=== PATIENT | male | born 1955 | race Caucasian/White ===

== ENCOUNTER 2016-07-22 05:38 | Day surgery (SDC) | payer OTHER ==
[2016-07-21 10:21] VITALS: BMI 41.3
[~2016-07-22] VITALS: Ht 190.5 cm; Wt 170.6 kg
[2016-07-22] VITALS (9 sets, daily range): BP systolic 100–147; BP diastolic 42–83; PULSE 92–107; RESP 16–38; Ht 190.5 cm; Wt 170.6 kg
[~2016-07-22 05:38] MED LIST: ADV25050 INH; ALBU18HF IH; ASPI-664 PO; ATOR20TA38 PO; BACTDS PO; BENA10TA48 PO; BUPIVACAINE 0.5% (MPF) 30 ML INJ EPI ONE; BUPIVACAINE 0.5% 30 ML VIAL INJ ONE; FLUT12HF IH; FURO40TA4 PO; GABA-526 PO; LACT1CAP57 PO; LANT3I SC; LISI-523 PO; METF500T PO; NOVO3I SC; RIVA10TA PO; TAMS-14 PO; THIA100T56 PO; TRAZ50TA18 PO; [UNRECOGNIZED DRUG - CODE] TOP; [UNRECOGNIZED DRUG - CODE] TOP
[2016-07-22] MEDS ORDERED: CEFAZOLIN 1 GM INJ ONE (07:00)
[2016-07-22] MEDS ORDERED: PROPOFOL 200 MG INJ ONE (07:00)
[2016-07-22] MEDS ORDERED: CEFAZOLIN 2 GM/50 ML (PMX) 50 ML IVPB SCH (07:00)
[2016-07-22] MEDS ORDERED: LIDOCAINE 1% (STERILE-PAK) 30 ML INJ ONE (07:12)
--- NOTE | 2016-07-22 07:17 | HPN ---
Date/Time of Note Date/Time of Note DATE: 07/22/16 TIME: 07:16 Interval H&P Admission Note Pt. seen H&P reviewed: No system changes LUZ KRISHNAN MD Jul 22, 2016 07:17
[2016-07-22] MEDS ORDERED: FENTAnyl 50 MCG/ML VIAL ONE ×3 (07:29→09:44)
--- NOTE | 2016-07-22 07:55 | PDOCDIS ---
Discharge Instructions DIAGNOSIS Discharge Diagnosis: RLE VENOUS INSUFFICIENCY CONDITION Patient Condition: Good HOME CARE INSTRUCTIONS: Diet Instructions: Reduced Calorie ACTIVITY: Activity Restrictions: Slowly Increase Activity Avoid heavy lifting Do not Drive Do not operate Machinery Do not operate Power Tool Avoid Heavy Housework Keep Limb Elevated Activity Restrictions Comment: MAY SHOWER IN 72 HOURS FOLLOW UP/APPOINTMENTS Appointments FOLLOWUP IN TWO WEEKS AT [facility] WITH EULOGIO MAY REMOVE THE ACEWRAP DRESSING IN 48HRS MAY SHOWER IN 48HOURS, DO NOT REMOVE STERISTRIPS AND ALLOW THEM TO COME OFF ON THEIR OWN THERE WILL BE A GLUE IN THE RIGHT GROIN, NO NEED TO SCRUB IT OFF IT WILL PEEL AWAY ON ITS OWN OVER 2-3 WEEKS COURSE LUZ KRISHNAN MD Jul 22, 2016 07:55
[2016-07-22] MEDS ORDERED: THROMBIN 5000 UNIT VIAL TOP ONE (08:17)
[2016-07-22] MEDS ORDERED: BUPIVACAINE 0.5% 30 ML VIAL INJ ONE (08:17)
[2016-07-22] MEDS ORDERED: LIDOCAINE 1% (MPF) 30 ML INJ INJ ONE (08:17)
[2016-07-22] MEDS ORDERED: GELATIN SIZE 100 SPONGE ONE (08:30)
[2016-07-22] MEDS ORDERED: METOCLOPRAMIDE 10 MG INJ IV PRN (08:30)
[2016-07-22] MEDS ORDERED: ONDANSETRON 4 MG INJ IV PRN (08:30)
[2016-07-22] MEDS ORDERED: FENTAnyl 50 MCG/ML VIAL IV PRN ×2 (08:30)
[2016-07-22] MEDS ORDERED: HYDROmorphONE (0.2 MG/ML) 10ML SYG IV PRN ×3 (08:30)
[2016-07-22] MEDS ORDERED: BUPIVACAINE 0.5% (SDV) 30 ML INJ ONE ×2 (08:30→09:50)
[2016-07-22] MEDS ORDERED: THROMBIN 5000 UNIT VIAL ONE (08:31)
--- NOTE | 2016-07-23 23:04 | OPR ---
Date/Time of Note Date/Time of Note DATE: 07/23/16 TIME: 23:01 Operative Report Free Text/Dictation DATE OF OPERATION: 07/22/2016 SURGEON: Franck Krishnan MD PREOPERATIVE DIAGNOSIS: Right lower extremity venous insufficiency with right leg large varicose veins POSTOPERATIVE DIAGNOSIS: same PROCEDURE: 1. Left greater saphenous vein ligation and stripping 2. Stab phlebectomies x10 ANESTHESIA: MAC & local COMPLICATIONS: None. ESTIMATED BLOOD LOSS: Minimal. TRANSFUSIONS: None SPECIMEN: None. INDICATIONS: This is a 60-year-old morbidly obese and noncompliant male with a history of chronic venous insufficiency with left leg varicose veins associated with pruritus, discomfort and pain The risks and benefits of the procedure were discussed with the patient and not limited to , [place], pneumonia, stroke, infection, thrombosis of vein and she elected to undergo surgical intervention. DESCRIPTION: The patient was placed in supine position on the operating room table. The arms were placed at 80 degrees. The normal bony prominences were padded. The anesthesia team had placed the appropriate lines and anesthesia was induced. Time-out performed and the appropriate site was marked and confirmed. The patient's left lower extremity was already marked in the holding area with the areas of varicosities. The extremity was prepped and draped in the usual standard sterile fashion. Preoperative antibiotics were administered prior to the skin incision. All varicosities were pre-marked in the surgery holding area. Primary incision was then made in the right inguinal crease overlying the saphenofemoral junction. This was identified as being 1 cm medial and 1 cm inferior to the femoral artery pulse. The subcutaneous tissue was divided with electrocautery. The greater saphenous vein was identified and traced proximally towards the saphenofemoral junction. Multiple venous tributaries were divided with a 3-0 silk ligatures. The greater saphenous vein was doubly ligated at its origin with a 2-0 silk ligature. The distal ligature was not tied however it was left in. A second incision was made a few centimeters below the knee. The subcutaneous tissue was divided and the saphenous vein was identified, then encircled proximally and distally with 3-0 silk ties. This time the distal ligature was secured and the proximal LigaSure left in position. Care was taken to avoid injury to the saphenous nerve. A small transverse venotomy was created with a # 11 blade. The stripping wire was inserted and passed proximally towards the groin without difficulty. The greater saphenous vein was then divided completely at the groin, allowing the vein stripping wire to exit. Prior to removal of the stripping wire was secured at both ends with a 2-0 silk ties that has been left in position. The greater saphenous vein was then stripped from distal to proximal with pressure being exerted as the vein was stripped. At this point hemostasis was controlled by elevation and pressure. Small incisions approximately 2-4 mm, were created over the preoperative marked areas using a #11 blade. A small jesus hook and mosquito hemostat was used to avulse these veins. Veins were then pulled both proximally and distally. After hemostasis was obtained the wounds are irrigated copiously. The wound and the groin was closed in multiple layers with a 3-0 Vicryl Sutures Followed by Running 4-0 Subcuticular Stitch. Wounds Were the Stab Avulsions Occurred Were Closed with Steri-Strips. The Wound at the Below-Knee Incision Was Closed with a 4-0 Vicryl Suture. Steri-Strips Were Applied. All Wounds Were Sterilely Dressed with Gauze. Multiple 1cm stab incisions were made using #15 blade after injecting 1% lidocaine for local anesthesia. Short Reny clamp was used to dissect out the varicosities and stripping was performed in more than ten different areas that were marked preoperatively. Incisions were closed using 3-0 Vicryl sutures. Mastisol and steri strips were applied.Then Doubly Applied 6 Inch Stephan Bandage Was Placed on the Lower Leg Beginning at the Toes All the Way up to the Upper Thigh. The Patient Tolerated the Procedure Well and Was taken to the Postanesthesia Care Unit in Stable Condition. All instruments, catheters, sponges, and needles were corrected x2. FRANCK KRISHNAN MD Jul 23, 2016 23:04
== END 2016-07-22 11:39 | disposition home or self-care (01) ==
LOC: SDS 05:38
PROVIDERS: ATTEND Student in an Organized Health Care Education/Training Program
DX: I83.891 Varicose veins of right lower extremity with other complications (principal); I10 Essential (primary) hypertension; E11.9 Type 2 diabetes mellitus without complications; E78.5 Hyperlipidemia, unspecified; J44.9 Chronic obstructive pulmonary disease, unspecified
CPT/HCPCS: 37765; 82962; 88304; J0690; J3010; Z7512; Z7610

== ENCOUNTER 2016-07-26 02:44 | Inpatient (IN) | payer OTHER ==
[~2016-07-26] VITALS: Ht 190.5 cm; Wt 171.0 kg
[~2016-07-26 02:44] MED LIST changes: -BUPIVACAINE 0.5% (MPF) 30 ML INJ EPI ONE; -BUPIVACAINE 0.5% 30 ML VIAL INJ ONE
[2016-07-26 02:50] VITALS: Ht 190.5 cm; Wt 171.0 kg
--- NOTE | 2016-07-26 03:32 | ERA ---
ER Documentation Chief Complaint Date/Time DATE: 07/26/16 TIME: 03:31 Chief Complaint sob x 3 days. difficulty swallowing. s/p vein "stripping" 4 days ago HPI The patient is a 60-year-old male, presenting to the ER because of acute dyspnea for the last 4 days, sore throat for 2 days, chronic cough. He complains of right lower extremity swollen and redness for the last 3 days after he had varicosis vein surgery 4 days ago. He denies fever, chills, neck pain, chest pain, abdominal pain, vomiting, dysuria, diarrhea. He used to smoke until about a year ago, denies drinking Past medical history: Dyslipidemia, asthma, hypertension, BPH, history of CHF, atrial fibrillation, COPD, diabetes mellitus, depression, varicosis vein Past surgical history: None ROS All systems reviewed and are negative except as per history of present illness. Medications Home Meds Active Scripts Sulfamethoxazole-Trimethoprim* (Bactrim* DS) 800-160 Mg Tab, 1 TAB PO BID for 5 Days, #10 TAB Prov:ASHANTI WHITLEY MD 05/28/16 Tolnaftate* (Tolnaftate*) 1% Cr, 1 APPLIC TOP DAILY for 10 Days, #10 2 Refills Prov:ASHANTI WHITLEY MD 05/28/16 Thiamine* (Vitamin B-1*) 100 Mg Tablet, 100 MG PO DAILY for 30 Days, #30 TAB 2 Refills Prov:ASHANTI WHITLEY MD 05/28/16 Neomycin/Polymyxin/Bacitr/Hc* (Cortisporin* Topical) 15 Gm Oint, 1 APPLIC TOP BID for 20 Days, #20 2 Refills Prov:ASHANTI WHITLEY MD 05/28/16 Metformin Hcl (Glucophage) 500 Mg Tablet, 1000 MG PO BID WITH MEALS for 30 Days , #30 TAB 3 Refills Prov:ASHANTI WHITLEY MD 05/28/16 Lactobacillus Rhamnosus* (Culturelle*) 1 Each Cap.sprink, 1 CAP PO BID for 14 Days, #30 CAP Prov:ASHANTI WHITLEY MD 05/28/16 Insulin Glargine* (Lantus*) 100 Unit/Ml Soln, 40 UNIT SC QPM for 10 Days, #10 2 Refills Prov:ASHANTI WHITLEY MD 05/28/16 Insulin Aspart* (Novolog Insulin Pen*) 100 Unit/Ml Soln, 15 UNIT SC WITH MEALS for 10 Days, #14 1 Refill Prov:ASHANTI WHITLEY MD 05/28/16 Furosemide* (Furosemide*) 40 Mg Tablet, 40 MG PO BID DIURETICS for 7 Days, #15 TAB Prov:ASHANTI WHITLEY MD 05/28/16 Lisinopril* (Zestril*) 5 Mg Tab, 5 MG PO DAILY for 30 Days, TAB Prov:BELGICA RODRIGUEZ NP 08/31/15 Reported Medications Salmeterol Xinaf-Fluticasone* (Advair HFA*) 45/212 Aerosol Inhaler, 2 INH IH BID , #1 INHALER 07/21/16 Trazodone Hcl* (Trazodone Hcl*) 50 Mg Tablet, 50 MG PO QHS Y for SLEEP, #30 TAB 07/21/16 Gabapentin* (Gabapentin*) 600 Mg Tablet, 600 MG PO TID Y for PAIN, #90 TAB 07/21/16 Atorvastatin Calcium* (Atorvastatin Calcium*) 20 Mg Tablet, 20 MG PO QHS, #30 TAB 07/21/16 Benazepril Hcl* (Benazepril Hcl*) 10 Mg Tablet, 10 MG PO DAILY, #30 TAB 07/21/16 Rivaroxaban* (Xarelto*) 10 Mg Tablet, 10 MG PO QHS, TAB 05/22/16 Albuterol Sulfate* (Ventolin HFA*) 18 Gm Hfa.aer.ad, 2 PUFF IH Q4H Y for WHEEZING AND RESP DISTRESS, EA 07/21/14 Aspirin* (Aspirin* (EC)) 81 Mg Tablet.dr, 81 MG PO DAILY, TAB 07/21/14 Salmeterol Xinaf/Fluticasone* (Advair*) 250-50 Diskus Inhaler, 1 INH INH BID, INH 07/21/14 Tamsulosin Hcl* (Flomax*) 0.4 Mg Cap.er.24h, 0.4 MG PO DAILY, CAP 07/21/14 Discontinued Reported Medications Escitalopram Oxalate* (Lexapro*) 10 Mg Tablet, 10 MG PO DAILY, #30 TAB 05/22/16 Atorvastatin Calcium (Atorvastatin Calcium) 10 Mg Tablet, 10 MG PO QHS, #30 TAB 05/22/16 Buspirone Hcl* (Buspirone Hcl*) 10 Mg Tab, 10 MG PO BID, TAB 07/21/14 Allergies Allergies: Coded Allergies: Soap (Verified Allergy, Mild, 06/19/16) RASH povidone-iodine (Verified Allergy, Mild, 06/19/16) RASH iodine (Verified Allergy, Unknown, 07/21/16) PMhx/Soc History of Surgery: Yes (spleen, lung surg, right shoulder, righ hip, multiple hernia, left foot) Anesthesia Reaction: No Hx Neurological Disorder: No Hx Respiratory Disorders: Yes (stated he was at a hospital and they said he has COPD doesnt treat at home) Hx Cardiac Disorders: Yes (HTN, high cholest) Hx Psychiatric Problems: No Hx Miscellaneous Medical Probl: No Hx Alcohol Use: Yes (social) Hx Substance Use: No Hx Tobacco Use: No Smoking Status: Former smoker Physical Exam Vitals Vital Signs Date Time Temp Pulse Resp B/P Pulse Ox O2 Delivery O2 Flow Rate FiO2 07/26/16 03:57 Nasal Cannula 2 07/26/16 03:50 106 22 91 21 07/26/16 02:50 99.1 117 20 158/69 92 Physical Exam Const: No acute distress. Head: Atraumatic. Eyes: Normal Conjunctiva. ENT: Normal External Ears, Nose and Mouth. Neck: Full range of motion. No meningismus. Resp: Bilateral expiratory wheezes, tachypneic Cardio: Irregularly irregular tachycardic. Abd: Soft, non distended, normal bowel sounds, non tender. Skin: No petechiae or rashes. Back: No midline or flank tenderness. Ext: No cyanosis, or edema. Neur: Awake and alert. No focal deficit Psych: Normal Mood and Affect. Result Diagram: 07/26/16 0354 07/26/16 0354 Results 24 hrs Laboratory Tests Test 07/26/16 03:54 07/26/16 05:47 Activated Partial Thromboplast Time 29.7Sec Alanine Aminotransferase (ALT/SGPT) 30IU/L Albumin 3.7g/dl Albumin/Globulin Ratio 1.42 Alkaline Phosphatase 220IU/L Anion Gap 18 Aspartate Amino Transf (AST/SGOT) 27IU/L B-Type Natriuretic Peptide 83PG/ML Basophils # 0.110^3/ul Basophils % 0.5% Blood Urea Nitrogen 33mg/dl Calcium Level 9.7mg/dl Carbon Dioxide Level 28mmol/L Chloride Level 99mmol/L Creatinine 0.89mg/dl Direct Bilirubin 0.00mg/dl Eosinophils # 0.310^3/ul Eosinophils % 1.7% Globulin 2.60g/dl Glucose Level 498mg/dl Hematocrit 44.7% Hemoglobin 14.1g/dl INR International Normalized Ratio 0.89 Indirect Bilirubin 0.0mg/dl Lymphocytes # 3.110^3/ul Lymphocytes % 20.9% Mean Corpuscular Hemoglobin 29.0pg Mean Corpuscular Hemoglobin Concent 31.5g/dl Mean Corpuscular Volume 92.0fl Mean Platelet Volume 11.2fl Monocytes # 1.510^3/ul Monocytes % 10.1% Neutrophils # 9.910^3/ul Neutrophils % 66.1% Nucleated Red Blood Cells # 0.010^3/ul Nucleated Red Blood Cells % 0.0/100WBC Platelet Count 64285^3/UL Potassium Level 5.1mmol/L Prothrombin Time 12.0Sec Prothrombin Time Ratio 0.9 Red Blood Count 4.8610^6/ul Red Cell Distribution Width 13.3% Sodium Level 140mmol/L Total Bilirubin 0.0mg/dl Total Protein 6.3g/dl Troponin I 0.018ng/ml White Blood Count 15.010^3/ul Bedside Glucose 392mg/dL Current Medications Medications (Trade) Dose Ordered Sig/Wilder Route PRN Reason Start Time Stop Time Status Last Admin Dose Admin Promethazine HCl/ Codeine (Phenergan/ Codeine) 10 ml ONCE ONCE PO 07/26/16 04:00 07/26/16 04:01 DC 07/26/16 04:10 Levalbuterol (Xopenex Neb) 1.25 mg ONCE ONCE HHN 07/26/16 04:00 07/26/16 04:01 DC 07/26/16 03:49 Ipratropium [place] 0.5 mg 0.5 mg ONCE ONCE HHN 07/26/16 04:00 07/26/16 04:01 DC 07/26/16 03:49 Levofloxacin/ Dextrose 150 ml @ 100 mls/hr ONCE ONCE IVPB 07/26/16 04:30 07/26/16 05:59 07/26/16 04:41 Vancomycin HCl (Vancocin) 250 ml @ 125 mls/hr ONCE IVPB 07/26/16 04:30 07/26/16 06:29 Methylprednisolone Sodium Succinate (Solu-Medrol) 125 mg ONCE ONCE IV 07/26/16 04:30 07/26/16 04:31 DC 07/26/16 04:41 Insulin Human Lispro (Humalog) 14 unit ONCE ONCE SC 07/26/16 05:14 07/26/16 05:15 DC 07/26/16 05:50 IV Flush (NS 3 ml) 3 ml PER PROTOCOL IV 07/26/16 06:00 Lorazepam (Ativan) 0.5 mg Q6H PRN IV ANXIETY 07/26/16 06:00 Ondansetron HCl (Zofran Inj) 4 mg Q6H PRN IV NAUSEA AND/OR VOMITING 07/26/16 06:00 Nitroglycerin (Nitroglycerin (Sl Tab) 0.4 Mg) 1 tab Q5M PRN SL CHEST PAIN 07/26/16 06:00 Acetaminophen (Tylenol Tab) 650 mg Q6H PRN PO PAIN LEVEL 1-3 OR FEVER 07/26/16 06:00 Acetaminophen/ Hydrocodone Bitart ([place] (5/325)) 1 tab Q6H PRN PO PAIN LEVEL 4-6 07/26/16 06:00 Morphine Sulfate (morphine) 2 mg Q4H PRN IV PAIN LEVEL 7-10 07/26/16 06:00 Docusate Sodium (Colace) 100 mg Q12H PRN PO CONSTIPATION 07/26/16 06:00 Famotidine (Pepcid) 20 mg Q12 PO 07/26/16 09:00 Albuterol/ Ipratropium (Duoneb) 3 ml Q2H RESP THERAPY PRN HHN SHORTNESS OF BREATH 07/26/16 06:00 Insulin Aspart (Novolog Insulin Pen) NOVOLOG *MILD* ALGORITHM WITH MEALS BEDTIME SC 07/26/16 08:00 Miscellaneous Information (* Miscellaneous Pharmacy Order) HYPOGLYCEMIA PROTOCOL w... ONCE ONCE XX 07/26/16 06:00 07/26/16 06:01 UNV Miscellaneous Information (* Miscellaneous Pharmacy Order) Discontinue Glyburide, Glipizide,... ONCE ONCE XX 07/26/16 06:00 07/26/16 06:01 UNV Miscellaneous Information (* Miscellaneous Pharmacy Order) Discontinue all previ... ONCE ONCE XX 07/26/16 06:00 07/26/16 06:01 UNV Aspirin (Halfprin) 81 mg DAILY PO 07/26/16 09:00 Atorvastatin Calcium (Lipitor) 20 mg QHS PO 07/26/16 21:00 Benazepril HCl (Lotensin) 10 mg DAILY PO 07/26/16 09:00 Furosemide (Lasix) 40 mg BID DIURETICS PO 07/26/16 06:00 Gabapentin (Neurontin) 600 mg TID PRN PO PAIN 07/26/16 06:00 Insulin Aspart (Novolog Insulin Pen) 15 unit WITH MEALS SC 07/26/16 08:00 UNV Insulin Glargine (Lantus) 40 unit QPM SC 07/26/16 21:00 UNV Lactobacillus Acidophilus/ Rhamnosus (Culturelle) 1 cap BID PO 07/26/16 09:00 UNV Lisinopril (Zestril) 5 mg DAILY PO 07/26/16 09:00 UNV Neomycin/ Polymyxin/Bacitr/ Hydrocort (Cortisporin Topical Oint) 1 applic BID TOP 07/26/16 09:00 UNV Rivaroxaban (Xarelto) 10 mg QHS PO 07/26/16 21:00 UNV Salmeterol Xinafoate/ Fluticasone (Advair 250/50 Diskus) 1 inh BID INH 07/26/16 09:00 UNV Tamsulosin HCl (Flomax) 0.4 mg DAILY PO 07/26/16 09:00 UNV Thiamine HCl (Vitamin B1) 100 mg DAILY PO 07/26/16 09:00 UNV Tolnaftate (Tolnaftate 1% Cr) 1 applic DAILY TOP 07/26/16 09:00 UNV Trazodone HCl (Desyrel) 50 mg QHS PRN PO SLEEP 07/26/16 06:00 UNV Miscellaneous Information 2 inh BID IH 07/26/16 09:00 UNV Prednisone 60 mg 60 mg DAILY PO 07/26/16 09:00 UNV Levofloxacin/ Dextrose (Levaquin 500mg/ D5W 100 ml (Pmx)) 100 ml @ 100 mls/hr Q24H IVPB 07/27/16 06:00 Vancomycin HCl (Vanco Iv Per Pharmacy) VANCOMYCIN PER PHARMACY PER PROTOCOL XX 07/26/16 06:00 UNV Procedures/MDM EKG: Read by emergency physician Rate/Rhythm: Sinus tachycardia 110 beats/min QRS, ST, T-waves: No ST elevation, no T inversion, right bundle branch block Impression: Abnormal EKG [place] [id number] Radiology Main Line: [phone] DIAGNOSTIC IMAGING REPORT Patient: AIMEE RODRIGUEZ : 1955 Age: 60 Sex: M MR #: [id number] DOS: 07/26/16 0339 Ordering MD: LEXY QUINTANA MD Location: E/R Room/Bed: PROCEDURE: CHEST - 1 VIEW CLINICAL INDICATION: 60-year-old male with shortness of breath. TECHNIQUE: A single frontal AP a view of the chest was performed portably. The images were reviewed on a PACS workstation. COMPARISON: Chest x-ray May 22, 2016. FINDINGS: The cardiomediastinal silhouette is enlarged but without significant interval change. There is mild pulmonary vascular congestion. There is a shallow inspiration. There is bilateral lower lung zone subsegmental atelectasis. There is no evidence for focal consolidation. There is no evidence for pneumothorax. There are multiple old left rib fracture deformities present. IMPRESSION: 1. Cardiomegaly. 2. Mild pulmonary vascular congestion. 3. Shallow inspiration. 4. Bilateral lower lung zone subsegmental atelectasis. 5. Multiple old left rib fracture deformities. .Joe Vazquez MD, MD Date Time Electronically viewed and signed by .Joe Vazquez MD, on 07/26/2016 04:20 .M/ CC: LEXY QUINTANA MD MEDICAL MAKING DECISION: The patient is a 70-year-old male, presenting with acute COPD exacerbation, acute right lower extremity cellulitis, acute diabetic hyperglycemia. The differential diagnoses considered include but are not limited to asthma, COPD, pneumonia, pulmonary embolus, pleural effusion, congestive heart failure, DKA, HHS. He was treated with 10 mL Phenergan with codeine for sore throat, Xopenex 1.25 mg and Atrovent 0.5 mg nebulizer for wheezing, Levaquin IV and vancomycin IV and Solu-Medrol 125 mg IV for acute COPD exacerbation and acute right leg cellulitis, Humalog 14 units subcutaneously for acute diabetic hyperglycemia Critical Care: Time: 35 minutes excluding all billable procedures. Treatments/Evaluations: Close monitoring and treatment of unstable vital signs, cardiorespiratory, and neurologic status, while maintaining tight balance of fluid, respiratory, and cardiac interventions. Departure Diagnosis: Primary Impression: COPD exacerbation Additional Impressions: Cellulitis of right leg Diabetes mellitus with hyperglycemia Condition: Stable Comments I discussed the findings with the patient. I discussed the patient with the on- call hospitalist Dr Tellez. who was made aware of the lab, the treatment, the patient condition. The patient is admitted to telemetry at 4:45 AM LEXY QUINTANA MD Jul 26, 2016 03:32
[2016-07-26] MEDS ORDERED: PROMETHAZINE/CODEINE 5ML CUP PO ONE (04:00)
[2016-07-26] MEDS ORDERED: LEVALBUTEROL (NEB) 1.25 MG/0.5 ML AMP HHN ONE (04:00)
[2016-07-26] MEDS ORDERED: IPRATROPIUM (NEB) 0.5 MG/2.5 ML AMP HHN ONE (04:00)
[2016-07-26 04:10] LABS: ADD SCAN DIFF NO
[2016-07-26 04:13] LABS: ABNORMAL IP MESSAGE 1; BASOPHIL # 0.1 10^3/ul (0.0-0.1); BASOPHILS % 0.5 % (0.0-2.0); EOSINOPHILS # 0.3 10^3/ul (0.0-0.5); EOSINOPHILS % 1.7 % (0.0-7.0); HEMATOCRIT 44.7 % (42.0-52.0); HEMOGLOBIN 14.1 g/dl (14.0-18.0); LYMPHOCYTES # 3.1 10^3/ul (0.8-2.9); LYMPHOCYTES % 20.9 % (15.0-51.0); MEAN CORPUSCULAR HGB CONC 31.5 g/dl (32.0-37.0); MEAN PLATELET VOLUME 11.2 fl (7.4-10.4); MONOCYTE # 1.5 10^3/ul (0.3-0.9); MONOCYTES % 10.1 % (0.0-11.0); NEUTROPHIL # 9.9 10^3/ul (1.6-7.5); NEUTROPHILS % 66.1 % (39.0-77.0); PLATELET COUNT 292 10^3/UL (140-415); RED BLOOD COUNT 4.86 10^6/ul (4.70-6.10); RED CELL DISTRIBUTION WIDTH 13.3 % (11.5-14.5)
--- NOTE | 2016-07-26 04:20 | RADRPT ---
PROCEDURE: CHEST - 1 VIEW CLINICAL INDICATION: 60-year-old male with shortness of breath. TECHNIQUE: A single frontal AP a view of the chest was performed portably. The images were review ed on a PACS workstation. COMPARISON: Chest x-ray May 22, 2016. FINDINGS: The cardiomediastinal silhouette is enlarged but without significant interval change. There is mild pulmonary vascular congestion. There is a shallow inspiration. There is bilateral lower lung zone subsegmental atelectasis. There is no evidence for focal consolidation. There is no evidence for pneumothorax. There are multiple old left rib fracture deformities present. IMPRESSION: 1. Cardiomegaly. 2. Mild pulmonary vascular congestion. 3. Shallow inspiration. 4. Bilateral lower lung zone subsegmental atelectasis. 5. Multiple old left rib fracture deformities. .Joe Vazquez MD, Date Time Electronically viewed and signed by .Joe Vazquez MD, on 07/26/2016 04:20 .M/
[2016-07-26 04:25] LABS: INR 0.89; PT RATIO 0.9
[2016-07-26 04:26] LABS: PARTIAL THROMBOPLASTIN TIME 29.7 Sec (25.0-35.0)
[2016-07-26] MEDS ORDERED: LEVOFLOXACIN 750MG/D5W (PMX) 150 ML IVPB ONE (04:30)
[2016-07-26] MEDS ORDERED: METHYLPREDNISOLONE 125 MG INJ IV ONE (04:30)
[2016-07-26] MEDS ORDERED: VANCOMYCIN 1 GM (PMX) 250 ML IVPB SCH (04:30)
[2016-07-26 04:46] LABS: ALBUMIN 3.7 g/dl (3.3-4.9)
[2016-07-26 04:47] LABS: POTASSIUM 5.1 mmol/L (3.5-5.1)
[2016-07-26 04:49] LABS: ALBUMIN/GLOBULIN RATIO 1.42; CREATININE 0.89 mg/dl (0.61-1.24); TOTAL PROTEIN 6.3 g/dl (6.1-8.1)
[2016-07-26 04:50] LABS: CALCIUM 9.7 mg/dl (8.4-10.2)
[2016-07-26 05:02] LABS: TROPONIN-I 0.018 ng/ml (0.00-0.12)
[2016-07-26] MEDS ORDERED: INSULIN LISPRO 100 UNIT/ML VIAL SC ONE (05:14)
[2016-07-26] MEDS ORDERED: GLUCOSE GEL 15 GRAM TUBE BUCCAL PRN (06:00)
[2016-07-26] MEDS ORDERED: GLUCOSE GEL 15 GRAM TUBE PO PRN ×2 (06:00)
[2016-07-26] MEDS ORDERED: VANCOMYCIN IV PER PHARMACY XX SCH (06:00)
[2016-07-26] MEDS ORDERED: GLUCAGON 1 MG INJ IM PRN (06:00)
[2016-07-26] MEDS ORDERED: GABAPENTIN 300 MG CAP PO PRN (06:00)
[2016-07-26] MEDS ORDERED: NACL 0.9% 3 ML SYG IV SCH (06:00)
[2016-07-26] MEDS ORDERED: HYDROCODONE/APAP (5/325) TAB PO PRN (06:00)
[2016-07-26] MEDS ORDERED: DEXTROSE 50% 50 ML SYRINGE IV PRN ×2 (06:00)
[2016-07-26] MEDS ORDERED: DOCUSATE SODIUM 100 MG CAP PO PRN (06:00)
[2016-07-26] MEDS ORDERED: ONDANSETRON 4 MG INJ IV PRN (06:00)
[2016-07-26] MEDS ORDERED: ALBUTEROL/IPRATROPIUM (NEB) 3 ML AMP HHN PRN (06:00)
[2016-07-26] MEDS ORDERED: LORAZEPAM 2 MG INJ IV PRN (06:00)
[2016-07-26] MEDS ORDERED: ACETAMINOPHEN 325 MG TAB PO PRN (06:00)
[2016-07-26] MEDS ORDERED: NITROGLYCERIN (SL) 0.4 MG TAB SL PRN (06:00)
[2016-07-26] MEDS ORDERED: traZODone 50 MG TAB PO PRN (06:00)
--- NOTE | 2016-07-26 06:04 | HP ---
Date/Time of Note Date/Time of Note DATE: 07/26/16 TIME: 05:52 Assessment/Plan VTE Prophylaxis VTE Prophylaxis Intervention: other (xarelto) Assessment/Plan Assessment/Plan 60 yo male with a past medical history of CHF diastolic dysfunction, Afib on xarelto, type II DM with neuropathy, essential hypertension, PVD with recent right lower vein stripping 07/22/16, depression, obesity, who came in for shortness of breath. 1. Acute on chronic hypoxemix respiratory failure 2/2 COPD exac - will admit the patient to telemetry, consult pulmonology, duonebs, po steroids, levaquin, supplemental O2, wean as tolerated 2. Right lower extremity cellulitis - IV antibiotics, consult vasc surgery, monitor acute changes 3. Leukocytosis 2/2 to #1/2 - monitor trend 4. Acute renal failure - 2/2 dehydration, renally adjust medications, avoid nephrotoxins 5. Type II DM - uncontrolled - hgba1c, ISS, lantus/novolog, CCD diet 6. Atrial fibrillation - rate controlled - c/w xarelto 7. CHF diastolic dysfunction - chronic - lasix scheduled 8. Diabetic neuropathy - c/w neurontin 9. Essential Hypertension - c/w lisinopril, hydralazine prn for SBP >160 10. Depression - SSRI 11. PVD - see #2 12. morbid Obesity - nutrition c/s 13. GI ppx - pepcid po 14. DVT ppx - xarelto answered all of his questions, as per clinical course. this history and physical took greater then 45 minutes to complete HPI/ROS Admit Date/Time Admit Date/Time 07/26/2016, 5:52 am Hx of Present Illness 60 yo male with a past medical history of CHF diastolic dysfunction, Afib on xarelto, type II DM with neuropathy, essential hypertension, PVD with recent right lower vein stripping 07/22/16, depression, obesity, who came in for shortness of breath. He states that over the last 3 days he has had worsening shortness of breath since his procedure, with PND. They had given him local anesthesia for right peripheral vein stripping. Since that time, he has sore throat with dyspnea. He also complains of right lower extremity pain and erythema that has progressively gotten worse, especially around his inner thigh. Denies any chest pain, loss of consciousness, fevers/chills, nausea/ vomiting/diarrhea/constipation, headaches, recent travel, or other constitutional symptoms. Does not use supplemental oxygen at home. ED course: duonebs, vanc, solu-medrol, insulin ROS 14 point review of systems completed, please refer to HPI for any positive findings PMH/Family/Social Past Medical History atrial fibrillation, obesity, depression Medical History: congestive heart failure, diabetes, hypertension Past Surgical History right leg vein stripping, splenectomy, ablation, left hip surgery Family History Significant Family History: diabetes, hypertension Social History Alcohol Use: none Smoking Status: Former smoker Drug Use: none Exam/Review of Systems Vital Signs Vitals Vital Signs Date Time Temp Pulse Resp B/P Pulse Ox O2 Delivery O2 Flow Rate FiO2 07/26/16 03:57 Nasal Cannula 2 07/26/16 03:50 106 22 91 21 07/26/16 02:50 99.1 158/69 Exam Exam Gen Ubaldo: mild to moderate respiratory distress, AAOx4, morbidly obese male HEENT: NC/AT, PERRLA, EOMI, no pharyngeal erythema, no tonsillar exudates, no lymphadenopathy, no JVD, no carotid bruits NECK: supple, no thyromegaly THORAX: symmetrical, no obvious deformities CV: S1S2, RRR, no M/G/R Lungs: CTAB no W/C/R/R Abd: soft, NT/ND, +BS, no rebound, no guarding, neg HSM EXT: no edema, no ecchymosis, no clubbing, FROM Neuro: CN II-XII grossly intact, no focal deficits Psych: good mentation, alert and oriented, good mood and affect Skin: C/D/I Labs Result Diagram: 07/26/16 0354 07/26/16 0354 Medications Medications Current Medications Levofloxacin/ Dextrose 150 ml @ 100 mls/hr ONCE ONCE IVPB Last administered on 07/26/16t 04:41; Admin Dose 100 MLS/HR; Start 07/26/16 at 04:30; Stop at 05:59 Vancomycin HCl (Vancocin) 250 ml @ 125 mls/hr ONCE IVPB ; Start 07/26/16 at 04: 30; Stop 07/26/16 at 06:29 Procedures Procedures CXR IMPRESSION: 1. Cardiomegaly. 2. Mild pulmonary vascular congestion. 3. Shallow inspiration. 4. Bilateral lower lung zone subsegmental atelectasis. 5. Multiple old left rib fracture deformities. CHARITY SPENCE MD Jul 26, 2016 06:03
[2016-07-26] MEDS ORDERED: VANCOMYCIN 2 GM in SOD CHLORIDE 0.9% 500 ML IVPB SCH (07:00)
[2016-07-26 07:04] LABS: CHOL/HDL RATIO 4.2 RATIO; MAGNESIUM 1.7 mg/dl (1.7-2.5)
[2016-07-26] MEDS: INSULIN ASPART [NOVOLOG] 3 ML PEN SC SCH ×7 (08:00→21:17)
[2016-07-26] MEDS: FUROSEMIDE 40 MG TAB PO SCH ×2 (08:22→18:09)
[2016-07-26] MEDS: morphine 2 MG INJ IV PRN ×4 (08:34→23:07)
[2016-07-26 08:56] LABS: TROPONIN-I 0.023 ng/ml (0.00-0.12)
[2016-07-26] MEDS ORDERED: BENAZEPRIL 10 MG TAB PO SCH (09:00)
[2016-07-26] MEDS: TOLNAFTATE TOP SCH (09:00)
[2016-07-26] MEDS ORDERED: NON-FORMULARY/PATIENT OWN MED (Salmeterol Xinaf-Fluticasone* (Advair HFA*) 2 INH) IH SCH (09:00)
[2016-07-26] MEDS ORDERED: LISINOPRIL 5 MG TAB PO SCH (09:00)
[2016-07-26] MEDS ORDERED: predniSONE 20 MG TAB PO SCH (09:00)
[2016-07-26 09:13] LABS: CK-MB 2.23 ng/ml (0.0-2.4)
[2016-07-26] MEDS: LACTOBACILLUS RHAMNOSUS CAP PO SCH ×2 (09:13→13:19)
[2016-07-26] MEDS: TAMSULOSIN (SR) 0.4 MG CAP PO SCH ×2 (09:13→21:07)
[2016-07-26] MEDS: ASPIRIN (EC) 81 MG TAB PO SCH (09:14)
[2016-07-26] MEDS: THIAMINE 100 MG TAB PO SCH (09:14)
[2016-07-26] MEDS: FAMOTIDINE 20 MG TAB PO SCH ×2 (09:20→21:07)
[2016-07-26 09:22] LABS: THYROID STIMULATING HORMONE 1.09 MIU/L (0.465-4.680)
[2016-07-26 14:26] LABS: CREATINE KINASE 152 IU/L (23-200)
[2016-07-26] MEDS: SALMETEROL/FLUTICASONE 250/50 INHA INH SCH ×2 (15:00→21:07)
[2016-07-26 16:18] LABS: CK-MB 2.62 ng/ml (0.0-2.4); TROPONIN-I < 0.012 ng/ml (0.00-0.12)
[2016-07-26 16:57] VITALS: PULSE 108
[2016-07-26] MEDS ORDERED: INSULIN ASPART [NOVOLOG] 3 ML PEN SC SCH (17:00)
[2016-07-26] MEDS ORDERED: hydrALAzine 20 MG INJ IV PRN (18:30)
[2016-07-26] MEDS: HYDROCHLOROTHIAZIDE 25 MG TAB PO SCH (18:32)
[2016-07-26] MEDS: SOD CHLORIDE 0.9% 1,000 ML IV SCH (18:33)
[2016-07-26 20:00] VITALS: BP 132/58; PULSE 106; RESP 18
[2016-07-26 20:25] VITALS: PULSE 106
[2016-07-26] MEDS: RIVAROXABAN 10 MG TABLET PO SCH (21:00)
[2016-07-26] MEDS: ATORVASTATIN 20 MG TAB PO SCH (21:07)
[2016-07-26] MEDS: NEOMYC/POLYMYX/BACIT/HC 15 GM OINT TOP SCH (21:08)
[2016-07-26] MEDS: VANCOMYCIN 1.5 GM in SOD CHLORIDE 0.9% 250 ML IVPB SCH (22:27)
[2016-07-26] MEDS: INSULIN GLARGINE [LANtus] 3 ML PEN SC SCH (22:34)
[2016-07-27] VITALS (12 sets, daily range): BP systolic 116–149; BP diastolic 58–72; PULSE 76–105; RESP 18–21
[2016-07-27] MEDS: ACCUCHECK XX SCH (00:59)
[2016-07-27] MEDS ORDERED: INSULIN ASPART [NOVOLOG] 3 ML PEN SC ONE (04:30)
[2016-07-27] MEDS: LEVOFLOXACIN 500MG/D5W (PMX) 100 ML IVPB SCH (05:07)
[2016-07-27] MEDS: FUROSEMIDE 40 MG TAB PO SCH ×2 (05:08→18:10)
[2016-07-27] MEDS: SOD CHLORIDE 0.9% 1,000 ML IV SCH (06:02)
[2016-07-27] MEDS: morphine 2 MG INJ IV PRN ×4 (06:02→20:39)
[2016-07-27 06:06] LABS: ADD SCAN DIFF NO
[2016-07-27 06:09] LABS: ABNORMAL IP MESSAGE 1; BASOPHIL # 0.1 10^3/ul (0.0-0.1); BASOPHILS % 0.3 % (0.0-2.0); EOSINOPHILS % 0.1 % (0.0-7.0); HEMATOCRIT 43.2 % (42.0-52.0); HEMOGLOBIN 13.7 g/dl (14.0-18.0); LYMPHOCYTES % 20.1 % (15.0-51.0); MEAN CORPUSCULAR HEMOGLOBIN 29.4 pg (29.0-33.0); MEAN CORPUSCULAR HGB CONC 31.7 g/dl (32.0-37.0); MEAN CORPUSCULAR VOLUME 92.7 fl (82.0-101.0); MONOCYTE # 1.8 10^3/ul (0.3-0.9); MONOCYTES % 9.2 % (0.0-11.0); NEUTROPHIL # 13.8 10^3/ul (1.6-7.5); NEUTROPHILS % 69.5 % (39.0-77.0); PLATELET COUNT 276 10^3/UL (140-415); RED BLOOD COUNT 4.66 10^6/ul (4.70-6.10); RED CELL DISTRIBUTION WIDTH 13.8 % (11.5-14.5); WHITE BLOOD COUNT 19.9 10^3/ul (4.8-10.8)
[2016-07-27 06:19] LABS: POTASSIUM 4.8 mmol/L (3.5-5.1)
[2016-07-27 06:22] LABS: CREATININE 0.81 mg/dl (0.61-1.24)
[2016-07-27 06:23] LABS: CALCIUM 8.7 mg/dl (8.4-10.2)
[2016-07-27] MEDS: INSULIN ASPART [NOVOLOG] 3 ML PEN SC SCH ×7 (08:24→20:41)
[2016-07-27] MEDS: TOLNAFTATE TOP SCH (09:00)
[2016-07-27] MEDS: THIAMINE 100 MG TAB PO SCH (09:38)
[2016-07-27] MEDS: HYDROCHLOROTHIAZIDE 25 MG TAB PO SCH (09:39)
[2016-07-27] MEDS: LACTOBACILLUS RHAMNOSUS CAP PO SCH ×2 (09:39→20:30)
[2016-07-27] MEDS: ASPIRIN (EC) 81 MG TAB PO SCH (09:40)
[2016-07-27] MEDS: LISINOPRIL 20 MG TAB PO SCH (09:40)
[2016-07-27] MEDS: FAMOTIDINE 20 MG TAB PO SCH ×2 (09:41→20:30)
[2016-07-27] MEDS: NEOMYC/POLYMYX/BACIT/HC 15 GM OINT TOP SCH ×2 (09:41→20:30)
[2016-07-27] MEDS: SALMETEROL/FLUTICASONE 250/50 INHA INH SCH ×2 (09:41→20:30)
--- NOTE | 2016-07-27 10:47 | PN ---
Date/Time of Note Date/Time of Note DATE: 07/27/16 TIME: 10:44 Assessment/Plan VTE Prophylaxis VTE Prophylaxis Intervention: other (xarelto ) Lines/Catheters IV Catheter Type (from Nrs): Peripheral IV Urinary Cath still in place: No Assessment/Plan Assessment/Plan 1. Acute on chronic hypoxemix respiratory failure 2/2 COPD exac on IV abx levaquin, prenisone, Duoneb 2. Right lower extremity cellulitis - IV antibiotics 3. Leukocytosis 2/2 to #1/2 - monitor trend 4. Acute renal failure - 2/2 dehydration, renally adjust medications, avoid nephrotoxins 5. Type II DM - uncontrolled - hgba1c, ISS, lantus/novolog, CCD diet 6. Atrial fibrillation - rate controlled - c/w xarelto 7. CHF diastolic dysfunction - chronic - lasix scheduled 8. Diabetic neuropathy - c/w neurontin 9. Essential Hypertension - c/w lisinopril, hydralazine prn for SBP >160 10. Depression - SSRI 11. PVD - see #2 12. morbid Obesity - nutrition c/s 13. GI ppx - pepcid po 14. DVT ppx - xarelto Subjective 24 Hr Interval Summary Free Text/Dictation Blood sugar has been in 400-500s, BP stable,cr normal, pt is on Room air Exam/Review of Systems Vital Signs Vitals Vital Signs Date Time Temp Pulse Resp B/P Pulse Ox O2 Delivery O2 Flow Rate FiO2 07/27/16 08:12 77 07/27/16 07:41 97.4 21 134/65 94 07/27/16 04:16 Nasal Cannula 3.0 07/26/16 03:50 21 Intake and Output 07/26/16 07/26/16 07/27/16 15:00 23:00 07:00 Intake Total 650 ml 600 ml Output Total 700 ml Balance 650 ml -100 ml Exam HEENT: [place] NECK: supple, no thyromegaly THORAX: symmetrical, no obvious deformities CV: S1S2, RRR, no M/G/R Lungs: bilateral basilar wheezing+ Abd: soft, NT/ND, +BS, no rebound, no guarding, neg HSM EXT: no edema, no ecchymosis, no clubbing, FROM Neuro: CN II-XII grossly intact, no focal deficits Results Result Diagram: 07/27/16 0552 07/27/16 0552 Results 24 hrs Laboratory Tests Test 07/26/16 12:49 07/26/16 15:30 07/26/16 15:40 07/26/16 17:45 Bedside Glucose 340 H 468 *H 406 *H Creatine Kinase 152 Creatine Kinase Index 1.7 Creatinine Kinase MB (Mass) 2.62 H Troponin I < 0.012 Test 07/26/16 19:37 07/27/16 04:11 07/27/16 05:52 07/27/16 08:04 Bedside Glucose 349 H 427 *H 322 H Anion Gap 18 H Basophils # 0.1 Basophils % 0.3 Blood Urea Nitrogen 31 H Calcium Level 8.7 Carbon Dioxide Level 28 Chloride Level 97 Creatinine 0.81 Eosinophils # 0.0 Eosinophils % 0.1 Glucose Level 353 H Hematocrit 43.2 Hemoglobin 13.7 L Lymphocytes # 4.0 H Lymphocytes % 20.1 Mean Corpuscular Hemoglobin 29.4 Mean Corpuscular Hemoglobin Concent 31.7 L Mean Corpuscular Volume 92.7 Mean Platelet Volume 11.0 H Monocytes # 1.8 H Monocytes % 9.2 Neutrophils # 13.8 H Neutrophils % 69.5 Nucleated Red Blood Cells # 0.0 Nucleated Red Blood Cells % 0.0 Platelet Count 276 Potassium Level 4.8 Red Blood Count 4.66 L Red Cell Distribution Width 13.8 Sodium Level 138 White Blood Count 19.9 #H Medications Medications Current Medications Lorazepam (Ativan) 0.5 mg Q6H PRN IV ANXIETY; Start 07/26/16 at 06:00 Ondansetron HCl (Zofran Inj) 4 mg Q6H PRN IV NAUSEA AND/OR VOMITING; Start at 06:00 Nitroglycerin (Nitroglycerin (Sl Tab) 0.4 Mg) 1 tab Q5M PRN SL CHEST PAIN; Start 07/26/16 at 06:00 Acetaminophen (Tylenol Tab) 650 mg Q6H PRN PO PAIN LEVEL 1-3 OR FEVER; Start at 06:00 Acetaminophen/ Hydrocodone Bitart ([place] (5/325)) 1 tab Q6H PRN PO PAIN LEVEL 4 -6; Start 07/26/16 at 06:00 Morphine Sulfate (morphine) 2 mg Q4H PRN IV PAIN LEVEL 7-10 Last administered on 07/27/16 06:02; Admin Dose 2 MG; Start 07/26/16 at 06:00 Docusate Sodium (Colace) 100 mg Q12H PRN PO CONSTIPATION; Start 07/26/16 at 06: 00 Famotidine (Pepcid) 20 mg Q12 PO Last administered on 07/27/16 09:41; Admin Dose 20 MG; Start 07/26/16 at 09:00 Aspirin (Halfprin) 81 mg DAILY PO Last administered on 07/27/16 09:40; Admin Dose 81 MG; Start 07/26/16 at 09:00 Atorvastatin Calcium (Lipitor) 20 mg QHS PO Last administered on 07/26/16 21: 07; Admin Dose 20 MG; Start 07/26/16 at 21:00 Gabapentin (Neurontin) 600 mg TID PRN PO PAIN Last administered on 07/26/16 13 :18; Admin Dose 600 MG; Start 07/26/16 at 06:00 Insulin Glargine (Lantus) 40 unit QPM SC Last administered on 07/26/16 22:34; Admin Dose 40 UNIT; Start 07/26/16 at 21:00 Lactobacillus Acidophilus/ Rhamnosus (Culturelle) 1 cap BID PO Last administered on 07/27/16 09:39; Admin Dose 1 CAP; Start 07/26/16 at 09:00 Neomycin/ Polymyxin/Bacitr/ Hydrocort (Cortisporin Topical Oint) 1 applic BID TOP Last administered on 07/27/16 09:41; Admin Dose 1 APPLIC; Start 07/26/16 at 09:00 Rivaroxaban (Xarelto) 10 mg QHS PO ; Start 07/26/16 at 21:00 Salmeterol Xinafoate/ Fluticasone (Advair 250/50 Diskus) 1 inh BID INH Last administered on 07/27/16 09:41; Admin Dose 1 INH; Start 07/26/16 at 09:00 Tamsulosin HCl (Flomax) 0.4 mg DAILY@21 PO Last administered on 07/26/16 21:07 ; Admin Dose 0.4 MG; Start 07/26/16 at 09:00 Thiamine HCl (Vitamin B1) 100 mg DAILY PO Last administered on 07/27/16 09:38 ; Admin Dose 100 MG; Start 07/26/16 at 09:00 Tolnaftate (Tolnaftate 1% Cr) 1 applic DAILY TOP ; Start 07/26/16 at 09:00 Trazodone HCl (Desyrel) 50 mg QHS PRN PO SLEEP; Start 07/26/16 at 06:00 Miscellaneous Information 2 inh 2 inh BID IH ; Start 07/26/16 at 09:00; Status UNV Levofloxacin/ Dextrose (Levaquin 500mg/ D5W 100 ml (Pmx)) 100 ml @ 100 mls/hr Q24H IVPB Last administered on 07/27/16 05:07; Admin Dose 100 MLS/HR; Start at 06:00 Miscellaneous Information 1 ea NOTE XX ; Start 07/26/16 at 06:00 Glucose (Glutose) 15 gm Q15M PRN PO DECREASED GLUCOSE; Start 07/26/16 at 06:00 Glucose (Glutose) 22.5 gm Q15M PRN PO DECREASED GLUCOSE; Start 07/26/16 at 06: 00 Dextrose (D50w Syringe) 25 ml Q15M PRN IV DECREASED GLUCOSE; Start 07/26/16 at 06:00 Dextrose (D50w Syringe) 50 ml Q15M PRN IV DECREASED GLUCOSE; Start 07/26/16 at 06:00 Glucagon (Glucagen) 1 mg Q15M PRN IM DECREASED GLUCOSE; Start 07/26/16 at 06:00 Glucose 15 gm 15 gm Q15M PRN BUCCAL DECREASED GLUCOSE; Start 07/26/16 at 06:00 Vancomycin HCl/ Sodium Chloride (Vancocin/NS) 250 ml @ 83.333 mls/ hr Q12H IVPB Last administered on 07/26/16 22:27; Admin Dose 83.333 MLS/HR; Start at 20:00 Lisinopril (Zestril) 40 mg DAILY PO Last administered on 07/27/16 09:40; Admin Dose 40 MG; Start 07/27/16 at 09:00 Hydralazine HCl (Apresoline) 10 mg Q6H PRN IV sbp>160mmhg; Start 07/26/16 at 18 :30 Hydrochlorothiazide (Hydrochlorothiazide) 25 mg DAILY PO Last administered on 09:39; Admin Dose 25 MG; Start 07/26/16 at 18:30 Diagnostic Test (Pha) (Accucheck) 1 ea 02 XX Last administered on 07/27/16t 00: 59; Admin Dose 1 EA; Start 07/27/16 at 02:00 LUCIA WICK MD Jul 27, 2016 10:47
[2016-07-27] MEDS ORDERED: INSULIN GLARGINE [LANtus] 3 ML PEN SC ONE (11:00)
[2016-07-27] MEDS: VANCOMYCIN 1.5 GM in SOD CHLORIDE 0.9% 250 ML IVPB SCH ×2 (11:38→22:43)
[2016-07-27] MEDS: ATORVASTATIN 20 MG TAB PO SCH (20:30)
[2016-07-27] MEDS: TAMSULOSIN (SR) 0.4 MG CAP PO SCH (20:31)
[2016-07-27] MEDS: INSULIN GLARGINE [LANtus] 3 ML PEN SC SCH (20:42)
[2016-07-27] MEDS: RIVAROXABAN 10 MG TABLET PO SCH (20:56)
[2016-07-28] MEDS: morphine 2 MG INJ IV PRN ×6 (00:57→22:04)
[2016-07-28] MEDS: ACCUCHECK XX SCH (01:39)
[2016-07-28] MEDS: LEVOFLOXACIN 500MG/D5W (PMX) 100 ML IVPB SCH (05:04)
[2016-07-28] MEDS: FUROSEMIDE 40 MG TAB PO SCH ×2 (05:11→17:20)
[2016-07-28 05:15] VITALS: BP 119/68; PULSE 79
[2016-07-28 06:05] LABS: ADD SCAN DIFF NO
[2016-07-28 06:16] LABS: ABNORMAL IP MESSAGE 1; BASOPHIL # 0.1 10^3/ul (0.0-0.1); BASOPHILS % 0.5 % (0.0-2.0); EOSINOPHILS # 0.2 10^3/ul (0.0-0.5); EOSINOPHILS % 1.4 % (0.0-7.0); HEMATOCRIT 46.8 % (42.0-52.0); HEMOGLOBIN 14.6 g/dl (14.0-18.0); LYMPHOCYTES # 6.9 10^3/ul (0.8-2.9); MEAN CORPUSCULAR HEMOGLOBIN 28.7 pg (29.0-33.0); MEAN CORPUSCULAR HGB CONC 31.2 g/dl (32.0-37.0); MEAN CORPUSCULAR VOLUME 91.9 fl (82.0-101.0); MEAN PLATELET VOLUME 10.9 fl (7.4-10.4); MONOCYTE # 1.4 10^3/ul (0.3-0.9); MONOCYTES % 8.6 % (0.0-11.0); NEUTROPHILS % 47.6 % (39.0-77.0); PLATELET COUNT 313 10^3/UL (140-415); RED BLOOD COUNT 5.09 10^6/ul (4.70-6.10); RED CELL DISTRIBUTION WIDTH 13.8 % (11.5-14.5); WHITE BLOOD COUNT 16.7 10^3/ul (4.8-10.8)
[2016-07-28 06:56] LABS: POTASSIUM 4.4 mmol/L (3.5-5.1)
[2016-07-28 06:58] LABS: CREATININE 0.98 mg/dl (0.61-1.24)
[2016-07-28 06:59] LABS: CALCIUM 9.5 mg/dl (8.4-10.2)
[2016-07-28] MEDS: INSULIN ASPART [NOVOLOG] 3 ML PEN SC SCH ×7 (08:45→19:50)
[2016-07-28] MEDS: THIAMINE 100 MG TAB PO SCH (08:57)
[2016-07-28] MEDS: ASPIRIN (EC) 81 MG TAB PO SCH (08:57)
[2016-07-28] MEDS: LACTOBACILLUS RHAMNOSUS CAP PO SCH ×2 (08:58→19:49)
[2016-07-28] MEDS: FAMOTIDINE 20 MG TAB PO SCH ×2 (08:58→19:49)
[2016-07-28] MEDS: NEOMYC/POLYMYX/BACIT/HC 15 GM OINT TOP SCH ×2 (08:58→19:48)
[2016-07-28] MEDS: SALMETEROL/FLUTICASONE 250/50 INHA INH SCH ×2 (08:58→19:47)
[2016-07-28] MEDS: TOLNAFTATE TOP SCH (09:00)
[2016-07-28] MEDS: HYDROCHLOROTHIAZIDE 25 MG TAB PO SCH (09:03)
[2016-07-28] MEDS: LISINOPRIL 20 MG TAB PO SCH (09:04)
[2016-07-28 10:43] LABS: INR 1.07; PROTIME 13.9 Sec (12.2-14.2); PT RATIO 1.1
[2016-07-28] MEDS: VANCOMYCIN 1.5 GM in SOD CHLORIDE 0.9% 250 ML IVPB SCH ×2 (12:10→22:59)
--- NOTE | 2016-07-28 16:46 | PN ---
Date/Time of Note Date/Time of Note DATE: 07/28/16 TIME: 16:45 Assessment/Plan Lines/Catheters IV Catheter Type (from Nrsg): Saline Lock Cuellar in Place (from Nrsg): No Assessment/Plan Chief Complaint/Hosp Course SP Phlebectomy RLE minimal swelling would elevate the leg ambulate FU as out pt Problems: Subjective 24 Hr Interval Summary Constitutional: improved Pain Control: mild Exam/Review of Systems Vital Signs Vitals Vital Signs Date Time Temp Pulse Resp B/P Pulse Ox O2 Delivery O2 Flow Rate FiO2 07/28/16 05:15 79 119/68 07/27/16 20:00 97.3 19 90 07/27/16 18:17 Nasal Cannula 07/27/16 04:16 3.0 07/26/16 03:50 21 Intake and Output 07/27/16 07/27/16 07/28/16 15:00 23:00 07:00 Intake Total 700 ml 1070 ml Balance 700 ml 1070 ml Exam Neck: non-tender, supple Respiratory: clear to auscultation, normal air movement Cardiovascular: nl pulses, regular rate and rhythm Gastrointestinal: nl liver, spleen, non-tender, soft Results Result Diagram: 07/28/16 0515 07/28/16 0515 TG COVARRUBIAS MD Jul 28, 2016 16:46
--- NOTE | 2016-07-28 17:19 | PN ---
Date/Time of Note Date/Time of Note DATE: 07/28/16 TIME: 17:17 Assessment/Plan VTE Prophylaxis VTE Prophylaxis Intervention: other Lines/Catheters IV [facility] Type ([facility] Saline Lock Urinary Cath still in place: No Assessment/Plan Chief Complaint/Hosp Course 1. Acute on chronic hypoxemix respiratory failure 2/2 COPD exac on IV abx levaquin, prenisone, Duoneb-Improved 2. Right lower extremity swelling 2/2 recent vein stripping -Dr Deutsch consult appreciated, elevate leg 3. Leukocytosis 2/2 to #1/2 - monitor trend 4. Acute renal failure - 2/2 dehydration, renally adjust medications, avoid nephrotoxins 5. Type II DM - uncontrolled - hgba1c at 11.2 -ISS, lantus/novolog, CCD diet 6. Atrial fibrillation - rate controlled - c/w xarelto 7. CHF diastolic dysfunction - chronic - lasix scheduled 8. Diabetic neuropathy - c/w neurontin 9. Essential Hypertension - c/w lisinopril, hydralazine prn for SBP >160 10. Depression - SSRI 11. PVD - see #2 12. morbid Obesity - nutrition c/s 13. GI ppx - pepcid po 14. DVT ppx - xarelto Dispo-Likely DC in AM Problems: Subjective 24 Hr Interval Summary Musculoskeletal: swelling (in the leg) Exam/Review of Systems Vital Signs Vitals Vital Signs Date Time Temp Pulse Resp B/P Pulse Ox O2 Delivery O2 Flow Rate FiO2 07/28/16 05:15 79 119/68 07/27/16 20:00 97.3 19 90 07/27/16 18:17 Nasal Cannula 07/27/16 04:16 3.0 07/26/16 03:50 21 Intake and Output 07/27/16 07/27/16 07/28/16 15:00 23:00 07:00 Intake Total 700 ml 1070 ml Balance 700 ml 1070 ml Exam Constitutional: alert Respiratory: clear to auscultation Cardiovascular: regular rate and rhythm Gastrointestinal: soft, No distended Musculoskeletal: No nl extremities to inspection Results Result Diagram: 07/28/16 0515 07/28/16 0515 Results 24 hrs Laboratory Tests Test 07/27/16 18:00 07/27/16 20:38 07/28/16 01:36 07/28/16 05:15 Bedside Glucose 132 197 230 H Anion Gap 13 Basophils # 0.1 Basophils % 0.5 Blood Urea Nitrogen 36 H Calcium Level 9.5 Carbon Dioxide Level 35 H Chloride Level 96 L Creatinine 0.98 Eosinophils # 0.2 Eosinophils % 1.4 Glucose Level 229 #H Hematocrit 46.8 Hemoglobin 14.6 Lymphocytes # 6.9 H Lymphocytes % 41.0 Mean Corpuscular Hemoglobin 28.7 L Mean Corpuscular Hemoglobin Concent 31.2 L Mean Corpuscular Volume 91.9 Mean Platelet Volume 10.9 H Monocytes # 1.4 H Monocytes % 8.6 Neutrophils # 8.0 H Neutrophils % 47.6 Nucleated Red Blood Cells # 0.0 Nucleated Red Blood Cells % 0.0 Platelet Count 313 Potassium Level 4.4 Red Blood Count 5.09 Red Cell Distribution Width 13.8 Sodium Level 140 White Blood Count 16.7 H Test 07/28/16 07:32 07/28/16 10:00 07/28/16 11:28 07/28/16 16:30 Bedside Glucose 236 H 257 H 282 H Activated Partial Thromboplast Time 32.0 INR International Normalized Ratio 1.07 Prothrombin Time 13.9 Prothrombin Time Ratio 1.1 Vancomycin Level Trough 12.6 Medications Medications Current Medications Lorazepam (Ativan) 0.5 mg Q6H PRN IV ANXIETY; Start 07/26/16 at 06:00 Ondansetron HCl (Zofran Inj) 4 mg Q6H PRN IV NAUSEA AND/OR VOMITING; Start at 06:00 Nitroglycerin (Nitroglycerin (Sl Tab) 0.4 Mg) 1 tab Q5M PRN SL CHEST PAIN; Start 07/26/16 at 06:00 Acetaminophen (Tylenol Tab) 650 mg Q6H PRN PO PAIN LEVEL 1-3 OR FEVER; Start at 06:00 Acetaminophen/ Hydrocodone Bitart ([place] (5/325)) 1 tab Q6H PRN PO PAIN LEVEL 4 -6; Start 07/26/16 at 06:00 Morphine Sulfate (morphine) 2 mg Q4H PRN IV PAIN LEVEL 7-10 Last administered on 07/28/16t 13:45; Admin Dose 2 MG; Start 07/26/16 at 06:00 Docusate Sodium (Colace) 100 mg Q12H PRN PO CONSTIPATION; Start 07/26/16 at 06: 00 Famotidine (Pepcid) 20 mg Q12 PO Last administered on 07/28/16 08:58; Admin Dose 20 MG; Start 07/26/16 at 09:00 Aspirin (Halfprin) 81 mg DAILY PO Last administered on 07/28/16 08:57; Admin Dose 81 MG; Start 07/26/16 at 09:00 Atorvastatin Calcium (Lipitor) 20 mg QHS PO Last administered on 07/27/16 20: 30; Admin Dose 20 MG; Start 07/26/16 at 21:00 Gabapentin (Neurontin) 600 mg TID PRN PO PAIN Last administered on 07/26/16 13 :18; Admin Dose 600 MG; Start 07/26/16 at 06:00 Insulin Glargine (Lantus) 40 unit QPM SC Last administered on 07/27/16 20:42; Admin Dose 40 UNIT; Start 07/26/16 at 21:00 Lactobacillus Acidophilus/ Rhamnosus (Culturelle) 1 cap BID PO Last administered on 07/28/16 08:58; Admin Dose 1 CAP; Start 07/26/16 at 09:00 Neomycin/ Polymyxin/Bacitr/ Hydrocort (Cortisporin Topical Oint) 1 applic BID TOP Last administered on 07/28/16 08:58; Admin Dose 1 APPLIC; Start 07/26/16 at 09:00 Rivaroxaban (Xarelto) 10 mg QHS PO Last administered on 07/27/16 20:56; Admin Dose 10 MG; Start 07/26/16 at 21:00 Salmeterol Xinafoate/ Fluticasone (Advair 250/50 Diskus) 1 inh BID INH Last administered on 07/28/16 08:58; Admin Dose 1 INH; Start 07/26/16 at 09:00 Tamsulosin HCl (Flomax) 0.4 mg DAILY@21 PO Last administered on 07/27/16 20:31 ; Admin Dose 0.4 MG; Start 07/26/16 at 09:00 Thiamine HCl (Vitamin B1) 100 mg DAILY PO Last administered on 07/28/16 08:57 ; Admin Dose 100 MG; Start 07/26/16 at 09:00 Tolnaftate (Tolnaftate 1% Cr) 1 applic DAILY TOP Last administered on 09:00; Admin Dose 1 APPLIC; Start 07/26/16 at 09:00 Trazodone HCl 50 mg 50 mg QHS PRN PO SLEEP; Start 07/26/16 at 06:00 Levofloxacin/ Dextrose (Levaquin 500mg/ D5W 100 ml (Pmx)) 100 ml @ 100 mls/hr Q24H IVPB Last administered on 07/28/16 05:04; Admin Dose 100 MLS/HR; Start at 06:00 Miscellaneous Information 1 ea NOTE XX ; Start 07/26/16 at 06:00 Glucose (Glutose) 15 gm Q15M PRN PO DECREASED GLUCOSE; Start 07/26/16 at 06:00 Glucose (Glutose) 22.5 gm Q15M PRN PO DECREASED GLUCOSE; Start 07/26/16 at 06: 00 Dextrose (D50w Syringe) 25 ml Q15M PRN IV DECREASED GLUCOSE; Start 07/26/16 at 06:00 Dextrose (D50w Syringe) 50 ml Q15M PRN IV DECREASED GLUCOSE; Start 07/26/16 at 06:00 Glucagon (Glucagen) 1 mg Q15M PRN IM DECREASED GLUCOSE; Start 07/26/16 at 06:00 Glucose (Glutose) 15 gm Q15M PRN BUCCAL DECREASED GLUCOSE; Start 07/26/16 at 06 :00 Lisinopril (Zestril) 40 mg DAILY PO Last administered on 07/28/16 09:04; Admin Dose 40 MG; Start 07/27/16 at 09:00 Hydralazine HCl (Apresoline) 10 mg Q6H PRN IV sbp>160mmhg; Start 07/26/16 at 18 :30 Hydrochlorothiazide (Hydrochlorothiazide) 25 mg DAILY PO Last administered on 09:03; Admin Dose 25 MG; Start 07/26/16 at 18:30 Diagnostic Test (Pha) 1 ea 1 ea 02 XX Last administered on 07/28/16 01:39; Admin Dose 1 EA; Start 07/27/16 at 02:00 Vancomycin HCl/ Sodium Chloride (Vancocin/NS) 250 ml @ 83.333 mls/ hr Q12H IVPB Last administered on 07/28/16 12:10; Admin Dose 83.333 MLS/HR; Start at 23:00 MALIHA MCKEON Jul 28, 2016 17:19
[2016-07-28 17:21] VITALS: BP 137/64; PULSE 95
[2016-07-28] MEDS: RIVAROXABAN 10 MG TABLET PO SCH (19:49)
[2016-07-28] MEDS: INSULIN GLARGINE [LANtus] 3 ML PEN SC SCH (19:49)
[2016-07-28] MEDS: TAMSULOSIN (SR) 0.4 MG CAP PO SCH (19:49)
[2016-07-28] MEDS: ATORVASTATIN 20 MG TAB PO SCH (19:49)
[2016-07-28 21:17] VITALS: BP 117/68; RESP 20
[2016-07-29] MEDS: morphine 2 MG INJ IV PRN ×4 (02:12→14:54)
[2016-07-29] MEDS: ACCUCHECK XX SCH (02:15)
[2016-07-29] MEDS: LEVOFLOXACIN 500MG/D5W (PMX) 100 ML IVPB SCH (05:41)
[2016-07-29] MEDS: FUROSEMIDE 40 MG TAB PO SCH ×2 (05:45→17:36)
[2016-07-29 05:47] LABS: ADD SCAN DIFF NO
[2016-07-29 05:48] VITALS: BP 115/58; PULSE 87
[2016-07-29 05:51] LABS: ABNORMAL IP MESSAGE 1; BASOPHIL # 0.1 10^3/ul (0.0-0.1); BASOPHILS % 0.7 % (0.0-2.0); EOSINOPHILS # 0.2 10^3/ul (0.0-0.5); EOSINOPHILS % 1.4 % (0.0-7.0); HEMATOCRIT 48.5 % (42.0-52.0); HEMOGLOBIN 15.4 g/dl (14.0-18.0); LYMPHOCYTES # 6.1 10^3/ul (0.8-2.9); LYMPHOCYTES % 35.5 % (15.0-51.0); MEAN CORPUSCULAR HEMOGLOBIN 28.9 pg (29.0-33.0); MEAN CORPUSCULAR HGB CONC 31.8 g/dl (32.0-37.0); MEAN CORPUSCULAR VOLUME 91.2 fl (82.0-101.0); MONOCYTE # 1.6 10^3/ul (0.3-0.9); MONOCYTES % 9.6 % (0.0-11.0); NEUTROPHIL # 8.7 10^3/ul (1.6-7.5); NEUTROPHILS % 51.3 % (39.0-77.0); PLATELET COUNT 339 10^3/UL (140-415); RED BLOOD COUNT 5.32 10^6/ul (4.70-6.10); RED CELL DISTRIBUTION WIDTH 13.5 % (11.5-14.5)
[2016-07-29 06:18] LABS: POTASSIUM 4.6 mmol/L (3.5-5.1)
[2016-07-29 06:20] LABS: CREATININE 0.95 mg/dl (0.61-1.24)
[2016-07-29 06:21] LABS: CALCIUM 9.6 mg/dl (8.4-10.2); MAGNESIUM 1.7 mg/dl (1.7-2.5); PHOSPHORUS 3.9 mg/dl (2.5-4.9)
[2016-07-29 08:00] VITALS: BP 131/60; PULSE 85; RESP 19
[2016-07-29] MEDS: INSULIN ASPART [NOVOLOG] 3 ML PEN SC SCH ×6 (08:36→17:36)
[2016-07-29] MEDS: LACTOBACILLUS RHAMNOSUS CAP PO SCH (08:37)
[2016-07-29] MEDS: ASPIRIN (EC) 81 MG TAB PO SCH (08:37)
[2016-07-29] MEDS: LISINOPRIL 20 MG TAB PO SCH (08:37)
[2016-07-29] MEDS: SALMETEROL/FLUTICASONE 250/50 INHA INH SCH (08:37)
[2016-07-29] MEDS: HYDROCHLOROTHIAZIDE 25 MG TAB PO SCH (08:37)
[2016-07-29] MEDS: FAMOTIDINE 20 MG TAB PO SCH (08:37)
[2016-07-29] MEDS: NEOMYC/POLYMYX/BACIT/HC 15 GM OINT TOP SCH (08:38)
[2016-07-29] MEDS: THIAMINE 100 MG TAB PO SCH (08:38)
[2016-07-29] MEDS ORDERED: TOLNAFTATE TOP SCH (08:49)
[2016-07-29] MEDS: VANCOMYCIN 1.5 GM in SOD CHLORIDE 0.9% 250 ML IVPB SCH (11:23)
--- NOTE | 2016-07-29 14:36 | PDOCDIS ---
Discharge Instructions CONDITION Patient Condition: Good HOME CARE INSTRUCTIONS: Special Diet: 1800 steven ADA ACTIVITY: Activity Restrictions: No Restrictions FOLLOW UP/APPOINTMENTS Appointments F/U WITH YOUR PCP IN 1-2 WEEKS MALIHA MCKEON Jul 29, 2016 14:35
--- NOTE | 2016-07-29 16:26 | DS ---
DATE OF ADMISSION: 07/26/2016 DATE OF DISCHARGE: 07/29/2016 DISCHARGE DIAGNOSES: 1. Chronic obstructive pulmonary disease exacerbation, now resolved. 2. Right lower extremity swelling secondary to edema status post recent vein stripping, now improve d with leg elevation. 3. Type 2 diabetes, poorly controlled. Patient met with tobacco educator to improve his complianc e and demonstration of insulin. 4. Leukocytosis, possibly secondary to chronic lower extremity infection versus stress reaction, st able. Continue Bactrim upon discharge. 5. Morbid obesity. Patient advised on lifestyle changes. 6. Peripheral vascular disease. 7. Hypertension. Continue home medications. HOSPITAL COURSE: The patient is a 60-year-old male with a history of morbid obesity, hypertension a nd diabetes, requiring insulin. The patient has a history of noncompliance. The patient has a hist ory of lymphedema from his underlying obesity, he had a recent vein stripping by Dr. Cuevas. The patient did have redness in his lower extremity. He has been on Bactrim. He did receive vancomyci n during his hospitalization. The patient came in with COPD exacerbation. He did receive antibioti cs and also breathing treatments as needed. The patient's COPD did stabilize. He was seen by a hadley cam educator who advised patient on proper use of his insulin, which appears that he was not using appropriately. The patient was seen by Dr. Deutsch for followup after the vein stripping, as th e patient did have some lower extremity swelling. He did elevate his leg, then the swelling did imp rove. The patient was felt to be stable for discharge. On day of discharge, the patient's vitals, labs, physical exam were stable, no acute complaints, and questions were answered. CONDITION ON DISCHARGE: Stable. DISPOSITION: To home. MEDICATIONS: The patient is to continue his usual home medications. No new medications were prescr ibed. FOLLOWUP: The patient is to follow up with his PCP in 1 to 2 weeks. I spent 30 minutes coordinating discharge of this patient. Dictated By: MALIHA MCKEON MD BS/NTS Conf#: [id number] DID#: [id number]
== END 2016-07-29 18:17 | disposition home or self-care (01) | DRG 190 ==
LOC: E/R 02:44 → TEL 04:52 → PP2 07-27 17:41
PROVIDERS: ADMIT Student in an Organized Health Care Education/Training Program; ATTEND Student in an Organized Health Care Education/Training Program
DX: J44.1 Chronic obstructive pulmonary disease with (acute) exacerbation (principal); J96.21 Acute and chronic respiratory failure with hypoxia; N17.9 Acute kidney failure, unspecified; L03.115 Cellulitis of right lower limb; I11.0 Hypertensive heart disease with heart failure; I50.32 Chronic diastolic (congestive) heart failure; Z68.42 Body mass index [BMI] 45.0-49.9, adult; E11.40 Type 2 diabetes mellitus with diabetic neuropathy, unspecified; I10 Essential (primary) hypertension; F32.9 Major depressive disorder, single episode, unspecified; I48.91 Unspecified atrial fibrillation; E66.01 Morbid (severe) obesity due to excess calories; I73.9 Peripheral vascular disease, unspecified; E78.5 Hyperlipidemia, unspecified; E11.65 Type 2 diabetes mellitus with hyperglycemia; Z79.4 Long term (current) use of insulin
CPT/HCPCS: 36415; 71010; 80048; 80053; 80061; 80202; 82550; 82553; 82962; 83036; 83735; 83880; 84100; 84443; 84484; 85025; 85610; 85730; 93005; 94664; 96365; 96366; 96368; 96372; 96375; 96376; J1815; J1956; J2270; J2930; J3370; J7030; J7040; J7050; J7512

== ENCOUNTER 2016-10-03 20:00 | Inpatient (IN) | payer OTHER ==
[~2016-10-03] VITALS: Ht 188 cm; Wt 170.0 kg
[2016-10-03 20:33] VITALS: Ht 188 cm; Wt 170.0 kg
[2016-10-03] MEDS ORDERED: LANT3I SC (21:00)
[2016-10-03] MEDS ORDERED: INSU100I12 SQ (21:01)
[2016-10-03] MEDS ORDERED: THIA100T56 PO (21:02)
[2016-10-03] MEDS ORDERED: FURO40TA4 PO (21:03)
[2016-10-03] MEDS ORDERED: ALBUTEROL 0.083% (NEB) 2.5 MG/3 ML AMP INH STA (21:04)
[2016-10-03] MEDS ORDERED: IPRATROPIUM (NEB) 0.5 MG/2.5 ML AMP INH STA (21:04)
[2016-10-03 21:34] LABS: Allen Test ACCEPTAB; MODE NASAL CANNULA; MetHgb Venous 0.4 %; Sample Type Blood venous; Venous COHb 0.6 %; Venous Fraction OxyHgb 88.6 %; Venous Total Hemglobin 15.1 g/dl
[2016-10-03 21:37] LABS: ADD SCAN DIFF NO
[2016-10-03 21:40] LABS: ABNORMAL IP MESSAGE 1; BASOPHIL # 0.1 10^3/ul (0.0-0.1); BASOPHILS % 0.4 % (0.0-2.0); EOSINOPHILS # 0.2 10^3/ul (0.0-0.5); EOSINOPHILS % 1.3 % (0.0-7.0); HEMATOCRIT 45.8 % (42.0-52.0); HEMOGLOBIN 14.1 g/dl (14.0-18.0); LYMPHOCYTES # 3.7 10^3/ul (0.8-2.9); LYMPHOCYTES % 22.2 % (15.0-51.0); MEAN CORPUSCULAR HEMOGLOBIN 28.8 pg (29.0-33.0); MEAN CORPUSCULAR HGB CONC 30.8 g/dl (32.0-37.0); MEAN CORPUSCULAR VOLUME 93.7 fl (82.0-101.0); MEAN PLATELET VOLUME 11.1 fl (7.4-10.4); MONOCYTE # 1.6 10^3/ul (0.3-0.9); NEUTROPHIL # 11.1 10^3/ul (1.6-7.5); NEUTROPHILS % 65.9 % (39.0-77.0); PLATELET COUNT 280 10^3/UL (140-415); RED BLOOD COUNT 4.89 10^6/ul (4.70-6.10); RED CELL DISTRIBUTION WIDTH 14.2 % (11.5-14.5); WHITE BLOOD COUNT 16.8 10^3/ul (4.8-10.8)
--- NOTE | 2016-10-03 21:44 | RADRPT ---
PROCEDURE: XR Chest. CLINICAL INDICATION: Shortness of breath TECHNIQUE: Single frontal view of the chest was obtained. COMPARISON: 07/26/2016 FINDINGS: The cardiomediastinal silhouette is moderately enlarged. Pulmonary vasculature is prominent and ind istinct. There is bilateral small pleural effusions. There is elevation of the right hemidiaphragm, or a subpulmonic right pleural effusion. There is no pneumothorax. There is chronic deformity of the left clavicle. There are posterior left rib deformities, likely c hronic. IMPRESSION: 1. Moderate cardiomegaly. Moderate pulmonary edema. 2. Small bilateral pleural effusions. Elevation of the right hemidiaphragm, versus subpulmonic flu id. RPTAT: HBST .Stoney Knight MD, Date Time Electronically viewed and signed by .Stoney Knight MD, on 10/03/2016 21:43 .T/
[2016-10-03 21:57] LABS: MONOCYTES % 9.6 % (0.0-11.0)
[2016-10-03 22:00] LABS: Allen Test ACCEPTAB; Arterial Base Excess 1.8 mmol/L (-3.0-3); Arterial COHb 0.5 % (0.0-3.0); Arterial Fraction of Oxyhgb 90.5 % (93.0-99.0); Arterial HCO3 28.3 mmol/L (22.0-26.0); Arterial MetHb 0.3 % (0.0-1.5); Arterial Total Hemglobin 14.9 g/dl (12.0-18.0); MODE ROOM AIR
[2016-10-03] MEDS ORDERED: OXYCODONE/ACETAMINOPHEN (5/325) TAB PO ONE (22:00)
[2016-10-03 22:09] LABS: INR 0.87; PROTIME 11.8 Sec (12.2-14.2); PT RATIO 0.9
[2016-10-03] MEDS ORDERED: VANCOMYCIN 1 GM (PMX) 250 ML IVPB STA (22:14)
[2016-10-03] MEDS ORDERED: CEFEPIME 1GM/50 ML (PMX) 50 ML IVPB STA (22:14)
[2016-10-03 22:17] LABS: ALANINE AMINOTRANSFERASE 51 IU/L (13-69); ALBUMIN 3.6 g/dl (3.3-4.9); ALBUMIN/GLOBULIN RATIO 1.09; ALKALINE PHOSPHATASE 118 IU/L (42-121); ANION GAP 10 (8-16); ASPARTATE AMINO TRANSFERASE 36 IU/L (15-46); BILIRUBIN,INDIRECT 0.2 mg/dl (0-1.1); BILIRUBIN,TOTAL 0.2 mg/dl (0.2-1.3); BLOOD UREA NITROGEN 25 mg/dl (7-20); CARBON DIOXIDE 31 mmol/L (21-31); CHLORIDE 101 mmol/L (97-110); CREATININE 1.27 mg/dl (0.61-1.24); GLUCOSE 173 mg/dl (70-220); POTASSIUM 4.5 mmol/L (3.5-5.1); SODIUM 137 mmol/L (135-144); TOTAL PROTEIN 6.9 g/dl (6.1-8.1)
[2016-10-03 22:20] VITALS: TEMP 98.7
[2016-10-03 22:25] LABS: B-TYPE NATRIURETIC PEPTIDE 73 PG/ML (0-125)
[2016-10-03 22:38] LABS: TROPONIN-I < 0.012 ng/ml (0.00-0.12)
[2016-10-03] MEDS ORDERED: SOD CHLORIDE 0.9% 1,000 ML IV ONE (22:58)
--- NOTE | 2016-10-03 22:58 | ERA ---
ER Documentation Chief Complaint Date/Time DATE: 10/03/16 TIME: 22:51 Chief Complaint leg wound recheck w/ wound vac s/t varicose stripping HPI 60-year-old male with a history of COPD, diabetes, hypertension presenting to the ER complaining of shortness of breath is progressively been worsening. He also wants his wound VAC on the right lower extremity changed. He recently had vein stripping in his right leg and has been coming to the hospital twice week for wound VAC change, however he was unable to get his wound VAC changed yesterday due to insurance reasons. He is very concerned about this. He states he has COPD but does not use home oxygen. He does not have a history of heart failure. He denies chest pain currently but has shortness of breath with minimal exertion. 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 ROS All systems reviewed and are negative except as per history of present illness. Medications Home Meds Active Scripts Metformin Hcl (Glucophage) 500 Mg Tablet, 1000 MG PO BID WITH MEALS for 30 Days , #30 TAB 3 Refills Prov:ASHANTI WHITLEY MD 05/28/16 Reported Medications Furosemide* (Furosemide*) 40 Mg Tablet, 40 MG PO DAILY, TAB 10/03/16 Thiamine* (Vitamin B-1*) 100 Mg Tablet, 100 MG PO BID, TAB 10/03/16 Insulin Lispro (Humalog Kwikpen U-100) 100 Unit/1 Ml Insuln.pen, 25 UNIT SQ BEFORE MEALS 10/03/16 Insulin Glargine* (Lantus*) 100 Unit/Ml Soln, 50 UNIT SC QHS, #1 VIAL 10/03/16 Trazodone Hcl* (Trazodone Hcl*) 50 Mg Tablet, 50 MG PO QHS Y for SLEEP, #30 TAB 07/21/16 Gabapentin* (Gabapentin*) 600 Mg Tablet, 600 MG PO TID Y for PAIN, #90 TAB 07/21/16 Atorvastatin Calcium* (Atorvastatin Calcium*) 20 Mg Tablet, 20 MG PO QHS, #30 TAB 07/21/16 Benazepril Hcl* (Benazepril Hcl*) 10 Mg Tablet, 10 MG PO DAILY, #30 TAB 07/21/16 Tamsulosin Hcl* (Flomax*) 0.4 Mg Cap.er.24h, 0.4 MG PO BID, CAP 07/21/14 Discontinued Reported Medications Salmeterol Xinaf-Fluticasone* (Advair HFA*) 45/212 Aerosol Inhaler, 2 INH IH BID , #1 INHALER 07/21/16 Rivaroxaban* (Xarelto*) 10 Mg Tablet, 10 MG PO QHS, TAB 05/22/16 Albuterol Sulfate* (Ventolin HFA*) 18 Gm Hfa.aer.ad, 2 PUFF IH Q4H Y for WHEEZING AND RESP DISTRESS, EA 07/21/14 Aspirin* (Aspirin* (EC)) 81 Mg Tablet.dr, 81 MG PO DAILY, TAB 07/21/14 Salmeterol Xinaf/Fluticasone* (Advair*) 250-50 Diskus Inhaler, 1 INH INH BID, INH 07/21/14 Discontinued Scripts Sulfamethoxazole-Trimethoprim* (Bactrim* DS) 800-160 Mg Tab, 1 TAB PO BID for 5 Days, #10 TAB Prov:ASHANTI WHITLEY MD 05/28/16 Tolnaftate* (Tolnaftate*) 1% Cr, 1 APPLIC TOP DAILY for 10 Days, #10 2 Refills Prov:ASHANTI WHITLEY MD 05/28/16 Thiamine* (Vitamin B-1*) 100 Mg Tablet, 100 MG PO DAILY for 30 Days, #30 TAB 2 Refills Prov:ASHANTI WHITLEY MD 05/28/16 Neomycin/Polymyxin/Bacitr/Hc* (Cortisporin* Topical) 15 Gm Oint, 1 APPLIC TOP BID for 20 Days, #20 2 Refills Prov:ASHANTI WHITLEY MD 05/28/16 Lactobacillus Rhamnosus* (Culturelle*) 1 Each Cap.sprink, 1 CAP PO BID for 14 Days, #30 CAP Prov:ASHANTI WHITLEY MD 05/28/16 Insulin Glargine* (Lantus*) 100 Unit/Ml Soln, 40 UNIT SC QPM for 10 Days, #10 2 Refills Prov:ASHANTI WHITLEY MD 05/28/16 Insulin Aspart* (Novolog Insulin Pen*) 100 Unit/Ml Soln, 15 UNIT SC WITH MEALS for 10 Days, #14 1 Refill Prov:ASHANTI WHITLEY MD 05/28/16 Furosemide* (Furosemide*) 40 Mg Tablet, 40 MG PO BID DIURETICS for 7 Days, #15 TAB Prov:ASHANTI WHITLEY MD 05/28/16 Lisinopril* (Zestril*) 5 Mg Tab, 5 MG PO DAILY for 30 Days, TAB Prov:BELGICA RODRIGUEZ NP 08/31/15 Allergies Allergies: Coded Allergies: Soap (Verified Allergy, Mild, 10/03/16) RASH povidone-iodine (Verified Allergy, Mild, 10/03/16) RASH iodine (Verified Allergy, Unknown, 10/03/16) PMhx/Soc History of Surgery: Yes (07/26/16 Right leg SV stripping & ligation Stab phlebectomy) Anesthesia Reaction: No Hx Neurological Disorder: No Hx Respiratory Disorders: Yes (COPD) Hx Cardiac Disorders: Yes (CHF) Hx Psychiatric Problems: No Hx Miscellaneous Medical Probl: No Hx Alcohol Use: No Hx Substance Use: No Hx Tobacco Use: No Smoking Status: Former smoker FmHx Family History: No diabetes Physical Exam Vitals Vital Signs Date Time Temp Pulse Resp B/P Pulse Ox O2 Delivery O2 Flow Rate FiO2 10/03/16 21:24 98 22 97 Nasal Cannula 3.0 10/03/16 20:33 99.3 105 18 110/54 88 Physical Exam Const: Appears dyspneic, somewhat diaphoretic, sitting up in bed, uncomfortable , speaking in full sentences Head: Atraumatic Eyes: Normal Conjunctiva ENT: Normal External Ears, Nose and Mouth. Neck: Full range of motion. No JVD, but exam limited due to body habitus. No meningismus. Resp: Diminished breath sounds bilaterally, no rales or rhonchi, no wheezing Cardio: Regular rate and rhythm, no murmurs Abd: Large, protuberant abdomen. Soft, non tender, non distended. Normal bowel sounds Skin: Wound on right lower extremity with wound VAC in place. Minimal surrounding erythema. Mild tenderness to palpation. Back: No midline or flank tenderness Ext: No cyanosis. Left lower extremity with hose on. No calf tenderness Neur: Awake and alert and oriented 3, moving all extremities Psych: Normal Mood and Affect Result Diagram: 10/03/16212910/03/162129 Results 24 hrs Laboratory Tests Test 10/03/16 21:04 10/03/16 21:30 10/03/16 21:50 10/03/16 22:18 Blood Gas Specimen Source Blood venous Blood arterial Arterial Blood Date Drawn 10/03/2016 9:30:27 PM 10/03/2016 9:56:48 PM Arterial Blood Gas Puncture Site VENOUS LINE Right Radial Rafael Test ACCEPTAB ACCEPTAB Venous Blood pH 7.333 Venous Blood pCO2 (Temp Corrected) 63.7mmHG Venous Blood pO2 (Temp Corrected) 59.0mmHG Venous Blood HCO3 33.1mmol/L Venous Blood Oxygen Saturation 89.5mmHG Venous Blood Base Excess 5.0mmol/L Venous Blood Total Hemoglobin 15.1g/dl Venous Blood Oxyhemoglobin 88.6% Venous Blood Methemoglobin 0.4% Carboxyhemoglobin 0.6% Blood Gas Temperature 37.0C 37.0C Blood Gas Modality NASAL CANNULA ROOM AIR FiO2 30.0% 21.0% Blood Gas Notified Whom MG MG Blood Gas Notified Time 10/03/2016 9:34:13 PM 10/03/2016 10:00:11 PM White Blood Count 16.810^3/ul Red Blood Count 4.8910^6/ul Hemoglobin 14.1g/dl Hematocrit 45.8% Mean Corpuscular Volume 93.7fl Mean Corpuscular Hemoglobin 28.8pg Mean Corpuscular Hemoglobin Concent 30.8g/dl Red Cell Distribution Width 14.2% Platelet Count 09510^3/UL Mean Platelet Volume 11.1fl Neutrophils % 65.9% Lymphocytes % 22.2% Monocytes % 9.6% Eosinophils % 1.3% Basophils % 0.4% Nucleated Red Blood Cells % 0.0/100WBC Neutrophils # 11.110^3/ul Lymphocytes # 3.710^3/ul Monocytes # 1.610^3/ul Eosinophils # 0.210^3/ul Basophils # 0.110^3/ul Nucleated Red Blood Cells # 0.010^3/ul Prothrombin Time 11.8Sec Prothrombin Time Ratio 0.9 INR International Normalized Ratio 0.87 Activated Partial Thromboplast Time 27.0Sec Sodium Level 137mmol/L Potassium Level 4.5mmol/L Chloride Level 101mmol/L Carbon Dioxide Level 31mmol/L Anion Gap 10 Blood Urea Nitrogen 25mg/dl Creatinine 1.27mg/dl Glucose Level 173mg/dl Calcium Level 9.0mg/dl Total Bilirubin 0.2mg/dl Direct Bilirubin 0.00mg/dl Indirect Bilirubin 0.2mg/dl Aspartate Amino Transf (AST/SGOT) 36IU/L Alanine Aminotransferase (ALT/SGPT) 51IU/L Alkaline Phosphatase 118IU/L Troponin I < 0.012ng/ml B-Type Natriuretic Peptide 73PG/ML Total Protein 6.9g/dl Albumin 3.6g/dl Globulin 3.30g/dl Albumin/Globulin Ratio 1.09 Arterial Blood pH (Temp corrected) 7.359 Arterial Blood pCO2 (Temp correct) 51.4mmhg Arterial Blood pO2 (Temp corrected) 61.2mmHG Arterial Blood HCO3 28.3mmol/L Arterial Blood Base Excess 1.8mmol/L Arterial Blood Oxygen Saturation 91.2mmHG Arterial Blood Carboxyhemoglobin 0.5% Arterial Blood Methemoglobin 0.3% Blood Gas A-a O2 Differential 27.0mmHg Oxyhemoglobin Percent 90.5% Total Hemoglobin 14.9g/dl Lactic Acid Level 1.1mmol/L Current Medications Medications (Trade) Dose Ordered Sig/Wilder Route PRN Reason Start Time Stop Time Status Last Admin Dose Admin Albuterol (Proventil 0.083% (Neb)) 5 mg ONCE STAT INH 10/03/16 21:04 10/03/16 21:06 DC 10/03/16 21:23 Ipratropium Norman (Atrovent 0.02% (Neb)) 0.5 mg ONCE STAT INH 10/03/16 21:04 10/03/16 21:06 DC 10/03/16 21:23 Oxycodone/ Acetaminophen 1 tab 1 tab ONCE ONCE PO 10/03/16 22:00 10/03/16 22:01 DC 10/03/16 22:03 Cefepime HCl 50 ml @ 100 mls/hr ONCE STAT IVPB 10/03/16 22:14 10/03/16 22:43 DC 10/03/16 22:56 Vancomycin HCl (Vancocin) 250 ml @ 125 mls/hr ONCE STAT IVPB 10/03/16 22:14 10/04/16 00:13 10/03/16 23:15 Ondansetron HCl (Zofran Inj) 4 mg BRIDGE ORDER PRN IV NAUSEA AND/OR VOMITING 10/03/16 23:00 10/04/16 22:59 Acetaminophen 650 mg 650 mg ER BRIDGE PRN PO MILD PAIN/FEVER 10/03/16 23:00 10/04/16 22:59 Sodium Chloride (NS) 1,000 ml @ 1,000 mls/hr Q1H ONCE IV 10/03/16 22:58 10/03/16 23:57 10/03/16 23:11 Procedures/MDM EKG: Rate/Rhythm: Sinus tachycardia at 108 bpm QRS, ST, T-waves: Right bundle branch block, no changes consistent w/ acute ischemia Impression: No evidence of ischemia or arrhythmia Chest x-ray: PROCEDURE: XR Chest. CLINICAL INDICATION: Shortness of breath TECHNIQUE: Single frontal view of the chest was obtained. COMPARISON: 07/26/2016 FINDINGS: The cardiomediastinal silhouette is moderately enlarged. Pulmonary vasculature is prominent and indistinct. There is bilateral small pleural effusions. There is elevation of the right hemidiaphragm, or a subpulmonic right pleural effusion. There is no pneumothorax. There is chronic deformity of the left clavicle. There are posterior left rib deformities, likely chronic. IMPRESSION: 1. Moderate cardiomegaly. Moderate pulmonary edema. 2. Small bilateral pleural effusions. Elevation of the right hemidiaphragm, versus subpulmonic fluid. .Stoney Knight MD, MD Date Time Electronically viewed and signed by .Stoney Knight MD, on 10/03/2016 21:43 Labs: CBC shows leukocytosis BMP shows evidence of acute renal failure with elevated BUN and creatinine Troponin within normal limits BNP within normal limits Coags normal MDM: Patient is presenting for wound check and shortness of breath. Differential includes but is not limited to acute coronary syndrome, CHF, COPD exacerbation, pneumonia. His labs are more consistent with pneumonia rather than acute CHF. I have a lower suspicion for pulmonary embolism, however the patient is high risk as he had recent surgery. Given his tachycardia and hypoxia, a CT angiogram of the chest was ordered to evaluate for pulmonary embolism. I asked the patient what his allergy to iodine was, and he stated that he once broke out with a rash after his skin was cleaned with Betadine solution. He has never had a reaction to IV contrast. Broad-spectrum antibiotics were started. Sepsis workup was started. Only 1 L of IV fluids was started in the ER as opposed to 30 cc/kg given the evidence of possible pulmonary edema on the chest x-ray. Patient's symptoms have not stabilized and the patient is at risk of rapid decompensation. The patient will be admitted for careful hydration, antibiotic therapy, and infectious source control. Severe Sepsis Assessment: Infectious Source: Pneumonia End organ damage indicated by: Acute Resp Failure (sat < 92% w/o oxygen) Severe Sepsis Managment: Blood Cultures X 2 before broad spectrum antibiotics initiated within 3 hours of recognition. 30 ml/kg NS bolus Completed Initial Lactate: 1.1 Repeat Lactate not indicated as initial < 2.0 Critical Care: Time: 40 minutes Treatments/Evaluations: Emergent fluid management, while maintaining close respiratory support. Immediate broad spectrum antibiotic therapy. Simultaneous assessment for possible sources in order to direct therapy. Consideration for invasive and chemical support to prevent respiratory or cardiac collapse. Accepting Care Team: Current data and ongoing care discussed. Time: Time of admission Primary Provider: Joseph Consulting: none Outstanding Data: cultures, CTPA Departure Diagnosis: Primary Impression: Acute hypoxemic respiratory failure Additional Impressions: Visit for wound check Acute renal failure Qualified Code: N17.9 - Acute renal failure, unspecified acute renal failure type Healthcare-associated pneumonia Condition: Serious JASON MCCORD MD October 03, 2016 22:58
[2016-10-03] MEDS ORDERED: ACETAMINOPHEN 325 MG TAB PO PRN (23:00)
[2016-10-03] MEDS ORDERED: ONDANSETRON 4 MG INJ IV PRN (23:00)
[2016-10-03] MEDS ORDERED: IODIXANOL LOCM 100 ML BTL ONE (23:25)
[2016-10-03] MEDS ORDERED: SOD CHLORIDE 0.9% 100 ML ONE (23:25)
[2016-10-03] MEDS ORDERED: IODIXANOL LOCM 50 ML BTL ONE (23:30)
[2016-10-03] MEDS ORDERED: EPINEPHrine 0.1 MG/ML SYG ONE (23:31)
--- NOTE | 2016-10-04 00:11 | RADRPT ---
PROCEDURE: CT angiogram of the chest with contrast. CLINICAL INDICATION: Chest pain. TECHNIQUE: CT angiogram of the chest was obtained using a multi-detector high-resolution CT. Con tiguous axial images were obtained during the dynamic injection of 125 cc of Visipaque 320 intraveno us contrast. Coronal and sagittal reformatted images were obtained. 3-D reformatted images were al so obtained. Images were reviewed on a PACS workstation. One or more of the following dose reduction techniques were used: - Automated exposure control. - Adjustment of the mA and/or kV according to patient size. - Use of iterative reconstruction technique. Exam CTD/vol = 24.29 mGy. Total exam DLP = 914.00 mGy-cm. COMPARISON: 06/13/2013.. FINDINGS: The main pulmonary artery followed to the segmental divisions are well opacified. There is no filli ng defect or evidence of pulmonary embolism. The heart is mildly enlarged. There is no pericardial thickening or effusion. The aorta is of normal course and caliber with minimal scattered atheroscl erotic calcifications. There is no evidence of aortic aneurysm or dissection. There is no evidence of chest wall mass. The visualized thyroid is unremarkable. There are small a xillary lymph nodes bilaterally. There are small paratracheal and prevascular lymph nodes with the l argest measuring 1.6 x 1.0 cm. There are no enlarged hilar lymph nodes by CT criteria. There is mil d paraseptal emphysema. There is mild right basilar atelectasis. There is no parenchymal nodule or consolidation. There is no pleural effusion. The central tracheobronchial tree is within normal l imits. There are multiple old left-sided rib fractures. There are flowing calcifications along the anterio r thoracic spine consistent with diffuse idiopathic skeletal hyperostosis. There is mild elevation of the right hemidiaphragm. Limited evaluation of the upper abdomen is unremarkable. IMPRESSION: No evidence of pulmonary embolism or aortic dissection. Mild paraseptal emphysema. Mild elevation of the right hemidiaphragm and right basilar atelectasis. Shotty mediastinal and bilateral axillary lymph nodes. Mild cardiomegaly. Minimal vascular calcifications reflective of atherosclerosis. Multiple old left-sided rib fractures. .Fitz Grider MD, MD Date Time Electronically viewed and signed by .Fitz Grider MD, MD on 10/04/2016 00:11 .T/
[2016-10-04 01:30] VITALS: BP 126/63; RESP 19
--- NOTE | 2016-10-04 02:18 | HP ---
Date/Time of Note Date/Time of Note DATE: 10/04/16 TIME: 02:17 Assessment/Plan VTE Prophylaxis VTE Prophylaxis Intervention: heparin Lines/Catheters IV [facility] Peripheral IV Central line still needed: No Urinary Cath still in place: No Assessment/Plan Chief Complaint/Hosp Course 1. Severe Sepsis: HR 105/WBC 16,So2 less than 90. There appears to be suspected consolidation on the x-ray however the official read did not mention that. At this time based on the patient's symptoms and hemodynamics I will continue treatment with Vanco and cefepime at this time for suspected pneumonia. The infection also could be secondary to the wound VAC site. Will order CRP level. As well as repeat the CBC in the a.m. to monitor white blood cell count. 2. Right lower extremity wound: Patient missed his wound VAC change as his insurance was not covering it. Will consult vascular surgery for further treatment. 3. Leukocytosis: Possibly to to #1 or #2. We will continue to monitor this. Patient is on IV antibiotics. 4. Acute renal failure - 2/2 dehydration, renally adjust medications, avoid nephrotoxins, encourage PO hydration, hold Lasix and benazepril 5. Type II DM - uncontrolled - hgba1c, ISS, lantus/novolog, CCD diet 6. Atrial fibrillation - rate controlled, currently not on xarelto will consult cardio for further recs. 7. CHF diastolic dysfunction - chronic - continue home meds 8. Diabetic neuropathy - continue neurontin 9. Essential Hypertension -we will hold WILLIE and Lasix at this time. As needed hydralazine 10. Depression - SSRI 11. PVD - see #2 12. morbid Obesity - nutrition consult #13 GI and DVT prophylaxis: Heparin, H2 sartah Problems: HPI/ROS Admit Date/Time Admit Date/Time October 03, 2016 at 22:50 Hx of Present Illness 60-year-old male with a history of COPD, diabetes, hypertension presenting to the ER complaining of shortness of breath is progressively been worsening. He also wants his wound VAC on the right lower extremity changed. He recently had vein stripping in his right leg and has been coming to the hospital twice week for wound VAC change, however he was unable to get his wound VAC changed yesterday due to insurance reasons. He is very concerned about this. He states he has COPD but does not use home oxygen. He does not have a history of heart failure. He denies chest pain currently but has shortness of breath with minimal exertion. 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 Allergies: Sulfa, iodine, povidone iodine Medications: See CORBIN CARRASCO General: Obese gentleman The patient is alert oriented -3 lying comfortably in bed. HEENT: Atraumatic, normocephalic. The pupils are equal, round and reactive. Extraocular motor are intact Neck: Supple with full range of motion. No rigidity or meningismus Chest: Nontender Lungs: Occasional cough Heart: Normal S1-S2, Regular rhythm and rate. Abdomen: Soft , nontender, nondistended , bowel sounds are present. No guarding no rebound tenderness , No masses or organomegaly. No costovertebral temporal angle mass Extremities: Right lower extremity wound VAC Neurologic: Normal mental status, speech normal, cranial nerves II through XII are intact, motor and sensory are intact, no focal weakness PMH/Family/Social Past Medical History atrial fibrillation, obesity, depression congestive heart failure, diabetes, hypertension Past Surgical History right leg vein stripping, splenectomy, ablation, left hip surgery Family History Significant Family History: diabetes, hypertension Social History Smoking Status: Former smoker (2ppd x 40 years) Exam/Review of Systems Vital Signs Vitals Vital Signs Date Time Temp Pulse Resp B/P Pulse Ox O2 Delivery O2 Flow Rate FiO2 10/03/16 22:20 98.7 80 20 130/73 96 Nasal Cannula 3.0 Exam Exam General: Patient is an obese male, in a pleasant mood and joking around with the doctors. Initially diaphoretic in the ER The patient is alert oriented -3. HEENT: Atraumatic, normocephalic. The pupils are equal, round and reactive. Extraocular motor are intact Neck: Supple with full range of motion. No rigidity or meningismus Chest: Nontender Lungs: Right-sided coarse breath sounds appreciated, decreased air movement bilaterally Heart: Normal S1-S2, Regular rhythm and rate. Abdomen: Soft , nontender, nondistended , bowel sounds are present. No guarding no rebound tenderness , No masses or organomegaly. No costovertebral temporal angle mass Extremities: Wound VAC connected to the right lower extremity. Neurologic: Normal mental status, speech normal, cranial nerves II through XII are intact, motor and sensory are intact, no focal weakness Additional Comments CT chest IMPRESSION: No evidence of pulmonary embolism or aortic dissection. Mild paraseptal emphysema. Mild elevation of the right hemidiaphragm and right basilar atelectasis. Shotty mediastinal and bilateral axillary lymph nodes. Mild cardiomegaly. Minimal vascular calcifications reflective of atherosclerosis. Multiple old left-sided rib fractures. chest xray 1. Moderate cardiomegaly. Moderate pulmonary edema. 2. Small bilateral pleural effusions. Elevation of the right hemidiaphragm, versus subpulmonic fluid. Labs Result Diagram: 10/03/16212910/03/162129 KAMAR WHITLEY October 04, 2016 02:18
[2016-10-04] MEDS ORDERED: OXYCODONE/ACETAMINOPHEN (10/325) TAB PO PRN (02:30)
[2016-10-04] MEDS ORDERED: NACL 0.9% 3 ML SYG IV SCH (02:30)
[2016-10-04] MEDS ORDERED: DOCUSATE SODIUM 100 MG CAP PO PRN (02:30)
[2016-10-04] MEDS ORDERED: BISACODYL (EC) 5 MG TAB PO PRN (02:30)
[2016-10-04] MEDS ORDERED: ONDANSETRON 4 MG INJ IV PRN (02:30)
[2016-10-04] MEDS ORDERED: ACETAMINOPHEN 325 MG TAB PO PRN (02:30)
[2016-10-04] MEDS ORDERED: GLUCOSE GEL 15 GRAM TUBE BUCCAL PRN (02:45)
[2016-10-04] MEDS ORDERED: DEXTROSE 50% 50 ML SYRINGE IV PRN ×2 (02:45)
[2016-10-04] MEDS ORDERED: GLUCOSE GEL 15 GRAM TUBE PO PRN ×2 (02:45)
[2016-10-04] MEDS ORDERED: GLUCAGON 1 MG INJ IM PRN (02:45)
[2016-10-04] MEDS: FAMOTIDINE 20 MG TAB PO SCH ×3 (02:49→21:02)
[2016-10-04] MEDS ORDERED: traZODone 50 MG TAB PO PRN (03:00)
[2016-10-04] MEDS ORDERED: GABAPENTIN 300 MG CAP PO PRN (03:00)
[2016-10-04 05:22] LABS: ADD SCAN DIFF NO
[2016-10-04 05:23] LABS: BASOPHIL # 0.1 10^3/ul (0.0-0.1); BASOPHILS % 0.4 % (0.0-2.0); EOSINOPHILS # 0.2 10^3/ul (0.0-0.5); EOSINOPHILS % 1.5 % (0.0-7.0); HEMATOCRIT 42.8 % (42.0-52.0); HEMOGLOBIN 13.7 g/dl (14.0-18.0); LYMPHOCYTES % 33.3 % (15.0-51.0); MEAN CORPUSCULAR HEMOGLOBIN 30.2 pg (29.0-33.0); MEAN CORPUSCULAR VOLUME 94.3 fl (82.0-101.0); MEAN PLATELET VOLUME 11.1 fl (7.4-10.4); MONOCYTE # 1.4 10^3/ul (0.3-0.9); MONOCYTES % 9.1 % (0.0-11.0); NEUTROPHIL # 8.2 10^3/ul (1.6-7.5); PLATELET COUNT 238 10^3/UL (140-415); RED BLOOD COUNT 4.54 10^6/ul (4.70-6.10); RED CELL DISTRIBUTION WIDTH 14.4 % (11.5-14.5); WHITE BLOOD COUNT 14.9 10^3/ul (4.8-10.8)
[2016-10-04] MEDS: HEPARIN 5,000 UNIT/0.5 ML VIAL SC SCH ×3 (06:00→21:01)
[2016-10-04 06:05] LABS: ALBUMIN 3.2 g/dl (3.3-4.9); ALBUMIN/GLOBULIN RATIO 1.03; BILIRUBIN,INDIRECT 0.4 mg/dl (0-1.1); BILIRUBIN,TOTAL 0.4 mg/dl (0.2-1.3); CALCIUM 8.6 mg/dl (8.4-10.2); CHOL/HDL RATIO 4.5 RATIO; CREATININE 0.92 mg/dl (0.61-1.24); MAGNESIUM 1.7 mg/dl (1.7-2.5); POTASSIUM 4.6 mmol/L (3.5-5.1); TOTAL PROTEIN 6.3 g/dl (6.1-8.1)
[2016-10-04] MEDS ORDERED: VANCOMYCIN IV PER PHARMACY XX SCH (06:30)
[2016-10-04 06:33] LABS: C-REACTIVE PROTEIN 2.4 mg/dl (0.0-0.9)
[2016-10-04] MEDS ORDERED: hydrALAzine 20 MG INJ IV PRN (07:00)
[2016-10-04 07:15] VITALS: BP 139/65; RESP 18
[2016-10-04] MEDS: THIAMINE 100 MG TAB PO SCH ×2 (08:28→20:57)
[2016-10-04] MEDS: CEFEPIME 1GM/50 ML (PMX) 50 ML IVPB SCH ×2 (08:31→20:56)
[2016-10-04] MEDS: TAMSULOSIN (SR) 0.4 MG CAP PO SCH ×2 (08:31→20:57)
[2016-10-04] MEDS: INSULIN ASPART [NOVOLOG] 3 ML PEN SC SCH ×7 (08:33→21:00)
[2016-10-04] MEDS ORDERED: VANCOMYCIN 2 GM in SOD CHLORIDE 0.9% 500 ML IVPB SCH (10:00)
--- NOTE | 2016-10-04 10:19 | CONS ---
Date/Time of Note Date/Time of Note DATE: 10/04/16 TIME: 10:14 Assessment/Plan Assessment/Plan Chief Complaint/Hosp Course 1. Sepsis 2. Right lower extremity wound 3. Acute renal failure 4. Type II DM 5. Atrial fibrillation 6. CHF diastolic dysfunction 7. Essential Hypertension -we will hold WILLIE and Lasix at this time. As needed hydralazine 8. PVD 9. morbid Obesity Problems: Additional Assessment/Plan 1) one dose of lasix 2) echo 3) BNP 4) EKG 5) EKG in chart reveals sr Consultation Date/Type/Reason Admit Date/Time October 03, 2016 at 22:50 Date of Consultation: October 04, 2016 Reason for Consultation sob, afib Hx of Present Illness resting, able to lie supine without issues, reports sob, not exertional, no chest pain Constitutional: no complaints Respiratory: shortness of breath Cardiovascular: no complaints Musculoskeletal: no complaints Skin: skin lesions Neurologic: no complaints Endocrine: no complaints Past Medical History Medical History: congestive heart failure, high cholesterol, hypertension, renal disease, other (afib) Past Surgical History Past Surgical Hx: other Family History Significant Family History: hypertension Social History Alcohol Use: occasionally Smoking Status: Former smoker Drug Use: none Exam/Review of Systems Vital Signs Vitals Vital Signs Date Time Temp Pulse Resp B/P Pulse Ox O2 Delivery O2 Flow Rate FiO2 10/04/16 07:15 97.5 87 18 139/65 88 10/03/16 22:20 Nasal Cannula 3.0 Intake and Output 10/03/16 10/03/16 10/04/16 15:00 23:00 07:00 Intake Total 850 ml Balance 850 ml Exam Constitutional: alert, oriented Head: atraumatic, normocephalic Neck: jvd Respiratory: clear to auscultation Cardiovascular: regular rate and rhythm Gastrointestinal: soft Results Result Diagram: 10/04/16 0451 10/04/16 0451 Results 24 hrs Laboratory Tests Test 10/03/16 21:04 10/03/16 21:30 10/03/16 21:50 10/03/16 22:18 Blood Gas Specimen Source Blood venous Blood arterial Arterial Blood Date Drawn 10/03/2016 9:30:27 PM 10/03/2016 9:56:48 PM Arterial Blood Gas Puncture Site VENOUS LINE Right Radial Rafael Test ACCEPTAB ACCEPTAB Venous Blood pH 7.333 Venous Blood pCO2 (Temp Corrected) 63.7 H Venous Blood pO2 (Temp Corrected) 59.0 H Venous Blood HCO3 33.1 H Venous Blood Oxygen Saturation 89.5 H Venous Blood Base Excess 5.0 Venous Blood Total Hemoglobin 15.1 Venous Blood Oxyhemoglobin 88.6 Venous Blood Methemoglobin 0.4 Carboxyhemoglobin 0.6 Blood Gas Temperature 37.0 37.0 Blood Gas Modality NASAL CANNULA ROOM AIR FiO2 30.0 21.0 Blood Gas Notified Whom MG MG Blood Gas Notified Time 10/03/2016 9:34:13 PM 10/03/2016 10:00:11 PM White Blood Count 16.8 H Red Blood Count 4.89 Hemoglobin 14.1 Hematocrit 45.8 Mean Corpuscular Volume 93.7 Mean Corpuscular Hemoglobin 28.8 L Mean Corpuscular Hemoglobin Concent 30.8 L Red Cell Distribution Width 14.2 Platelet Count 280 Mean Platelet Volume 11.1 H Neutrophils % 65.9 Lymphocytes % 22.2 Monocytes % 9.6 Eosinophils % 1.3 Basophils % 0.4 Nucleated Red Blood Cells % 0.0 Neutrophils # 11.1 H Lymphocytes # 3.7 H Monocytes # 1.6 H Eosinophils # 0.2 Basophils # 0.1 Nucleated Red Blood Cells # 0.0 Prothrombin Time 11.8 L Prothrombin Time Ratio 0.9 INR International Normalized Ratio 0.87 Activated Partial Thromboplast Time 27.0 Sodium Level 137 Potassium Level 4.5 Chloride Level 101 Carbon Dioxide Level 31 Anion Gap 10 Blood Urea Nitrogen 25 H Creatinine 1.27 H Glucose Level 173 Calcium Level 9.0 Total Bilirubin 0.2 Direct Bilirubin 0.00 Indirect Bilirubin 0.2 Aspartate Amino Transf (AST/SGOT) 36 Alanine Aminotransferase (ALT/SGPT) 51 Alkaline Phosphatase 118 Troponin I < 0.012 B-Type Natriuretic Peptide 73 Total Protein 6.9 Albumin 3.6 Globulin 3.30 H Albumin/Globulin Ratio 1.09 Arterial Blood pH (Temp corrected) 7.359 Arterial Blood pCO2 (Temp correct) 51.4 H Arterial Blood pO2 (Temp corrected) 61.2 L Arterial Blood HCO3 28.3 H Arterial Blood Base Excess 1.8 Arterial Blood Oxygen Saturation 91.2 L Arterial Blood Carboxyhemoglobin 0.5 Arterial Blood Methemoglobin 0.3 Blood Gas A-a O2 Differential 27.0 H Oxyhemoglobin Percent 90.5 L Total Hemoglobin 14.9 Lactic Acid Level 1.1 Test 10/04/16 00:30 10/04/16 04:40 10/04/16 04:51 10/04/16 04:57 Lactic Acid Level 0.9 1.2 Hemoglobin A1c 10.9 H White Blood Count 14.9 H Red Blood Count 4.54 L Hemoglobin 13.7 L Hematocrit 42.8 Mean Corpuscular Volume 94.3 Mean Corpuscular Hemoglobin 30.2 Mean Corpuscular Hemoglobin Concent 32.0 Red Cell Distribution Width 14.4 Platelet Count 238 Mean Platelet Volume 11.1 H Neutrophils % 55.0 Lymphocytes % 33.3 Monocytes % 9.1 Eosinophils % 1.5 Basophils % 0.4 Nucleated Red Blood Cells % 0.0 Neutrophils # 8.2 H Lymphocytes # 5.0 H Monocytes # 1.4 H Eosinophils # 0.2 Basophils # 0.1 Nucleated Red Blood Cells # 0.0 Sodium Level 135 Potassium Level 4.6 Chloride Level 104 Carbon Dioxide Level 29 Anion Gap 7 L Blood Urea Nitrogen 25 H Creatinine 0.92 Glucose Level 265 H Calcium Level 8.6 Phosphorus Level 4.0 Magnesium Level 1.7 Total Bilirubin 0.4 Direct Bilirubin 0.00 Indirect Bilirubin 0.4 Aspartate Amino Transf (AST/SGOT) 43 Alanine Aminotransferase (ALT/SGPT) 57 Alkaline Phosphatase 101 C-Reactive Protein 2.4 H Total Protein 6.3 Albumin 3.2 L Globulin 3.10 Albumin/Globulin Ratio 1.03 Triglycerides Level 133 Cholesterol Level 173 LDL Cholesterol, Calculated 108 HDL Cholesterol 38 Cholesterol/HDL Ratio 4.5 Test 10/04/16 07:48 Bedside Glucose 232 H Medications Medications Current Medications Oxycodone/ Acetaminophen (Endocet ()) 1 tab Q4H PRN PO PAIN Last administered on 10/04/16t 02:49; Admin Dose 1 TAB; Start 10/04/16 at 02:30 Ondansetron HCl (Zofran Inj) 4 mg Q6H PRN IV NAUSEA AND/OR VOMITING; Start 10/04 at 02:30 Acetaminophen (Tylenol Tab) 650 mg Q6H PRN PO PAIN LEVEL 1-3 OR FEVER; Start at 02:30 Docusate Sodium (Colace) 100 mg Q12H PRN PO CONSTIPATION; Start 10/04/16 at 02: 30 Bisacodyl (Dulcolax) 5 mg DAILY PRN PO CONSTIPATION; Start 10/04/16 at 02:30 Famotidine (Pepcid) 20 mg Q12 PO Last administered on 10/04/16 08:28; Admin Dose 20 MG; Start 10/04/16 at 02:30 Heparin Sodium (Porcine) (Heparin (5000 Units/0.5 ml)) 5,000 unit Q8 SC ; Start 10/04/16 at 06:00 Atorvastatin Calcium (Lipitor) 20 mg QHS PO ; Start 10/04/16 at 21:00 Gabapentin (Neurontin) 600 mg TID PRN PO PAIN; Start 10/04/16 at 03:00 Insulin Glargine (Lantus) 50 unit QHS SC ; Start 10/04/16 at 21:00 Tamsulosin HCl (Flomax) 0.4 mg BID PO Last administered on 10/04/16 08:31; Admin Dose 0.4 MG; Start 10/04/16 at 09:00 Thiamine HCl (Vitamin B1) 100 mg BID PO Last administered on 10/04/16 08:28; Admin Dose 100 MG; Start 10/04/16 at 09:00 Trazodone HCl (Desyrel) 50 mg QHS PRN PO SLEEP; Start 10/04/16 at 03:00 Diagnostic Test (Pha) (Accu-Chek) 1 ea 02 XX ; Start 10/05/16 at 02:00 Miscellaneous Information 1 ea NOTE XX ; Start 10/04/16 at 02:45 Glucose (Glutose) 15 gm Q15M PRN PO DECREASED GLUCOSE; Start 10/04/16 at 02:45 Glucose (Glutose) 22.5 gm Q15M PRN PO DECREASED GLUCOSE; Start 10/04/16 at 02:45 Dextrose (D50w Syringe) 25 ml Q15M PRN IV DECREASED GLUCOSE; Start 10/04/16 at 02:45 Dextrose (D50w Syringe) 50 ml Q15M PRN IV DECREASED GLUCOSE; Start 10/04/16 at 02:45 Glucagon (Glucagen) 1 mg Q15M PRN IM DECREASED GLUCOSE; Start 10/04/16 at 02:45 Glucose 15 gm 15 gm Q15M PRN BUCCAL DECREASED GLUCOSE; Start 10/04/16 at 02:45 Cefepime HCl (Maxipime 1gm/50 ml (Pmx)) 50 ml @ 100 mls/hr Q12 IVPB Last administered on 10/04/16t 08:31; Admin Dose 100 MLS/HR; Start 10/04/16 at 09:00 Hydralazine HCl 10 mg 10 mg Q6H PRN IV ELEVATED BLOOD PRESSURE; Start 10/04/16 at 07:00 Vancomycin HCl 2 gm/Sodium Chloride 500 ml @ 125 mls/hr 10 IVPB ; Start at 10:00; Stop 10/04/16 at 18:00 Vancomycin HCl/ Sodium Chloride (Vancocin/NS) 250 ml @ 83.333 mls/ hr Q12H IVPB ; Start 10/04/16 at 22:00 RANDAL GRIFFIN MD October 04, 2016 10:19
[2016-10-04] MEDS ORDERED: FUROSEMIDE 40 MG INJ IV ONE (10:30)
[2016-10-04] MEDS: morphine 2 MG INJ IV PRN ×2 (15:22→20:47)
[2016-10-04] MEDS: ALBUTEROL/IPRATROPIUM (NEB) 3 ML AMP HHN SCH (19:32)
[2016-10-04] MEDS: ATORVASTATIN 20 MG TAB PO SCH (20:57)
[2016-10-04] MEDS: SALMETEROL/FLUTICASONE 250/50 INHA INH SCH ×2 (20:57→21:00)
[2016-10-04] MEDS: INSULIN GLARGINE [LANtus] 3 ML PEN SC SCH (21:00)
[2016-10-04 21:55] VITALS: BP 152/75; RESP 20
[2016-10-05] MEDS: morphine 2 MG INJ IV PRN ×5 (00:52→23:54)
[2016-10-05] MEDS: VANCOMYCIN 1.5 GM in SOD CHLORIDE 0.9% 250 ML IVPB SCH ×3 (00:55→22:44)
[2016-10-05] MEDS: ACCU-CHEK XX SCH (02:00)
[2016-10-05 04:57] LABS: ADD SCAN DIFF NO
[2016-10-05 05:06] LABS: BASOPHIL # 0.1 10^3/ul (0.0-0.1); BASOPHILS % 0.4 % (0.0-2.0); EOSINOPHILS # 0.3 10^3/ul (0.0-0.5); EOSINOPHILS % 1.8 % (0.0-7.0); HEMATOCRIT 45.6 % (42.0-52.0); LYMPHOCYTES # 4.2 10^3/ul (0.8-2.9); LYMPHOCYTES % 26.2 % (15.0-51.0); MEAN CORPUSCULAR HEMOGLOBIN 28.3 pg (29.0-33.0); MEAN CORPUSCULAR HGB CONC 30.7 g/dl (32.0-37.0); MEAN CORPUSCULAR VOLUME 92.1 fl (82.0-101.0); MEAN PLATELET VOLUME 11.3 fl (7.4-10.4); MONOCYTE # 1.4 10^3/ul (0.3-0.9); MONOCYTES % 8.9 % (0.0-11.0); NEUTROPHILS % 62.3 % (39.0-77.0); PLATELET COUNT 261 10^3/UL (140-415); RED BLOOD COUNT 4.95 10^6/ul (4.70-6.10); RED CELL DISTRIBUTION WIDTH 14.4 % (11.5-14.5)
[2016-10-05] MEDS: HEPARIN 5,000 UNIT/0.5 ML VIAL SC SCH ×3 (05:09→21:08)
[2016-10-05 05:24] LABS: CALCIUM 9.4 mg/dl (8.4-10.2); CREATININE 0.87 mg/dl (0.61-1.24); POTASSIUM 4.3 mmol/L (3.5-5.1)
[2016-10-05 07:01] LABS: MAGNESIUM 1.7 mg/dl (1.7-2.5)
[2016-10-05] MEDS: ALBUTEROL/IPRATROPIUM (NEB) 3 ML AMP HHN SCH ×3 (08:11→21:38)
[2016-10-05 08:31] VITALS: BP 121/70; RESP 17
[2016-10-05] MEDS: TAMSULOSIN (SR) 0.4 MG CAP PO SCH ×2 (08:39→21:04)
[2016-10-05] MEDS: THIAMINE 100 MG TAB PO SCH ×2 (08:39→21:05)
[2016-10-05] MEDS: FAMOTIDINE 20 MG TAB PO SCH ×2 (08:39→21:05)
[2016-10-05] MEDS: SALMETEROL/FLUTICASONE 250/50 INHA INH SCH ×2 (08:40→21:00)
[2016-10-05] MEDS: INSULIN ASPART [NOVOLOG] 3 ML PEN SC SCH ×7 (08:43→21:00)
[2016-10-05] MEDS: CEFEPIME 1GM/50 ML (PMX) 50 ML IVPB SCH ×2 (11:10→21:04)
--- NOTE | 2016-10-05 14:53 | CONS ---
DATE OF ADMISSION: 10/03/2016 DATE OF CONSULTATION: 10/05/2016 TYPE OF CONSULTATION: Infectious disease. REASON FOR CONSULTATION: Antibiotic management. HISTORY OF PRESENT ILLNESS: Mike Duke is a 60-year-old male with a number of problems who comes in with shortness of breath and is being seen for antibiotic management. His problems include: 1. COPD. 2. Diabetes. 3. Hypertension. 4. Status post vein stripping of the right leg which required wound VAC to be placed. He was suppo sed to have it changed yet on the , but did not have it changed because of insurance purposes. Jeni quevedo has COPD, but does not use oxygen at home. He has a history of congestive heart failure and is cu rrently short of breath with minimal exertion. On admission, his white count was 16.8, H and H of 1 4.1 and 45.8, platelet count 280,000. BUN and creatinine is 25/1.27. His glucose is 173. Chest x- ray shows moderate cardiomegaly, moderate pulmonary edema, small bilateral pleural effusions, elevat ion of the right hemidiaphragm. PAST MEDICAL HISTORY: Operations as outlined. He had right leg status post right leg stripping. 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 PAST MEDICAL HISTORY: Includes atrial fibrillation, obesity, depression as well as the aforemention ed problems. SOCIAL HISTORY: He is a former smoker, 2 packs per day for 40 years. He does not drink or abuse dr ugs. ALLERGIES: NONE TO PENICILLIN, BUT HE IS ALLERGIC TO SULFA, IODINE and POVIDONE IODINE. MEDICATIONS: Per chart. REVIEW OF SYSTEMS: As per HPI. PHYSICAL EXAMINATION: GENERAL: The patient is a well-developed, obese male who is alert, responsive, in no acute distress . VITAL SIGNS: Stable. He is afebrile. SKIN: Without generalized rash. HEENT: Within normal limits. NECK: Supple. LYMPH NODES: None palpable. CHEST: Decreased breath sounds at the bases. HEART: Without murmur or gallop. ABDOMEN: Soft, nontender, without organosplenomegaly or masses. EXTREMITIES: He has a wound VAC connected to the lower extremity. RECTAL AND GENITAL: Deferred. NEUROLOGIC: No focal neurological abnormalities. IMPRESSION: Blood cultures x2 were negative. His white count today is 16,000. His BUN and creatin ine are 20/0.87. Patient was begun on vancomycin and cefepime. His problems include severe sepsis with a white count of 16,000 and possible consolidation of lungs on x-ray. We are suspecting pneumo peter at this point. It could also be secondary to his wound. He has a wound VAC and vascular surger y will be consulted for further treatment. He has some degree of acute renal failure, though at thi s point, is not very significant. We will continue him on vancomycin and cefepime. I want to thank the hospitalist for this consultation. Dictated By: DESTINEY ALLRED MD, JD/REY Conf#: [id number] DID#: [id number]
--- NOTE | 2016-10-05 15:43 | RADRPT ---
Echocardiogram Report Patient Name: AIMEE RODRIGUEZ Gender: Male Date: 1955 Study Date: 04-Oct-2016 Community Sports Coordinator: [facility] Location: 2240 Ref. Physician: RANDAL GRIFFIN Quality: Technically Difficult Study Procedures: Transthoracic echocardiogram with complete 2D, M-Mode, and doppler examination. Indications: Shortness of breath. 2D/M Mode Doppler Measurement Value Normal Ranges Measurement Value Normal Ranges LVIDd MM 5.0 cm LVIDs MM 3.6 cm LVPWd MM 1.5 cm IVSd MM 1.5 cm AoR Diam MM 2.9 cm EF MM 54.0 % LVIDd 2D 5.0 3.5 - 5.6 cm LVIDs 2D 3.6 2.1 - 4.1 cm LVPWd 2D 1.5 0.6 - 1.1 cm IVSd 2D 1.4 0.6 - 1.1 cm AoR Diam 2D 2.9 2.0 - 3.7 cm EF 2D 54.0 50.0 - 65.0 % LA Dimen 2D 4.9 2.3 - 4.0 cm Findings Left Ventricle: Normal left ventricular systolic function. Normal left ventricular cavity size. Moderate concentric left ventricular hypertrophy. Ejection fraction is visually estimated at 55 %. Abnormal Diastolic Function. Right Ventricle: Normal right ventricular systolic function. Mild enlargement of right ventricle. Left Atrium: There is mild enlargement of left atrium. LA Dimension4.20 cm. Right Atrium: There is mild enlargement of right atrium. Mitral Valve: Mitral valve leaflets appear mildly thickened. Mild mitral annular calcification. Trace mitral regurgitation. Aortic Valve: No hemodynamically significant aortic stenosis by doppler. Aortic cusps appear mildly calcified. Trace aortic valve regurgitation. Tricuspid Valve: Tricuspid valve not well visualized. There is trace tricuspid regurgitation. Pulmonic Valve: There is trace pulmonic regurgitation. Pericardium: Normal pericardium with no significant pericardial effusion. Aorta: Normal aortic root. IVC: The IVC is not well visualized. Conclusions 1.Normal left ventricular systolic function. Normal left ventricular cavity size. Moderate concentric left ventricular hypertrophy. Ejection fraction is visually estimated at 55 %. Abnormal Diastolic Function. 2.Normal right ventricular systolic function. Mild enlargement of right ventricle. 3.There is mild enlargement of left atrium. LA Dimension4.20 cm. 4.There is mild enlargement of right atrium. 5.No significant valvular stenosis or regurgitation seen. 6.Normal pericardium with no significant pericardial effusion. Electronically Signed By: Yaron Mayer 05-Oct-2016 15:42:58 -0700 Patient Name: AIMEE RODRIGUEZ Study Date: 04-Oct-2016 [id number]
[2016-10-05] MEDS ORDERED: MAGNESIUM SULFATE 2 GM/50 ML 50 ML IVPB ONE (16:00)
--- NOTE | 2016-10-05 16:11 | CONS ---
Date/Time of Note Date/Time of Note DATE: 10/05/16 TIME: 16:07 Assessment/Plan Assessment/Plan Additional Assessment/Plan Shortness of breath History parox atrial fibrillation, currently sinus rhythm Obesity Edema Preserved ejection fraction -pt remains in sinus rhythm. CT chest no PE and no pleural effusions or significant pulmonary vascular congestion. BNP negative. Consider primary pulmonary etiology for SOB. Consultation Date/Type/Reason Admit Date/Time October 03, 2016 at 22:50 Initial Consult Date 10/04/16 Type of Consultation: cv 24 HR Interval Summary Free Text/Dictation c/o sob with lying down, no cp, +edema Exam/Review of Systems Vital Signs Vitals Vital Signs Date Time Temp Pulse Resp B/P Pulse Ox O2 Delivery O2 Flow Rate FiO2 10/05/16 14:18 84 18 93 21 10/05/16 08:31 98.0 121/70 10/05/16 08:14 Nasal Cannula 2.0 Intake and Output 10/04/16 10/04/16 10/05/16 14:59 22:59 06:59 Intake Total 550 ml 990 ml 1650 ml Balance 550 ml 990 ml 1650 ml Exam obese, sitting in chair, nad Constitutional: alert, oriented Head: normocephalic Respiratory: other (course bs, no wheeze) Cardiovascular: other (s1s2), regular rate and rhythm Gastrointestinal: bowel sounds, non-tender, soft Extremities: edema Results Result Diagram: 10/05/16 0430 10/05/16 0430 Results 24 hrs Laboratory Tests Test 10/04/16 17:05 10/04/16 20:52 10/05/16 04:30 10/05/16 07:59 Bedside Glucose 126 94 148 White Blood Count 16.0 H Red Blood Count 4.95 Hemoglobin 14.0 Hematocrit 45.6 Mean Corpuscular Volume 92.1 Mean Corpuscular Hemoglobin 28.3 L Mean Corpuscular Hemoglobin Concent 30.7 L Red Cell Distribution Width 14.4 Platelet Count 261 Mean Platelet Volume 11.3 H Neutrophils % 62.3 Lymphocytes % 26.2 Monocytes % 8.9 Eosinophils % 1.8 Basophils % 0.4 Nucleated Red Blood Cells % 0.0 Neutrophils # 10.0 H Lymphocytes # 4.2 H Monocytes # 1.4 H Eosinophils # 0.3 Basophils # 0.1 Nucleated Red Blood Cells # 0.0 Sodium Level 137 Potassium Level 4.3 Chloride Level 100 Carbon Dioxide Level 32 H Anion Gap 9 Blood Urea Nitrogen 20 Creatinine 0.87 Glucose Level 151 # Calcium Level 9.4 Phosphorus Level 4.0 Magnesium Level 1.7 Vitamin D 1,25-Dihydroxy 22.9 L Test 10/05/16 12:08 Bedside Glucose 103 Medications Medications Current Medications Oxycodone/ Acetaminophen (Endocet (10/ 325)) 1 tab Q4H PRN PO PAIN Last administered on 10/04/16 02:49; Admin Dose 1 TAB; Start 10/04/16 at 02:30 Ondansetron HCl (Zofran Inj) 4 mg Q6H PRN IV NAUSEA AND/OR VOMITING; Start 10/04 at 02:30 Acetaminophen (Tylenol Tab) 650 mg Q6H PRN PO PAIN LEVEL 1-3 OR FEVER; Start at 02:30 Docusate Sodium (Colace) 100 mg Q12H PRN PO CONSTIPATION; Start 10/04/16 at 02: 30 Bisacodyl (Dulcolax) 5 mg DAILY PRN PO CONSTIPATION; Start 10/04/16 at 02:30 Famotidine (Pepcid) 20 mg Q12 PO Last administered on 10/05/16 08:39; Admin Dose 20 MG; Start 10/04/16 at 02:30 Heparin Sodium (Porcine) (Heparin (5000 Units/0.5 ml)) 5,000 unit Q8 SC Last administered on 10/05/16 12:48; Admin Dose 5,000 UNIT; Start 10/04/16 at 06:00 Atorvastatin Calcium (Lipitor) 20 mg QHS PO Last administered on 10/04/16 20:57 ; Admin Dose 20 MG; Start 10/04/16 at 21:00 Gabapentin (Neurontin) 600 mg TID PRN PO PAIN; Start 10/04/16 at 03:00 Insulin Glargine (Lantus) 50 unit QHS SC Last administered on 10/04/16 21:00; Admin Dose 50 UNIT; Start 10/04/16 at 21:00 Tamsulosin HCl (Flomax) 0.4 mg BID PO Last administered on 10/05/16 08:39; Admin Dose 0.4 MG; Start 10/04/16 at 09:00 Thiamine HCl (Vitamin B1) 100 mg BID PO Last administered on 10/05/16 08:39; Admin Dose 100 MG; Start 10/04/16 at 09:00 Trazodone HCl (Desyrel) 50 mg QHS PRN PO SLEEP; Start 10/04/16 at 03:00 Diagnostic Test (Pha) (Accu-Chek) 1 ea 02 XX ; Start 10/05/16 at 02:00 Miscellaneous Information 1 ea NOTE XX ; Start 10/04/16 at 02:45 Glucose (Glutose) 15 gm Q15M PRN PO DECREASED GLUCOSE; Start 10/04/16 at 02:45 Glucose (Glutose) 22.5 gm Q15M PRN PO DECREASED GLUCOSE; Start 10/04/16 at 02:45 Dextrose (D50w Syringe) 25 ml Q15M PRN IV DECREASED GLUCOSE; Start 10/04/16 at 02:45 Dextrose (D50w Syringe) 50 ml Q15M PRN IV DECREASED GLUCOSE; Start 10/04/16 at 02:45 Glucagon (Glucagen) 1 mg Q15M PRN IM DECREASED GLUCOSE; Start 10/04/16 at 02:45 Glucose 15 gm 15 gm Q15M PRN BUCCAL DECREASED GLUCOSE; Start 10/04/16 at 02:45 Cefepime HCl (Maxipime 1gm/50 ml (Pmx)) 50 ml @ 100 mls/hr Q12 IVPB Last administered on 10/05/16 11:10; Admin Dose 100 MLS/HR; Start 10/04/16 at 09:00 Hydralazine HCl 10 mg 10 mg Q6H PRN IV ELEVATED BLOOD PRESSURE; Start 10/04/16 at 07:00 Vancomycin HCl/ Sodium Chloride (Vancocin/NS) 250 ml @ 83.333 mls/ hr Q12H IVPB Last administered on 10/05/16 11:31; Admin Dose 83.333 MLS/HR; Start at 22:00 Morphine Sulfate (morphine) 2 mg Q4H PRN IV pain 8-10 Last administered on 12:47; Admin Dose 2 MG; Start 10/04/16 at 14:30 Salmeterol Xinafoate/ Fluticasone (Advair 250/50 Diskus) 1 inh BID INH Last administered on 10/05/16 08:40; Admin Dose 1 INH; Start 10/04/16 at 21:00 Miscellaneous Information (*Rx Drug Level Order Reminder*) VANCOMYCIN TROUGH 10/05 AT 2100 ONCE ONCE XX ; Start 10/05/16 at 21:00; Stop 10/05/16 at 21:01 Cholecalciferol 1000 unit 1,000 unit DAILY PO ; Start 10/06/16 at 09:00 Magnesium Sulfate (Magnesium Sulfate 2 Gm/50 ml) 50 ml @ 25 mls/hr ONCE ONCE IVPB ; Start 10/05/16 at 16:00; Stop 10/05/16 at 17:59 Yaron Mayer DO October 05, 2016 16:11
--- NOTE | 2016-10-05 16:18 | PN ---
DATE: 10/05/2016 TIME OF EVALUATION: 1400. SUBJECTIVE DATA: Denies any lower extremity pain. Denies any dyspnea. OBJECTIVE DATA: VITAL SIGNS: Temperature 98.0, pulse rate 84, respiratory rate 18, blood pressure 121/70, oxygen saturation 93% on room air. GENERAL: This is a morbidly obese male patient sitting in a chair in no apparent distress. HEENT: Head normocephalic and atraumatic. Eyes: Anicteric sclerae. Conjunctivae clear. ENT: Nasal septum is midline. Oral mucosa is moist. Increased neck circumference. RESPIRATORY: Bilaterally diminished breath sounds. No adventitious breath sounds heard. No use of accessory muscles for respiration. CARDIAC: Regular rate and rhythm. S1, S2. ABDOMEN: Obese, soft and nondistended. Bowel sounds positive in all 4 quadrants. GENITOURINARY: Deferred. EXTREMITIES: Bilateral lower extremity edema with bilateral lower extremity cellulitis. Pedal pulses nonpalpable. Right leg wound with a wound VAC in place. NEUROLOGIC: The patient is awake, alert and oriented. Cranial nerves are grossly intact. LABORATORY AND DIAGNOSTIC DATA: WBC 16.0, hemoglobin 14.0, hematocrit 45.6, platelet count 261. Sodium 137, potassium 4.3, chloride 100, carbon dioxide, anion gap 9, BUN 20, creatinine 0.87, glucose 151, calcium 9.4, phosphorus 4.0, magnesium 1.7. ASSESSMENT AND PLAN: 1. Severe sepsis with underlying leukocytosis and tachycardia. Etiology could be most probably from infected bilateral lower extremity wound. The patient's chest CT scan was negative for any underlying consolidation suggestive of any pneumonia. 2. Acute on chronic heart failure. Diastolic dysfunction. Continue on diuretics. Continue supplemental oxygen. 3. Acute respiratory failure. Hypoxic and hypercapnic, most probably secondary to combination of diastolic heart failure and COPD, improved. Continue inhaled bronchodilators. 4. Chronic obstructive pulmonary disease. Continue on maintenance inhalers and short-acting inhibitors. No evidence of any active bronchospasm that require steroids. 5. Dyslipidemia. Continue statins. 6. Peripheral vascular disease. Continue aspirin. 7. Type 2 diabetes mellitus. Hemoglobin A1c 10.9. Continue sliding scale insulin along with Lantus insulin. 8. Atrial fibrillation, rate controlled. On Xarelto for stroke prophylaxis. 9. Depression. Continue antidepressants. 10. Diabetic neuropathy. Continue gabapentin. 11. Plan. Continue antibiotics. We will involve Infectious Disease on the case. Await vascular surgery input. The case was discussed with Dr. Bonner. REHAN BONNER MD, AM/REY Conf#: [id number] DID#: [id number]
[2016-10-05 20:09] VITALS: BP 157/82; RESP 20
[2016-10-05] MEDS: ATORVASTATIN 20 MG TAB PO SCH (21:05)
[2016-10-05] MEDS: INSULIN GLARGINE [LANtus] 3 ML PEN SC SCH (21:06)
[2016-10-06] MEDS: ACCU-CHEK XX SCH (02:00)
[2016-10-06 03:54] LABS: ADD UMIC NO; URINE BILIRUBIN (Dip) NEGATIVE (NEGATIVE); URINE BLOOD (Dip) NEGATIVE (NEGATIVE); URINE COLOR LT. YELLOW (YELLOW); URINE GLUCOSE (Dip) NEGATIVE (NEGATIVE); URINE KETONES (Dip) NEGATIVE (NEGATIVE); URINE LEUKOCYTE ESTERASE (Dip) NEGATIVE (NEGATIVE); URINE NITRITE (Dip) NEGATIVE (NEGATIVE); URINE TOTAL PROTEIN (Dip) NEGATIVE (NEGATIVE); URINE UROBILINOGEN (Dip) 0.2 E.U./dL (0.1-1.0)
[2016-10-06] MEDS: morphine 2 MG INJ IV PRN ×4 (04:12→23:41)
--- NOTE | 2016-10-06 04:35 | CONS ---
DATE OF ADMISSION: 10/03/2016 DATE OF CONSULTATION: 10/05/2016 TYPE OF CONSULTATION: Vascular surgery consultation. HISTORY OF PRESENT ILLNESS: Dear Doctors: Mr. Duke is a 60-year-old gentleman known to our vascular surgery service group with a history of bilateral lower extremity venous insufficiency and noncompliance. The patient underwent a left low er extremity greater saphenous vein stripping and ligation a few months ago. The patient had then d eveloped wound dehiscence of his right groin and had later developed an abscess of his right calf ar ea for which he underwent debridement and wound VAC placement. The patient had been on wound VAC th erapy and local wound care for the past few weeks and has been coming to our wound care center for t hat management. It seems that the patient was admitted to [facility] secondary to shortness of breath that had been worsening and elevated white blood cell count, suggesting of pneu monia upon his chest x-ray evaluation. At the moment, the patient still has some difficulty breathi ng. He otherwise denies nausea, vomiting, fever, or chills. The patient denies lower extremity cla udication or rest pain-like symptoms. The patient did have a CT angiography of the chest which iden tified the patient having small peritracheal and prevascular lymph nodes with the largest measuring 1.6 x 1 cm. This could be suggesting the patient with his right basilar atelectasis may have onset of pneumonia. REVIEW OF SYSTEMS: A 12-point review performed and negative except what is mentioned in the HPI. PAST MEDICAL HISTORY: Entails COPD, diabetes, noncompliance, hypertension, bilateral lower extremit y venous insufficiency, morbidly obese, depression, diabetes, atrial fibrillation, congestive heart failure, diastolic dysfunction. PAST SURGICAL HISTORY: Right lower extremity greater saphenous vein stripping and ligation, right c marbella debridement and wound VAC placement, left hip surgery, splenectomy. FAMILY HISTORY: Positive for diabetes and hypertension. PHYSICAL EXAMINATION: GENERAL: Alert and oriented x3, no apparent distress. HEENT: Normocephalic, atraumatic. PERRLA, EOMI. Mucosa moist. NECK: Supple. No carotid bruit. PULMONARY: Clear to auscultation bilaterally. No crackles. CARDIOVASCULAR: S1, S2 present. No murmurs. ABDOMEN: Soft, nontender, nondistended. Bowel sounds positive. Large truncal obesity and large pa nnus. EXTREMITIES: Lower extremities, unable to palpate the femoral pulse, palpable pedal pulse. Motor, sensory intact. Cap refill 2 to 3 seconds. There is edema bilaterally. It is about 2+. On the [facility] lower extremity, the right upper calf area has a wound VAC that is intact and functional. No er ythema surrounding it. The patient has spider veins, telangiectasias, and varicose veins. ASSESSMENT AND PLAN: 1. Bilateral lower extremity venous insufficiency and varicose veins: The patient's wound has been coming along fine, and for some reason his insurance had not approved for him to continue with his wound VAC therapy. From our standpoint, currently, as the patient is admitted to the hospital, cont inue with our wound VAC therapy every other day, Thursday, Thursday, Thursday as scheduled and continue with that. The patient does have history of venous insufficiency for which we encouraged for him t o either continue with the 2-layer compression or continue with his compression stockings for which he has tried to be compliant. 2. Continue with medical management for his leukocytosis and possible pneumonia and his respiratory toiletry. 3. Optimize vascular status (BP meds, diet, nutrition, exercise, sugar control, antiplatelet, weigh t loss). Discussed with the patient the importance of compliance with his respiratory medications as he refus es to take his medications tonight. Discussed findings, plan, and management with the patient, and he understands. Thank you for allowing us to partake in the care of your patient. Please call with any questions. Please consult our wound care management team to assist with his wound VAC changes. Dictated By: LUZ DOBBS/REY Conf#: [id number] DID#: [id number]
[2016-10-06] MEDS: HEPARIN 5,000 UNIT/0.5 ML VIAL SC SCH (05:25)
[2016-10-06 06:20] LABS: ADD SCAN DIFF NO
[2016-10-06 06:26] LABS: ABNORMAL IP MESSAGE 1; BASOPHIL # 0.1 10^3/ul (0.0-0.1); BASOPHILS % 0.4 % (0.0-2.0); EOSINOPHILS # 0.3 10^3/ul (0.0-0.5); EOSINOPHILS % 1.9 % (0.0-7.0); HEMOGLOBIN 14.1 g/dl (14.0-18.0); LYMPHOCYTES % 26.8 % (15.0-51.0); MEAN CORPUSCULAR HEMOGLOBIN 29.5 pg (29.0-33.0); MEAN CORPUSCULAR HGB CONC 31.3 g/dl (32.0-37.0); MEAN CORPUSCULAR VOLUME 94.1 fl (82.0-101.0); MEAN PLATELET VOLUME 11.4 fl (7.4-10.4); MONOCYTE # 1.6 10^3/ul (0.3-0.9); MONOCYTES % 10.5 % (0.0-11.0); NEUTROPHILS % 59.7 % (39.0-77.0); PLATELET COUNT 253 10^3/UL (140-415); RED BLOOD COUNT 4.78 10^6/ul (4.70-6.10); RED CELL DISTRIBUTION WIDTH 14.3 % (11.5-14.5)
[2016-10-06 07:00] LABS: CALCIUM 9.4 mg/dl (8.4-10.2); CREATININE 0.8 mg/dl (0.61-1.24); POTASSIUM 4.1 mmol/L (3.5-5.1)
[2016-10-06 07:15] VITALS: BP 135/74; RESP 16
[2016-10-06] MEDS: VANCOMYCIN 1.75 GM in NS 500 ML IVPB SCH ×2 (07:22→17:25)
[2016-10-06] MEDS: ALBUTEROL/IPRATROPIUM (NEB) 3 ML AMP HHN SCH (07:36)
[2016-10-06] MEDS: INSULIN ASPART [NOVOLOG] 3 ML PEN SC SCH ×7 (08:05→20:56)
[2016-10-06 08:08] LABS: PHOSPHORUS 4.2 mg/dl (2.5-4.9)
[2016-10-06] MEDS: SALMETEROL/FLUTICASONE 250/50 INHA INH SCH ×2 (09:00→20:56)
[2016-10-06] MEDS: TAMSULOSIN (SR) 0.4 MG CAP PO SCH ×2 (09:17→20:51)
[2016-10-06] MEDS: CEFEPIME 1GM/50 ML (PMX) 50 ML IVPB SCH (09:17)
[2016-10-06] MEDS: THIAMINE 100 MG TAB PO SCH ×2 (09:17→20:51)
[2016-10-06] MEDS: CHOLECALCIFEROL 1,000 UNIT TAB PO SCH (09:17)
[2016-10-06] MEDS: FAMOTIDINE 20 MG TAB PO SCH (09:17)
--- NOTE | 2016-10-06 10:19 | PN ---
Date/Time of Note Date/Time of Note DATE: 10/06/16 TIME: 09:58 Assessment/Plan VTE Prophylaxis VTE Prophylaxis Intervention: LMWH Lines/Catheters IV [facility] ([facility] Saline Lock Urinary Cath still in place: No Assessment/Plan Chief Complaint/Hosp Course 60-yr-M w dyspnea, worse lying down. Exacerbated by heat. No active or productive cough, or cp. Possible edema. No ill contacts or fever. Potentially adding salt to his foods Objective vital signs stable Physical exam No pallor adenopathy JVD Regular, no murmur rub gallop CTAB Bs +, nontender, nondistended, no RR G. Overweight Ext w potentially cellulitis. Wound VAC in place Assessment and plan 1. Systemic inflammatory response syndrome; Possible sepsis due to cellulitis. Stable cont wound care. 2. Dyspnea potentially secondary to diastolic dysfunction. Consider cor pulmonale/ ama. No added salt diet. No evidence of pneumonia or respiratory distress. 3. Medication nonadherence 4. Diabetes A1c 10.9/metabolic syndrome. Continue insulin/ risk factor modification 5. Varicose veins. Possible local cellulitis. Ho right calf abscess and wound dehiscence. -Discharge home tomorrow or Thursday after wound VAC has been arranged, and if okay with vascular.. 6. Probable chronic COPD; possible cor pulmonale. Outpatient PFTs 7. Past tobacco 8. Chronic A. fib started Eliquis 9. Splenectomy status 10. Chronic depression Problems: Exam/Review of Systems Vital Signs Vitals Vital Signs Date Time Temp Pulse Resp B/P Pulse Ox O2 Delivery O2 Flow Rate FiO2 10/06/16 07:36 87 20 93 21 10/06/16 07:15 97.5 135/74 10/06/16 01:19 3.0 10/05/16 21:42 Nasal Cannula Intake and Output 10/05/16 10/05/16 10/06/16 15:00 23:00 07:00 Intake Total 300 ml 1300 ml 1450 ml Balance 300 ml 1300 ml 1450 ml Results Result Diagram: 10/06/16 0518 10/06/16 0518 Results 24 hrs Laboratory Tests Test 10/05/16 12:08 10/05/16 17:15 10/05/16 20:56 10/05/16 21:01 Bedside Glucose 103 231 H 144 Vancomycin Level Trough 10.7 Test 10/06/16 03:00 10/06/16 05:18 10/06/16 08:03 Urine Color LT. YELLOW Urine Clarity CLEAR Urine pH 5.5 Urine Specific [place] 1.010 Urine Ketones NEGATIVE Urine Nitrite NEGATIVE Urine Bilirubin NEGATIVE Urine Urobilinogen 0.2 E.U./dL Urine Leukocyte Esterase NEGATIVE Urine Hemoglobin NEGATIVE Urine Glucose NEGATIVE Urine Total Protein NEGATIVE White Blood Count 15.0 H Red Blood Count 4.78 Hemoglobin 14.1 Hematocrit 45.0 Mean Corpuscular Volume 94.1 Mean Corpuscular Hemoglobin 29.5 Mean Corpuscular Hemoglobin Concent 31.3 L Red Cell Distribution Width 14.3 Platelet Count 253 Mean Platelet Volume 11.4 H Neutrophils % 59.7 Lymphocytes % 26.8 Monocytes % 10.5 Eosinophils % 1.9 Basophils % 0.4 Nucleated Red Blood Cells % 0.0 Neutrophils # 9.0 H Lymphocytes # 4.0 H Monocytes # 1.6 H Eosinophils # 0.3 Basophils # 0.1 Nucleated Red Blood Cells # 0.0 Sodium Level 138 Potassium Level 4.1 Chloride Level 101 Carbon Dioxide Level 29 Anion Gap 12 Blood Urea Nitrogen 19 Creatinine 0.80 Glucose Level 140 Calcium Level 9.4 Phosphorus Level 4.2 Magnesium Level 2.0 Bedside Glucose 143 Medications Medications Current Medications Oxycodone/ Acetaminophen (Endocet ()) 1 tab Q4H PRN PO PAIN Last administered on 10/04/16 02:49; Admin Dose 1 TAB; Start 10/04/16 at 02:30 Ondansetron HCl (Zofran Inj) 4 mg Q6H PRN IV NAUSEA AND/OR VOMITING; Start 10/04 at 02:30 Acetaminophen (Tylenol Tab) 650 mg Q6H PRN PO PAIN LEVEL 1-3 OR FEVER; Start at 02:30 Docusate Sodium (Colace) 100 mg Q12H PRN PO CONSTIPATION; Start 10/04/16 at 02: 30 Bisacodyl (Dulcolax) 5 mg DAILY PRN PO CONSTIPATION; Start 10/04/16 at 02:30 Famotidine (Pepcid) 20 mg Q12 PO Last administered on 10/06/16 09:17; Admin Dose 20 MG; Start 10/04/16 at 02:30 Heparin Sodium (Porcine) (Heparin (5000 Units/0.5 ml)) 5,000 unit Q8 SC Last administered on 10/06/16 05:25; Admin Dose 5,000 UNIT; Start 10/04/16 at 06:00 Atorvastatin Calcium (Lipitor) 20 mg QHS PO Last administered on 10/05/16 21:05 ; Admin Dose 20 MG; Start 10/04/16 at 21:00 Gabapentin (Neurontin) 600 mg TID PRN PO PAIN; Start 10/04/16 at 03:00 Insulin Glargine (Lantus) 50 unit QHS SC Last administered on 10/05/16 21:06; Admin Dose 50 UNIT; Start 10/04/16 at 21:00 Tamsulosin HCl (Flomax) 0.4 mg BID PO Last administered on 10/06/16 09:17; Admin Dose 0.4 MG; Start 10/04/16 at 09:00 Thiamine HCl (Vitamin B1) 100 mg BID PO Last administered on 10/06/16 09:17; Admin Dose 100 MG; Start 10/04/16 at 09:00 Trazodone HCl (Desyrel) 50 mg QHS PRN PO SLEEP; Start 10/04/16 at 03:00 Diagnostic Test (Pha) (Accu-Chek) 1 ea 02 XX ; Start 10/05/16 at 02:00 Miscellaneous Information 1 ea NOTE XX ; Start 10/04/16 at 02:45 Glucose (Glutose) 15 gm Q15M PRN PO DECREASED GLUCOSE; Start 10/04/16 at 02:45 Glucose (Glutose) 22.5 gm Q15M PRN PO DECREASED GLUCOSE; Start 10/04/16 at 02:45 Dextrose (D50w Syringe) 25 ml Q15M PRN IV DECREASED GLUCOSE; Start 10/04/16 at 02:45 Dextrose (D50w Syringe) 50 ml Q15M PRN IV DECREASED GLUCOSE; Start 10/04/16 at 02:45 Glucagon (Glucagen) 1 mg Q15M PRN IM DECREASED GLUCOSE; Start 10/04/16 at 02:45 Glucose 15 gm 15 gm Q15M PRN BUCCAL DECREASED GLUCOSE; Start 10/04/16 at 02:45 Cefepime HCl (Maxipime 1gm/50 ml (Pmx)) 50 ml @ 100 mls/hr Q12 IVPB Last administered on 10/06/16 09:17; Admin Dose 100 MLS/HR; Start 10/04/16 at 09:00 Hydralazine HCl (Apresoline) 10 mg Q6H PRN IV ELEVATED BLOOD PRESSURE; Start at 07:00 Morphine Sulfate (morphine) 2 mg Q4H PRN IV pain 8-10 Last administered on 09:17; Admin Dose 2 MG; Start 10/04/16 at 14:30 Salmeterol Xinafoate/ Fluticasone (Advair 250/50 Diskus) 1 inh BID INH Last administered on 10/05/16 08:40; Admin Dose 1 INH; Start 10/04/16 at 21:00 Cholecalciferol 1000 unit 1,000 unit DAILY PO Last administered on 10/06/16 09: 17; Admin Dose 1,000 UNIT; Start 10/06/16 at 09:00 Vancomycin HCl/ Sodium Chloride (Vancocin/NS) 500 ml @ 125 mls/hr Q12H IVPB Last administered on 10/06/16 07:22; Admin Dose 125 MLS/HR; Start 10/06/16 at 07: 00 ASHANTI WHITLEY MD October 06, 2016 10:19
[2016-10-06] MEDS ORDERED: ALBUTEROL/IPRATROPIUM (NEB) 3 ML AMP HHN PRN (11:00)
--- NOTE | 2016-10-06 11:45 | CONS ---
Date/Time of Note Date/Time of Note DATE: 10/06/16 TIME: 11:38 Assessment/Plan Assessment/Plan Additional Assessment/Plan ABG was reviewed which is showing mild hypercapnia which is partially compensated. Chest x-ray was reviewed from fifth of this month which is showin interstitial prominence. No acute infiltrates identified. CT of the chest also was reviewed which is negative for PE. Emphysematous changes are noted bilaterally. Assessment recommendations; next 1. Patient admitted for lower extremity cellulitis currently on appropriate antibiotic regimen. 2. Chronic type II respiratory failure, which is combination of underlying COPD sleep apnea and morbid obesity. Central hypoventilation. 3. Diabetes. 4. Underlying sleep apnea. Continue current treatment. Patient needs to lose weight. He also is a candidate for bariatric surgery. Consultation Date/Type/Reason Admit Date/Time October 03, 2016 at 22:50 Date of Consultation: October 06, 2016 Type of Consultation: Pulmonary Reason for Consultation Pulmonary consultations requested for evaluation of respiratory failure. Next History presenting any; patient is a 60-year-old white male who was admitted on the fifth of this month with complaints of lower extremity swelling and fluid discharge. Upon evaluation patient was diagnosed with bilateral lower extremity cellulitis. A chest x-ray is a CTA of the chest also were done. CTA is negative for any PE or any other acute infiltrates. However CT of the chest is showing changes consistent with emphysema. The patient does complain of shortness of breath upon moderate exertion. Which according to him has been a complaint for the last several months. He denies any chest pain, wheezing, sputum production or hemoptysis. According to him he has gained about 100 pounds over the last several months after he quit smoking. Past medical history; next 1. Patient with a history of diabetes, 2. Chronic lower extremity cellulitis. 3. Diagnosis of sleep apnea, however patient could not use any kind of mask on face. 4. Morbid obesity. 5. COPD. #6. No known history of any coronary artery disease. Medications; were reviewed. Allergies; are to iodine. Social history; patient recently quit smoking. Has 100 pack year smoking history. Family history; patient is single. Occupational history; patient has a miscellaneous occupations. Currently on disability. Review of systems; denies any headache, visual changes. Any sinus symptoms. Any seizures. Denies any dysphagia, odynophagia. Any chest pain, angina. Does complain of shortness of breath on exertion. Does complain of snoring, daytime sleepiness. Has gained 100 pounds. Complains of lower extremity edema. Complains of frequency of urination. Denies any fever chills. General exam; middle-aged male, morbidly obese, awake alert currently in no distress. Constitutional: no complaints Respiratory: shortness of breath Cardiovascular: no complaints Musculoskeletal: no complaints Skin: skin lesions Neurologic: no complaints Endocrine: no complaints Past Medical History Medical History: congestive heart failure, high cholesterol, hypertension, renal disease, other (afib) Past Surgical History Past Surgical Hx: other Social History Alcohol Use: occasionally Smoking Status: Former smoker Drug Use: none Exam/Review of Systems Vital Signs Vitals Vital Signs Date Time Temp Pulse Resp B/P Pulse Ox O2 Delivery O2 Flow Rate FiO2 10/06/16 07:36 87 20 93 21 10/06/16 07:15 97.5 135/74 10/06/16 01:19 3.0 10/05/16 21:42 Nasal Cannula Intake and Output 10/05/16 10/05/16 10/06/16 15:00 23:00 07:00 Intake Total 300 ml 1300 ml 1450 ml Balance 300 ml 1300 ml 1450 ml Exam HEENT exam is; supple neck, no lymphadenopathy. No thyromegaly. JVD difficult to see because of short neck. Pharynx is clear. Dentition is fair. Patient has a multiple missing teeth though. Chest exam; diminished but clear vessel. No additional. S1-S2 audible, no murmurs. Regular rhythm. Abdomen examination; soft, protuberant. Nontender. Bowel sounds audible. Extremity exam; there is 3+ pitting edema involving both lower extremity's. Dressing applied over both lower extremities. No clubbing. Next [employer] examination; cranial nerves are intact, no focal deficit. Results Result Diagram: 10/06/1651710/06/1618 Results 24 hrs Laboratory Tests Test 10/05/16 12:08 10/05/16 17:15 10/05/16 20:56 10/05/16 21:01 Bedside Glucose 103 231 H 144 Vancomycin Level Trough 10.7 Test 10/06/16 03:00 10/06/16 05:18 10/06/16 08:03 Urine Color LT. YELLOW Urine Clarity CLEAR Urine pH 5.5 Urine Specific [place] 1.010 Urine Ketones NEGATIVE Urine Nitrite NEGATIVE Urine Bilirubin NEGATIVE Urine Urobilinogen 0.2 E.U./dL Urine Leukocyte Esterase NEGATIVE Urine Hemoglobin NEGATIVE Urine Glucose NEGATIVE Urine Total Protein NEGATIVE White Blood Count 15.0 H Red Blood Count 4.78 Hemoglobin 14.1 Hematocrit 45.0 Mean Corpuscular Volume 94.1 Mean Corpuscular Hemoglobin 29.5 Mean Corpuscular Hemoglobin Concent 31.3 L Red Cell Distribution Width 14.3 Platelet Count 253 Mean Platelet Volume 11.4 H Neutrophils % 59.7 Lymphocytes % 26.8 Monocytes % 10.5 Eosinophils % 1.9 Basophils % 0.4 Nucleated Red Blood Cells % 0.0 Neutrophils # 9.0 H Lymphocytes # 4.0 H Monocytes # 1.6 H Eosinophils # 0.3 Basophils # 0.1 Nucleated Red Blood Cells # 0.0 Sodium Level 138 Potassium Level 4.1 Chloride Level 101 Carbon Dioxide Level 29 Anion Gap 12 Blood Urea Nitrogen 19 Creatinine 0.80 Glucose Level 140 Calcium Level 9.4 Phosphorus Level 4.2 Magnesium Level 2.0 Bedside Glucose 143 Medications Medications Current Medications Oxycodone/ Acetaminophen (Endocet (10/ 325)) 1 tab Q4H PRN PO PAIN Last administered on 10/04/16 02:49; Admin Dose 1 TAB; Start 10/04/16 at 02:30 Ondansetron HCl (Zofran Inj) 4 mg Q6H PRN IV NAUSEA AND/OR VOMITING; Start 10/04 at 02:30 Acetaminophen (Tylenol Tab) 650 mg Q6H PRN PO PAIN LEVEL 1-3 OR FEVER; Start at 02:30 Docusate Sodium (Colace) 100 mg Q12H PRN PO CONSTIPATION; Start 10/04/16 at 02: 30 Bisacodyl (Dulcolax) 5 mg DAILY PRN PO CONSTIPATION; Start 10/04/16 at 02:30 Atorvastatin Calcium (Lipitor) 20 mg QHS PO Last administered on 10/05/16 21:05 ; Admin Dose 20 MG; Start 10/04/16 at 21:00 Gabapentin (Neurontin) 600 mg TID PRN PO PAIN; Start 10/04/16 at 03:00 Insulin Glargine (Lantus) 50 unit QHS SC Last administered on 10/05/16 21:06; Admin Dose 50 UNIT; Start 10/04/16 at 21:00 Tamsulosin HCl (Flomax) 0.4 mg BID PO Last administered on 10/06/16 09:17; Admin Dose 0.4 MG; Start 10/04/16 at 09:00 Thiamine HCl (Vitamin B1) 100 mg BID PO Last administered on 10/06/16 09:17; Admin Dose 100 MG; Start 10/04/16 at 09:00 Trazodone HCl (Desyrel) 50 mg QHS PRN PO SLEEP; Start 10/04/16 at 03:00 Diagnostic Test (Pha) (Accu-Chek) 1 ea 02 XX ; Start 10/05/16 at 02:00 Miscellaneous Information 1 ea NOTE XX ; Start 10/04/16 at 02:45 Glucose (Glutose) 15 gm Q15M PRN PO DECREASED GLUCOSE; Start 10/04/16 at 02:45 Glucose (Glutose) 22.5 gm Q15M PRN PO DECREASED GLUCOSE; Start 10/04/16 at 02:45 Dextrose (D50w Syringe) 25 ml Q15M PRN IV DECREASED GLUCOSE; Start 10/04/16 at 02:45 Dextrose (D50w Syringe) 50 ml Q15M PRN IV DECREASED GLUCOSE; Start 10/04/16 at 02:45 Glucagon (Glucagen) 1 mg Q15M PRN IM DECREASED GLUCOSE; Start 10/04/16 at 02:45 Glucose 15 gm 15 gm Q15M PRN BUCCAL DECREASED GLUCOSE; Start 10/04/16 at 02:45 Cefepime HCl (Maxipime 1gm/50 ml (Pmx)) 50 ml @ 100 mls/hr Q12 IVPB Last administered on 10/06/16 09:17; Admin Dose 100 MLS/HR; Start 10/04/16 at 09:00 Hydralazine HCl (Apresoline) 10 mg Q6H PRN IV ELEVATED BLOOD PRESSURE; Start at 07:00 Morphine Sulfate (morphine) 2 mg Q4H PRN IV pain 8-10 Last administered on 09:17; Admin Dose 2 MG; Start 10/04/16 at 14:30 Salmeterol Xinafoate/ Fluticasone (Advair 250/50 Diskus) 1 inh BID INH Last administered on 10/05/16 08:40; Admin Dose 1 INH; Start 10/04/16 at 21:00 Cholecalciferol 1000 unit 1,000 unit DAILY PO Last administered on 10/06/16 09: 17; Admin Dose 1,000 UNIT; Start 10/06/16 at 09:00 Vancomycin HCl/ Sodium Chloride (Vancocin/NS) 500 ml @ 125 mls/hr Q12H IVPB Last administered on 10/06/16 07:22; Admin Dose 125 MLS/HR; Start 10/06/16 at 07: 00 Apixaban (Eliquis) 5 mg BID PO ; Start 10/06/16 at 10:30 Lisinopril (Zestril) 2.5 mg DAILY PO ; Start 10/06/16 at 10:30 MURPHY CARL October 06, 2016 11:45
--- NOTE | 2016-10-06 11:58 | CONS ---
Date/Time of Note Date/Time of Note DATE: 10/06/16 TIME: 11:56 Assessment/Plan Assessment/Plan Additional Assessment/Plan Shortness of breath likely secondary to obesity hypoventilation syndrome History paroxysmal atrial fibrillation, currently sinus rhythm Obesity Edema Preserved ejection fraction -As mentioned in previous note, no evidence of decompensated congestive heart failure at the current time. Discussed with pulmonary and being evaluated for likely obesity hypoventilation syndrome. Remains in sinus rhythm Consultation Date/Type/Reason Admit Date/Time October 03, 2016 at 22:50 Initial Consult Date 10/04/16 Type of Consultation: cv 24 HR Interval Summary Free Text/Dictation Shortness of breath is the same, denies palpitations or chest pain Exam/Review of Systems Vital Signs Vitals Vital Signs Date Time Temp Pulse Resp B/P Pulse Ox O2 Delivery O2 Flow Rate FiO2 10/06/16 07:36 87 20 93 21 10/06/16 07:15 97.5 135/74 10/06/16 01:19 3.0 10/05/16 21:42 Nasal Cannula Intake and Output 10/05/16 10/05/16 10/06/16 15:00 23:00 07:00 Intake Total 300 ml 1300 ml 1450 ml Balance 300 ml 1300 ml 1450 ml Exam No apparent distress Constitutional: alert, obese, oriented Head: normocephalic Neck: supple Respiratory: other (Coarse breath sounds bilaterally, no wheezing) Cardiovascular: other (S1-S2 heard), regular rate and rhythm Gastrointestinal: bowel sounds, non-tender, soft Extremities: edema Results Result Diagram: 10/06/1618 10/06/16 0518 Results 24 hrs Laboratory Tests Test 10/05/16 12:08 10/05/16 17:15 10/05/16 20:56 10/05/16 21:01 Bedside Glucose 103 231 H 144 Vancomycin Level Trough 10.7 Test 10/06/16 03:00 10/06/16 05:18 10/06/16 08:03 10/06/16 11:48 Urine Color LT. YELLOW Urine Clarity CLEAR Urine pH 5.5 Urine Specific [place] 1.010 Urine Ketones NEGATIVE Urine Nitrite NEGATIVE Urine Bilirubin NEGATIVE Urine Urobilinogen 0.2 E.U./dL Urine Leukocyte Esterase NEGATIVE Urine Hemoglobin NEGATIVE Urine Glucose NEGATIVE Urine Total Protein NEGATIVE White Blood Count 15.0 H Red Blood Count 4.78 Hemoglobin 14.1 Hematocrit 45.0 Mean Corpuscular Volume 94.1 Mean Corpuscular Hemoglobin 29.5 Mean Corpuscular Hemoglobin Concent 31.3 L Red Cell Distribution Width 14.3 Platelet Count 253 Mean Platelet Volume 11.4 H Neutrophils % 59.7 Lymphocytes % 26.8 Monocytes % 10.5 Eosinophils % 1.9 Basophils % 0.4 Nucleated Red Blood Cells % 0.0 Neutrophils # 9.0 H Lymphocytes # 4.0 H Monocytes # 1.6 H Eosinophils # 0.3 Basophils # 0.1 Nucleated Red Blood Cells # 0.0 Sodium Level 138 Potassium Level 4.1 Chloride Level 101 Carbon Dioxide Level 29 Anion Gap 12 Blood Urea Nitrogen 19 Creatinine 0.80 Glucose Level 140 Calcium Level 9.4 Phosphorus Level 4.2 Magnesium Level 2.0 Bedside Glucose 143 88 Medications Medications Current Medications Oxycodone/ Acetaminophen (Endocet (10/ 325)) 1 tab Q4H PRN PO PAIN Last administered on 10/04/16 02:49; Admin Dose 1 TAB; Start 10/04/16 at 02:30 Ondansetron HCl (Zofran Inj) 4 mg Q6H PRN IV NAUSEA AND/OR VOMITING; Start 10/04 at 02:30 Acetaminophen (Tylenol Tab) 650 mg Q6H PRN PO PAIN LEVEL 1-3 OR FEVER; Start at 02:30 Docusate Sodium (Colace) 100 mg Q12H PRN PO CONSTIPATION; Start 10/04/16 at 02: 30 Bisacodyl (Dulcolax) 5 mg DAILY PRN PO CONSTIPATION; Start 10/04/16 at 02:30 Atorvastatin Calcium (Lipitor) 20 mg QHS PO Last administered on 10/05/16 21:05 ; Admin Dose 20 MG; Start 10/04/16 at 21:00 Gabapentin (Neurontin) 600 mg TID PRN PO PAIN; Start 10/04/16 at 03:00 Insulin Glargine (Lantus) 50 unit QHS SC Last administered on 10/05/16 21:06; Admin Dose 50 UNIT; Start 10/04/16 at 21:00 Tamsulosin HCl (Flomax) 0.4 mg BID PO Last administered on 10/06/16 09:17; Admin Dose 0.4 MG; Start 10/04/16 at 09:00 Thiamine HCl (Vitamin B1) 100 mg BID PO Last administered on 10/06/16 09:17; Admin Dose 100 MG; Start 10/04/16 at 09:00 Trazodone HCl (Desyrel) 50 mg QHS PRN PO SLEEP; Start 10/04/16 at 03:00 Diagnostic Test (Pha) (Accu-Chek) 1 ea 02 XX ; Start 10/05/16 at 02:00 Miscellaneous Information 1 ea NOTE XX ; Start 10/04/16 at 02:45 Glucose (Glutose) 15 gm Q15M PRN PO DECREASED GLUCOSE; Start 10/04/16 at 02:45 Glucose (Glutose) 22.5 gm Q15M PRN PO DECREASED GLUCOSE; Start 10/04/16 at 02:45 Dextrose (D50w Syringe) 25 ml Q15M PRN IV DECREASED GLUCOSE; Start 10/04/16 at 02:45 Dextrose (D50w Syringe) 50 ml Q15M PRN IV DECREASED GLUCOSE; Start 10/04/16 at 02:45 Glucagon (Glucagen) 1 mg Q15M PRN IM DECREASED GLUCOSE; Start 10/04/16 at 02:45 Glucose 15 gm 15 gm Q15M PRN BUCCAL DECREASED GLUCOSE; Start 10/04/16 at 02:45 Cefepime HCl (Maxipime 1gm/50 ml (Pmx)) 50 ml @ 100 mls/hr Q12 IVPB Last administered on 10/06/16 09:17; Admin Dose 100 MLS/HR; Start 10/04/16 at 09:00 Hydralazine HCl (Apresoline) 10 mg Q6H PRN IV ELEVATED BLOOD PRESSURE; Start at 07:00 Morphine Sulfate (morphine) 2 mg Q4H PRN IV pain 8-10 Last administered on 09:17; Admin Dose 2 MG; Start 10/04/16 at 14:30 Salmeterol Xinafoate/ Fluticasone (Advair 250/50 Diskus) 1 inh BID INH Last administered on 10/05/16 08:40; Admin Dose 1 INH; Start 10/04/16 at 21:00 Cholecalciferol 1000 unit 1,000 unit DAILY PO Last administered on 10/06/16 09: 17; Admin Dose 1,000 UNIT; Start 10/06/16 at 09:00 Vancomycin HCl/ Sodium Chloride (Vancocin/NS) 500 ml @ 125 mls/hr Q12H IVPB Last administered on 10/06/16t 07:22; Admin Dose 125 MLS/HR; Start 10/06/16 at 07: 00 Apixaban (Eliquis) 5 mg BID PO ; Start 10/06/16 at 10:30 Lisinopril (Zestril) 2.5 mg DAILY PO ; Start 10/06/16 at 10:30 Yaron Mayer DO October 06, 2016 11:58
[2016-10-06] MEDS: APIXABAN 5 MG TABLET PO SCH ×2 (12:20→20:51)
[2016-10-06] MEDS: LISINOPRIL 5 MG TAB PO SCH (12:21)
--- NOTE | 2016-10-06 14:52 | PN ---
DATE: 10/06/2016 INFECTIOUS DISEASE PROGRESS NOTE SUBJECTIVE: No acute changes. The patient is alert, looks comfortable. Denies pain, discomfort. No fevers. LABORATORY DATA: WBC today 15, platelets 253, no shift, no bands. BUN 19, creatinine 0.80. MICROBIOLOGY: Blood cultures remain negative. DIAGNOSTICS: CT of the chest revealed no evidence of pulmonary embolism. Chest x-ray also revealed moderate cardiomegaly and moderate pulmonary edema. ANTIMICROBIALS: The patient is on: 1. IV vancomycin. 2. Cefepime. PHYSICAL EXAMINATION: GENERAL: This is a morbidly obese, elderly man who is awake, in no distress. HEENT: Head atraumatic, normocephalic. Sclerae anicteric. Buccal mucosa dry. NECK: Supple, trachea midline. CHEST: Rise symmetrical. Breath sounds diminished to bases. HEART: S1, S2. ABDOMEN: Soft, bowel sounds present. EXTREMITIES: Bilateral lower extremity edema, erythema. Right lower extremity with wound VAC to wo und below knee. ASSESSMENT: 1. Acute on chronic bilateral lower extremity cellulitis with right knee wound culture on 7 grew Corynebacterium, methicillin-resistant Staphylococcus aureus, and alpha hemolytic strep speci es. 2. Morbid obesity. 3. Bilateral lower extremity chronic venous insufficiency. 4. History of paroxysmal atrial fibrillation. 5. Chronic obstructive pulmonary disease. 6. Obstructive sleep apnea. 7. Diabetes. PLAN: The patient remains stable, on appropriate antimicrobials. Will change cefepime to oral Leva brice. Will try to obtain cultures if possible. Dictated By: HORTENCIA CHACON [employer] for DESTINEY CANO/REY Conf#: [id number] DID#: [id number]
[2016-10-06 20:20] VITALS: BP 141/79; RESP 18
[2016-10-06] MEDS: ATORVASTATIN 20 MG TAB PO SCH (20:51)
[2016-10-06] MEDS: INSULIN GLARGINE [LANtus] 3 ML PEN SC SCH (20:59)
[2016-10-07] MEDS: ACCU-CHEK XX SCH (02:00)
[2016-10-07] MEDS: morphine 2 MG INJ IV PRN ×5 (03:57→21:33)
[2016-10-07] MEDS: LEVOFLOXACIN 500 MG TAB NGT SCH (05:26)
[2016-10-07 06:20] LABS: ADD SCAN DIFF NO
[2016-10-07] MEDS: VANCOMYCIN 1.75 GM in NS 500 ML IVPB SCH ×2 (06:34→19:38)
[2016-10-07 06:37] LABS: BASOPHIL # 0.1 10^3/ul (0.0-0.1); BASOPHILS % 0.4 % (0.0-2.0); EOSINOPHILS # 0.2 10^3/ul (0.0-0.5); EOSINOPHILS % 1.7 % (0.0-7.0); HEMATOCRIT 46.9 % (42.0-52.0); HEMOGLOBIN 14.6 g/dl (14.0-18.0); LYMPHOCYTES # 3.2 10^3/ul (0.8-2.9); LYMPHOCYTES % 22.9 % (15.0-51.0); MEAN CORPUSCULAR HEMOGLOBIN 29.1 pg (29.0-33.0); MEAN CORPUSCULAR HGB CONC 31.1 g/dl (32.0-37.0); MEAN CORPUSCULAR VOLUME 93.4 fl (82.0-101.0); MEAN PLATELET VOLUME 11.6 fl (7.4-10.4); MONOCYTE # 1.4 10^3/ul (0.3-0.9); MONOCYTES % 9.8 % (0.0-11.0); NEUTROPHIL # 9.1 10^3/ul (1.6-7.5); NEUTROPHILS % 64.3 % (39.0-77.0); PLATELET COUNT 235 10^3/UL (140-415); RED BLOOD COUNT 5.02 10^6/ul (4.70-6.10); RED CELL DISTRIBUTION WIDTH 14.2 % (11.5-14.5); WHITE BLOOD COUNT 14.1 10^3/ul (4.8-10.8)
[2016-10-07 07:45] LABS: ALANINE AMINOTRANSFERASE 45 IU/L (13-69); ALBUMIN 3.7 g/dl (3.3-4.9); ALBUMIN/GLOBULIN RATIO 1.05; ALKALINE PHOSPHATASE 107 IU/L (42-121); ANION GAP 9 (8-16); ASPARTATE AMINO TRANSFERASE 34 IU/L (15-46); BILIRUBIN,INDIRECT 0.4 mg/dl (0-1.1); BILIRUBIN,TOTAL 0.4 mg/dl (0.2-1.3); BLOOD UREA NITROGEN 19 mg/dl (7-20); CALCIUM 9.8 mg/dl (8.4-10.2); CARBON DIOXIDE 28 mmol/L (21-31); CHLORIDE 103 mmol/L (97-110); CREATININE 0.81 mg/dl (0.61-1.24); GLUCOSE 190 mg/dl (70-220); MAGNESIUM 1.7 mg/dl (1.7-2.5); PHOSPHORUS 3.9 mg/dl (2.5-4.9); POTASSIUM 4.8 mmol/L (3.5-5.1); SODIUM 135 mmol/L (135-144); TOTAL PROTEIN 7.2 g/dl (6.1-8.1)
[2016-10-07 08:00] LABS: TROPONIN-I < 0.012 ng/ml (0.00-0.12)
[2016-10-07 08:16] VITALS: BP 125/59; RESP 20
[2016-10-07] MEDS: INSULIN ASPART [NOVOLOG] 3 ML PEN SC SCH ×7 (08:24→21:41)
[2016-10-07] MEDS: CHOLECALCIFEROL 1,000 UNIT TAB PO SCH (08:25)
[2016-10-07] MEDS: APIXABAN 5 MG TABLET PO SCH ×2 (08:25→21:31)
[2016-10-07] MEDS: TAMSULOSIN (SR) 0.4 MG CAP PO SCH ×2 (08:25→21:31)
[2016-10-07] MEDS: THIAMINE 100 MG TAB PO SCH ×2 (08:25→21:31)
[2016-10-07] MEDS: LISINOPRIL 5 MG TAB PO SCH (08:26)
[2016-10-07] MEDS: SALMETEROL/FLUTICASONE 250/50 INHA INH SCH ×3 (08:26→21:00)
--- NOTE | 2016-10-07 09:17 | PN ---
Date/Time of Note Date/Time of Note DATE: 10/07/16 TIME: 09:14 Assessment/Plan Lines/Catheters IV Catheter Type (from [facility]): Saline Lock Cuellar in Place (from [facility]): No Assessment/Plan Chief Complaint/Hosp Course -Bilateral lower extremity venous insufficiency and varicose veins: The patient 's wound has been coming along fine, and for some reason his insurance had not approved for him to continue with his wound VAC therapy. From our standpoint continue with our wound VAC therapy every other day, Thursday, Thursday, Thursday as scheduled -With history of venous insufficiency we encouraged him to either continue with the 2-layer compression or continue with his compression stockings for which he has tried to be compliant. -Continue with medical management for his leukocytosis and possible pneumonia and his respiratory toiletry. -Optimize vascular status (BP meds, diet, nutrition, exercise, sugar control, antiplatelet, weight loss). -Discussed with the patient the importance of compliance with his respiratory medications as he refuses to take his medications tonight. -Discussed findings, plan, and management with the patient, and he understands. -Thank you for allowing us to partake in the care of your patient. Please call with any questions. Problems: Subjective 24 Hr Interval Summary Constitutional: improved, no complaints Exam/Review of Systems Vital Signs Vitals Vital Signs Date Time Temp Pulse Resp B/P Pulse Ox O2 Delivery O2 Flow Rate FiO2 10/07/16 08:16 98.0 87 20 125/59 93 10/06/16 07:36 21 10/06/16 01:19 3.0 10/05/16 21:42 Nasal Cannula Intake and Output 10/06/16 10/06/16 10/07/16 15:00 23:00 07:00 Intake Total 500 ml 1600 ml 2200 ml Balance 500 ml 1600 ml 2200 ml Exam Free Text/Dictation GENERAL: Alert and oriented x3, PULMONARY: Clear to auscultation bilaterally. . CARDIOVASCULAR: S1, S2 present. ABDOMEN: Soft, nontender, nondistended. Bowel sounds positive. Large truncal obesity and large pannus. EXTREMITIES: Lower extremities, unable to palpate the femoral pulse secondary to body habitus , palpable pedal pulse. Motor, sensory intact. Cap refill 2 to 3 seconds. edema bilaterally 2+. Right lower extremity: right upper calf with wound VAC that is intact and functional. No erythema, spider veins, telangiectasias, and varicose veins. Results Result Diagram: 10/07/16 0440 10/07/16 0540 LUZ KRISHNAN MD October 07, 2016 09:17
--- NOTE | 2016-10-07 13:53 | CONS ---
Date/Time of Note Date/Time of Note DATE: 10/07/16 TIME: 13:52 Assessment/Plan Assessment/Plan Chief Complaint/Hosp Course SUBJECTIVE: No acute changes. The patient is alert, looks comfortable. Denies pain, discomfort. No fevers. MICROBIOLOGY: Blood cultures remain negative. DIAGNOSTICS: CT of the chest revealed no evidence of pulmonary embolism. Chest x-ray also revealed moderate cardiomegaly and moderate pulmonary edema. ANTIMICROBIALS: The patient is on: 1. IV vancomycin. 2. Levaquin. PHYSICAL EXAMINATION: GENERAL: This is a morbidly obese, elderly man who is awake, in no distress. HEENT: Head atraumatic, normocephalic. Sclerae anicteric. Buccal mucosa dry. NECK: Supple, trachea midline. CHEST: Rise symmetrical. Breath sounds diminished to bases. HEART: S1, S2. ABDOMEN: Soft, bowel sounds present. EXTREMITIES: Bilateral lower extremity edema, erythema. Right lower extremity with wound VAC to wound below knee. ASSESSMENT: 1. Acute on chronic bilateral lower extremity cellulitis with right knee wound culture on 09/04/2016 grew Corynebacterium, methicillin-resistant Staphylococcus aureus, and alpha hemolytic strep species. 2. Morbid obesity. 3. Bilateral lower extremity chronic venous insufficiency. 4. History of paroxysmal atrial fibrillation. 5. Chronic obstructive pulmonary disease. 6. Obstructive sleep apnea. 7. Diabetes. PLAN: The patient remains stable, on appropriate antimicrobials. Continue local wound care, keep BLE elevated DW pt Problems: Consultation Date/Type/Reason Admit Date/Time October 03, 2016 at 22:50 Initial Consult Date 10/06/16 Type of Consultation: ID Exam/Review of Systems Vital Signs Vitals Vital Signs Date Time Temp Pulse Resp B/P Pulse Ox O2 Delivery O2 Flow Rate FiO2 10/07/16 08:16 98.0 87 20 125/59 93 10/06/16 07:36 21 10/06/16 01:19 3.0 10/05/16 21:42 Nasal Cannula Intake and Output 10/06/16 10/06/16 10/07/16 15:00 23:00 07:00 Intake Total 500 ml 1600 ml 2200 ml Balance 500 ml 1600 ml 2200 ml Results Result Diagram: 10/07/16 0440 10/07/16 0540 Results 24 hrs Laboratory Tests Test 10/06/16 17:03 10/06/16 17:17 10/06/16 20:54 10/07/16 04:40 Bedside Glucose 68 L 100 161 White Blood Count 14.1 H Red Blood Count 5.02 Hemoglobin 14.6 Hematocrit 46.9 Mean Corpuscular Volume 93.4 Mean Corpuscular Hemoglobin 29.1 Mean Corpuscular Hemoglobin Concent 31.1 L Red Cell Distribution Width 14.2 Platelet Count 235 Mean Platelet Volume 11.6 H Neutrophils % 64.3 Lymphocytes % 22.9 Monocytes % 9.8 Eosinophils % 1.7 Basophils % 0.4 Nucleated Red Blood Cells % 0.0 Neutrophils # 9.1 H Lymphocytes # 3.2 H Monocytes # 1.4 H Eosinophils # 0.2 Basophils # 0.1 Nucleated Red Blood Cells # 0.0 Test 10/07/16 05:40 10/07/16 08:06 10/07/16 11:37 Sodium Level 135 Potassium Level 4.8 Chloride Level 103 Carbon Dioxide Level 28 Anion Gap 9 Blood Urea Nitrogen 19 Creatinine 0.81 Glucose Level 190 Calcium Level 9.8 Phosphorus Level 3.9 Magnesium Level 1.7 Total Bilirubin 0.4 Direct Bilirubin 0.00 Indirect Bilirubin 0.4 Aspartate Amino Transf (AST/SGOT) 34 Alanine Aminotransferase (ALT/SGPT) 45 Alkaline Phosphatase 107 Troponin I < 0.012 Total Protein 7.2 Albumin 3.7 Globulin 3.50 H Albumin/Globulin Ratio 1.05 Bedside Glucose 174 122 Medications Medications Current Medications Oxycodone/ Acetaminophen (Endocet (10/ 325)) 1 tab Q4H PRN PO PAIN Last administered on 10/04/16 02:49; Admin Dose 1 TAB; Start 10/04/16 at 02:30 Ondansetron HCl (Zofran Inj) 4 mg Q6H PRN IV NAUSEA AND/OR VOMITING; Start 10/04 at 02:30 Acetaminophen (Tylenol Tab) 650 mg Q6H PRN PO PAIN LEVEL 1-3 OR FEVER; Start at 02:30 Docusate Sodium (Colace) 100 mg Q12H PRN PO CONSTIPATION; Start 10/04/16 at 02: 30 Bisacodyl (Dulcolax) 5 mg DAILY PRN PO CONSTIPATION; Start 10/04/16 at 02:30 Atorvastatin Calcium (Lipitor) 20 mg QHS PO Last administered on 10/06/16 20:51 ; Admin Dose 20 MG; Start 10/04/16 at 21:00 Gabapentin (Neurontin) 600 mg TID PRN PO PAIN; Start 10/04/16 at 03:00 Insulin Glargine (Lantus) 50 unit QHS SC Last administered on 10/06/16 20:59; Admin Dose 50 UNIT; Start 10/04/16 at 21:00 Tamsulosin HCl (Flomax) 0.4 mg BID PO Last administered on 10/07/16 08:25; Admin Dose 0.4 MG; Start 10/04/16 at 09:00 Thiamine HCl (Vitamin B1) 100 mg BID PO Last administered on 10/07/16 08:25; Admin Dose 100 MG; Start 10/04/16 at 09:00 Trazodone HCl (Desyrel) 50 mg QHS PRN PO SLEEP; Start 10/04/16 at 03:00 Diagnostic Test (Pha) (Accu-Chek) 1 ea 02 XX ; Start 10/05/16 at 02:00 Miscellaneous Information 1 ea NOTE XX ; Start 10/04/16 at 02:45 Glucose (Glutose) 15 gm Q15M PRN PO DECREASED GLUCOSE; Start 10/04/16 at 02:45 Glucose (Glutose) 22.5 gm Q15M PRN PO DECREASED GLUCOSE; Start 10/04/16 at 02:45 Dextrose (D50w Syringe) 25 ml Q15M PRN IV DECREASED GLUCOSE; Start 10/04/16 at 02:45 Dextrose (D50w Syringe) 50 ml Q15M PRN IV DECREASED GLUCOSE; Start 10/04/16 at 02:45 Glucagon (Glucagen) 1 mg Q15M PRN IM DECREASED GLUCOSE; Start 10/04/16 at 02:45 Glucose (Glutose) 15 gm Q15M PRN BUCCAL DECREASED GLUCOSE; Start 10/04/16 at 02: 45 Hydralazine HCl (Apresoline) 10 mg Q6H PRN IV ELEVATED BLOOD PRESSURE; Start at 07:00 Morphine Sulfate (morphine) 2 mg Q4H PRN IV pain 8-10 Last administered on 13:15; Admin Dose 2 MG; Start 10/04/16 at 14:30 Salmeterol Xinafoate/ Fluticasone (Advair 250/50 Diskus) 1 inh BID INH Last administered on 10/05/16 08:40; Admin Dose 1 INH; Start 10/04/16 at 21:00 Cholecalciferol 1000 unit 1,000 unit DAILY PO Last administered on 10/07/16 08: 25; Admin Dose 1,000 UNIT; Start 10/06/16 at 09:00 Vancomycin HCl/ Sodium Chloride (Vancocin/NS) 500 ml @ 125 mls/hr Q12H IVPB Last administered on 10/07/16 06:34; Admin Dose 125 MLS/HR; Start 10/06/16 at 07: 00 Apixaban (Eliquis) 5 mg BID PO Last administered on 10/07/16 08:25; Admin Dose 5 MG; Start 10/06/16 at 10:30 Lisinopril (Zestril) 2.5 mg DAILY PO Last administered on 10/07/16 08:26; Admin Dose 2.5 MG; Start 10/06/16 at 10:30 Levofloxacin (Levaquin) 500 mg DAILY@06 NGT Last administered on 10/07/16 05:26 ; Admin Dose 500 MG; Start 10/07/16 at 06:00 Miscellaneous Information (*Rx Drug Level Order Reminder*) VANCO TROUGH @ 1, 800 ON... ONCE ONCE XX ; Start 10/07/16 at 18:00; Stop 10/07/16 at 18:01 HORTENCIA CHACON NP October 07, 2016 13:53
--- NOTE | 2016-10-07 15:56 | PN ---
Date/Time of Note Date/Time of Note DATE: 10/07/16 TIME: 15:52 Assessment/Plan VTE Prophylaxis VTE Prophylaxis Intervention: LMWH Lines/Catheters [facility] Saline Lock Urinary Cath still in place: No Assessment/Plan Chief Complaint/Hosp Course S: 60yrM w dyspnea, worse lying down. Exacerbated by heat. No active or productive cough, or cp. Possible edema. No ill contacts or fever. Potentially adding salt to his foods. 10/07: No distress. Drinking 4 pictures of fluid per day. O: vss PE No pallor/JVD Regr, no m/r/g CTAB Bs +, nt nd, no R/R/G. Overweight Ext w potentially cellulitis. Wound VAC in place A/P 1. SIRS. Possible sepsis due to cellulitis. Stable cont wound care. Refuses home health/wound VAC care at home. We will set up an appointment referral at [facility] 3 days a week for wound VAC change. Authorization requested. -Discharge home on PO vs IV antibiotics, if/when ok w ID. 2. Dyspnea potentially secondary to DD. Consider cor pulmonale/ ama. No added salt diet. No evidence of pneumonia or respiratory distress. 3. Medication nonadherence 4. Diabetes A1c 10.9/metabolic syndrome. Cont insulin/ risk factor modification 5. Varicose veins. Possible local cellulitis. Ho right calf abscess and wound dehiscence. -Discharge home Thursday after wound VAC has been arranged. 6. Probable chronic COPD; possible cor pulmonale. Outpatient PFTs 7. Past tobacco 8. Chr A. fib started Eliquis 9. Splenectomy status 10. Chr depression Problems: Exam/Review of Systems Vital Signs Vitals Vital Signs Date Time Temp Pulse Resp B/P Pulse Ox O2 Delivery O2 Flow Rate FiO2 10/07/16 08:16 98.0 87 20 125/59 93 10/06/16 07:36 21 10/06/16 01:19 3.0 10/05/16 21:42 Nasal Cannula Intake and Output 10/06/16 10/06/16 10/07/16 15:00 23:00 07:00 Intake Total 500 ml 1600 ml 2200 ml Balance 500 ml 1600 ml 2200 ml Results Result Diagram: 10/07/16 0440 10/07/16 0540 Results 24 hrs Laboratory Tests Test 10/06/16 17:03 10/06/16 17:17 10/06/16 20:54 10/07/16 04:40 Bedside Glucose 68 L 100 161 White Blood Count 14.1 H Red Blood Count 5.02 Hemoglobin 14.6 Hematocrit 46.9 Mean Corpuscular Volume 93.4 Mean Corpuscular Hemoglobin 29.1 Mean Corpuscular Hemoglobin Concent 31.1 L Red Cell Distribution Width 14.2 Platelet Count 235 Mean Platelet Volume 11.6 H Neutrophils % 64.3 Lymphocytes % 22.9 Monocytes % 9.8 Eosinophils % 1.7 Basophils % 0.4 Nucleated Red Blood Cells % 0.0 Neutrophils # 9.1 H Lymphocytes # 3.2 H Monocytes # 1.4 H Eosinophils # 0.2 Basophils # 0.1 Nucleated Red Blood Cells # 0.0 Test 10/07/16 05:40 10/07/16 08:06 10/07/16 11:37 Sodium Level 135 Potassium Level 4.8 Chloride Level 103 Carbon Dioxide Level 28 Anion Gap 9 Blood Urea Nitrogen 19 Creatinine 0.81 Glucose Level 190 Calcium Level 9.8 Phosphorus Level 3.9 Magnesium Level 1.7 Total Bilirubin 0.4 Direct Bilirubin 0.00 Indirect Bilirubin 0.4 Aspartate Amino Transf (AST/SGOT) 34 Alanine Aminotransferase (ALT/SGPT) 45 Alkaline Phosphatase 107 Troponin I < 0.012 Total Protein 7.2 Albumin 3.7 Globulin 3.50 H Albumin/Globulin Ratio 1.05 Bedside Glucose 174 122 Medications Medications Current Medications Oxycodone/ Acetaminophen (Endocet (10/ 325)) 1 tab Q4H PRN PO PAIN Last administered on 10/04/16 02:49; Admin Dose 1 TAB; Start 10/04/16 at 02:30 Ondansetron HCl (Zofran Inj) 4 mg Q6H PRN IV NAUSEA AND/OR VOMITING; Start 10/04 at 02:30 Acetaminophen (Tylenol Tab) 650 mg Q6H PRN PO PAIN LEVEL 1-3 OR FEVER; Start at 02:30 Docusate Sodium (Colace) 100 mg Q12H PRN PO CONSTIPATION; Start 10/04/16 at 02: 30 Bisacodyl (Dulcolax) 5 mg DAILY PRN PO CONSTIPATION; Start 10/04/16 at 02:30 Atorvastatin Calcium (Lipitor) 20 mg QHS PO Last administered on 10/06/16 20:51 ; Admin Dose 20 MG; Start 10/04/16 at 21:00 Gabapentin (Neurontin) 600 mg TID PRN PO PAIN; Start 10/04/16 at 03:00 Insulin Glargine (Lantus) 50 unit QHS SC Last administered on 10/06/16 20:59; Admin Dose 50 UNIT; Start 10/04/16 at 21:00 Tamsulosin HCl (Flomax) 0.4 mg BID PO Last administered on 10/07/16 08:25; Admin Dose 0.4 MG; Start 10/04/16 at 09:00 Thiamine HCl (Vitamin B1) 100 mg BID PO Last administered on 10/07/16 08:25; Admin Dose 100 MG; Start 10/04/16 at 09:00 Trazodone HCl (Desyrel) 50 mg QHS PRN PO SLEEP; Start 10/04/16 at 03:00 Diagnostic Test (Pha) (Accu-Chek) 1 ea 02 XX ; Start 10/05/16 at 02:00 Miscellaneous Information 1 ea NOTE XX ; Start 10/04/16 at 02:45 Glucose (Glutose) 15 gm Q15M PRN PO DECREASED GLUCOSE; Start 10/04/16 at 02:45 Glucose (Glutose) 22.5 gm Q15M PRN PO DECREASED GLUCOSE; Start 10/04/16 at 02:45 Dextrose (D50w Syringe) 25 ml Q15M PRN IV DECREASED GLUCOSE; Start 10/04/16 at 02:45 Dextrose (D50w Syringe) 50 ml Q15M PRN IV DECREASED GLUCOSE; Start 10/04/16 at 02:45 Glucagon (Glucagen) 1 mg Q15M PRN IM DECREASED GLUCOSE; Start 10/04/16 at 02:45 Glucose (Glutose) 15 gm Q15M PRN BUCCAL DECREASED GLUCOSE; Start 10/04/16 at 02: 45 Hydralazine HCl (Apresoline) 10 mg Q6H PRN IV ELEVATED BLOOD PRESSURE; Start at 07:00 Morphine Sulfate (morphine) 2 mg Q4H PRN IV pain 8-10 Last administered on 13:15; Admin Dose 2 MG; Start 10/04/16 at 14:30 Salmeterol Xinafoate/ Fluticasone (Advair 250/50 Diskus) 1 inh BID INH Last administered on 10/05/16 08:40; Admin Dose 1 INH; Start 10/04/16 at 21:00 Cholecalciferol 1000 unit 1,000 unit DAILY PO Last administered on 10/07/16 08: 25; Admin Dose 1,000 UNIT; Start 10/06/16 at 09:00 Vancomycin HCl/ Sodium Chloride (Vancocin/NS) 500 ml @ 125 mls/hr Q12H IVPB Last administered on 10/07/16 06:34; Admin Dose 125 MLS/HR; Start 10/06/16 at 07: 00 Apixaban (Eliquis) 5 mg BID PO Last administered on 10/07/16 08:25; Admin Dose 5 MG; Start 10/06/16 at 10:30 Lisinopril (Zestril) 2.5 mg DAILY PO Last administered on 10/07/16 08:26; Admin Dose 2.5 MG; Start 10/06/16 at 10:30 Levofloxacin (Levaquin) 500 mg DAILY@06 NGT Last administered on 10/07/16 05:26 ; Admin Dose 500 MG; Start 10/07/16 at 06:00 Miscellaneous Information (*Rx Drug Level Order Reminder*) VANCO TROUGH @ 1, 800 ON... ONCE ONCE XX ; Start 10/07/16 at 18:00; Stop 10/07/16 at 18:01 ASHANTI WHITLEY MD October 07, 2016 15:56
--- NOTE | 2016-10-07 16:59 | CONS ---
Date/Time of Note Date/Time of Note DATE: 10/07/16 TIME: 16:57 Assessment/Plan Assessment/Plan Additional Assessment/Plan Shortness of breath likely secondary to obesity hypoventilation syndrome History paroxysmal atrial fibrillation, currently sinus rhythm Obesity Edema Preserved ejection fraction -Patient with no change in symptoms with slightly less shortness of breath with activity. No new cardiac orders at the current time Consultation Date/Type/Reason Admit Date/Time October 03, 2016 at 22:50 Initial Consult Date 10/04/16 Type of Consultation: cv 24 HR Interval Summary Free Text/Dictation Denies chest pain, shortness of breath is slightly better Exam/Review of Systems Vital Signs Vitals Vital Signs Date Time Temp Pulse Resp B/P Pulse Ox O2 Delivery O2 Flow Rate FiO2 10/07/16 08:16 98.0 87 20 125/59 93 10/06/16 07:36 21 10/06/16 01:19 3.0 10/05/16 21:42 Nasal Cannula Intake and Output 10/06/16 10/06/16 10/07/16 15:00 23:00 07:00 Intake Total 500 ml 1600 ml 2200 ml Balance 500 ml 1600 ml 2200 ml Exam No apparent distress Constitutional: alert, obese, oriented Head: normocephalic Respiratory: other (Coarse breath sounds bilaterally, no wheezing) Cardiovascular: other (S1-S2 heard), regular rate and rhythm Gastrointestinal: bowel sounds, non-tender, soft Extremities: edema Results Result Diagram: 10/07/16 0440 10/07/16 0540 Results 24 hrs Laboratory Tests Test 10/06/16 17:03 10/06/16 17:17 10/06/16 20:54 10/07/16 04:40 Bedside Glucose 68 L 100 161 White Blood Count 14.1 H Red Blood Count 5.02 Hemoglobin 14.6 Hematocrit 46.9 Mean Corpuscular Volume 93.4 Mean Corpuscular Hemoglobin 29.1 Mean Corpuscular Hemoglobin Concent 31.1 L Red Cell Distribution Width 14.2 Platelet Count 235 Mean Platelet Volume 11.6 H Neutrophils % 64.3 Lymphocytes % 22.9 Monocytes % 9.8 Eosinophils % 1.7 Basophils % 0.4 Nucleated Red Blood Cells % 0.0 Neutrophils # 9.1 H Lymphocytes # 3.2 H Monocytes # 1.4 H Eosinophils # 0.2 Basophils # 0.1 Nucleated Red Blood Cells # 0.0 Test 10/07/16 05:40 10/07/16 08:06 10/07/16 11:37 Sodium Level 135 Potassium Level 4.8 Chloride Level 103 Carbon Dioxide Level 28 Anion Gap 9 Blood Urea Nitrogen 19 Creatinine 0.81 Glucose Level 190 Calcium Level 9.8 Phosphorus Level 3.9 Magnesium Level 1.7 Total Bilirubin 0.4 Direct Bilirubin 0.00 Indirect Bilirubin 0.4 Aspartate Amino Transf (AST/SGOT) 34 Alanine Aminotransferase (ALT/SGPT) 45 Alkaline Phosphatase 107 Troponin I < 0.012 Total Protein 7.2 Albumin 3.7 Globulin 3.50 H Albumin/Globulin Ratio 1.05 Bedside Glucose 174 122 Medications Medications Current Medications Oxycodone/ Acetaminophen (Endocet (10/ 325)) 1 tab Q4H PRN PO PAIN Last administered on 10/04/16 02:49; Admin Dose 1 TAB; Start 10/04/16 at 02:30 Ondansetron HCl (Zofran Inj) 4 mg Q6H PRN IV NAUSEA AND/OR VOMITING; Start 10/04 at 02:30 Acetaminophen (Tylenol Tab) 650 mg Q6H PRN PO PAIN LEVEL 1-3 OR FEVER; Start at 02:30 Docusate Sodium (Colace) 100 mg Q12H PRN PO CONSTIPATION; Start 10/04/16 at 02: 30 Bisacodyl (Dulcolax) 5 mg DAILY PRN PO CONSTIPATION; Start 10/04/16 at 02:30 Atorvastatin Calcium (Lipitor) 20 mg QHS PO Last administered on 10/06/16 20:51 ; Admin Dose 20 MG; Start 10/04/16 at 21:00 Gabapentin (Neurontin) 600 mg TID PRN PO PAIN; Start 10/04/16 at 03:00 Tamsulosin HCl (Flomax) 0.4 mg BID PO Last administered on 10/07/16 08:25; Admin Dose 0.4 MG; Start 10/04/16 at 09:00 Thiamine HCl (Vitamin B1) 100 mg BID PO Last administered on 10/07/16 08:25; Admin Dose 100 MG; Start 10/04/16 at 09:00 Trazodone HCl (Desyrel) 50 mg QHS PRN PO SLEEP; Start 10/04/16 at 03:00 Diagnostic Test (Pha) (Accu-Chek) 1 ea 02 XX ; Start 10/05/16 at 02:00 Miscellaneous Information 1 ea NOTE XX ; Start 10/04/16 at 02:45 Glucose (Glutose) 15 gm Q15M PRN PO DECREASED GLUCOSE; Start 10/04/16 at 02:45 Glucose (Glutose) 22.5 gm Q15M PRN PO DECREASED GLUCOSE; Start 10/04/16 at 02:45 Dextrose (D50w Syringe) 25 ml Q15M PRN IV DECREASED GLUCOSE; Start 10/04/16 at 02:45 Dextrose (D50w Syringe) 50 ml Q15M PRN IV DECREASED GLUCOSE; Start 10/04/16 at 02:45 Glucagon (Glucagen) 1 mg Q15M PRN IM DECREASED GLUCOSE; Start 10/04/16 at 02:45 Glucose (Glutose) 15 gm Q15M PRN BUCCAL DECREASED GLUCOSE; Start 10/04/16 at 02: 45 Hydralazine HCl (Apresoline) 10 mg Q6H PRN IV ELEVATED BLOOD PRESSURE; Start at 07:00 Morphine Sulfate (morphine) 2 mg Q4H PRN IV pain 8-10 Last administered on 13:15; Admin Dose 2 MG; Start 10/04/16 at 14:30 Salmeterol Xinafoate/ Fluticasone (Advair 250/50 Diskus) 1 inh BID INH Last administered on 10/05/16 08:40; Admin Dose 1 INH; Start 10/04/16 at 21:00 Cholecalciferol 1000 unit 1,000 unit DAILY PO Last administered on 10/07/16 08: 25; Admin Dose 1,000 UNIT; Start 10/06/16 at 09:00 Vancomycin HCl/ Sodium Chloride (Vancocin/NS) 500 ml @ 125 mls/hr Q12H IVPB Last administered on 10/07/16 06:34; Admin Dose 125 MLS/HR; Start 10/06/16 at 07: 00 Apixaban (Eliquis) 5 mg BID PO Last administered on 10/07/16 08:25; Admin Dose 5 MG; Start 10/06/16 at 10:30 Lisinopril (Zestril) 2.5 mg DAILY PO Last administered on 5/9/17at 08:26; Admin Dose 2.5 MG; Start 10/06/16 at 10:30 Levofloxacin (Levaquin) 500 mg DAILY@06 NGT Last administered on 10/07/16t 05:26 ; Admin Dose 500 MG; Start 10/07/16 at 06:00 Miscellaneous Information (*Rx Drug Level Order Reminder*) VANCO TROUGH @ 1, 800 ON... ONCE ONCE XX ; Start 10/07/16 at 18:00; Stop 10/07/16 at 18:01 Insulin Glargine (Lantus) 45 unit QHS SC ; Start 10/07/16 at 21:00 Lactobacillus Acidophilus/ Rhamnosus (Culturelle) 1 cap BID PO ; Start 10/07/16 at 21:00 Yaron Mayer DO October 07, 2016 16:59
[2016-10-07 20:42] VITALS: BP 133/73; RESP 16
[2016-10-07] MEDS ORDERED: INSULIN GLARGINE [LANtus] 3 ML PEN SC SCH (21:00)
[2016-10-07] MEDS: ATORVASTATIN 20 MG TAB PO SCH (21:31)
[2016-10-07] MEDS: LACTOBACILLUS RHAMNOSUS CAP PO SCH (21:31)
[2016-10-08] MEDS: ACCU-CHEK XX SCH (02:36)
[2016-10-08] MEDS: morphine 2 MG INJ IV PRN ×4 (02:37→17:34)
[2016-10-08] MEDS: VANCOMYCIN 1.75 GM in NS 500 ML IVPB SCH ×2 (06:20→18:59)
[2016-10-08] MEDS: LEVOFLOXACIN 500 MG TAB NGT SCH (06:20)
[2016-10-08 07:40] VITALS: BP 146/63; RESP 20
[2016-10-08] MEDS: CHOLECALCIFEROL 1,000 UNIT TAB PO SCH (08:16)
[2016-10-08] MEDS: LACTOBACILLUS RHAMNOSUS CAP PO SCH ×2 (08:17→20:54)
[2016-10-08] MEDS: APIXABAN 5 MG TABLET PO SCH ×2 (08:17→20:54)
[2016-10-08] MEDS: THIAMINE 100 MG TAB PO SCH ×2 (08:17→20:54)
[2016-10-08] MEDS: LISINOPRIL 5 MG TAB PO SCH (08:17)
[2016-10-08] MEDS: TAMSULOSIN (SR) 0.4 MG CAP PO SCH ×2 (08:17→20:54)
[2016-10-08] MEDS: INSULIN ASPART [NOVOLOG] 3 ML PEN SC SCH ×7 (08:19→21:00)
[2016-10-08] MEDS: SALMETEROL/FLUTICASONE 250/50 INHA INH SCH ×2 (08:20→20:55)
--- NOTE | 2016-10-08 13:30 | CONS ---
Date/Time of Note Date/Time of Note DATE: 10/08/16 TIME: 13:29 Assessment/Plan Assessment/Plan Chief Complaint/Hosp Course SUBJECTIVE: No acute changes. The patient is alert, looks comfortable. Denies pain, discomfort. No fevers. MICROBIOLOGY: Blood cultures remain negative. DIAGNOSTICS: CT of the chest revealed no evidence of pulmonary embolism. Chest x-ray also revealed moderate cardiomegaly and moderate pulmonary edema. ANTIMICROBIALS: The patient is on: 1. IV vancomycin. 2. Levaquin. PHYSICAL EXAMINATION: GENERAL: This is a morbidly obese, elderly man who is awake, in no distress. HEENT: Head atraumatic, normocephalic. Sclerae anicteric. Buccal mucosa dry. NECK: Supple, trachea midline. CHEST: Rise symmetrical. Breath sounds diminished to bases. HEART: S1, S2. ABDOMEN: Soft, bowel sounds present. EXTREMITIES: Bilateral lower extremity edema, erythema. Right lower extremity with wound VAC to wound below knee. ASSESSMENT: 1. Acute on chronic bilateral lower extremity cellulitis with right knee wound culture on 09/04/2016 grew Corynebacterium, methicillin-resistant Staphylococcus aureus, and alpha hemolytic strep species. 2. Morbid obesity. 3. Bilateral lower extremity chronic venous insufficiency. 4. History of paroxysmal atrial fibrillation. 5. Chronic obstructive pulmonary disease. 6. Obstructive sleep apnea. 7. Diabetes. PLAN: The patient remains stable, continue abx. Continue local wound care, keep BLE elevated DW pt Problems: Consultation Date/Type/Reason Admit Date/Time October 03, 2016 at 22:50 Initial Consult Date 10/06/16 Type of Consultation: ID Exam/Review of Systems Vital Signs Vitals Vital Signs Date Time Temp Pulse Resp B/P Pulse Ox O2 Delivery O2 Flow Rate FiO2 10/08/16 07:40 98.6 80 20 146/63 96 10/06/16 07:36 21 10/06/16 01:19 3.0 10/05/16 21:42 Nasal Cannula Intake and Output 10/07/16 10/07/16 10/08/16 15:00 23:00 07:00 Intake Total 500 ml 1120 ml 1650 ml Balance 500 ml 1120 ml 1650 ml Results Result Diagram: 10/07/16 0440 10/07/16 0540 Results 24 hrs Laboratory Tests Test 10/07/16 17:30 10/07/16 18:00 10/07/16 21:38 10/08/16 02:35 Bedside Glucose 90 188 238 H Vancomycin Level Trough 12.7 Test 10/08/16 08:14 10/08/16 11:53 Bedside Glucose 222 H 265 H Medications Medications Current Medications Oxycodone/ Acetaminophen (Endocet ()) 1 tab Q4H PRN PO PAIN Last administered on 10/04/16 02:49; Admin Dose 1 TAB; Start 10/04/16 at 02:30 Ondansetron HCl (Zofran Inj) 4 mg Q6H PRN IV NAUSEA AND/OR VOMITING; Start 10/04 at 02:30 Acetaminophen (Tylenol Tab) 650 mg Q6H PRN PO PAIN LEVEL 1-3 OR FEVER; Start at 02:30 Docusate Sodium (Colace) 100 mg Q12H PRN PO CONSTIPATION; Start 10/04/16 at 02: 30 Bisacodyl (Dulcolax) 5 mg DAILY PRN PO CONSTIPATION; Start 10/04/16 at 02:30 Atorvastatin Calcium (Lipitor) 20 mg QHS PO Last administered on 10/07/16 21:31 ; Admin Dose 20 MG; Start 10/04/16 at 21:00 Gabapentin (Neurontin) 600 mg TID PRN PO PAIN; Start 10/04/16 at 03:00 Tamsulosin HCl (Flomax) 0.4 mg BID PO Last administered on 10/08/16 08:17; Admin Dose 0.4 MG; Start 10/04/16 at 09:00 Thiamine HCl (Vitamin B1) 100 mg BID PO Last administered on 10/08/16 08:17; Admin Dose 100 MG; Start 10/04/16 at 09:00 Trazodone HCl (Desyrel) 50 mg QHS PRN PO SLEEP; Start 10/04/16 at 03:00 Diagnostic Test (Pha) (Accu-Chek) 1 ea 02 XX Last administered on 10/08/16 02: 36; Admin Dose 1 EA; Start 10/05/16 at 02:00 Miscellaneous Information 1 ea NOTE XX ; Start 10/04/16 at 02:45 Glucose (Glutose) 15 gm Q15M PRN PO DECREASED GLUCOSE; Start 10/04/16 at 02:45 Glucose (Glutose) 22.5 gm Q15M PRN PO DECREASED GLUCOSE; Start 10/04/16 at 02:45 Dextrose (D50w Syringe) 25 ml Q15M PRN IV DECREASED GLUCOSE; Start 10/04/16 at 02:45 Dextrose (D50w Syringe) 50 ml Q15M PRN IV DECREASED GLUCOSE; Start 10/04/16 at 02:45 Glucagon (Glucagen) 1 mg Q15M PRN IM DECREASED GLUCOSE; Start 10/04/16 at 02:45 Glucose (Glutose) 15 gm Q15M PRN BUCCAL DECREASED GLUCOSE; Start 10/04/16 at 02: 45 Hydralazine HCl (Apresoline) 10 mg Q6H PRN IV ELEVATED BLOOD PRESSURE; Start at 07:00 Morphine Sulfate (morphine) 2 mg Q4H PRN IV pain 8-10 Last administered on 10/08 13:17; Admin Dose 2 MG; Start 10/04/16 at 14:30 Salmeterol Xinafoate/ Fluticasone (Advair 250/50 Diskus) 1 inh BID INH Last administered on 10/05/16 08:40; Admin Dose 1 INH; Start 10/04/16 at 21:00 Cholecalciferol 1000 unit 1,000 unit DAILY PO Last administered on 10/08/16 08 :16; Admin Dose 1,000 UNIT; Start 10/06/16 at 09:00 Vancomycin HCl/ Sodium Chloride (Vancocin/NS) 500 ml @ 125 mls/hr Q12H IVPB Last administered on 10/08/16 06:20; Admin Dose 125 MLS/HR; Start 10/06/16 at 07 :00 Apixaban (Eliquis) 5 mg BID PO Last administered on 10/08/16 08:17; Admin Dose 5 MG; Start 10/06/16 at 10:30 Lisinopril (Zestril) 2.5 mg DAILY PO Last administered on 10/08/16 08:17; Admin Dose 2.5 MG; Start 10/06/16 at 10:30 Levofloxacin (Levaquin) 500 mg DAILY@06 NGT Last administered on 10/08/16 06: 20; Admin Dose 500 MG; Start 10/07/16 at 06:00 Insulin Glargine (Lantus) 45 unit QHS SC Last administered on 10/07/16 21:40; Admin Dose 45 UNIT; Start 10/07/16 at 21:00 Lactobacillus Acidophilus/ Rhamnosus (Culturelle) 1 cap BID PO Last administered on 10/08/16 08:17; Admin Dose 1 CAP; Start 10/07/16 at 21:00 HORTENCIA CHACON NP October 08, 2016 13:30
--- NOTE | 2016-10-08 14:28 | PN ---
Date/Time of Note Date/Time of Note DATE: 10/08/16 TIME: 14:26 Assessment/Plan VTE Prophylaxis VTE Prophylaxis Intervention: other (Eliquis) Lines/Catheters [facility] Saline Lock Urinary Cath still in place: No Assessment/Plan Chief Complaint/Hosp Course S: 60yrM w dyspnea, worse lying down. Exacerbated by heat. No active or productive cough, or cp. Possible edema. No ill contacts or fever. Potentially adding salt to his foods. 10/07: No distress. Drinking 4 pictures of fluid per day. 10/08: No events. Dietary indiscretion noted. O: vss PE No pallor/JVD Regr, no m/r/g CTAB Bs +, nt nd, no R/R/G. Overweight Ext w cellulitis/edema/stasis. Wound VAC in place A/P 1. SIRS. Possible sepsis due to cellulitis. Stable cont wound care. Refuses home health/wound VAC care at home. We will set up an appointment referral at [facility] 3 days/ week for wound VAC change. Authorization requested. -Discharge home on PO vs IV antibiotics, if/when ok w ID. 2. Dyspnea potentially secondary to DD. Consider cor pulmonale/ ama. No added salt diet. No evidence of pneumonia or respiratory distress. 3. Medication & dietary nonadherence 4. Diabetes A1c 10.9/metabolic syndrome. Cont insulin/ risk factor modification 5. Varicose veins. Possible local cellulitis. Ho right calf abscess and wound dehiscence. -Discharge home w wound VAC. 6. Probable chr COPD; possible cor pulmonale. Outpatient PFTs 7. Past tobacco 8. Chr A. fib started Eliquis 9. Splenectomy status 10. Chr depression Problems: Exam/Review of Systems Vital Signs Vitals Vital Signs Date Time Temp Pulse Resp B/P Pulse Ox O2 Delivery O2 Flow Rate FiO2 10/08/16 07:40 98.6 80 20 146/63 96 10/06/16 07:36 21 10/06/16 01:19 3.0 10/05/16 21:42 Nasal Cannula Intake and Output 10/07/16 10/07/16 10/08/16 15:00 23:00 07:00 Intake Total 500 ml 1120 ml 1650 ml Balance 500 ml 1120 ml 1650 ml Results Result Diagram: 10/07/16 0440 10/07/16 0540 Results 24 hrs Laboratory Tests Test 10/07/16 17:30 10/07/16 18:00 10/07/16 21:38 10/08/16 02:35 Bedside Glucose 90 188 238 H Vancomycin Level Trough 12.7 Test 10/08/16 08:14 10/08/16 11:53 Bedside Glucose 222 H 265 H Medications Medications Current Medications Oxycodone/ Acetaminophen (Endocet (10 325)) 1 tab Q4H PRN PO PAIN Last administered on 10/04/16 02:49; Admin Dose 1 TAB; Start 10/04/16 at 02:30 Ondansetron HCl (Zofran Inj) 4 mg Q6H PRN IV NAUSEA AND/OR VOMITING; Start 10/04 at 02:30 Acetaminophen (Tylenol Tab) 650 mg Q6H PRN PO PAIN LEVEL 1-3 OR FEVER; Start at 02:30 Docusate Sodium (Colace) 100 mg Q12H PRN PO CONSTIPATION; Start 10/04/16 at 02: 30 Bisacodyl (Dulcolax) 5 mg DAILY PRN PO CONSTIPATION; Start 10/04/16 at 02:30 Atorvastatin Calcium (Lipitor) 20 mg QHS PO Last administered on 10/07/16 21:31 ; Admin Dose 20 MG; Start 10/04/16 at 21:00 Gabapentin (Neurontin) 600 mg TID PRN PO PAIN; Start 10/04/16 at 03:00 Tamsulosin HCl (Flomax) 0.4 mg BID PO Last administered on 10/08/16 08:17; Admin Dose 0.4 MG; Start 10/04/16 at 09:00 Thiamine HCl (Vitamin B1) 100 mg BID PO Last administered on 10/08/16 08:17; Admin Dose 100 MG; Start 10/04/16 at 09:00 Trazodone HCl (Desyrel) 50 mg QHS PRN PO SLEEP; Start 10/04/16 at 03:00 Diagnostic Test (Pha) (Accu-Chek) 1 ea 02 XX Last administered on 10/08/16 02: 36; Admin Dose 1 EA; Start 10/05/16 at 02:00 Miscellaneous Information 1 ea NOTE XX ; Start 10/04/16 at 02:45 Glucose (Glutose) 15 gm Q15M PRN PO DECREASED GLUCOSE; Start 10/04/16 at 02:45 Glucose (Glutose) 22.5 gm Q15M PRN PO DECREASED GLUCOSE; Start 10/04/16 at 02:45 Dextrose (D50w Syringe) 25 ml Q15M PRN IV DECREASED GLUCOSE; Start 10/04/16 at 02:45 Dextrose (D50w Syringe) 50 ml Q15M PRN IV DECREASED GLUCOSE; Start 10/04/16 at 02:45 Glucagon (Glucagen) 1 mg Q15M PRN IM DECREASED GLUCOSE; Start 10/04/16 at 02:45 Glucose (Glutose) 15 gm Q15M PRN BUCCAL DECREASED GLUCOSE; Start 10/04/16 at 02: 45 Hydralazine HCl (Apresoline) 10 mg Q6H PRN IV ELEVATED BLOOD PRESSURE; Start at 07:00 Morphine Sulfate (morphine) 2 mg Q4H PRN IV pain 8-10 Last administered on 10/08 13:17; Admin Dose 2 MG; Start 10/04/16 at 14:30 Salmeterol Xinafoate/ Fluticasone (Advair 250/50 Diskus) 1 inh BID INH Last administered on 10/05/16 08:40; Admin Dose 1 INH; Start 10/04/16 at 21:00 Cholecalciferol 1000 unit 1,000 unit DAILY PO Last administered on 10/08/16 08 :16; Admin Dose 1,000 UNIT; Start 10/06/16 at 09:00 Vancomycin HCl/ Sodium Chloride (Vancocin/NS) 500 ml @ 125 mls/hr Q12H IVPB Last administered on 10/08/16 06:20; Admin Dose 125 MLS/HR; Start 10/06/16 at 07 :00 Apixaban (Eliquis) 5 mg BID PO Last administered on 10/08/16 08:17; Admin Dose 5 MG; Start 10/06/16 at 10:30 Lisinopril (Zestril) 2.5 mg DAILY PO Last administered on 10/08/16 08:17; Admin Dose 2.5 MG; Start 10/06/16 at 10:30 Levofloxacin (Levaquin) 500 mg DAILY@06 NGT Last administered on 10/08/16 06: 20; Admin Dose 500 MG; Start 10/07/16 at 06:00 Insulin Glargine (Lantus) 45 unit QHS SC Last administered on 10/07/16 21:40; Admin Dose 45 UNIT; Start 10/07/16 at 21:00 Lactobacillus Acidophilus/ Rhamnosus (Culturelle) 1 cap BID PO Last administered on 10/08/16 08:17; Admin Dose 1 CAP; Start 10/07/16 at 21:00 ASHANTI WHITLEY MD October 08, 2016 14:28
[2016-10-08] MEDS: FUROSEMIDE 40 MG TAB PO SCH ×2 (15:36→17:34)
[2016-10-08] MEDS: ATORVASTATIN 20 MG TAB PO SCH (20:54)
[2016-10-08 21:00] VITALS: BP 143/84; RESP 18
[2016-10-08] MEDS: INSULIN GLARGINE [LANtus] 3 ML PEN SC SCH (21:01)
[2016-10-08] MEDS ORDERED: traMADol 50 MG TAB PO PRN (21:30)
[2016-10-08] MEDS: morphine 4 MG/ML VIAL IV PRN (21:39)
[2016-10-09] MEDS: morphine 4 MG/ML VIAL IV PRN ×6 (01:45→23:00)
[2016-10-09] MEDS: ACCU-CHEK XX SCH (01:59)
[2016-10-09] MEDS: FUROSEMIDE 40 MG TAB PO SCH ×2 (05:28→18:06)
[2016-10-09] MEDS: LEVOFLOXACIN 500 MG TAB NGT SCH (05:28)
[2016-10-09] MEDS: VANCOMYCIN 1.75 GM in NS 500 ML IVPB SCH ×2 (06:40→18:47)
[2016-10-09 07:22] VITALS: BP 129/75; PULSE 82; RESP 18
[2016-10-09] MEDS: INSULIN ASPART [NOVOLOG] 3 ML PEN SC SCH ×7 (08:20→20:31)
[2016-10-09] MEDS: THIAMINE 100 MG TAB PO SCH ×2 (08:24→20:22)
[2016-10-09] MEDS: APIXABAN 5 MG TABLET PO SCH ×2 (08:24→20:21)
[2016-10-09] MEDS: LISINOPRIL 5 MG TAB PO SCH (08:24)
[2016-10-09] MEDS: LACTOBACILLUS RHAMNOSUS CAP PO SCH ×2 (08:24→20:21)
[2016-10-09] MEDS: CHOLECALCIFEROL 1,000 UNIT TAB PO SCH (08:24)
[2016-10-09] MEDS: TAMSULOSIN (SR) 0.4 MG CAP PO SCH ×2 (08:24→20:22)
[2016-10-09] MEDS: SALMETEROL/FLUTICASONE 250/50 INHA INH SCH ×2 (08:29→20:21)
--- NOTE | 2016-10-09 08:40 | RADRPT ---
Vent Rate: 86 bpm RR Interval: 0 msec [place] Interval: 156 msec QRS Duration: 122 msec QT Interval: 346 msec QTC Interval: 414 msec P-R-T Leonard: 77 - 94 - 48 degrees Sinus rhythm with sinus arrhythmia with occasional premature ventricular complexes Right bundle branch block Septal infarct , age undetermined Abnormal ECG Electronically Signed By: Abdiel Dixon [id number]
--- NOTE | 2016-10-09 12:24 | PN ---
Date/Time of Note Date/Time of Note DATE: 10/09/16 TIME: 12:22 Assessment/Plan VTE Prophylaxis VTE Prophylaxis Intervention: LMWH Lines/Catheters IV [facility] Type (from [facility] Saline Lock Urinary Cath still in place: No Assessment/Plan Chief Complaint/Hosp Course S: 60yrM w dyspnea, worse lying down. Exacerbated by heat. No active or productive cough, or cp. Possible edema. No ill contacts or fever. Potentially adding salt to his foods. 10/07: No distress. Drinking 4 pictures of fluid per day. 10/08: No events. Dietary indiscretion noted. 10/08: No events. O: vss PE No pallor/JVD Regr, no m/r/g CTAB Bs +, nt nd, no R/R/G. Overweight Ext w cellulitis/edema/stasis. No erythema. Wound VAC in place A/P 1. Sepsis due to cellulitis. Stable cont wound care. Refuses home health/wound VAC care at home. We will set up an appt/ referral at [facility] 3 days/ week for wound VAC change. Authorization requested. -Dc home on PO vs IV atb's, Thursday if ok w ID. 2. Dyspnea potentially secondary to DD. Consider cor pulmonale/ ama/ deconditioning. No added salt diet. No evidence of pneumonia or respiratory distress. 3. Medication & dietary nonadherence 4. Diabetes A1c 10.9/metabolic syndrome. Cont insulin/ risk factor modification 5. Varicose veins, w local cellulitis. Ho right calf abscess and wound dehiscence. -Discharge home w wound VAC. 6. Probable chr COPD; possible cor pulmonale. Outpatient PFTs 7. Past tobacco 8. Chr A. fib started Eliquis 9. Splenectomy status 10. Chr depression Problems: Exam/Review of Systems Vital Signs Vitals Vital Signs Date Time Temp Pulse Resp B/P Pulse Ox O2 Delivery O2 Flow Rate FiO2 10/09/16 07:22 97.8 82 18 129/75 90 Room Air 10/06/16 07:36 21 10/06/16 01:19 3.0 Intake and Output 10/08/16 10/08/16 10/09/16 15:00 23:00 07:00 Intake Total 500 ml 1430 ml 800 ml Balance 500 ml 1430 ml 800 ml Results Result Diagram: 10/07/16 0440 10/09/16 0555 Results 24 hrs Laboratory Tests Test 10/08/16 17:33 10/08/16 21:00 10/09/16 05:55 10/09/16 08:09 Bedside Glucose 134 130 191 Blood Urea Nitrogen 27 H Creatinine 1.00 Medications Medications Current Medications Oxycodone/ Acetaminophen (Endocet ()) 1 tab Q4H PRN PO PAIN Last administered on 10/04/16 02:49; Admin Dose 1 TAB; Start 10/04/16 at 02:30 Ondansetron HCl (Zofran Inj) 4 mg Q6H PRN IV NAUSEA AND/OR VOMITING; Start 10/04 at 02:30 Acetaminophen (Tylenol Tab) 650 mg Q6H PRN PO PAIN LEVEL 1-3 OR FEVER; Start at 02:30 Docusate Sodium (Colace) 100 mg Q12H PRN PO CONSTIPATION; Start 10/04/16 at 02: 30 Bisacodyl (Dulcolax) 5 mg DAILY PRN PO CONSTIPATION; Start 10/04/16 at 02:30 Atorvastatin Calcium (Lipitor) 20 mg QHS PO Last administered on 10/08/16 20: 54; Admin Dose 20 MG; Start 10/04/16 at 21:00 Gabapentin (Neurontin) 600 mg TID PRN PO PAIN; Start 10/04/16 at 03:00 Tamsulosin HCl (Flomax) 0.4 mg BID PO Last administered on 10/09/16 08:24; Admin Dose 0.4 MG; Start 10/04/16 at 09:00 Thiamine HCl (Vitamin B1) 100 mg BID PO Last administered on 10/09/16 08:24; Admin Dose 100 MG; Start 10/04/16 at 09:00 Trazodone HCl (Desyrel) 50 mg QHS PRN PO SLEEP; Start 10/04/16 at 03:00 Diagnostic Test (Pha) (Accu-Chek) 1 ea 02 XX Last administered on 10/08/16 02: 36; Admin Dose 1 EA; Start 10/05/16 at 02:00 Miscellaneous Information 1 ea NOTE XX ; Start 10/04/16 at 02:45 Glucose (Glutose) 15 gm Q15M PRN PO DECREASED GLUCOSE; Start 10/04/16 at 02:45 Glucose (Glutose) 22.5 gm Q15M PRN PO DECREASED GLUCOSE; Start 10/04/16 at 02:45 Dextrose (D50w Syringe) 25 ml Q15M PRN IV DECREASED GLUCOSE; Start 10/04/16 at 02:45 Dextrose (D50w Syringe) 50 ml Q15M PRN IV DECREASED GLUCOSE; Start 10/04/16 at 02:45 Glucagon (Glucagen) 1 mg Q15M PRN IM DECREASED GLUCOSE; Start 10/04/16 at 02:45 Glucose (Glutose) 15 gm Q15M PRN BUCCAL DECREASED GLUCOSE; Start 10/04/16 at 02: 45 Hydralazine HCl (Apresoline) 10 mg Q6H PRN IV ELEVATED BLOOD PRESSURE; Start at 07:00 Salmeterol Xinafoate/ Fluticasone (Advair 250/50 Diskus) 1 inh BID INH Last administered on 10/05/16 08:40; Admin Dose 1 INH; Start 10/04/16 at 21:00 Cholecalciferol 1000 unit 1,000 unit DAILY PO Last administered on 10/09/16 08 :24; Admin Dose 1,000 UNIT; Start 10/06/16 at 09:00 Vancomycin HCl/ Sodium Chloride (Vancocin/NS) 500 ml @ 125 mls/hr Q12H IVPB Last administered on 10/09/16 06:40; Admin Dose 125 MLS/HR; Start 10/06/16 at 07 :00 Apixaban (Eliquis) 5 mg BID PO Last administered on 10/09/16 08:24; Admin Dose 5 MG; Start 10/06/16 at 10:30 Lisinopril (Zestril) 2.5 mg DAILY PO Last administered on 10/09/16 08:24; Admin Dose 2.5 MG; Start 10/06/16 at 10:30 Levofloxacin (Levaquin) 500 mg DAILY@06 NGT Last administered on 10/09/16 05: 28; Admin Dose 500 MG; Start 10/07/16 at 06:00 Lactobacillus Acidophilus/ Rhamnosus (Culturelle) 1 cap BID PO Last administered on 10/09/16 08:24; Admin Dose 1 CAP; Start 10/07/16 at 21:00 Insulin Glargine (Lantus) 60 unit QHS SC Last administered on 10/08/16 21:01; Admin Dose 60 UNIT; Start 10/08/16 at 21:00 Tramadol HCl (Ultram) 50 mg Q6H PRN PO PAIN; Start 10/08/16 at 21:30 Morphine Sulfate (morphine) 3 mg Q4H PRN IV PAIN Last administered on 10:48; Admin Dose 3 MG; Start 10/08/16 at 21:30 ASHANTI WHITLEY MD October 09, 2016 12:24
--- NOTE | 2016-10-09 13:49 | CONS ---
Date/Time of Note Date/Time of Note DATE: 10/09/16 TIME: 13:49 Assessment/Plan Assessment/Plan Chief Complaint/Hosp Course SUBJECTIVE: No acute changes. The patient is alert, looks comfortable. Denies pain, discomfort. No fevers. MICROBIOLOGY: Blood cultures remain negative. DIAGNOSTICS: CT of the chest revealed no evidence of pulmonary embolism. Chest x-ray also revealed moderate cardiomegaly and moderate pulmonary edema. ANTIMICROBIALS: The patient is on: 1. IV vancomycin. 2. Levaquin. PHYSICAL EXAMINATION: GENERAL: This is a morbidly obese, elderly man who is awake, in no distress. HEENT: Head atraumatic, normocephalic. Sclerae anicteric. Buccal mucosa dry. NECK: Supple, trachea midline. CHEST: Rise symmetrical. Breath sounds diminished to bases. HEART: S1, S2. ABDOMEN: Soft, bowel sounds present. EXTREMITIES: Bilateral lower extremity edema, erythema. Right lower extremity with wound VAC to wound below knee. ASSESSMENT: 1. Acute on chronic bilateral lower extremity cellulitis with right knee wound culture on 09/04/2016 grew Corynebacterium, methicillin-resistant Staphylococcus aureus, and alpha hemolytic strep species. 2. Morbid obesity. 3. Bilateral lower extremity chronic venous insufficiency. 4. History of paroxysmal atrial fibrillation. 5. Chronic obstructive pulmonary disease. 6. Obstructive sleep apnea. 7. Diabetes. PLAN: The patient remains stable, continue abx. Continue local wound care, keep BLE elevated DW pt Problems: Consultation Date/Type/Reason Admit Date/Time October 03, 2016 at 22:50 Initial Consult Date 10/06/16 Type of Consultation: ID Exam/Review of Systems Vital Signs Vitals Vital Signs Date Time Temp Pulse Resp B/P Pulse Ox O2 Delivery O2 Flow Rate FiO2 10/09/16 07:22 97.8 82 18 129/75 90 Room Air 10/06/16 07:36 21 10/06/16 01:19 3.0 Intake and Output 10/08/16 10/08/16 10/09/16 15:00 23:00 07:00 Intake Total 500 ml 1430 ml 800 ml Balance 500 ml 1430 ml 800 ml Results Result Diagram: 10/07/16 0440 10/09/16 0555 Results 24 hrs Laboratory Tests Test 10/08/16 17:33 10/08/16 21:00 10/09/16 05:55 10/09/16 08:09 Bedside Glucose 134 130 191 Blood Urea Nitrogen 27 H Creatinine 1.00 Test 10/09/16 13:05 Bedside Glucose 150 Medications Medications Current Medications Oxycodone/ Acetaminophen (Endocet (10 325)) 1 tab Q4H PRN PO PAIN Last administered on 10/04/16 02:49; Admin Dose 1 TAB; Start 10/04/16 at 02:30 Ondansetron HCl (Zofran Inj) 4 mg Q6H PRN IV NAUSEA AND/OR VOMITING; Start 10/04 at 02:30 Acetaminophen (Tylenol Tab) 650 mg Q6H PRN PO PAIN LEVEL 1-3 OR FEVER; Start at 02:30 Docusate Sodium (Colace) 100 mg Q12H PRN PO CONSTIPATION; Start 10/04/16 at 02: 30 Bisacodyl (Dulcolax) 5 mg DAILY PRN PO CONSTIPATION; Start 10/04/16 at 02:30 Atorvastatin Calcium (Lipitor) 20 mg QHS PO Last administered on 10/08/16 20: 54; Admin Dose 20 MG; Start 10/04/16 at 21:00 Gabapentin (Neurontin) 600 mg TID PRN PO PAIN; Start 10/04/16 at 03:00 Tamsulosin HCl (Flomax) 0.4 mg BID PO Last administered on 10/09/16 08:24; Admin Dose 0.4 MG; Start 10/04/16 at 09:00 Thiamine HCl (Vitamin B1) 100 mg BID PO Last administered on 10/09/16 08:24; Admin Dose 100 MG; Start 10/04/16 at 09:00 Trazodone HCl (Desyrel) 50 mg QHS PRN PO SLEEP; Start 10/04/16 at 03:00 Diagnostic Test (Pha) (Accu-Chek) 1 ea 02 XX Last administered on 10/08/16 02: 36; Admin Dose 1 EA; Start 10/05/16 at 02:00 Miscellaneous Information 1 ea NOTE XX ; Start 10/04/16 at 02:45 Glucose (Glutose) 15 gm Q15M PRN PO DECREASED GLUCOSE; Start 10/04/16 at 02:45 Glucose (Glutose) 22.5 gm Q15M PRN PO DECREASED GLUCOSE; Start 10/04/16 at 02:45 Dextrose (D50w Syringe) 25 ml Q15M PRN IV DECREASED GLUCOSE; Start 10/04/16 at 02:45 Dextrose (D50w Syringe) 50 ml Q15M PRN IV DECREASED GLUCOSE; Start 10/04/16 at 02:45 Glucagon (Glucagen) 1 mg Q15M PRN IM DECREASED GLUCOSE; Start 10/04/16 at 02:45 Glucose (Glutose) 15 gm Q15M PRN BUCCAL DECREASED GLUCOSE; Start 10/04/16 at 02: 45 Hydralazine HCl (Apresoline) 10 mg Q6H PRN IV ELEVATED BLOOD PRESSURE; Start at 07:00 Salmeterol Xinafoate/ Fluticasone (Advair 250/50 Diskus) 1 inh BID INH Last administered on 10/05/16 08:40; Admin Dose 1 INH; Start 10/04/16 at 21:00 Cholecalciferol 1000 unit 1,000 unit DAILY PO Last administered on 10/09/16 08 :24; Admin Dose 1,000 UNIT; Start 10/06/16 at 09:00 Vancomycin HCl/ Sodium Chloride (Vancocin/NS) 500 ml @ 125 mls/hr Q12H IVPB Last administered on 10/09/16 06:40; Admin Dose 125 MLS/HR; Start 10/06/16 at 07 :00 Apixaban (Eliquis) 5 mg BID PO Last administered on 10/09/16 08:24; Admin Dose 5 MG; Start 10/06/16 at 10:30 Lisinopril (Zestril) 2.5 mg DAILY PO Last administered on 10/09/16 08:24; Admin Dose 2.5 MG; Start 10/06/16 at 10:30 Levofloxacin (Levaquin) 500 mg DAILY@06 NGT Last administered on 10/09/16 05: 28; Admin Dose 500 MG; Start 10/07/16 at 06:00 Lactobacillus Acidophilus/ Rhamnosus (Culturelle) 1 cap BID PO Last administered on 10/09/16 08:24; Admin Dose 1 CAP; Start 10/07/16 at 21:00 Insulin Glargine (Lantus) 60 unit QHS SC Last administered on 10/08/16 21:01; Admin Dose 60 UNIT; Start 10/08/16 at 21:00 Tramadol HCl (Ultram) 50 mg Q6H PRN PO PAIN; Start 10/08/16 at 21:30 Morphine Sulfate (morphine) 3 mg Q4H PRN IV PAIN Last administered on t 10:48; Admin Dose 3 MG; Start 10/08/16 at 21:30 HORTENCIA CHACON NP October 09, 2016 13:49
--- NOTE | 2016-10-09 16:23 | CONS ---
Date/Time of Note Date/Time of Note DATE: 10/09/16 TIME: 16:22 Assessment/Plan Assessment/Plan Additional Assessment/Plan Shortness of breath, multifactorial Obesity hypoventilation syndrome History paroxysmal atrial fibrillation, currently sinus rhythm Obesity Edema Preserved ejection fraction -Patient with slight improvement in shortness of breath. Overall doing better. Blood pressure trend remained stable. No new cardiac orders at the current time Consultation Date/Type/Reason Admit Date/Time October 03, 2016 at 22:50 Initial Consult Date 10/04/16 Type of Consultation: cv 24 HR Interval Summary Free Text/Dictation Feels better, less shortness of breath and fatigue. Denies chest pain or palpitations Exam/Review of Systems Vital Signs Vitals Vital Signs Date Time Temp Pulse Resp B/P Pulse Ox O2 Delivery O2 Flow Rate FiO2 10/09/16 15:41 Nasal Cannula 10/09/16 07:22 97.8 82 18 129/75 90 10/06/16 07:36 21 10/06/16 01:19 3.0 Intake and Output 10/08/16 10/08/16 10/09/16 15:00 23:00 07:00 Intake Total 500 ml 1430 ml 800 ml Balance 500 ml 1430 ml 800 ml Exam No apparent distress Constitutional: alert, obese, oriented Head: normocephalic Respiratory: other (Coarse breath sounds bilaterally, no wheezing) Cardiovascular: other (S1-S2 heard), regular rate and rhythm Gastrointestinal: bowel sounds, non-tender, soft Extremities: edema Results Result Diagram: 10/07/16 0440 10/09/16 0555 Results 24 hrs Laboratory Tests Test 10/08/16 17:33 10/08/16 21:00 10/09/16 05:55 10/09/16 08:09 Bedside Glucose 134 130 191 Blood Urea Nitrogen 27 H Creatinine 1.00 Test 10/09/16 13:05 Bedside Glucose 150 Medications Medications Current Medications Oxycodone/ Acetaminophen (Endocet (10/ 325)) 1 tab Q4H PRN PO PAIN Last administered on 10/04/16t 02:49; Admin Dose 1 TAB; Start 10/04/16 at 02:30 Ondansetron HCl (Zofran Inj) 4 mg Q6H PRN IV NAUSEA AND/OR VOMITING; Start 10/04 at 02:30 Acetaminophen (Tylenol Tab) 650 mg Q6H PRN PO PAIN LEVEL 1-3 OR FEVER; Start at 02:30 Docusate Sodium (Colace) 100 mg Q12H PRN PO CONSTIPATION; Start 10/04/16 at 02: 30 Bisacodyl (Dulcolax) 5 mg DAILY PRN PO CONSTIPATION; Start 10/04/16 at 02:30 Atorvastatin Calcium (Lipitor) 20 mg QHS PO Last administered on 10/08/16 20: 54; Admin Dose 20 MG; Start 10/04/16 at 21:00 Gabapentin (Neurontin) 600 mg TID PRN PO PAIN; Start 10/04/16 at 03:00 Tamsulosin HCl (Flomax) 0.4 mg BID PO Last administered on 10/09/16 08:24; Admin Dose 0.4 MG; Start 10/04/16 at 09:00 Thiamine HCl (Vitamin B1) 100 mg BID PO Last administered on 10/09/16 08:24; Admin Dose 100 MG; Start 10/04/16 at 09:00 Trazodone HCl (Desyrel) 50 mg QHS PRN PO SLEEP; Start 10/04/16 at 03:00 Diagnostic Test (Pha) (Accu-Chek) 1 ea 02 XX Last administered on 10/08/16 02: 36; Admin Dose 1 EA; Start 10/05/16 at 02:00 Miscellaneous Information 1 ea NOTE XX ; Start 10/04/16 at 02:45 Glucose (Glutose) 15 gm Q15M PRN PO DECREASED GLUCOSE; Start 10/04/16 at 02:45 Glucose (Glutose) 22.5 gm Q15M PRN PO DECREASED GLUCOSE; Start 10/04/16 at 02:45 Dextrose (D50w Syringe) 25 ml Q15M PRN IV DECREASED GLUCOSE; Start 10/04/16 at 02:45 Dextrose (D50w Syringe) 50 ml Q15M PRN IV DECREASED GLUCOSE; Start 10/04/16 at 02:45 Glucagon (Glucagen) 1 mg Q15M PRN IM DECREASED GLUCOSE; Start 10/04/16 at 02:45 Glucose (Glutose) 15 gm Q15M PRN BUCCAL DECREASED GLUCOSE; Start 10/04/16 at 02: 45 Hydralazine HCl (Apresoline) 10 mg Q6H PRN IV ELEVATED BLOOD PRESSURE; Start at 07:00 Salmeterol Xinafoate/ Fluticasone (Advair 250/50 Diskus) 1 inh BID INH Last administered on 10/05/16 08:40; Admin Dose 1 INH; Start 10/04/16 at 21:00 Cholecalciferol 1000 unit 1,000 unit DAILY PO Last administered on 10/09/16 08 :24; Admin Dose 1,000 UNIT; Start 10/06/16 at 09:00 Vancomycin HCl/ Sodium Chloride (Vancocin/NS) 500 ml @ 125 mls/hr Q12H IVPB Last administered on 10/09/16 06:40; Admin Dose 125 MLS/HR; Start 10/06/16 at 07 :00 Apixaban (Eliquis) 5 mg BID PO Last administered on 10/09/16 08:24; Admin Dose 5 MG; Start 10/06/16 at 10:30 Lisinopril (Zestril) 2.5 mg DAILY PO Last administered on 10/09/16 08:24; Admin Dose 2.5 MG; Start 10/06/16 at 10:30 Levofloxacin (Levaquin) 500 mg DAILY@06 NGT Last administered on 10/09/16 05: 28; Admin Dose 500 MG; Start 10/07/16 at 06:00 Lactobacillus Acidophilus/ Rhamnosus (Culturelle) 1 cap BID PO Last administered on 10/09/16 08:24; Admin Dose 1 CAP; Start 10/07/16 at 21:00 Insulin Glargine (Lantus) 60 unit QHS SC Last administered on 10/08/16 21:01; Admin Dose 60 UNIT; Start 10/08/16 at 21:00 Tramadol HCl (Ultram) 50 mg Q6H PRN PO PAIN; Start 10/08/16 at 21:30 Morphine Sulfate (morphine) 3 mg Q4H PRN IV PAIN Last administered on 14:58; Admin Dose 3 MG; Start 10/08/16 at 21:30 Yaron Mayer DO October 09, 2016 16:23
[2016-10-09 20:25] VITALS: BP 141/65; RESP 20
[2016-10-09] MEDS: ATORVASTATIN 20 MG TAB PO SCH (20:25)
[2016-10-09] MEDS: INSULIN GLARGINE [LANtus] 3 ML PEN SC SCH (20:41)
--- NOTE | 2016-10-09 21:36 | PN ---
Date/Time of Note Date/Time of Note DATE: 10/09/16 TIME: 21:33 Assessment/Plan Lines/Catheters IV Catheter Type (from [facility]): Saline Lock Cuellar in Place (from [facility]): No Assessment/Plan Chief Complaint/Hosp Course -Bilateral lower extremity venous insufficiency and varicose veins: The patient 's wound has been coming along fine, and for some reason his insurance had not approved for him to continue with his wound VAC therapy. From our standpoint continue with our wound VAC therapy every other day, Thursday, Thursday, Thursday as scheduled -With history of venous insufficiency we encouraged him to either continue with the 2-layer compression or continue with his compression stockings for which he has tried to be compliant. -Continue with medical management for his leukocytosis and possible pneumonia and his respiratory toiletry. -Optimize vascular status (BP meds, diet, nutrition, exercise, sugar control, antiplatelet, weight loss). -Discussed with the patient the importance of compliance with his respiratory medications as he refuses to take his medications tonight. -Discussed findings, plan, and management with the patient, and he understands. -Thank you for allowing us to partake in the care of your patient. Please call with any questions. Problems: Subjective 24 Hr Interval Summary no new vascular events overnight Exam/Review of Systems Vital Signs Vitals Vital Signs Date Time Temp Pulse Resp B/P Pulse Ox O2 Delivery O2 Flow Rate FiO2 10/09/16 20:25 98.2 85 20 141/65 90 10/09/16 15:41 Nasal Cannula 10/06/16 07:36 21 10/06/16 01:19 3.0 Intake and Output 10/08/16 10/08/16 10/09/16 15:00 23:00 07:00 Intake Total 500 ml 1430 ml 800 ml Balance 500 ml 1430 ml 800 ml Exam Free Text/Dictation GENERAL: Alert and oriented x3, PULMONARY: Clear to auscultation bilaterally. . CARDIOVASCULAR: S1, S2 present. ABDOMEN: Soft, nontender, nondistended. Bowel sounds positive. Large truncal obesity and large pannus. EXTREMITIES: Lower extremities, unable to palpate the femoral pulse secondary to body habitus , palpable pedal pulse. Motor, sensory intact. Cap refill 2 to 3 seconds. edema bilaterally 2+. Right lower extremity: right upper calf with wound VAC that is intact and functional. No erythema. He has spider veins, telangiectasias, and varicose veins. Results Result Diagram: 10/07/16 0440 10/09/16 0555 LUZ KRISHNAN MD October 09, 2016 21:36
[2016-10-10] MEDS: ACCU-CHEK XX SCH (01:16)
[2016-10-10] MEDS: morphine 4 MG/ML VIAL IV PRN ×5 (02:57→20:42)
[2016-10-10] MEDS: LEVOFLOXACIN 500 MG TAB NGT SCH (05:31)
[2016-10-10] MEDS: FUROSEMIDE 40 MG TAB PO SCH ×2 (05:32→18:07)
[2016-10-10] MEDS: VANCOMYCIN 1.75 GM in NS 500 ML IVPB SCH ×2 (06:04→22:11)
[2016-10-10 07:30] VITALS: BP 128/57; PULSE 84; RESP 18
[2016-10-10] MEDS: INSULIN ASPART [NOVOLOG] 3 ML PEN SC SCH ×7 (08:18→20:44)
[2016-10-10] MEDS: THIAMINE 100 MG TAB PO SCH ×2 (08:23→20:44)
[2016-10-10] MEDS: SALMETEROL/FLUTICASONE 250/50 INHA INH SCH ×2 (08:23→20:41)
[2016-10-10] MEDS: CHOLECALCIFEROL 1,000 UNIT TAB PO SCH (08:23)
[2016-10-10] MEDS: APIXABAN 5 MG TABLET PO SCH ×2 (08:24→20:44)
[2016-10-10] MEDS: LACTOBACILLUS RHAMNOSUS CAP PO SCH ×2 (08:24→20:44)
[2016-10-10] MEDS: TAMSULOSIN (SR) 0.4 MG CAP PO SCH ×2 (08:24→20:44)
[2016-10-10] MEDS: LISINOPRIL 5 MG TAB PO SCH (08:25)
--- NOTE | 2016-10-10 12:26 | PN ---
Date/Time of Note Date/Time of Note DATE: 10/10/16 TIME: 12:24 Assessment/Plan VTE Prophylaxis VTE Prophylaxis Intervention: LMWH Lines/Catheters IV Catheter Type (from Nrs): Peripheral IV Urinary Cath still in place: No Assessment/Plan Chief Complaint/Hosp Course S: 60yrM w dyspnea, worse lying down. Exacerbated by heat. No active or productive cough, or cp. Possible edema. No ill contacts or fever. Potentially adding salt to his foods. 10/07: No distress. Drinking 4 pictures of fluid per day. 10/08: No events. Dietary indiscretion noted. 10/09: No events. 10/10: No events. Refuse medications. O: vss PE No pallor Regr, no m/r/g CTAB Bs +, nt nd, no R/R/G. Obese Ext w cellulitis/edema/stasis. No erythema. Wound VAC in place A/P 1. Sepsis due to cellulitis. Stable cont wound care. Refuses home health/wound VAC care at home. We will set up an appt/ referral at [facility] 3 days/ week for wound VAC change. Authorization requested. -Dc home on PO vs IV atb's if ok w ID. 2. Dyspnea potentially secondary to DD. Consider cor pulmonale/ ama/ deconditioning. No added salt diet. No evidence of pneumonia or respiratory distress. 3. Medication & dietary nonadherence 4. Diabetes A1c 10.9/metabolic syndrome. Cont insulin/ risk factor modification 5. Varicose veins, w local cellulitis. Ho right calf abscess and wound dehiscence. -Discharge home w wound VAC. 6. Probable chr COPD; possible cor pulmonale. Outpatient PFTs 7. Past tobacco 8. Chr A. fib started Eliquis 9. Splenectomy status 10. Chr depression Problems: Exam/Review of Systems Vital Signs Vitals Vital Signs Date Time Temp Pulse Resp B/P Pulse Ox O2 Delivery O2 Flow Rate FiO2 10/10/16 10:13 Nasal Cannula 2.0 10/10/16 07:30 98.0 84 18 128/57 90 10/06/16 07:36 21 Intake and Output 10/09/16 10/09/16 10/10/16 15:00 23:00 07:00 Intake Total 500 ml 1960 ml 360 ml Balance 500 ml 1960 ml 360 ml Results Result Diagram: 10/07/16 0440 10/09/16 0555 Results 24 hrs Laboratory Tests Test 10/09/16 13:05 10/09/16 16:59 10/09/16 20:18 10/10/16 08:01 Bedside Glucose 150 112 110 150 Test 10/10/16 12:07 Bedside Glucose 195 Medications Medications Current Medications Oxycodone/ Acetaminophen (Endocet (10)) 1 tab Q4H PRN PO PAIN Last administered on 10/04/16 02:49; Admin Dose 1 TAB; Start 10/04/16 at 02:30 Ondansetron HCl (Zofran Inj) 4 mg Q6H PRN IV NAUSEA AND/OR VOMITING; Start 10/04 at 02:30 Acetaminophen (Tylenol Tab) 650 mg Q6H PRN PO PAIN LEVEL 1-3 OR FEVER; Start at 02:30 Docusate Sodium (Colace) 100 mg Q12H PRN PO CONSTIPATION; Start 10/04/16 at 02: 30 Bisacodyl (Dulcolax) 5 mg DAILY PRN PO CONSTIPATION; Start 10/04/16 at 02:30 Atorvastatin Calcium (Lipitor) 20 mg QHS PO Last administered on 10/08/16 20: 54; Admin Dose 20 MG; Start 10/04/16 at 21:00 Gabapentin (Neurontin) 600 mg TID PRN PO PAIN; Start 10/04/16 at 03:00 Tamsulosin HCl (Flomax) 0.4 mg BID PO Last administered on 10/10/16 08:24; Admin Dose 0.4 MG; Start 10/04/16 at 09:00 Thiamine HCl (Vitamin B1) 100 mg BID PO Last administered on 10/10/16 08:23; Admin Dose 100 MG; Start 10/04/16 at 09:00 Trazodone HCl (Desyrel) 50 mg QHS PRN PO SLEEP; Start 10/04/16 at 03:00 Diagnostic Test (Pha) (Accu-Chek) 1 ea 02 XX Last administered on 10/08/16 02: 36; Admin Dose 1 EA; Start 10/05/16 at 02:00 Miscellaneous Information 1 ea NOTE XX ; Start 10/04/16 at 02:45 Glucose (Glutose) 15 gm Q15M PRN PO DECREASED GLUCOSE; Start 10/04/16 at 02:45 Glucose (Glutose) 22.5 gm Q15M PRN PO DECREASED GLUCOSE; Start 10/04/16 at 02:45 Dextrose (D50w Syringe) 25 ml Q15M PRN IV DECREASED GLUCOSE; Start 10/04/16 at 02:45 Dextrose (D50w Syringe) 50 ml Q15M PRN IV DECREASED GLUCOSE; Start 10/04/16 at 02:45 Glucagon (Glucagen) 1 mg Q15M PRN IM DECREASED GLUCOSE; Start 10/04/16 at 02:45 Glucose (Glutose) 15 gm Q15M PRN BUCCAL DECREASED GLUCOSE; Start 10/04/16 at 02: 45 Hydralazine HCl (Apresoline) 10 mg Q6H PRN IV ELEVATED BLOOD PRESSURE; Start at 07:00 Salmeterol Xinafoate/ Fluticasone (Advair 250/50 Diskus) 1 inh BID INH Last administered on 10/05/16 08:40; Admin Dose 1 INH; Start 10/04/16 at 21:00 Cholecalciferol 1000 unit 1,000 unit DAILY PO Last administered on 10/10/16 08 :23; Admin Dose 1,000 UNIT; Start 10/06/16 at 09:00 Vancomycin HCl/ Sodium Chloride (Vancocin/NS) 500 ml @ 125 mls/hr Q12H IVPB Last administered on 10/10/16 06:04; Admin Dose 125 MLS/HR; Start 10/06/16 at 07 :00 Apixaban (Eliquis) 5 mg BID PO Last administered on 10/10/16 08:24; Admin Dose 5 MG; Start 10/06/16 at 10:30 Lisinopril (Zestril) 2.5 mg DAILY PO Last administered on 10/10/16 08:25; Admin Dose 2.5 MG; Start 10/06/16 at 10:30 Levofloxacin (Levaquin) 500 mg DAILY@06 NGT Last administered on 10/10/16 05: 31; Admin Dose 500 MG; Start 10/07/16 at 06:00 Lactobacillus Acidophilus/ Rhamnosus (Culturelle) 1 cap BID PO Last administered on 10/10/16 08:24; Admin Dose 1 CAP; Start 10/07/16 at 21:00 Insulin Glargine (Lantus) 60 unit QHS SC Last administered on 10/09/16 20:41; Admin Dose 60 UNIT; Start 10/08/16 at 21:00 Tramadol HCl (Ultram) 50 mg Q6H PRN PO PAIN; Start 10/08/16 at 21:30 Morphine Sulfate (morphine) 3 mg Q4H PRN IV PAIN Last administered on 10:53; Admin Dose 3 MG; Start 10/08/16 at 21:30 ASHANTI WHITLEY MD October 10, 2016 12:26
--- NOTE | 2016-10-10 12:39 | CONS ---
Date/Time of Note Date/Time of Note DATE: 10/10/16 TIME: 12:38 Assessment/Plan Assessment/Plan Additional Assessment/Plan Shortness of breath, multifactorial Obesity hypoventilation syndrome History paroxysmal atrial fibrillation, currently sinus rhythm Obesity Edema Preserved ejection fraction -Patient with improvement in shortness of breath. No new cardiac issues at the current time. Blood pressure trend remains stable. No new cardiac orders at the current time Consultation Date/Type/Reason Admit Date/Time October 03, 2016 at 22:50 Initial Consult Date 10/04/16 Type of Consultation: cv 24 HR Interval Summary Free Text/Dictation Denies any shortness of breath, feeling better with ambulation. No chest pain Exam/Review of Systems Vital Signs Vitals Vital Signs Date Time Temp Pulse Resp B/P Pulse Ox O2 Delivery O2 Flow Rate FiO2 10/10/16 10:13 Nasal Cannula 2.0 10/10/16 07:30 98.0 84 18 128/57 90 10/06/16 07:36 21 Intake and Output 10/09/16 10/09/16 10/10/16 15:00 23:00 07:00 Intake Total 500 ml 1960 ml 360 ml Balance 500 ml 1960 ml 360 ml Exam No apparent distress Constitutional: alert, obese, oriented Head: normocephalic Respiratory: other (Coarse breath sounds bilaterally, no wheezing) Cardiovascular: other (S1-S2 heard), regular rate and rhythm Gastrointestinal: bowel sounds, non-tender, soft Extremities: edema Results Result Diagram: 10/07/16 0440 10/09/16 0555 Results 24 hrs Laboratory Tests Test 10/09/16 13:05 10/09/16 16:59 10/09/16 20:18 10/10/16 08:01 Bedside Glucose 150 112 110 150 Test 10/10/16 12:07 Bedside Glucose 195 Medications Medications Current Medications Oxycodone/ Acetaminophen (Endocet (10/ 325)) 1 tab Q4H PRN PO PAIN Last administered on 10/04/16t 02:49; Admin Dose 1 TAB; Start 10/04/16 at 02:30 Ondansetron HCl (Zofran Inj) 4 mg Q6H PRN IV NAUSEA AND/OR VOMITING; Start 10/04 at 02:30 Acetaminophen (Tylenol Tab) 650 mg Q6H PRN PO PAIN LEVEL 1-3 OR FEVER; Start at 02:30 Docusate Sodium (Colace) 100 mg Q12H PRN PO CONSTIPATION; Start 10/04/16 at 02: 30 Bisacodyl (Dulcolax) 5 mg DAILY PRN PO CONSTIPATION; Start 10/04/16 at 02:30 Atorvastatin Calcium (Lipitor) 20 mg QHS PO Last administered on 10/08/16 20: 54; Admin Dose 20 MG; Start 10/04/16 at 21:00 Gabapentin (Neurontin) 600 mg TID PRN PO PAIN; Start 10/04/16 at 03:00 Tamsulosin HCl (Flomax) 0.4 mg BID PO Last administered on 10/10/16 08:24; Admin Dose 0.4 MG; Start 10/04/16 at 09:00 Thiamine HCl (Vitamin B1) 100 mg BID PO Last administered on 10/10/16 08:23; Admin Dose 100 MG; Start 10/04/16 at 09:00 Trazodone HCl (Desyrel) 50 mg QHS PRN PO SLEEP; Start 10/04/16 at 03:00 Diagnostic Test (Pha) (Accu-Chek) 1 ea 02 XX Last administered on 10/08/16 02: 36; Admin Dose 1 EA; Start 10/05/16 at 02:00 Miscellaneous Information 1 ea NOTE XX ; Start 10/04/16 at 02:45 Glucose (Glutose) 15 gm Q15M PRN PO DECREASED GLUCOSE; Start 10/04/16 at 02:45 Glucose (Glutose) 22.5 gm Q15M PRN PO DECREASED GLUCOSE; Start 10/04/16 at 02:45 Dextrose (D50w Syringe) 25 ml Q15M PRN IV DECREASED GLUCOSE; Start 10/04/16 at 02:45 Dextrose (D50w Syringe) 50 ml Q15M PRN IV DECREASED GLUCOSE; Start 10/04/16 at 02:45 Glucagon (Glucagen) 1 mg Q15M PRN IM DECREASED GLUCOSE; Start 10/04/16 at 02:45 Glucose (Glutose) 15 gm Q15M PRN BUCCAL DECREASED GLUCOSE; Start 10/04/16 at 02: 45 Hydralazine HCl (Apresoline) 10 mg Q6H PRN IV ELEVATED BLOOD PRESSURE; Start at 07:00 Salmeterol Xinafoate/ Fluticasone (Advair 250/50 Diskus) 1 inh BID INH Last administered on 10/05/16 08:40; Admin Dose 1 INH; Start 10/04/16 at 21:00 Cholecalciferol 1000 unit 1,000 unit DAILY PO Last administered on 10/10/16 08 :23; Admin Dose 1,000 UNIT; Start 10/06/16 at 09:00 Vancomycin HCl/ Sodium Chloride (Vancocin/NS) 500 ml @ 125 mls/hr Q12H IVPB Last administered on 10/10/16 06:04; Admin Dose 125 MLS/HR; Start 10/06/16 at 07 :00 Apixaban (Eliquis) 5 mg BID PO Last administered on 10/10/16 08:24; Admin Dose 5 MG; Start 10/06/16 at 10:30 Lisinopril (Zestril) 2.5 mg DAILY PO Last administered on 10/10/16 08:25; Admin Dose 2.5 MG; Start 10/06/16 at 10:30 Levofloxacin (Levaquin) 500 mg DAILY@06 NGT Last administered on 10/10/16 05: 31; Admin Dose 500 MG; Start 10/07/16 at 06:00 Lactobacillus Acidophilus/ Rhamnosus (Culturelle) 1 cap BID PO Last administered on 10/10/16 08:24; Admin Dose 1 CAP; Start 10/07/16 at 21:00 Insulin Glargine (Lantus) 60 unit QHS SC Last administered on 10/09/16 20:41; Admin Dose 60 UNIT; Start 10/08/16 at 21:00 Tramadol HCl (Ultram) 50 mg Q6H PRN PO PAIN; Start 10/08/16 at 21:30 Morphine Sulfate (morphine) 3 mg Q4H PRN IV PAIN Last administered on 10:53; Admin Dose 3 MG; Start 10/08/16 at 21:30 Yaron Mayer DO October 10, 2016 12:39
--- NOTE | 2016-10-10 14:34 | CONS ---
Date/Time of Note Date/Time of Note DATE: 10/10/16 TIME: 14:33 Assessment/Plan Assessment/Plan Chief Complaint/Hosp Course SUBJECTIVE: No acute changes. The patient is alert, looks comfortable. Denies pain, discomfort. No fevers. MICROBIOLOGY: Blood cultures remain negative. DIAGNOSTICS: CT of the chest revealed no evidence of pulmonary embolism. Chest x-ray also revealed moderate cardiomegaly and moderate pulmonary edema. ANTIMICROBIALS: The patient is on: 1. IV vancomycin. 2. Levaquin. PHYSICAL EXAMINATION: GENERAL: This is a morbidly obese, elderly man who is awake, in no distress. HEENT: Head atraumatic, normocephalic. Sclerae anicteric. Buccal mucosa dry. NECK: Supple, trachea midline. CHEST: Rise symmetrical. Breath sounds diminished to bases. HEART: S1, S2. ABDOMEN: Soft, bowel sounds present. EXTREMITIES: Bilateral lower extremity edema, erythema. Right lower extremity with wound VAC to wound below knee. ASSESSMENT: 1. Acute on chronic bilateral lower extremity cellulitis with right knee wound culture on 09/04/2016 grew Corynebacterium, methicillin-resistant Staphylococcus aureus, and alpha hemolytic strep species. 2. Morbid obesity. 3. Bilateral lower extremity chronic venous insufficiency. 4. History of paroxysmal atrial fibrillation. 5. Chronic obstructive pulmonary disease. 6. Obstructive sleep apnea. 7. Diabetes. PLAN: The patient remains stable, continue abx, keep BLE elevated. Anticipate dc on Doxycycline and Keflex for 2 weeks, also probiotics [facility] staff Problems: Consultation Date/Type/Reason Admit Date/Time October 03, 2016 at 22:50 Initial Consult Date 10/06/16 Type of Consultation: ID Exam/Review of Systems Vital Signs Vitals Vital Signs Date Time Temp Pulse Resp B/P Pulse Ox O2 Delivery O2 Flow Rate FiO2 10/10/16 10:13 Nasal Cannula 2.0 10/10/16 07:30 98.0 84 18 128/57 90 10/06/16 07:36 21 Intake and Output 10/09/16 10/09/16 10/10/16 15:00 23:00 07:00 Intake Total 500 ml 1960 ml 360 ml Balance 500 ml 1960 ml 360 ml Results Result Diagram: 10/07/16 0440 10/09/16 0555 Results 24 hrs Laboratory Tests Test 10/09/16 16:59 10/09/16 20:18 10/10/16 08:01 10/10/16 12:07 Bedside Glucose 112 110 150 195 Medications Medications Current Medications Oxycodone/ Acetaminophen (Endocet (10/ 325)) 1 tab Q4H PRN PO PAIN Last administered on 10/04/16 02:49; Admin Dose 1 TAB; Start 10/04/16 at 02:30 Ondansetron HCl (Zofran Inj) 4 mg Q6H PRN IV NAUSEA AND/OR VOMITING; Start 10/04 at 02:30 Acetaminophen (Tylenol Tab) 650 mg Q6H PRN PO PAIN LEVEL 1-3 OR FEVER; Start at 02:30 Docusate Sodium (Colace) 100 mg Q12H PRN PO CONSTIPATION; Start 10/04/16 at 02: 30 Bisacodyl (Dulcolax) 5 mg DAILY PRN PO CONSTIPATION; Start 10/04/16 at 02:30 Atorvastatin Calcium (Lipitor) 20 mg QHS PO Last administered on 10/08/16 20: 54; Admin Dose 20 MG; Start 10/04/16 at 21:00 Gabapentin (Neurontin) 600 mg TID PRN PO PAIN; Start 10/04/16 at 03:00 Tamsulosin HCl (Flomax) 0.4 mg BID PO Last administered on 10/10/16 08:24; Admin Dose 0.4 MG; Start 10/04/16 at 09:00 Thiamine HCl (Vitamin B1) 100 mg BID PO Last administered on 10/10/16 08:23; Admin Dose 100 MG; Start 10/04/16 at 09:00 Trazodone HCl (Desyrel) 50 mg QHS PRN PO SLEEP; Start 10/04/16 at 03:00 Diagnostic Test (Pha) (Accu-Chek) 1 ea 02 XX Last administered on 10/08/16 02: 36; Admin Dose 1 EA; Start 10/05/16 at 02:00 Miscellaneous Information 1 ea NOTE XX ; Start 10/04/16 at 02:45 Glucose (Glutose) 15 gm Q15M PRN PO DECREASED GLUCOSE; Start 10/04/16 at 02:45 Glucose (Glutose) 22.5 gm Q15M PRN PO DECREASED GLUCOSE; Start 10/04/16 at 02:45 Dextrose (D50w Syringe) 25 ml Q15M PRN IV DECREASED GLUCOSE; Start 10/04/16 at 02:45 Dextrose (D50w Syringe) 50 ml Q15M PRN IV DECREASED GLUCOSE; Start 10/04/16 at 02:45 Glucagon (Glucagen) 1 mg Q15M PRN IM DECREASED GLUCOSE; Start 10/04/16 at 02:45 Glucose (Glutose) 15 gm Q15M PRN BUCCAL DECREASED GLUCOSE; Start 10/04/16 at 02: 45 Hydralazine HCl (Apresoline) 10 mg Q6H PRN IV ELEVATED BLOOD PRESSURE; Start at 07:00 Salmeterol Xinafoate/ Fluticasone (Advair 250/50 Diskus) 1 inh BID INH Last administered on 10/05/16 08:40; Admin Dose 1 INH; Start 10/04/16 at 21:00 Cholecalciferol 1000 unit 1,000 unit DAILY PO Last administered on 10/10/16 08 :23; Admin Dose 1,000 UNIT; Start 10/06/16 at 09:00 Vancomycin HCl/ Sodium Chloride (Vancocin/NS) 500 ml @ 125 mls/hr Q12H IVPB Last administered on 10/10/16 06:04; Admin Dose 125 MLS/HR; Start 10/06/16 at 07 :00 Apixaban (Eliquis) 5 mg BID PO Last administered on 10/10/16 08:24; Admin Dose 5 MG; Start 10/06/16 at 10:30 Lisinopril (Zestril) 2.5 mg DAILY PO Last administered on 10/10/16 08:25; Admin Dose 2.5 MG; Start 10/06/16 at 10:30 Levofloxacin (Levaquin) 500 mg DAILY@06 NGT Last administered on 10/10/16 05: 31; Admin Dose 500 MG; Start 10/07/16 at 06:00 Lactobacillus Acidophilus/ Rhamnosus (Culturelle) 1 cap BID PO Last administered on 10/10/16 08:24; Admin Dose 1 CAP; Start 10/07/16 at 21:00 Insulin Glargine (Lantus) 60 unit QHS SC Last administered on 10/09/16 20:41; Admin Dose 60 UNIT; Start 10/08/16 at 21:00 Tramadol HCl (Ultram) 50 mg Q6H PRN PO PAIN; Start 10/08/16 at 21:30 Morphine Sulfate (morphine) 3 mg Q4H PRN IV PAIN Last administered on t 10:53; Admin Dose 3 MG; Start 10/08/16 at 21:30 HORTENCIA CHACON NP October 10, 2016 14:34
[2016-10-10 20:07] VITALS: BP 132/71; RESP 16
[2016-10-10] MEDS: INSULIN GLARGINE [LANtus] 3 ML PEN SC SCH (20:43)
[2016-10-10] MEDS: ATORVASTATIN 20 MG TAB PO SCH (20:44)
[2016-10-11] MEDS: morphine 4 MG/ML VIAL IV PRN ×4 (01:31→17:21)
[2016-10-11] MEDS: ACCU-CHEK XX SCH (02:12)
[2016-10-11 05:32] LABS: ADD SCAN DIFF NO
[2016-10-11] MEDS: LEVOFLOXACIN 500 MG TAB NGT SCH (05:36)
[2016-10-11] MEDS: VANCOMYCIN 1.75 GM in NS 500 ML IVPB SCH (05:36)
[2016-10-11 06:02] LABS: ABNORMAL IP MESSAGE 1; BASOPHIL # 0.1 10^3/ul (0.0-0.1); BASOPHILS % 0.4 % (0.0-2.0); EOSINOPHILS # 0.3 10^3/ul (0.0-0.5); EOSINOPHILS % 2.3 % (0.0-7.0); HEMATOCRIT 47.3 % (42.0-52.0); HEMOGLOBIN 14.6 g/dl (14.0-18.0); LYMPHOCYTES # 4.5 10^3/ul (0.8-2.9); LYMPHOCYTES % 33.5 % (15.0-51.0); MEAN CORPUSCULAR HEMOGLOBIN 28.7 pg (29.0-33.0); MEAN CORPUSCULAR HGB CONC 30.9 g/dl (32.0-37.0); MEAN CORPUSCULAR VOLUME 92.9 fl (82.0-101.0); MEAN PLATELET VOLUME 11.3 fl (7.4-10.4); MONOCYTE # 1.6 10^3/ul (0.3-0.9); MONOCYTES % 11.9 % (0.0-11.0); NEUTROPHIL # 6.9 10^3/ul (1.6-7.5); NEUTROPHILS % 51.3 % (39.0-77.0); PLATELET COUNT 255 10^3/UL (140-415); RED BLOOD COUNT 5.09 10^6/ul (4.70-6.10); RED CELL DISTRIBUTION WIDTH 13.8 % (11.5-14.5); WHITE BLOOD COUNT 13.3 10^3/ul (4.8-10.8)
[2016-10-11 06:06] LABS: CALCIUM 9.4 mg/dl (8.4-10.2); CREATININE 0.96 mg/dl (0.61-1.24); POTASSIUM 4.1 mmol/L (3.5-5.1)
[2016-10-11 07:47] VITALS: BP 123/72; RESP 20
[2016-10-11] MEDS: CHOLECALCIFEROL 1,000 UNIT TAB PO SCH (08:49)
[2016-10-11] MEDS: LACTOBACILLUS RHAMNOSUS CAP PO SCH (08:49)
[2016-10-11] MEDS: TAMSULOSIN (SR) 0.4 MG CAP PO SCH (08:49)
[2016-10-11] MEDS: THIAMINE 100 MG TAB PO SCH (08:49)
[2016-10-11] MEDS: SALMETEROL/FLUTICASONE 250/50 INHA INH SCH (08:50)
[2016-10-11] MEDS: APIXABAN 5 MG TABLET PO SCH (08:50)
[2016-10-11] MEDS: LISINOPRIL 5 MG TAB PO SCH (08:50)
[2016-10-11] MEDS: INSULIN ASPART [NOVOLOG] 3 ML PEN SC SCH ×6 (08:52→17:56)
--- NOTE | 2016-10-11 11:05 | PN ---
Date/Time of Note Date/Time of Note DATE: 10/11/16 TIME: 11:05 Assessment/Plan VTE Prophylaxis VTE Prophylaxis Intervention: SCD's Lines/Catheters IV [facility]from [facility] Urinary Cath still in place: No Assessment/Plan Assessment/Plan Shortness of breath, multifactorial Obesity hypoventilation syndrome History paroxysmal atrial fibrillation, currently sinus rhythm Obesity Edema Preserved ejection fraction -Patient with improvement in shortness of breath. No new cardiac issues at the current time. Blood pressure trend remains stable. No new cardiac orders at the current time Subjective 24 Hr Interval Summary Free Text/Dictation the aptient with no cahnge Exam/Review of Systems Vital Signs Vitals Vital Signs Date Time Temp Pulse Resp B/P Pulse Ox O2 Delivery O2 Flow Rate FiO2 10/11/16 07:47 97.6 19 20 123/72 84 10/10/16 15:01 Nasal Cannula 2.0 Intake and Output 10/10/16 10/10/16 10/11/16 15:00 23:00 07:00 Intake Total 500 ml 960 ml 1620 ml Balance 500 ml 960 ml 1620 ml Results Result Diagram: 10/11/16 0455 10/11/16 0455 Results 24 hrs Laboratory Tests Test 10/10/16 12:07 10/10/16 17:22 10/10/16 18:20 10/10/16 20:41 Bedside Glucose 195 344 H 366 H Vancomycin Level Trough 14.2 Test 10/11/16 01:32 10/11/16 04:55 10/11/16 08:02 Bedside Glucose 137 171 White Blood Count 13.3 H Red Blood Count 5.09 Hemoglobin 14.6 Hematocrit 47.3 Mean Corpuscular Volume 92.9 Mean Corpuscular Hemoglobin 28.7 L Mean Corpuscular Hemoglobin Concent 30.9 L Red Cell Distribution Width 13.8 Platelet Count 255 Mean Platelet Volume 11.3 H Neutrophils % 51.3 Lymphocytes % 33.5 Monocytes % 11.9 H Eosinophils % 2.3 Basophils % 0.4 Nucleated Red Blood Cells % 0.0 Neutrophils # 6.9 Lymphocytes # 4.5 H Monocytes # 1.6 H Eosinophils # 0.3 Basophils # 0.1 Nucleated Red Blood Cells # 0.0 Sodium Level 137 Potassium Level 4.1 Chloride Level 97 Carbon Dioxide Level 33 H Anion Gap 11 Blood Urea Nitrogen 42 #H Creatinine 0.96 Glucose Level 159 Calcium Level 9.4 Medications Medications Current Medications Oxycodone/ Acetaminophen (Endocet (10/ 325)) 1 tab Q4H PRN PO PAIN Last administered on 10/04/16 02:49; Admin Dose 1 TAB; Start 10/04/16 at 02:30 Ondansetron HCl (Zofran Inj) 4 mg Q6H PRN IV NAUSEA AND/OR VOMITING; Start 10/04 at 02:30 Acetaminophen (Tylenol Tab) 650 mg Q6H PRN PO PAIN LEVEL 1-3 OR FEVER; Start at 02:30 Docusate Sodium (Colace) 100 mg Q12H PRN PO CONSTIPATION; Start 10/04/16 at 02: 30 Bisacodyl (Dulcolax) 5 mg DAILY PRN PO CONSTIPATION; Start 10/04/16 at 02:30 Atorvastatin Calcium (Lipitor) 20 mg QHS PO Last administered on 10/10/16 20: 44; Admin Dose 20 MG; Start 10/04/16 at 21:00 Gabapentin (Neurontin) 600 mg TID PRN PO PAIN; Start 10/04/16 at 03:00 Tamsulosin HCl (Flomax) 0.4 mg BID PO Last administered on 10/11/16 08:49; Admin Dose 0.4 MG; Start 10/04/16 at 09:00 Thiamine HCl (Vitamin B1) 100 mg BID PO Last administered on 10/11/16 08:49; Admin Dose 100 MG; Start 10/04/16 at 09:00 Trazodone HCl (Desyrel) 50 mg QHS PRN PO SLEEP; Start 10/04/16 at 03:00 Diagnostic Test (Pha) (Accu-Chek) 1 ea 02 XX Last administered on 10/11/16 02: 12; Admin Dose 1 EA; Start 10/05/16 at 02:00 Miscellaneous Information 1 ea NOTE XX ; Start 10/04/16 at 02:45 Glucose (Glutose) 15 gm Q15M PRN PO DECREASED GLUCOSE; Start 10/04/16 at 02:45 Glucose (Glutose) 22.5 gm Q15M PRN PO DECREASED GLUCOSE; Start 10/04/16 at 02:45 Dextrose (D50w Syringe) 25 ml Q15M PRN IV DECREASED GLUCOSE; Start 10/04/16 at 02:45 Dextrose (D50w Syringe) 50 ml Q15M PRN IV DECREASED GLUCOSE; Start 10/04/16 at 02:45 Glucagon (Glucagen) 1 mg Q15M PRN IM DECREASED GLUCOSE; Start 10/04/16 at 02:45 Glucose (Glutose) 15 gm Q15M PRN BUCCAL DECREASED GLUCOSE; Start 10/04/16 at 02: 45 Hydralazine HCl (Apresoline) 10 mg Q6H PRN IV ELEVATED BLOOD PRESSURE; Start at 07:00 Salmeterol Xinafoate/ Fluticasone (Advair 250/50 Diskus) 1 inh BID INH Last administered on 10/11/16 08:50; Admin Dose 1 INH; Start 10/04/16 at 21:00 Cholecalciferol 1000 unit 1,000 unit DAILY PO Last administered on 10/11/16 08 :49; Admin Dose 1,000 UNIT; Start 10/06/16 at 09:00 Vancomycin HCl/ Sodium Chloride (Vancocin/NS) 500 ml @ 125 mls/hr Q12H IVPB Last administered on 10/11/16 05:36; Admin Dose 125 MLS/HR; Start 10/06/16 at 07 :00 Apixaban (Eliquis) 5 mg BID PO Last administered on 10/11/16 08:50; Admin Dose 5 MG; Start 10/06/16 at 10:30 Lisinopril (Zestril) 2.5 mg DAILY PO Last administered on 10/11/16 08:50; Admin Dose 2.5 MG; Start 10/06/16 at 10:30 Levofloxacin (Levaquin) 500 mg DAILY@06 NGT Last administered on 10/11/16 05: 36; Admin Dose 500 MG; Start 10/07/16 at 06:00 Lactobacillus Acidophilus/ Rhamnosus (Culturelle) 1 cap BID PO Last administered on 10/11/16 08:49; Admin Dose 1 CAP; Start 10/07/16 at 21:00 Insulin Glargine (Lantus) 60 unit QHS SC Last administered on 10/10/16 20:43; Admin Dose 60 UNIT; Start 10/08/16 at 21:00 Tramadol HCl (Ultram) 50 mg Q6H PRN PO PAIN; Start 10/08/16 at 21:30 Morphine Sulfate (morphine) 3 mg Q4H PRN IV PAIN Last administered on t 07:54; Admin Dose 3 MG; Start 10/08/16 at 21:30 BEA SAENZ MD October 11, 2016 11:05
--- NOTE | 2016-10-11 15:03 | PDOCDIS ---
Discharge Instructions DIAGNOSIS Discharge Diagnosis: rt leg cellulitis CONDITION Patient Condition: Stable HOME CARE INSTRUCTIONS: Special Diet: DIABETIC DIET/ LOW CARB./FATYour diet recommendation is: no added salt; cut calories by 1/3. ACTIVITY: Activity Restrictions: Slowly Increase Activity Activity Restrictions Comment: elevate legs at rest FOLLOW UP/APPOINTMENTS Appointments [facility] -thu/thu/thursday Dr Monteiro -2wks PCP 1week ASHANTI WHITLEY MD October 11, 2016 15:03
[2016-10-11] MEDS ORDERED: LACT1CAP57 PO (15:06)
[2016-10-11] MEDS ORDERED: OXYC-431 PO (15:06)
[2016-10-11] MEDS ORDERED: ADV25050 INH (15:06)
[2016-10-11] MEDS ORDERED: CEPH500C PO (15:06)
[2016-10-11] MEDS ORDERED: CHOL100062 PO (15:06)
[2016-10-11] MEDS ORDERED: APIX5TAB PO (15:06)
[2016-10-11] MEDS ORDERED: ACET325T40 PO (15:06)
[2016-10-11] MEDS ORDERED: DOXY100T2 PO (15:06)
[2016-10-11] MEDS ORDERED: NOVO3I SC (15:18)
[2016-10-11] MEDS ORDERED: LANT3I SC (15:18)
[2016-10-11] MEDS: DOXYCYCLINE 100 MG TAB PO SCH ×2 (16:00→18:23)
[2016-10-11] MEDS ORDERED: CEPHALEXIN 500 MG CAP PO SCH (16:00)
--- NOTE | 2016-10-11 19:36 | CONS ---
Date/Time of Note Date/Time of Note DATE: 10/11/16 TIME: 19:34 Assessment/Plan Assessment/Plan Chief Complaint/Hosp Course SUBJECTIVE: No acute changes. The patient is alert, looks comfortable. Denies pain, discomfort. No fevers. MICROBIOLOGY: Blood cultures remain negative. DIAGNOSTICS: CT of the chest revealed no evidence of pulmonary embolism. Chest x-ray also revealed moderate cardiomegaly and moderate pulmonary edema. ANTIMICROBIALS: The patient is on: 1. IV vancomycin. 2. Levaquin. PHYSICAL EXAMINATION: GENERAL: This is a morbidly obese, elderly man who is awake, in no distress. HEENT: Head atraumatic, normocephalic. Sclerae anicteric. Buccal mucosa dry. NECK: Supple, trachea midline. CHEST: Rise symmetrical. Breath sounds diminished to bases. HEART: S1, S2. ABDOMEN: Soft, bowel sounds present. EXTREMITIES: Bilateral lower extremity edema, erythema. Right lower extremity with wound VAC to wound below knee. ASSESSMENT: 1. Acute on chronic bilateral lower extremity cellulitis with right knee wound culture on 09/04/2016 grew Corynebacterium, methicillin-resistant Staphylococcus aureus, and alpha hemolytic strep species. 2. Morbid obesity. 3. Bilateral lower extremity chronic venous insufficiency. 4. History of paroxysmal atrial fibrillation. 5. Chronic obstructive pulmonary disease. 6. Obstructive sleep apnea. 7. Diabetes. PLAN: The patient remains stable, continue abx, keep BLE elevated. Anticipate dc on Doxycycline and Keflex for 2 weeks, continue probiotics [facility] staff Problems: Consultation Date/Type/Reason Admit Date/Time October 03, 2016 at 22:50 Initial Consult Date 10/06/16 Type of Consultation: ID Exam/Review of Systems Vital Signs Vitals Vital Signs Date Time Temp Pulse Resp B/P Pulse Ox O2 Delivery O2 Flow Rate FiO2 10/11/16 07:47 97.6 19 20 123/72 84 10/10/16 15:01 Nasal Cannula 2.0 Intake and Output 10/10/16 10/10/16 10/11/16 15:00 23:00 07:00 Intake Total 500 ml 960 ml 1620 ml Balance 500 ml 960 ml 1620 ml Results Result Diagram: 10/11/16 0455 10/11/16 0455 Results 24 hrs Laboratory Tests Test 10/10/16 20:41 10/11/16 01:32 10/11/16 04:55 10/11/16 08:02 Bedside Glucose 366 H 137 171 White Blood Count 13.3 H Red Blood Count 5.09 Hemoglobin 14.6 Hematocrit 47.3 Mean Corpuscular Volume 92.9 Mean Corpuscular Hemoglobin 28.7 L Mean Corpuscular Hemoglobin Concent 30.9 L Red Cell Distribution Width 13.8 Platelet Count 255 Mean Platelet Volume 11.3 H Neutrophils % 51.3 Lymphocytes % 33.5 Monocytes % 11.9 H Eosinophils % 2.3 Basophils % 0.4 Nucleated Red Blood Cells % 0.0 Neutrophils # 6.9 Lymphocytes # 4.5 H Monocytes # 1.6 H Eosinophils # 0.3 Basophils # 0.1 Nucleated Red Blood Cells # 0.0 Sodium Level 137 Potassium Level 4.1 Chloride Level 97 Carbon Dioxide Level 33 H Anion Gap 11 Blood Urea Nitrogen 42 #H Creatinine 0.96 Glucose Level 159 Calcium Level 9.4 Test 10/11/16 12:27 10/11/16 17:44 Bedside Glucose 135 72 Medications Medications Current Medications Oxycodone/ Acetaminophen (Endocet (10 325)) 1 tab Q4H PRN PO PAIN Last administered on 10/04/16 02:49; Admin Dose 1 TAB; Start 10/04/16 at 02:30 Ondansetron HCl (Zofran Inj) 4 mg Q6H PRN IV NAUSEA AND/OR VOMITING; Start 10/04 at 02:30 Acetaminophen (Tylenol Tab) 650 mg Q6H PRN PO PAIN LEVEL 1-3 OR FEVER; Start at 02:30 Docusate Sodium (Colace) 100 mg Q12H PRN PO CONSTIPATION; Start 10/04/16 at 02: 30 Bisacodyl (Dulcolax) 5 mg DAILY PRN PO CONSTIPATION; Start 10/04/16 at 02:30 Atorvastatin Calcium (Lipitor) 20 mg QHS PO Last administered on 10/10/16 20: 44; Admin Dose 20 MG; Start 10/04/16 at 21:00 Gabapentin (Neurontin) 600 mg TID PRN PO PAIN; Start 10/04/16 at 03:00 Tamsulosin HCl (Flomax) 0.4 mg BID PO Last administered on 10/11/16 08:49; Admin Dose 0.4 MG; Start 10/04/16 at 09:00 Thiamine HCl (Vitamin B1) 100 mg BID PO Last administered on 10/11/16 08:49; Admin Dose 100 MG; Start 10/04/16 at 09:00 Trazodone HCl (Desyrel) 50 mg QHS PRN PO SLEEP; Start 10/04/16 at 03:00 Diagnostic Test (Pha) (Accu-Chek) 1 ea 02 XX Last administered on 10/11/16 02: 12; Admin Dose 1 EA; Start 10/05/16 at 02:00 Miscellaneous Information 1 ea NOTE XX ; Start 10/04/16 at 02:45 Glucose (Glutose) 15 gm Q15M PRN PO DECREASED GLUCOSE; Start 10/04/16 at 02:45 Glucose (Glutose) 22.5 gm Q15M PRN PO DECREASED GLUCOSE; Start 10/04/16 at 02:45 Dextrose (D50w Syringe) 25 ml Q15M PRN IV DECREASED GLUCOSE; Start 10/04/16 at 02:45 Dextrose (D50w Syringe) 50 ml Q15M PRN IV DECREASED GLUCOSE; Start 10/04/16 at 02:45 Glucagon (Glucagen) 1 mg Q15M PRN IM DECREASED GLUCOSE; Start 10/04/16 at 02:45 Glucose (Glutose) 15 gm Q15M PRN BUCCAL DECREASED GLUCOSE; Start 10/04/16 at 02: 45 Hydralazine HCl (Apresoline) 10 mg Q6H PRN IV ELEVATED BLOOD PRESSURE; Start at 07:00 Salmeterol Xinafoate/ Fluticasone (Advair 250/50 Diskus) 1 inh BID INH Last administered on 10/11/16 08:50; Admin Dose 1 INH; Start 10/04/16 at 21:00 Cholecalciferol (Vitamin D) 1,000 unit DAILY PO Last administered on 10/11/16 08:49; Admin Dose 1,000 UNIT; Start 10/06/16 at 09:00 Apixaban (Eliquis) 5 mg BID PO Last administered on 10/11/16 08:50; Admin Dose 5 MG; Start 10/06/16 at 10:30 Lisinopril (Zestril) 2.5 mg DAILY PO Last administered on 10/11/16 08:50; Admin Dose 2.5 MG; Start 10/06/16 at 10:30 Levofloxacin (Levaquin) 500 mg DAILY@06 NGT Last administered on 10/11/16 05: 36; Admin Dose 500 MG; Start 10/07/16 at 06:00 Lactobacillus Acidophilus/ Rhamnosus (Culturelle) 1 cap BID PO Last administered on 10/11/16 08:49; Admin Dose 1 CAP; Start 10/07/16 at 21:00 Insulin Glargine (Lantus) 60 unit QHS SC Last administered on 10/10/16 20:43; Admin Dose 60 UNIT; Start 10/08/16 at 21:00 Tramadol HCl (Ultram) 50 mg Q6H PRN PO PAIN; Start 10/08/16 at 21:30 Morphine Sulfate (morphine) 3 mg Q4H PRN IV PAIN Last administered on 17:21; Admin Dose 3 MG; Start 10/08/16 at 21:30 Cephalexin (Keflex) 500 mg Q8 PO ; Start 10/11/16 at 16:00 Doxycycline Hyclate (Vibramycin) 100 mg BID PO Last administered on 10/11/16 18:23; Admin Dose 100 MG; Start 10/11/16 at 16:00 HORTENCIA CHACON NP October 11, 2016 19:36
--- NOTE | 2016-10-12 03:56 | DS ---
DATE OF ADMISSION: 10/03/2016 DATE OF DISCHARGE: 10/11/2016 PRIMARY CARE PHYSICIAN: Unknown. WEIGHTS AND MEASURES INSPECTOR: Dr. Allred, Dr. Krishnan, Dr. Vang. DIAGNOSIS ON ADMISSION: Sepsis. DIAGNOSES ON DISCHARGE: 1. Sepsis. 2. Right lower extremity cellulitis. 3. Failure to thrive. 4. Diabetes. 5. Nonadherence. 6. Stasis. 7. Chronic COPD. 8. Chronic atrial fibrillation. 9. Past tobacco. 10. Splenectomy status. 11. Chronic depression. HOSPITAL COURSE: A 60-year-old gentleman with chronic diabetes, lower extremity cellulitis, stasis, and medication and dietary nonadherence admitted for cellulitis. The patient was seen by vascular surgery and wound care and infectious disease. The patient was placed on IV antibiotics while in [facility]. Wound care done daily. Wound VAC applied. No evidence of sepsis at this time, and he is presently stable and fit for discharge. He will go home on doxycycline and Keflex for 2 weeks. Referral arrangements have been made for the patient to visit the [facility] Thursday, Thursday, Thursday for wound VAC therapy. The patient is aware of the risk of failure of therapy and progression toward am putation should therapy not work and should nonadherence be an issue. This includes dietary and med ication adherence. The patient was seen by cardiology. We continued anticoagulation for atrial fibrillation. Rate is controlled. In terms of his diabetes, his A1c is 10.9. He will continue home 1. Lantus. 2. Metformin. 3. Scheduled insulin. Unfortunately, there was dietary nonadherence, and I am not sure if his A1c will ever get under cont rol. The patient refuses to have home health assist in the care plan at home. Again, reinforced the issu e of maintaining some sort of stability as an outpatient, but the patient refused home health care. He is aware of the risk for limb loss. In terms of obesity, I have asked the patient to cut down on calories. DISCHARGE PLAN: Home. FOLLOWUP: 1. With primary in 1 week. 2. Appointment with [facility] and Dr. Krishnan Thursday, Thursday, Thursday. 3. Appointment with Dr. Allred as needed. 4. Dr. Vang as needed. DIET: 1800 ADA. ACTIVITY: Weightbearing as tolerated. CODE STATUS: FULL. CONDITION: Stable. BARRIERS TO DISCHARGE: None. PENDING TESTS: None. FUNCTIONAL STATUS: The patient awake, alert, and agreed upon the care plan. ALLERGIES: 1. IODINE SOAP. 2. POVIDINE IODINE. REASON FOR ADMISSION: Cellulitis, sepsis. DURABLE MEDICAL EQUIPMENT: Wound Vac. LABORATORY DATA: Urine and blood culture unremarkable. CMP essentially unremarkable at this time. A1c of 10.9. Lactic acid 1.2. Troponins negative. Total cholesterol 173, LDL of 108, HDL 38, tri glyceride 137, ____ level of 28. White cell count of 13, hemoglobin and hematocrit of 14 and 47, pl atelets of 255. INR of 0.8. Vancomycin was dosed by pharmacy. IMAGING STUDIES: Chest x-ray: No acute process. There is cardiomegaly. He is overweight. CTA di d not show any PE. There is apparent emphysema, paraseptal emphysema, shotty mediastinal and bilate ral axillary lymphadenopathy, cardiomegaly, old left rib fractures. The 2D echo noted to have an EF of 55%, mild concentric LVH, diastolic dysfunction. MEDICATIONS: 1. Lipitor 20. 2. Benazepril 10. 3. Lasix 40. 4. Neurontin 600 t.i.d. p.r.n. 5. Lantus 60. 6. Humalog 20 with meals. 7. Metformin 1000 b.i.d. 8. Flomax 0.4 b.i.d. 9. Thiamine 100 b.i.d. STOPPED MEDICATIONS: Trazodone. I do not believe he needs this. NEW MEDICATIONS: 1. Tylenol as needed every 6. 2. Eliquis 5 mg b.i.d. 3. Keflex 500 t.i.d. 4. Doxycycline 100 b.i.d. 5. Vitamin D3 1000 daily. 6. Culturelle 1 capsule twice daily. 7. Advair 250/50, one puff twice daily. 8. Oxycodone 10, one every 48 hours as needed. Dictated By: ASHATNI MATT/NTS Conf#: [id number] DID#: [id number] CC: LUZ KRISHNAN MD; DESTINEY ALLRED MD; RANDAL VANG MD;*[facility]*
== END 2016-10-11 19:30 | disposition home or self-care (01) | DRG 871 ==
LOC: E/R 20:00 → PP2 22:50
PROVIDERS: ADMIT Family Medicine; ATTEND Family Medicine
DX: A41.9 Sepsis, unspecified organism (principal); J96.01 Acute respiratory failure with hypoxia; N17.9 Acute kidney failure, unspecified; I50.32 Chronic diastolic (congestive) heart failure; Z68.42 Body mass index [BMI] 45.0-49.9, adult; L03.115 Cellulitis of right lower limb; E11.40 Type 2 diabetes mellitus with diabetic neuropathy, unspecified; I48.2 Chronic atrial fibrillation; R65.20 Severe sepsis without septic shock; E66.01 Morbid (severe) obesity due to excess calories; R62.7 Adult failure to thrive; J44.9 Chronic obstructive pulmonary disease, unspecified; F32.9 Major depressive disorder, single episode, unspecified; G47.33 Obstructive sleep apnea (adult) (pediatric); I87.2 Venous insufficiency (chronic) (peripheral); E78.5 Hyperlipidemia, unspecified; I83.893 Varicose veins of bilateral lower extremities with other complications; Z79.4 Long term (current) use of insulin; Z90.81 Acquired absence of spleen; Z91.14 Patient's other noncompliance with medication regimen; Z91.11 Patient's noncompliance with dietary regimen
CPT/HCPCS: 36415; 36600; 71010; 71275; 80048; 80053; 80061; 80202; 81003; 82306; 82565; 82652; 82803; 82962; 83036; 83605; 83735; 83880; 84100; 84484; 84520; 85025; 85610; 85730; 86140; 87040; 87086; 93005; 93306; 94640; 94664; 96374; 96375; J0171; J0692; J1644; J1815; J1940; J2270; J3370; J3475; J7030; J7040; J7050; Q9967

== ENCOUNTER 2017-01-21 11:10 | Inpatient (IN) | payer OTHER ==
[~2017-01-21] VITALS: Ht 190.5 cm; Wt 183.0 kg
[~2017-01-21 11:10] MED LIST changes: +ACET325T40 PO; -ALBU18HF IH; +APIX5TAB PO; -ASPI-664 PO; -BACTDS PO; +CEPH500C PO; +CHOL100062 PO; +DOXY100T2 PO; -FLUT12HF IH; -LISI-523 PO; +OXYC-431 PO; -RIVA10TA PO; -TRAZ50TA18 PO; -[UNRECOGNIZED DRUG - CODE] TOP; -[UNRECOGNIZED DRUG - CODE] TOP
[2017-01-21] MEDS ORDERED: morphine 4 MG/ML VIAL IV STA (11:48)
[2017-01-21] MEDS ORDERED: ONDANSETRON 4 MG INJ IV STA ×2 (11:48→17:02)
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
[2017-01-21] MEDS ORDERED: APIX5TAB PO (12:07)
[2017-01-21] MEDS ORDERED: INSU100C SQ (12:10)
[2017-01-21] MEDS ORDERED: LANT3I SC (12:11)
[2017-01-21] MEDS ORDERED: ALBU18HF INHALATION (12:11)
[2017-01-21 12:25] LABS: BASOPHILS % 0.2 % (0.0-2.0); EOSINOPHILS # 0.1 10^3/ul (0.0-0.5); EOSINOPHILS % 0.5 % (0.0-7.0); HEMOGLOBIN 15.1 g/dl (14.0-18.0); LYMPHOCYTES # 2.7 10^3/ul (0.8-2.9); MEAN CORPUSCULAR HEMOGLOBIN 27.9 pg (29.0-33.0); MEAN CORPUSCULAR HGB CONC 30.8 g/dl (32.0-37.0); MEAN CORPUSCULAR VOLUME 90.4 fl (82.0-101.0); MEAN PLATELET VOLUME 11.4 fl (7.4-10.4); MONOCYTE # 1.5 10^3/ul (0.3-0.9); MONOCYTES % 8.5 % (0.0-11.0); NEUTROPHILS % 74.2 % (39.0-77.0); PLATELET COUNT 276 10^3/UL (140-415); RED BLOOD COUNT 5.42 10^6/ul (4.70-6.10); RED CELL DISTRIBUTION WIDTH 15.6 % (11.5-14.5); WHITE BLOOD COUNT 17.2 10^3/ul (4.8-10.8)
--- NOTE | 2017-01-21 12:33 | RADRPT ---
PROCEDURE: XR Chest. CLINICAL INDICATION: Chest pain, abdominal pain TECHNIQUE: AP view of the chest was performed. COMPARISON: July 26, 2016 FINDINGS: There is stable mild cardiomegaly and vascular congestion with bibasilar atelectasis. There are healed left rib fractures as well as a healed left clavicular fracture. Overall, these findings appear to be stable. IMPRESSION: Mild cardiomegaly, vascular congestion, and bibasilar atelectasis. RPTAT: QQ .Haily Tam MD, MD Date Time Electronically viewed and signed by .Haily Tam MD, MD on 01/21/2017 12:33 .F/
[2017-01-21 12:42] LABS: ALBUMIN 3.9 g/dl (3.3-4.9); ALBUMIN/GLOBULIN RATIO 1.02; BILIRUBIN,INDIRECT 0.4 mg/dl (0-1.1); BILIRUBIN,TOTAL 0.4 mg/dl (0.2-1.3); CALCIUM 10.2 mg/dl (8.4-10.2); CREATININE 0.81 mg/dl (0.61-1.24); TOTAL PROTEIN 7.7 g/dl (6.1-8.1)
[2017-01-21 12:45] LABS: POTASSIUM 5.5 mmol/L (3.5-5.1)
--- NOTE | 2017-01-21 13:00 | RADRPT ---
PROCEDURE: CT Abdomen and Pelvis without contrast. CLINICAL INDICATION: Abdominal pain TECHNIQUE: CT scan of the abdomen and pelvis without contrast was performed on a multidetector hig h-resolution CT scanner. The patient was scanned without intravenous contrast. Coronal and sagittal reformatted images were obtained from the axial source images. Images were reviewed on a high-resol [employer] PACS workstation. The total exam CTDI equals 23.89 mGy and the total exam DLP equals 1954.64 m Gy-cm. One or more of the following dose reduction techniques were used: Automated exposure control. Adjustment of the mA and/or kV according to patient size. Use of iterative reconstruction technique. COMPARISON: CT abdomen and pelvis 01/27/2015 FINDINGS: CT abdomen: The lung bases are remarkable for right basilar atelectasis. Multiple old left-sided rib fractures a re present. The heart size is normal, without pericardial thickening or effusion. The liver is nor mal in size and density without focal mass or intrahepatic biliary dilatation. The spleen is normal in size and homogeneous in density. The stomach is partially collapsed, but is grossly unremarkabl e. The pancreas as visualized is normal. The gallbladder is unremarkable. There is no evidence for biliary dilatation. The adrenal glands are symmetric and normal. The kidneys are symmetrically un remarkable as well. No renal calculus or obstructive uropathy or mass lesion is seen. The aorta is of normal caliber. Aortic vascular calcifications are present. There is no retroperit peck lymphadenopathy. The jefferson hepatis region is clear. Multiple mildly dilated loops of small b owel in the right braydon abdomen with decompressed distal ileum suggesting at least partial small osbaldo l obstruction. There is mild mesenteric edema. No intraperitoneal fluid is noted. CT pelvis: The small bowel loops situated within the pelvis are unremarkable. The appendix is normal. The pelvi c organs are normal. The pelvic sidewalls and inguinal regions are clear. The sigmoid colon and re ctum are remarkable for a few sigmoid diverticula without evidence of acute diverticulitis. No mass , lymphadenopathy, or free fluid is seen. No acute inflammation is seen. The surrounding osseous s tructures are remarkable for degenerative spondylosis of the spine. No osteolytic or osteoblastic l esion is detected. IMPRESSION: 1. Multiple mildly dilated loops of small bowel with decompressed distal ileum suggesting at least partial small bowel obstruction. Mild mesenteric edema is noted. No intraperitoneal fluid. 2. Few scattered sigmoid diverticula without evidence of acute diverticulitis. 3. Normal appendix. 4. Fatty liver. RPTAT: HHO .Lizeth Barajas MD, Date Time Electronically viewed and signed by .Lizeth Barajas MD, on 01/21/2017 12:59 .O/
[2017-01-21 13:08] LABS: URINE BLOOD (Dip) POC Negative (NEGATIVE)
[2017-01-21] MEDS ORDERED: HYDROmorphONE 1 MG/ML SYG IV STA ×2 (13:26→17:02)
[2017-01-21] MEDS ORDERED: SOD CHLORIDE 0.9% 500 ML IV ONE (13:30)
[2017-01-21] MEDS ORDERED: PIPER-TAZO 3.375 GM IV (PMX) 100 ML IVPB ONE ×2 (13:30)
[2017-01-21] MEDS ORDERED: NACL 0.9% 3 ML SYG IV SCH (14:00)
[2017-01-21] MEDS ORDERED: ACETAMINOPHEN 325 MG TAB PO PRN (14:00)
[2017-01-21] MEDS ORDERED: GABAPENTIN 300 MG CAP PO PRN (14:00)
[2017-01-21] MEDS ORDERED: BISACODYL (EC) 5 MG TAB PO PRN (14:00)
[2017-01-21] MEDS ORDERED: MAGNESIUM HYDROXIDE 30ML CUP PO PRN (14:00)
[2017-01-21 15:00] VITALS: TEMP 98
[2017-01-21] MEDS ORDERED: GLUCOSE GEL 15 GRAM TUBE PO PRN ×2 (15:00)
[2017-01-21] MEDS ORDERED: ALBUTEROL 18 GM INHALER INH PRN (15:00)
[2017-01-21] MEDS ORDERED: GLUCOSE GEL 15 GRAM TUBE BUCCAL PRN (15:00)
[2017-01-21] MEDS ORDERED: GLUCAGON 1 MG INJ IM PRN (15:00)
[2017-01-21] MEDS ORDERED: DEXTROSE 50% 50 ML SYRINGE IV PRN ×2 (15:00)
--- NOTE | 2017-01-21 15:17 | RADRPT ---
PROCEDURE: Chest Radiograph. CLINICAL INDICATION: Nasogastric tube placement TECHNIQUE: Single frontal chest radiograph. COMPARISON: Chest radiograph 01/21/2017 at 12:11 p.m. FINDINGS: There has been interval placement of a nasogastric tube. The distal tip is not well visualized. In addition, there are a vertically oriented linear artifacts over the expected location of the distal nasogastric tube which further limits evaluation. The location of the distal tip is not accurately visualized.. Lung volumes are decreased in there is basilar atelectasis. No confluent or lobar inf iltrate is seen. No pleural effusion is identified. The bones are intact. IMPRESSION: 1. Interval placement nasogastric tube, however the distal tip is not visualized on the study. Rec ommend dedicated view of the upper abdomen. 2. Otherwise stable radiographic appearance of chest compared to 12:11 p.m. RPTAT: KK .Conner Mcmahon MD, MD Date Time Electronically viewed and signed by .Conner Mcmahon MD, MD on 01/21/2017 15:16 .B/
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
[2017-01-21] MEDS: morphine 2 MG INJ IV PRN (15:24)
--- NOTE | 2017-01-21 16:29 | HP ---
Date/Time of Note Date/Time of Note DATE: 01/21/17 TIME: 16:25 Assessment/Plan VTE Prophylaxis VTE Prophylaxis Intervention: SCD's Assessment/Plan Assessment/Plan 61 yo M with h/o DM2, AFib, HTN, HL, multiple previous SBOs here with abd pain, found to have SBO. #SBO: gen surg on consult -cont NG -NPO except meds -judicious fluids #DM2: cut pt's lantus in half given he is NPO lantus 50 units daily + SSI #Afib, HTN, HL: cont home ATC and BP meds DVT prophx: ATC HPI/ROS Admit Date/Time Admit Date/Time Jan 21, 2017 at 13:11 Hx of Present Illness CC: SBO HPI 61 yo M with prev h/o splenectomy, h/o abd hernia repair, >15 previous SBOs all of which have resolved without surgical intervention presents with 1 day of abd pain. Pt states he knew "something" was wrong last night. CT in the ER showed SBO. NG was placed. PMH/Family/Social Past Medical History Medical History: diabetes, high cholesterol, hypertension, other (afib, obestiy , ?CHF) Past Surgical History Past Surgical Hx: other Social History lives in the community Smoking Status: Former smoker Exam/Review of Systems Vital Signs Vitals Vital Signs Date Time Temp Pulse Resp B/P Pulse Ox O2 Delivery O2 Flow Rate FiO2 01/21/17 15:00 98.0 100 20 149/77 93 Nasal Cannula 3.0 Exam Exam nad, sitting up at side of bed EOMI MMM +ng tube in place no mrg lungs clear obese no rashes labs and imaging reviewed Labs Result Diagram: 01/21/17 1156 01/21/17 1345 Medications Medications Current Medications Albuterol (Ventolin Hfa) 2 puff Q6H PRN INH SHORTNESS OF BREATH; Start at 15:00 Apixaban (Eliquis) 5 mg BID PO ; Start 01/21/17 at 21:00 Benazepril HCl (Lotensin) 10 mg DAILY PO ; Start 01/22/17 at 09:00 Cholecalciferol (Vitamin D) 1,000 unit DAILY PO ; Start 01/22/17 at 09:00 Furosemide (Lasix) 40 mg DAILY PO ; Start 01/22/17 at 09:00 Gabapentin (Neurontin) 600 mg TID PRN PO PAIN; Start 01/21/17 at 14:00 Insulin Glargine (Lantus) 50 unit BID SC ; Start 01/21/17 at 21:00 Salmeterol Xinafoate/ Fluticasone (Advair 250/50 Diskus) 1 inh BID INH ; Start 01/21/17 at 21:00 Thiamine HCl (Vitamin B1) 100 mg BID PO ; Start 01/21/17 at 21:00 Acetaminophen (Tylenol Tab) 650 mg Q6H PRN PO PAIN LEVEL 1-3 OR FEVER; Start at 14:00 Acetaminophen/ Hydrocodone Bitart ([place] (5/325)) 1 tab Q6H PRN PO MODERATE PAIN LEVEL 4-6; Start 01/21/17 at 14:00 Morphine Sulfate (morphine) 2 mg Q4H PRN IV SEVERE PAIN LEVEL 7-10 Last administered on 01/21/17t 15:24; Admin Dose 2 MG; Start 01/21/17 at 14:00 Docusate Sodium (Colace) 100 mg Q12H PRN PO CONSTIPATION; Start 01/21/17 at 14: 00 Magnesium Hydroxide (Milk Of Mag) 30 ml DAILY PRN PO CONSTIPATION; Start at 14:00 Bisacodyl (Dulcolax) 5 mg DAILY PRN PO CONSTIPATION; Start 01/21/17 at 14:00 Miscellaneous Information 1 ea NOTE XX ; Start 01/21/17 at 15:00 Glucose (Glutose) 15 gm Q15M PRN PO DECREASED GLUCOSE; Start 01/21/17 at 15:00 Glucose (Glutose) 22.5 gm Q15M PRN PO DECREASED GLUCOSE; Start 01/21/17 at 15: 00 Dextrose (D50w Syringe) 25 ml Q15M PRN IV DECREASED GLUCOSE; Start 01/21/17 at 15:00 Dextrose (D50w Syringe) 50 ml Q15M PRN IV DECREASED GLUCOSE; Start 01/21/17 at 15:00 Glucagon (Glucagen) 1 mg Q15M PRN IM DECREASED GLUCOSE; Start 01/21/17 at 15:00 Glucose (Glutose) 15 gm Q15M PRN BUCCAL DECREASED GLUCOSE; Start 01/21/17 at 15 :00 Procedures Procedures old records: last TTE in 2013 with EF 55% URSZULA KIRBY MD Jan 21, 2017 16:29
[2017-01-21] MEDS: SOD CHLORIDE 0.9% 1,000 ML IV SCH (17:21)
[2017-01-21] MEDS ORDERED: METOCLOPRAMIDE 10 MG INJ IV PRN (17:30)
[2017-01-21 17:37] VITALS: Ht 190.5 cm; Wt 183.0 kg
[2017-01-21 17:41] VITALS: BP 159/86; PULSE 110; RESP 20
[2017-01-21] MEDS: INSULIN ASPART [NOVOLOG] 3 ML PEN SC SCH ×2 (18:20→20:53)
[2017-01-21] MEDS: DOCUSATE SODIUM 100 MG CAP PO PRN (20:36)
[2017-01-21] MEDS: APIXABAN 5 MG TABLET PO SCH (20:37)
[2017-01-21] MEDS: HYDROCODONE/APAP (5/325) TAB PO PRN (20:37)
[2017-01-21] MEDS ORDERED: INSULIN GLARGINE [LANtus] 3 ML PEN SC SCH (21:00)
[2017-01-21] MEDS: THIAMINE 100 MG TAB PO SCH (21:00)
[2017-01-21] MEDS: SALMETEROL/FLUTICASONE 250/50 INHA INH SCH (21:00)
[2017-01-21 21:01] VITALS: BP 147/70; PULSE 108; RESP 22
[2017-01-22] VITALS (13 sets, daily range): BP systolic 100–137; BP diastolic 54–77; PULSE 98–113; RESP 18–22
[2017-01-22] MEDS: SOD CHLORIDE 0.9% 1,000 ML IV SCH ×3 (00:59→11:31)
[2017-01-22] MEDS: INSULIN ASPART [NOVOLOG] 3 ML PEN SC SCH ×6 (01:10→21:00)
[2017-01-22] MEDS: ACCU-CHEK XX SCH (02:04)
--- NOTE | 2017-01-22 02:31 | RADRPT ---
PROCEDURE: Left wrist. CLINICAL INDICATION: Pain. TECHNIQUE: Three views including PA, lateral and oblique views were performed. COMPARISON: None. FINDINGS: There are comminuted fractures of the distal radius extending to the articular surface with mild imp action and dorsal angulation. There is no dislocation. There is a fracture of the ulnar styloid. Bone mineralization is within normal limits. There is no radiopaque foreign body or abnormal calcif ication. IMPRESSION: Distal radius and ulnar styloid fractures. .Fitz Grider MD, Date Time Electronically viewed and signed by .Fitz Grider MD, on 01/22/2017 02:30 .T/
[2017-01-22] MEDS: morphine 2 MG INJ IV PRN (02:57)
--- NOTE | 2017-01-22 04:45 | EN ---
Date/Time of Note Date/Time of Note DATE: 01/22/17 TIME: 04:45 Event Note Medicine Medicine Event Note 61-year-old male admitted for small bowel obstruction who was noncompliant with safety measures including bed alarm and rest. Patient had removed his NG tube earlier. Patient sustained a fall on outstretched left hand and wrist x-ray shows distal radius and ulna styloid fractures. On physical examination there is mild deformity in the left wrist and wrist was splinted by myself and the nurse. Orthopedic surgeon Dr. Castrejon was notified and we will await recommendations and review. PAL BONNER Jan 22, 2017 04:45
[2017-01-22] MEDS: HYDROCODONE/APAP (5/325) TAB PO PRN (05:26)
[2017-01-22] MEDS ORDERED: morphine 2 MG INJ IV ONE (05:45)
[2017-01-22] MEDS: APIXABAN 5 MG TABLET PO SCH ×3 (08:11→22:01)
[2017-01-22 08:25] LABS: ABNORMAL IP MESSAGE 1; BASOPHILS % 0.2 % (0.0-2.0); EOSINOPHILS % 0.1 % (0.0-7.0); HEMATOCRIT 46.1 % (42.0-52.0); HEMOGLOBIN 14.3 g/dl (14.0-18.0); LYMPHOCYTES # 2.6 10^3/ul (0.8-2.9); LYMPHOCYTES % 18.5 % (15.0-51.0); MEAN CORPUSCULAR HEMOGLOBIN 28.8 pg (29.0-33.0); MEAN CORPUSCULAR VOLUME 92.8 fl (82.0-101.0); MEAN PLATELET VOLUME 11.3 fl (7.4-10.4); MONOCYTE # 1.6 10^3/ul (0.3-0.9); MONOCYTES % 11.8 % (0.0-11.0); PLATELET COUNT 258 10^3/UL (140-415); POSITIVE DIFF @See below; RED BLOOD COUNT 4.97 10^6/ul (4.70-6.10); RED CELL DISTRIBUTION WIDTH 15.4 % (11.5-14.5); WHITE BLOOD COUNT 13.9 10^3/ul (4.8-10.8)
[2017-01-22] MEDS: CHOLECALCIFEROL 1,000 UNIT TAB PO SCH ×2 (09:00→15:19)
[2017-01-22] MEDS: FUROSEMIDE 40 MG TAB PO SCH ×2 (09:00→15:20)
[2017-01-22] MEDS: THIAMINE 100 MG TAB PO SCH ×3 (09:00→22:01)
[2017-01-22] MEDS: SALMETEROL/FLUTICASONE 250/50 INHA INH SCH ×3 (09:00→21:00)
[2017-01-22] MEDS: BENAZEPRIL 10 MG TAB PO SCH ×2 (09:00→15:20)
[2017-01-22 09:01] LABS: CREATININE 1.17 mg/dl (0.61-1.24); MAGNESIUM 1.8 mg/dl (1.7-2.5); PHOSPHORUS 5.3 mg/dl (2.5-4.9); POTASSIUM 5.1 mmol/L (3.5-5.1)
[2017-01-22] MEDS: INSULIN GLARGINE [LANtus] 3 ML PEN SC SCH ×2 (09:31→09:53)
[2017-01-22] MEDS: morphine 4 MG/ML VIAL IV PRN ×4 (10:17→22:01)
[2017-01-22] MEDS ORDERED: IOHEXOL 14.3 MG(I)/ML (ADULT) BTL PO ONE (11:00)
--- NOTE | 2017-01-22 11:37 | PN ---
Date/Time of Note Date/Time of Note DATE: 01/22/17 TIME: 11:15 Assessment/Plan VTE Prophylaxis VTE Prophylaxis Intervention: SCD's Lines/Catheters IV Catheter Type (from Nrs): Peripheral IV Assessment/Plan Assessment/Plan 61 yo male with: 1. Partial SBO on CAT scan on admission yesterday, patient with history of multiple previous SBOs, Dr. Rodriguez from general surgery following, he has requested a CAT scan abdomen with IV contrast today, NG tube to be replaced also, NPO except meds IV fluid/judicious fluids 2. Diabetes mellitus, type II: Continue current insulin regimen with basal insulin and sliding scale insulin while n.p.o., Lantus 50 units daily + SSI 3. Atrial fibrillation, chronic: Continue outpatient medications. 4. Hypertension: Continue home medications, will add hydralazine as needed. 5. Hyperlipidemia: Continue home medications 6. Left Wrist fracture, status post fall in the hospital, Dr. Castrejon from orthopedic surgery following, patient to get a splint 7. Super morbid obesity: Lifestyle modification Prophylaxis : Already on Eliquis in setting of atrial fibrillation. for GI prophylaxis Disposition: NG tube placement, CT abdomen pelvis to be repeated, patient to be seen by orthopedic surgery for splinting of the left wrist fracture Subjective 24 Hr Interval Summary Free Text/Dictation Patient with NG tube in place but apparently missed physician, repeat CAT scan pending. No further complaints. White blood cell count trending down this morning. In sinus rhythm, patient with paroxysmal atrial fibrillation. Exam/Review of Systems Vital Signs Vitals Vital Signs Date Time Temp Pulse Resp B/P Pulse Ox O2 Delivery O2 Flow Rate FiO2 01/22/17 08:38 100 01/22/17 08:03 98.0 18 128/77 90 01/22/17 01:50 Nasal Cannula 3.0 Intake and Output 01/21/17 01/21/17 01/22/17 15:00 23:00 07:00 Intake Total 1350 ml Balance 1350 ml Exam Constitutional: alert, obese (Super morbid), oriented Respiratory: clear to auscultation, normal air movement Cardiovascular: nl pulses, regular rate and rhythm Gastrointestinal: other (NG tube), soft Musculoskeletal: nl extremities to inspection, other (Left wrist fracture) Extremities: normal pulses, other (No edema, clubbing or cyanosis) Neurological: GAMBLING MONITOR II-XII intact, nl mental status, nl speech, nl strength Results Result Diagram: 01/22/17 0753 01/22/17 0753 Results 24 hrs Laboratory Tests Test 01/21/17 11:56 01/21/17 13:13 01/21/17 13:45 01/21/17 18:03 White Blood Count 17.2 #H Red Blood Count 5.42 Hemoglobin 15.1 Hematocrit 49.0 Mean Corpuscular Volume 90.4 Mean Corpuscular Hemoglobin 27.9 L Mean Corpuscular Hemoglobin Concent 30.8 L Red Cell Distribution Width 15.6 H Platelet Count 276 Mean Platelet Volume 11.4 H Neutrophils % 74.2 Lymphocytes % 16.0 Monocytes % 8.5 Eosinophils % 0.5 Basophils % 0.2 Nucleated Red Blood Cells % 0.0 Neutrophils # (Manual) 13 H Lymphocytes # 2.7 Monocytes # 1.5 H Eosinophils # 0.1 Basophils # 0.0 Nucleated Red Blood Cells # 0.0 Sodium Level 143 Potassium Level 5.5 H 4.9 Chloride Level 95 L Carbon Dioxide Level 34 H Anion Gap 20 H Blood Urea Nitrogen 20 Creatinine 0.81 Glucose Level 206 Calcium Level 10.2 Total Bilirubin 0.4 Direct Bilirubin 0.00 Indirect Bilirubin 0.4 Aspartate Amino Transf (AST/SGOT) 33 Alanine Aminotransferase (ALT/SGPT) 46 Alkaline Phosphatase 116 Total Protein 7.7 Albumin 3.9 Globulin 3.80 H Albumin/Globulin Ratio 1.02 Lipase 78 Bedside Urine pH (LAB) 5.5 Bedside Urine Protein (LAB) 1+ H Bedside Urine Glucose (UA) Negative Bedside Urine Ketones (LAB) Trace H Bedside Urine Blood Negative Bedside Urine Nitrite (LAB) Negative Bedside Urine Leukocyte Esterase (L Negative Bedside Glucose 246 H Test 01/21/17 20:48 01/22/17 05:28 01/22/17 07:53 Bedside Glucose 269 H 236 H White Blood Count 13.9 H Red Blood Count 4.97 Hemoglobin 14.3 Hematocrit 46.1 Mean Corpuscular Volume 92.8 Mean Corpuscular Hemoglobin 28.8 L Mean Corpuscular Hemoglobin Concent 31.0 L Red Cell Distribution Width 15.4 H Platelet Count 258 Mean Platelet Volume 11.3 H Neutrophils % 69.0 Lymphocytes % 18.5 Monocytes % 11.8 H Eosinophils % 0.1 Basophils % 0.2 Nucleated Red Blood Cells % 0.0 Neutrophils # (Manual) 10 H Lymphocytes # 2.6 Monocytes # 1.6 H Eosinophils # 0.0 Basophils # 0.0 Nucleated Red Blood Cells # 0.0 Sodium Level 137 Potassium Level 5.1 Chloride Level 98 Carbon Dioxide Level 31 Anion Gap 13 # Blood Urea Nitrogen 29 H Creatinine 1.17 Glucose Level 247 H Calcium Level 9.0 Phosphorus Level 5.3 H Magnesium Level 1.8 Medications Medications Current Medications Albuterol (Ventolin Hfa) 2 puff Q6H PRN INH SHORTNESS OF BREATH; Start at 15:00 Apixaban (Eliquis) 5 mg BID PO Last administered on 01/21/17 20:37; Admin Dose 5 MG; Start 01/21/17 at 21:00 Benazepril HCl (Lotensin) 10 mg DAILY PO ; Start 01/22/17 at 09:00 Cholecalciferol (Vitamin D) 1,000 unit DAILY PO ; Start 01/22/17 at 09:00 Furosemide (Lasix) 40 mg DAILY PO ; Start 01/22/17 at 09:00 Gabapentin (Neurontin) 600 mg TID PRN PO PAIN; Start 01/21/17 at 14:00 Salmeterol Xinafoate/ Fluticasone (Advair 250/50 Diskus) 1 inh BID INH ; Start 01/21/17 at 21:00 Thiamine HCl (Vitamin B1) 100 mg BID PO ; Start 01/21/17 at 21:00 Acetaminophen (Tylenol Tab) 650 mg Q6H PRN PO PAIN LEVEL 1-3 OR FEVER; Start at 14:00 Acetaminophen/ Hydrocodone Bitart ([place] (5/325)) 1 tab Q6H PRN PO MODERATE PAIN LEVEL 4-6 Last administered on 01/22/17 05:26; Admin Dose 1 TAB; Start at 14:00 Docusate Sodium (Colace) 100 mg Q12H PRN PO CONSTIPATION Last administered on 20:36; Admin Dose 100 MG; Start 01/21/17 at 14:00 Magnesium Hydroxide (Milk Of Mag) 30 ml DAILY PRN PO CONSTIPATION; Start at 14:00 Bisacodyl (Dulcolax) 5 mg DAILY PRN PO CONSTIPATION; Start 01/21/17 at 14:00 Miscellaneous Information 1 ea NOTE XX ; Start 01/21/17 at 15:00 Glucose (Glutose) 15 gm Q15M PRN PO DECREASED GLUCOSE; Start 01/21/17 at 15:00 Glucose (Glutose) 22.5 gm Q15M PRN PO DECREASED GLUCOSE; Start 01/21/17 at 15: 00 Dextrose (D50w Syringe) 25 ml Q15M PRN IV DECREASED GLUCOSE; Start 01/21/17 at 15:00 Dextrose (D50w Syringe) 50 ml Q15M PRN IV DECREASED GLUCOSE; Start 01/21/17 at 15:00 Glucagon (Glucagen) 1 mg Q15M PRN IM DECREASED GLUCOSE; Start 01/21/17 at 15:00 Glucose 15 gm 15 gm Q15M PRN BUCCAL DECREASED GLUCOSE; Start 01/21/17 at 15:00 Sodium Chloride (NS) 1,000 ml @ 125 mls/hr Q8H IV Last administered on 00:59; Admin Dose 125 MLS/HR; Start 01/21/17 at 17:00 Insulin Glargine (Lantus) 50 unit DAILY SC Last administered on 01/22/17 09:53 ; Admin Dose 50 UNIT; Start 01/22/17 at 08:00 Diagnostic Test (Pha) (Accu-Chek) 1 ea 02 XX Last administered on 01/22/17 02: 04; Admin Dose 1 EA; Start 01/22/17 at 02:00 Insulin Aspart (Novolog Insulin Pen) NOVOLOG *MILD* ALGORI... Q4 SC Last administered on 01/22/17 08:09; Admin Dose 3 UNIT; Start 01/21/17 at 17:00 Metoclopramide HCl (Reglan) 10 mg Q6H PRN IV NAUSEA AND/OR VOMITING Last administered on 01/21/17 17:22; Admin Dose 10 MG; Start 01/21/17 at 17:30 Morphine Sulfate (morphine) 4 mg Q4H PRN IV SEVERE PAIN LEVEL 7-10 Last administered on 01/22/17 10:17; Admin Dose 4 MG; Start 01/22/17 at 06:00 Procedures Procedures PROCEDURE: Left wrist. CLINICAL INDICATION: Pain. TECHNIQUE: Three views including PA, lateral and oblique views were performed. COMPARISON: None. FINDINGS: There are comminuted fractures of the distal radius extending to the articular surface with mild impaction and dorsal angulation. There is no dislocation. There is a fracture of the ulnar styloid. Bone mineralization is within normal limits. There is no radiopaque foreign body or abnormal calcification. IMPRESSION: Distal radius and ulnar styloid fractures. .Fitz Grider MD, Date Time Electronically viewed and signed by .Fitz Grider MD, on 01/22/2017 02:30 .T/ NAYA FOX Jan 22, 2017 11:25
--- NOTE | 2017-01-22 11:54 | RADRPT ---
PROCEDURE: Chest 1 views. CLINICAL INDICATION: Status post nasogastric tube placement. TECHNIQUE: AP views of the chest was obtained. COMPARISON: Yesterday FINDINGS: The heart is large. Nasogastric tube has its distal end curled in the expected location of the proxi mal thoracic esophagus. Central pulmonary vascular congestion and interstitial prominence in both l ungs is unchanged. Right lower lobe infiltrates and small right pleural effusion are stable. Scatt ered infiltrates in the left lower lobe are unchanged. Osseous structures are unchanged. IMPRESSION: Cardiomegaly . Nasogastric tube with its distal end curled in the expected location of the proximal thoracic esopha yvonne. Repositioning of the nasogastric tube is advised. Central pulmonary vascular congestion and interstitial prominence is seen in both lungs. Stable right lower lung infiltrates, combined with small pleural effusion. Stable patchy infiltrates in the left lower lobe. RPTAT: AA .Jean Marie Lopez MD, Date Time Electronically viewed and signed by .Jean Marie Lopez MD, on 01/22/2017 11:54 .P/
[2017-01-22] MEDS ORDERED: MAGNESIUM SULFATE 2 GM/50 ML 50 ML IVPB ONE (13:30)
--- NOTE | 2017-01-22 13:32 | RADRPT ---
PROCEDURE: XR Chest. CLINICAL INDICATION: Respiratory distress. NG tube repositioning. TECHNIQUE: AP view of the chest was performed. COMPARISON: January 22, 2017 FINDINGS: The nasogastric tube has been repositioned with the tip in the proximal stomach. There is stable cardiomegaly, vascular congestion, and bibasilar atelectasis. The osseous structures are intact. IMPRESSION: NG tube with the tip in the proximal stomach. Stable cardiomegaly, vascular congestion, and bibasil ar atelectasis. RPTAT: QQ. .Haliy Tam MD, MD Date Time Electronically viewed and signed by .Haily Tam MD, on 01/22/2017 13:32 .F/
--- NOTE | 2017-01-22 15:20 | CONS ---
DATE OF ADMISSION: 01/21/2017 DATE OF CONSULTATION: 01/22/2017 CHIEF COMPLAINT: Left wrist pain. HISTORY OF PRESENT ILLNESS: This is a 71-year-old male who is admitted for diffuse abdominal pain. The patient sustained a fall during the hospital stay. He is complaining of pain in the left wrist. He denies any numbness or tingling. He denies any other history of trauma. PAST MEDICAL HISTORY: Diabetes, hypertension, coronary artery disease, COPD, atrial fibrillation, depression. MEDICATION: 1. Insulin. 2. Humalog. 3. Eliquis. 4. Furosemide. 5. Gabapentin. 6. Lipitor. PAST SURGICAL HISTORY: Appendectomy, ablation for atrial fibrillation, right hip arthroscopy, bilateral inguinal herniorrhaphy. SOCIAL HISTORY: Patient denies tobacco, alcohol, or drug use. FAMILY HISTORY: Noncontributory. ALLERGIES: NO KNOWN DRUG ALLERGIES. REVIEW OF SYSTEMS: Negative, except per HPI. PHYSICAL EXAMINATION: VITAL SIGNS: Temperature 98.0, blood pressure 149/77, pulse 100, respiratory rate 20. GENERAL: Patient is in no acute distress. EXTREMITIES: Left wrist: There are no open wounds. There is no deformity. He is tender to palpation over the left distal radius and ulnar styloid. He has 5/5 function of his medial, ulnar, and radial nerves. He has a palpable radial artery pulse. DIAGNOSTIC DATA: X-rays left wrist: There is a comminuted distal radius fracture with articular extension. There is a slight loss of volar tilt. There is a fracture of the ulnar styloid. No other fracture dislocations are seen. DIAGNOSIS: A 61-year-old male with left closed distal radius fracture. PLAN: The patient will be placed in a splint. He can be discharged from an orthopedic standpoint with followup as an outpatient. Dictated By: Bar Sawant MD /gisselle/nathan /Document#: [id number]
--- NOTE | 2017-01-22 17:55 | PN ---
Date/Time of Note Date/Time of Note DATE: 01/22/17 TIME: 17:53 Assessment/Plan Lines/Catheters IV Catheter Type (from Nrs): Peripheral IV Assessment/Plan Assessment/Plan Small bowel obstruction, likely resolving Based on clinical symptoms that he is likely resolving CT with oral contrast is pending If CT shows contrast in the colon, will DC NG tube and start on clears Subjective 24 Hr Interval Summary Constitutional: no complaints, other (He states that he is less abdominal pain. He is passing flatus throughout the day.) Exam/Review of Systems Vital Signs Vitals Vital Signs Date Time Temp Pulse Resp B/P Pulse Ox O2 Delivery O2 Flow Rate FiO2 01/22/17 16:10 113 01/22/17 11:38 98.0 18 137/76 90 01/22/17 08:00 Nasal Cannula 3.0 Intake and Output 01/21/17 01/21/17 01/22/17 15:00 23:00 07:00 Intake Total 1350 ml Balance 1350 ml Exam Constitutional: alert, oriented Head: normocephalic Eyes: nl conjunctiva Neck: supple Respiratory: clear to auscultation Gastrointestinal: other (Obese but difficult to examine due to size), soft Results Result Diagram: 01/22/17 0753 01/22/17 0753 TRIP CHERRY MD Jan 22, 2017 17:55
--- NOTE | 2017-01-22 18:18 | RADRPT ---
PROCEDURE: CT of the abdomen and pelvis without contrast CLINICAL INDICATION: Abdominal pain. Suspected bowel obstruction.. TECHNIQUE: Spiral CT images through the abdomen and pelvis after administration of oral but withou t the use of intravenous contrast as requested. The administered radiation dose is CTDI 23.5 see a nd DLP 1822.6. One or more of the following dose reduction techniques were used: automated exposure control, adjustment of the mA and/or kV according to patient size, or use of iterative reconstructio n technique. COMPARISON: 01/21/2017 FINDINGS: Lack of oral and intravenous contrast somewhat limits evaluation. Elevation of the right hemidiaph ragm is seen. Right greater than left basilar atelectasis or infiltrates. Nasogastric tube courses into the stomach. Old left rib fractures. Aortic and coronary artery calcification. The gallbladder is slightly distended. No definite biliary or pancreatic ductal dilatation. Probab le at least mild diffuse hepatic steatosis. Splenules are seen in the left upper quadrant. Probabl e bilateral adrenal adenomas again seen. The kidneys and pancreas are unremarkable appearance. The right lateral abdomen is slightly excluded from view due to body habitus. Slightly prominent prost ate. Unremarkable urinary bladder. Small fat-containing left inguinal hernia. Normal appendix. C lip is seen adjacent to the cecum. Contrast is seen in nondilated jejunal loops. There are several dilated mid abdominal small bowel loops which may be distal jejunum or proximal ileum with wall thi ckening and subtle haziness of the mesenteric fat. No pneumatosis is seen. There is not a clearly defined transition point. The loops were dilated on the prior study. Edema of the subcutaneous sof t tissues and skin thickening of the pannus is again seen. Degenerative change of the spine and hips. Old right pubic ramus fractures and old right iliac wing fracture. IMPRESSION: Persistent mild dilatation of mid small bowel loops with wall thickening and slight mesenteric stran ding. No distinct transition point no definite free air or abscess. The mid to distal ileum and te rminal ileum are unremarkable appearance. The appearance is nonspecific. Inflammatory bowel diseas e or infectious enteritis are considerations. Right greater left basilar atelectasis or infiltrates. Other stable nonacute findings as above.. RPTAT: HLBE Noemi Dotson, Physician Date Time Electronically viewed and signed by Noemi Dotson, Physician on 01/22/2017 18:18 LE/
[2017-01-22] MEDS: LEVOFLOXACIN 500MG/D5W (PMX) 100 ML IVPB SCH (19:46)
--- NOTE | 2017-01-22 21:53 | RADRPT ---
PROCEDURE: XR Abdomen. CLINICAL INDICATION: Abdomen pain. TECHNIQUE: AP supine abdomen x-ray. COMPARISON: CT scan of the abdomen and pelvis done earlier the same day. FINDINGS: This is a limited study due to large size of the patient There is no evidence of obstruction. IMPRESSION: 1. Limited study. No evidence of obstruction. RPTAT: QQ .Shahab Elliott MD, MD Date Time Electronically viewed and signed by .Shahab Elliott MD, MD on 01/22/2017 21:53 .R/
[2017-01-22] MEDS: metroNIDAZOLE 500 MG/NS (PMX) 100 ML IVPB SCH (22:02)
[2017-01-23] VITALS (11 sets, daily range): BP systolic 109–142; BP diastolic 53–65; PULSE 96–106; RESP 17–20
[2017-01-23] MEDS: INSULIN ASPART [NOVOLOG] 3 ML PEN SC SCH ×5 (01:00→18:04)
[2017-01-23] MEDS: ACCU-CHEK XX SCH (01:05)
[2017-01-23] MEDS: morphine 4 MG/ML VIAL IV PRN ×5 (01:59→18:41)
[2017-01-23] MEDS: SOD CHLORIDE 0.9% 1,000 ML IV SCH ×2 (04:24→12:36)
[2017-01-23] MEDS: metroNIDAZOLE 500 MG/NS (PMX) 100 ML IVPB SCH ×2 (05:06→14:29)
[2017-01-23 07:01] LABS: ABNORMAL IP MESSAGE 1; BASOPHILS % 0.2 % (0.0-2.0); EOSINOPHILS # 0.1 10^3/ul (0.0-0.5); EOSINOPHILS % 1.1 % (0.0-7.0); HEMATOCRIT 43.2 % (42.0-52.0); HEMOGLOBIN 13.2 g/dl (14.0-18.0); LYMPHOCYTES # 2.7 10^3/ul (0.8-2.9); LYMPHOCYTES % 25.1 % (15.0-51.0); MEAN CORPUSCULAR HEMOGLOBIN 29.1 pg (29.0-33.0); MEAN CORPUSCULAR HGB CONC 30.6 g/dl (32.0-37.0); MEAN CORPUSCULAR VOLUME 95.4 fl (82.0-101.0); MEAN PLATELET VOLUME 11.7 fl (7.4-10.4); MONOCYTE # 1.6 10^3/ul (0.3-0.9); MONOCYTES % 14.7 % (0.0-11.0); NEUTROPHILS % 58.5 % (39.0-77.0); PLATELET COUNT 200 10^3/UL (140-415); POSITIVE DIFF @See below; RED BLOOD COUNT 4.53 10^6/ul (4.70-6.10); RED CELL DISTRIBUTION WIDTH 15.4 % (11.5-14.5); WHITE BLOOD COUNT 10.9 10^3/ul (4.8-10.8)
[2017-01-23 07:35] LABS: MAGNESIUM 2.3 mg/dl (1.7-2.5); PHOSPHORUS 4.7 mg/dl (2.5-4.9)
[2017-01-23 07:41] LABS: ALBUMIN 3.2 g/dl (3.3-4.9); ALBUMIN/GLOBULIN RATIO 0.94; BILIRUBIN,INDIRECT 0.3 mg/dl (0-1.1); BILIRUBIN,TOTAL 0.3 mg/dl (0.2-1.3); CALCIUM 8.5 mg/dl (8.4-10.2); CREATININE 1.3 mg/dl (0.61-1.24); POTASSIUM 4.9 mmol/L (3.5-5.1); TOTAL PROTEIN 6.6 g/dl (6.1-8.1)
[2017-01-23] MEDS: INSULIN GLARGINE [LANtus] 3 ML PEN SC SCH (09:23)
[2017-01-23] MEDS: SALMETEROL/FLUTICASONE 250/50 INHA INH SCH (09:28)
[2017-01-23] MEDS: THIAMINE 100 MG TAB PO SCH ×2 (09:42→20:57)
[2017-01-23] MEDS: APIXABAN 5 MG TABLET PO SCH ×2 (09:42→20:57)
[2017-01-23] MEDS: CHOLECALCIFEROL 1,000 UNIT TAB PO SCH (09:43)
[2017-01-23] MEDS: FUROSEMIDE 40 MG TAB PO SCH (09:43)
[2017-01-23] MEDS: BENAZEPRIL 10 MG TAB PO SCH (09:43)
--- NOTE | 2017-01-23 12:56 | PN ---
Date/Time of Note Date/Time of Note DATE: 01/23/17 TIME: 12:29 Assessment/Plan VTE Prophylaxis VTE Prophylaxis Intervention: other (On Eliquis) Lines/Catheters IV Catheter Type (from Nrs): Peripheral IV Assessment/Plan Assessment/Plan 61 yo male with: 1. Partial SBO, repeat CAT scan abdomen with po contrast yesterday showing enteritis, antibiotics started, repeat x-rays today with Dr. Rodriguez to follow regarding further care, patient may start diet later today if x-ray stable and okay per surgery NG tube is out Continue IV fluid/judicious fluids for now Continue Flagyl and Levaquin for antibiotic treatment of enteritis. White blood cell count coming down. 2. Diabetes mellitus, type II: A1c 10.5, continue current insulin regimen with basal insulin and sliding scale insulin while n.p.o., Lantus 50 units daily + SSI, will need pre-meal insulin started once taking p.o. 3. Atrial fibrillation, chronic: Continue outpatient medications. 4. Hypertension: Continue home medications, will add hydralazine as needed. 5. Hyperlipidemia: Continue home medications 6. Left Wrist fracture, status post fall in the hospital, Dr. Castrejon from orthopedic surgery following, status post splinting yesterday. 7. Super morbid obesity: Lifestyle modification Prophylaxis : Already on Eliquis in setting of atrial fibrillation. for GI prophylaxis Disposition: Abdominal x-rays pending, further recommendation per general surgery pending. Subjective 24 Hr Interval Summary Free Text/Dictation Patient denies abdominal pain, NG tube is out. Awaiting surgical recommendations today regarding feeding. Continue current care. Patient in sinus rhythm for now. On antibiotics for enteritis Exam/Review of Systems Vital Signs Vitals Vital Signs Date Time Temp Pulse Resp B/P Pulse Ox O2 Delivery O2 Flow Rate FiO2 01/23/17 11:19 98.5 99 19 112/53 91 01/23/17 08:00 Nasal Cannula 4.0 Intake and Output 01/22/17 01/22/17 01/23/17 15:00 23:00 07:00 Intake Total 550 ml 500 ml Output Total 700 ml 800 ml Balance 550 ml -200 ml -800 ml Exam Constitutional: alert, obese (Super morbid), oriented, well developed Respiratory: clear to auscultation, normal air movement Cardiovascular: nl pulses, other (Known paroxysmal A. fib), regular rate and rhythm Gastrointestinal: non-tender, soft Musculoskeletal: nl extremities to inspection, other (Has some chronic lymphedema but no acute edema seen.) Extremities: normal pulses Neurological: PRODUCTION LINE MECHANIC II-XII intact, nl mental status, nl speech, nl strength Results Result Diagram: 01/23/17 0625 01/23/17 0625 Results 24 hrs Laboratory Tests Test 01/22/17 17:21 01/22/17 22:00 01/23/17 05:46 01/23/17 06:25 Bedside Glucose 144 160 147 White Blood Count 10.9 #H Red Blood Count 4.53 L Hemoglobin 13.2 L Hematocrit 43.2 Mean Corpuscular Volume 95.4 Mean Corpuscular Hemoglobin 29.1 Mean Corpuscular Hemoglobin Concent 30.6 L Red Cell Distribution Width 15.4 H Platelet Count 200 # Mean Platelet Volume 11.7 H Neutrophils % 58.5 Lymphocytes % 25.1 Monocytes % 14.7 H Eosinophils % 1.1 Basophils % 0.2 Nucleated Red Blood Cells % 0.0 Neutrophils # (Manual) 6.4 Lymphocytes # 2.7 Monocytes # 1.6 H Eosinophils # 0.1 Basophils # 0.0 Nucleated Red Blood Cells # 0.0 Sodium Level 141 Potassium Level 4.9 Chloride Level 100 Carbon Dioxide Level 30 Anion Gap 16 Blood Urea Nitrogen 38 H Creatinine 1.30 H Glucose Level 127 # Hemoglobin A1c 10.5 H Calcium Level 8.5 Phosphorus Level 4.7 Magnesium Level 2.3 Total Bilirubin 0.3 Direct Bilirubin 0.00 Indirect Bilirubin 0.3 Aspartate Amino Transf (AST/SGOT) 37 Alanine Aminotransferase (ALT/SGPT) 35 Alkaline Phosphatase 77 Total Protein 6.6 # Albumin 3.2 L Globulin 3.40 H Albumin/Globulin Ratio 0.94 Test 01/23/17 09:12 Bedside Glucose 156 Medications Medications Current Medications Albuterol (Ventolin Hfa) 2 puff Q6H PRN INH SHORTNESS OF BREATH; Start at 15:00 Apixaban (Eliquis) 5 mg BID PO Last administered on 01/23/17 09:42; Admin Dose 5 MG; Start 01/21/17 at 21:00 Benazepril HCl (Lotensin) 10 mg DAILY PO Last administered on 01/23/17 09:43; Admin Dose 10 MG; Start 01/22/17 at 09:00 Cholecalciferol (Vitamin D) 1,000 unit DAILY PO Last administered on 01/23/17 09:43; Admin Dose 1,000 UNIT; Start 01/22/17 at 09:00 Furosemide (Lasix) 40 mg DAILY PO Last administered on 01/23/17 09:43; Admin Dose 40 MG; Start 01/22/17 at 09:00 Gabapentin (Neurontin) 600 mg TID PRN PO PAIN; Start 01/21/17 at 14:00 Salmeterol Xinafoate/ Fluticasone (Advair 250/50 Diskus) 1 inh BID INH Last administered on 01/23/17 09:28; Admin Dose 1 INH; Start 01/21/17 at 21:00 Thiamine HCl (Vitamin B1) 100 mg BID PO Last administered on 01/23/17 09:42; Admin Dose 100 MG; Start 01/21/17 at 21:00 Acetaminophen (Tylenol Tab) 650 mg Q6H PRN PO PAIN LEVEL 1-3 OR FEVER; Start at 14:00 Acetaminophen/ Hydrocodone Bitart ([place] (5/325)) 1 tab Q6H PRN PO MODERATE PAIN LEVEL 4-6 Last administered on 01/22/17 05:26; Admin Dose 1 TAB; Start at 14:00 Docusate Sodium (Colace) 100 mg Q12H PRN PO CONSTIPATION Last administered on 20:36; Admin Dose 100 MG; Start 01/21/17 at 14:00 Magnesium Hydroxide (Milk Of Mag) 30 ml DAILY PRN PO CONSTIPATION; Start at 14:00 Bisacodyl (Dulcolax) 5 mg DAILY PRN PO CONSTIPATION; Start 01/21/17 at 14:00 Miscellaneous Information 1 ea NOTE XX ; Start 01/21/17 at 15:00 Glucose (Glutose) 15 gm Q15M PRN PO DECREASED GLUCOSE; Start 01/21/17 at 15:00 Glucose (Glutose) 22.5 gm Q15M PRN PO DECREASED GLUCOSE; Start 01/21/17 at 15: 00 Dextrose (D50w Syringe) 25 ml Q15M PRN IV DECREASED GLUCOSE; Start 01/21/17 at 15:00 Dextrose (D50w Syringe) 50 ml Q15M PRN IV DECREASED GLUCOSE; Start 01/21/17 at 15:00 Glucagon (Glucagen) 1 mg Q15M PRN IM DECREASED GLUCOSE; Start 01/21/17 at 15:00 Glucose 15 gm 15 gm Q15M PRN BUCCAL DECREASED GLUCOSE; Start 01/21/17 at 15:00 Sodium Chloride (NS) 1,000 ml @ 100 mls/hr Q10H IV Last administered on 11:31; Admin Dose 100 MLS/HR; Start 01/21/17 at 17:00 Insulin Glargine (Lantus) 50 unit DAILY SC Last administered on 01/23/17 09:23 ; Admin Dose 50 UNIT; Start 01/22/17 at 08:00 Diagnostic Test (Pha) (Accu-Chek) 1 ea 02 XX Last administered on 01/22/17 02: 04; Admin Dose 1 EA; Start 01/22/17 at 02:00 Insulin Aspart (Novolog Insulin Pen) NOVOLOG *MILD* ALGORI... Q4 SC Last administered on 01/23/17 09:16; Admin Dose 1 UNIT; Start 01/21/17 at 17:00 Metoclopramide HCl (Reglan) 10 mg Q6H PRN IV NAUSEA AND/OR VOMITING Last administered on 01/21/17 17:22; Admin Dose 10 MG; Start 01/21/17 at 17:30 Morphine Sulfate 4 mg 4 mg Q4H PRN IV SEVERE PAIN LEVEL 7-10 Last administered on 01/23/17 10:15; Admin Dose 4 MG; Start 01/22/17 at 06:00 Levofloxacin/ Dextrose 100 ml @ 100 mls/hr Q24H IVPB Last administered on 01/22 19:46; Admin Dose 100 MLS/HR; Start 01/22/17 at 19:00 Metronidazole (Flagyl 500 Mg (Pmx)) 100 ml @ 100 mls/hr Q8 IVPB Last administered on 01/23/17 05:06; Admin Dose 100 MLS/HR; Start 01/22/17 at 22:00 NAYA FOX Jan 23, 2017 12:48
--- NOTE | 2017-01-23 16:19 | RADRPT ---
PROCEDURE: XR Abdomen. CLINICAL INDICATION: Abdomen pain. TECHNIQUE: Two views. AP supine and AP erect. COMPARISON: 01/22/2017. FINDINGS: This is a limited study due to large size of the patient. There is no evidence of obstruction. IMPRESSION: 1. Limited study with no evidence of obstruction. 2. No change from 01/22/2017. RPTAT: QQ .Shahab Elliott MD, MD Date Time Electronically viewed and signed by .Shahab Elliott MD, MD on 01/23/2017 16:19 .R/
[2017-01-23] MEDS: LEVOFLOXACIN 500MG/D5W (PMX) 100 ML IVPB SCH (18:46)
[2017-01-24] VITALS (10 sets, daily range): BP systolic 120–146; BP diastolic 58–70; PULSE 80–103; RESP 18–20
[2017-01-24] MEDS: INSULIN ASPART [NOVOLOG] 3 ML PEN SC SCH ×6 (01:00→21:00)
[2017-01-24] MEDS: ACCU-CHEK XX SCH (02:00)
[2017-01-24] MEDS: morphine 4 MG/ML VIAL IV PRN ×6 (02:40→23:32)
[2017-01-24] MEDS: metroNIDAZOLE 500 MG/NS (PMX) 100 ML IVPB SCH ×3 (06:00→21:11)
[2017-01-24] MEDS: SALMETEROL/FLUTICASONE 250/50 INHA INH SCH ×3 (06:21→21:12)
[2017-01-24] MEDS: SOD CHLORIDE 0.9% 1,000 ML IV SCH ×2 (06:31→11:07)
[2017-01-24 06:55] LABS: ABNORMAL IP MESSAGE 1; BASOPHILS % 0.2 % (0.0-2.0); EOSINOPHILS # 0.2 10^3/ul (0.0-0.5); EOSINOPHILS % 1.3 % (0.0-7.0); HEMATOCRIT 43.9 % (42.0-52.0); HEMOGLOBIN 13.4 g/dl (14.0-18.0); LYMPHOCYTES # 3.2 10^3/ul (0.8-2.9); LYMPHOCYTES % 25.9 % (15.0-51.0); MEAN CORPUSCULAR HEMOGLOBIN 28.5 pg (29.0-33.0); MEAN CORPUSCULAR HGB CONC 30.5 g/dl (32.0-37.0); MEAN CORPUSCULAR VOLUME 93.4 fl (82.0-101.0); MEAN PLATELET VOLUME 11.7 fl (7.4-10.4); MONOCYTE # 1.6 10^3/ul (0.3-0.9); MONOCYTES % 13.1 % (0.0-11.0); NEUTROPHILS % 59.1 % (39.0-77.0); PLATELET COUNT 246 10^3/UL (140-415); POSITIVE DIFF @See below; RED CELL DISTRIBUTION WIDTH 15.1 % (11.5-14.5); WHITE BLOOD COUNT 12.2 10^3/ul (4.8-10.8)
[2017-01-24 07:10] LABS: CALCIUM 9.2 mg/dl (8.4-10.2); CREATININE 0.93 mg/dl (0.61-1.24); POTASSIUM 4.5 mmol/L (3.5-5.1)
[2017-01-24 07:12] LABS: MAGNESIUM 2.1 mg/dl (1.7-2.5); PHOSPHORUS 3.2 mg/dl (2.5-4.9)
[2017-01-24] MEDS: APIXABAN 5 MG TABLET PO SCH ×2 (08:56→21:12)
[2017-01-24] MEDS: THIAMINE 100 MG TAB PO SCH ×2 (08:57→21:11)
[2017-01-24] MEDS: CHOLECALCIFEROL 1,000 UNIT TAB PO SCH (08:57)
[2017-01-24] MEDS: FUROSEMIDE 40 MG TAB PO SCH (08:57)
[2017-01-24] MEDS: INSULIN GLARGINE [LANtus] 3 ML PEN SC SCH (09:06)
[2017-01-24] MEDS: BENAZEPRIL 10 MG TAB PO SCH (09:07)
--- NOTE | 2017-01-24 17:38 | PN ---
Date/Time of Note Date/Time of Note DATE: 01/24/17 TIME: 17:34 Assessment/Plan VTE Prophylaxis VTE Prophylaxis Intervention: other (Eliquis) Lines/Catheters IV Catheter Type (from [facility]): Peripheral IV Assessment/Plan Assessment/Plan [facility] 1. 61-year-old man admitted with partial small bowel obstruction. Repeat CT scan of the abdomen two days ago showed enteritis. Tolerating antibiotics well with no abdominal pain or nausea now, on clear liquid diet. KUB films yesterday showed no obstruction. * Advance diet * Discontinue IV fluids; taking POs well. * Continue Flagyl and Levaquin for the enteritis 2. Diabetes, with poor control (HgbA1c 10.5%). * Continue current insulin regimen with bedtime Lantus insulin. * Switch to pre-prandial insulin with meals 3. Atrial fibrillation, chronic * Continue eliquis 4. Hypertension. * Continue benazepril and Lasix * Hydralazine as needed. 5. Hyperlipidemia. Not currently on any therapy. 6. Left wrist fracture, status post fall in the hospital, Dr. Castrejon from orthopedic surgery following, status post splinting. Good pain control so far. Complaining of difficulty with ADLs. 7. Super weight problem 8. Prophylaxis * Already on Eliquis in setting of atrial fibrillation. * Will start famotidine for GI prophylaxis 9. Disposition: Possible discharge tomorrow if he tolerates his diet well. * Full-code * Explore his ability to care for himself now; help at home; benefit of SNF placement to be explored. Mode Thayer MD PhD [phone] Subjective 24 Hr Interval Summary Free Text/Dictation Feeling much better. No abdominal pain now, and tolerating clear liquid diet well. No nausea, headache, dyspnea or chest discomfort. Mostly concerned about his inability to wipe his bottom since he fractured his forearm. Exam/Review of Systems Vital Signs Vitals Vital Signs Date Time Temp Pulse Resp B/P Pulse Ox O2 Delivery O2 Flow Rate FiO2 01/24/17 16:07 103 01/24/17 15:36 98.2 18 122/70 97 01/24/17 12:43 Nasal Cannula 4.0 Intake and Output 01/23/17 01/23/17 01/24/17 15:00 23:00 07:00 Intake Total 1000 ml 1100 ml 1300 ml Output Total 1400 ml Balance 1000 ml -300 ml 1300 ml Exam Constitutional: Very large man, alert, well-developed, comfortable-appearing. Respiratory: Clear to auscultation, good air movement Cardiovascular: Symmetric pulses, regular rhythm, normal rate. Gastrointestinal: Non-tender, soft, large, no rebound or guarding. Musculoskeletal: Mild chronic lymphedema stasis changes, but no peripheral edema. Neurological: Appropriate conversation and affect, DEPUTY PROBATION OFFICER II-XII intact, normal motor exam. Results Result Diagram: 01/24/1751201/24/17512 Results 24 hrs Laboratory Tests Test 01/23/17 17:59 01/23/17 22:15 01/23/17 23:46 01/24/17 05:13 Bedside Glucose 156 111 91 White Blood Count 12.2 H Red Blood Count 4.70 Hemoglobin 13.4 L Hematocrit 43.9 Mean Corpuscular Volume 93.4 Mean Corpuscular Hemoglobin 28.5 L Mean Corpuscular Hemoglobin Concent 30.5 L Red Cell Distribution Width 15.1 H Platelet Count 246 # Mean Platelet Volume 11.7 H Neutrophils % 59.1 Lymphocytes % 25.9 Monocytes % 13.1 H Eosinophils % 1.3 Basophils % 0.2 Nucleated Red Blood Cells % 0.0 Neutrophils # (Manual) 7.2 Lymphocytes # 3.2 H Monocytes # 1.6 H Eosinophils # 0.2 Basophils # 0.0 Nucleated Red Blood Cells # 0.0 Sodium Level 142 Potassium Level 4.5 Chloride Level 97 Carbon Dioxide Level 33 H Anion Gap 17 H Blood Urea Nitrogen 30 H Creatinine 0.93 Glucose Level 115 Calcium Level 9.2 Phosphorus Level 3.2 Magnesium Level 2.1 Test 01/24/17 05:32 01/24/17 08:13 01/24/17 12:23 01/24/17 17:27 Bedside Glucose 172 130 133 131 Medications Medications Current Medications Albuterol (Ventolin Hfa) 2 puff Q6H PRN INH SHORTNESS OF BREATH; Start at 15:00 Apixaban (Eliquis) 5 mg BID PO Last administered on 01/24/17 08:56; Admin Dose 5 MG; Start 01/21/17 at 21:00 Benazepril HCl (Lotensin) 10 mg DAILY PO Last administered on 01/24/17 09:07; Admin Dose 10 MG; Start 01/22/17 at 09:00 Cholecalciferol (Vitamin D) 1,000 unit DAILY PO Last administered on 01/24/17 08:57; Admin Dose 1,000 UNIT; Start 01/22/17 at 09:00 Furosemide (Lasix) 40 mg DAILY PO Last administered on 01/24/17 08:57; Admin Dose 40 MG; Start 01/22/17 at 09:00 Gabapentin (Neurontin) 600 mg TID PRN PO PAIN; Start 01/21/17 at 14:00 Salmeterol Xinafoate/ Fluticasone (Advair 250/50 Diskus) 1 inh BID INH Last administered on 01/24/17 08:56; Admin Dose 1 INH; Start 01/21/17 at 21:00 Thiamine HCl (Vitamin B1) 100 mg BID PO Last administered on 01/24/17 08:57; Admin Dose 100 MG; Start 01/21/17 at 21:00 Acetaminophen (Tylenol Tab) 650 mg Q6H PRN PO PAIN LEVEL 1-3 OR FEVER; Start at 14:00 Acetaminophen/ Hydrocodone Bitart ([place] (5/325)) 1 tab Q6H PRN PO MODERATE PAIN LEVEL 4-6 Last administered on 01/22/17 05:26; Admin Dose 1 TAB; Start at 14:00 Docusate Sodium (Colace) 100 mg Q12H PRN PO CONSTIPATION Last administered on 20:36; Admin Dose 100 MG; Start 01/21/17 at 14:00 Magnesium Hydroxide (Milk Of Mag) 30 ml DAILY PRN PO CONSTIPATION; Start at 14:00 Bisacodyl (Dulcolax) 5 mg DAILY PRN PO CONSTIPATION; Start 01/21/17 at 14:00 Miscellaneous Information 1 ea NOTE XX ; Start 01/21/17 at 15:00 Glucose (Glutose) 15 gm Q15M PRN PO DECREASED GLUCOSE; Start 01/21/17 at 15:00 Glucose (Glutose) 22.5 gm Q15M PRN PO DECREASED GLUCOSE; Start 01/21/17 at 15: 00 Dextrose (D50w Syringe) 25 ml Q15M PRN IV DECREASED GLUCOSE; Start 01/21/17 at 15:00 Dextrose (D50w Syringe) 50 ml Q15M PRN IV DECREASED GLUCOSE; Start 01/21/17 at 15:00 Glucagon (Glucagen) 1 mg Q15M PRN IM DECREASED GLUCOSE; Start 01/21/17 at 15:00 Glucose (Glutose) 15 gm Q15M PRN BUCCAL DECREASED GLUCOSE; Start 01/21/17 at 15 :00 Insulin Glargine (Lantus) 50 unit DAILY SC Last administered on 01/24/17 09:06 ; Admin Dose 50 UNIT; Start 01/22/17 at 08:00 Diagnostic Test (Pha) (Accu-Chek) 1 ea 02 XX Last administered on 01/22/17 02: 04; Admin Dose 1 EA; Start 01/22/17 at 02:00 Insulin Aspart (Novolog Insulin Pen) NOVOLOG *MILD* ALGORI... Q4 SC Last administered on 01/24/17 06:30; Admin Dose 1 UNIT; Start 01/21/17 at 17:00 Metoclopramide HCl (Reglan) 10 mg Q6H PRN IV NAUSEA AND/OR VOMITING Last administered on 01/21/17 17:22; Admin Dose 10 MG; Start 01/21/17 at 17:30 Morphine Sulfate 4 mg 4 mg Q4H PRN IV SEVERE PAIN LEVEL 7-10 Last administered on 01/24/17 15:13; Admin Dose 4 MG; Start 01/22/17 at 06:00 Levofloxacin/ Dextrose 100 ml @ 100 mls/hr Q24H IVPB Last administered on 01/23 18:46; Admin Dose 100 MLS/HR; Start 01/22/17 at 19:00 Metronidazole (Flagyl 500 Mg (Pmx)) 100 ml @ 100 mls/hr Q8 IVPB Last administered on 01/24/17 13:54; Admin Dose 100 MLS/HR; Start 01/22/17 at 22:00 EMELY THAYER M.D. Jan 24, 2017 17:38
[2017-01-24] MEDS: LEVOFLOXACIN 500MG/D5W (PMX) 100 ML IVPB SCH (18:29)
[2017-01-25] VITALS (15 sets, daily range): BP systolic 95–148; BP diastolic 58–73; PULSE 70–193; RESP 19–20
[2017-01-25] MEDS: INSULIN ASPART [NOVOLOG] 3 ML PEN SC SCH ×5 (01:00→17:55)
[2017-01-25] MEDS: ACCU-CHEK XX SCH (02:00)
[2017-01-25] MEDS: morphine 4 MG/ML VIAL IV PRN ×5 (03:28→23:41)
[2017-01-25] MEDS: metroNIDAZOLE 500 MG/NS (PMX) 100 ML IVPB SCH ×3 (06:05→20:45)
[2017-01-25] MEDS: CHOLECALCIFEROL 1,000 UNIT TAB PO SCH (09:12)
[2017-01-25] MEDS: SALMETEROL/FLUTICASONE 250/50 INHA INH SCH ×2 (09:12→20:46)
[2017-01-25] MEDS: BENAZEPRIL 10 MG TAB PO SCH (09:13)
[2017-01-25] MEDS: FUROSEMIDE 40 MG TAB PO SCH (09:13)
[2017-01-25] MEDS: APIXABAN 5 MG TABLET PO SCH ×2 (09:14→20:45)
[2017-01-25] MEDS: INSULIN GLARGINE [LANtus] 3 ML PEN SC SCH (09:21)
[2017-01-25] MEDS: THIAMINE 100 MG TAB PO SCH ×2 (09:23→20:45)
[2017-01-25] MEDS: FAMOTIDINE 20 MG TAB PO SCH ×2 (11:00→20:45)
[2017-01-25] MEDS: LEVOFLOXACIN 500MG/D5W (PMX) 100 ML IVPB SCH (19:25)
--- NOTE | 2017-01-25 23:39 | DS ---
Date/Time of Note Date/Time of Note DATE: 01/25/17 TIME: 23:39 Discharge Summary Admission/Discharge Info Admit Date/Time Jan 21, 2017 at 13:11 Discharge Date/Time Jan 26, 2017 Discharge Diagnosis Partial small bowel obstruction Left wrist fracture Severe pedal edema Patient Condition: Fair Consults Bar Saldaña MD (ortho) Bertram Rodriguez MD (general surgery) Procedures Plain x-rays, left wrist KUB films Hx of Present Illness Mr. Duke is a 61-year-old patient of Dr. Rio Kenny with a previous history of splenectomy and abdominal hernia repair who has had more than 15 previous ER visits for small bowel obstruction, all having resolved without surgical intervention. He presented with 1 day of abdominal pain. Hospital Course CT of the abdomen performed in the ER was consistent with small bowel obstruction. He was started on IV fluid support and a nasograstric tube was placed. He had leukocytosis on admission, with WBC 17k/ul. Potassium was 5.5, but other electrolytes were normal. He was continued on Eliquis for his atrial fibrillation. On the second hospital day he fell and broke his non-dominant left wrist, with fracture of the ulnar styloid and a comminuted fracture of the distal radius extending into the carpal joint. Dr. Saldaña reviewed the films and place him in a splint, with a plan for outpatient orthopedics evaluation to assess need for surgery and anticipated casting. His blood sugars were well- controlled on Lantus 50 units daily plus sliding-scale insulin. He remained NPO the first three days, supported with IV fluids, and experienced moderate third-spacing of fluid into the lower extremities. He expressed concern about returning home to the 1st floor garage where he lives, unable to brace himself if he fell and concerned about his relative immobility with the swollen feet. Patient is 350-lbs. Home Meds Active Scripts Hydrocodone Bit-Acetaminophen (Hydrocodone Bit-APAP) 5-325MG Tablet, 1 TAB PO Q6H Y for MODERATE PAIN LEVEL 4-6 for 10 Days, #50 TAB Prov:EMELY ARAUJO M.D. 01/26/17 Cholecalciferol* (Vitamin D3*) 1,000 Unit Tablet, 1000 UNIT PO DAILY for 30 Days , #30 TAB 1 Refill Prov:ASHANTI WHITLEY MD 10/11/16 Salmeterol Xinaf/Fluticasone* (Advair*) 250-50 Diskus Inhaler, 1 INH INH BID for 7 Days, #1 2 Refills Prov:ASHANTI WHITLEY MD 10/11/16 Metformin Hcl (Glucophage) 500 Mg Tablet, 1000 MG PO BID WITH MEALS for 30 Days , #30 TAB 3 Refills Prov:ASHANTI WHITLEY MD 05/28/16 Reported Medications Albuterol Sulfate* (Ventolin HFA*) 18 Gm Hfa.aer.ad, 2 PUFF INHALATION Q6H Y for WHEEZING AND SOB, #1 INHALER 01/21/17 Insulin Glargine* (Lantus*) 100 Unit/Ml Soln, 50 UNIT SC BID, #1 VIAL 01/21/17 Insulin Lispro (Humalog) 100 Unit/1 Ml Cartridge, 25 UNIT SQ AC MEALS 01/21/17 Apixaban* (Eliquis*) 5 Mg Tablet, 5 MG PO BID, TAB 01/21/17 Furosemide* (Furosemide*) 40 Mg Tablet, 40 MG PO DAILY, TAB 10/03/16 Thiamine* (Vitamin B-1*) 100 Mg Tablet, 100 MG PO BID, TAB 10/03/16 Gabapentin* (Gabapentin*) 600 Mg Tablet, 600 MG PO TID Y for PAIN, #90 TAB 07/21/16 Benazepril Hcl* (Benazepril Hcl*) 10 Mg Tablet, 10 MG PO DAILY, #30 TAB 07/21/16 Discontinued Reported Medications Atorvastatin Calcium* (Atorvastatin Calcium*) 20 Mg Tablet, 20 MG PO QHS, #30 TAB 07/21/16 Tamsulosin Hcl* (Flomax*) 0.4 Mg Cap.er.24h, 0.4 MG PO BID, CAP 07/21/14 Discontinued Scripts Insulin Aspart* (Novolog Insulin Pen*) 100 Unit/Ml Soln, 20 UNIT SC BEFORE MEALS for 10 Days, #1 Prov:ASHANTI WHITLEY MD 10/11/16 Insulin Glargine* (Lantus*) 100 Unit/Ml Soln, 60 UNIT SC QHS for 10 Days, #1 Prov:ASHANTI WHITLEY MD 10/11/16 Lactobacillus Rhamnosus* (Culturelle*) 1 Each Cap.sprink, 1 CAP PO BID for 30 Days, #30 CAP 1 Refill Prov:ASHANTI WHITLEY MD 10/11/16 Oxycodone HCl/Acetaminophen (Oxycodone-Acetaminophen 10-325) 1 Each Tablet, 1 TAB PO Q4H Y for PAIN for 10 Days, #24 TAB Prov:ASHANTI WHITLEY MD 10/11/16 Acetaminophen (MAPAP) 325 Mg Tablet, 650 MG PO Q6H Y for PAIN LEVEL 1-3 OR FEVER for 10 Days, #1 TAB Prov:ASHANTI WHITLEY MD 10/11/16 Apixaban* (Eliquis*) 5 Mg Tablet, 5 MG PO BID for 30 Days, #30 TAB 1 Refill Prov:ASHANTI WHITLEY MD 10/11/16 Doxycycline* (Vibramycin*) 100 Mg Tab, 100 MG PO BID for 14 Days, #30 TAB Prov:ASHANTI WHITLEY MD 10/11/16 Cephalexin* (Cephalexin*) 500 Mg Capsule, 500 MG PO Q8 for 14 Days, #45 CAP Prov:ASHANTI WHITLEY MD 10/11/16 Follow-up Plan Orthopedics and PCP in the week after discharge. Primary Care Provider Rio Kenny MD Time spent on discharge: > 30 minutes Pending Labs Laboratory Tests Test 01/25/17 06:03 01/25/17 08:09 01/25/17 13:21 01/25/17 16:11 Bedside Glucose 130mg/dL (70-220) 157mg/dL (70-220) 209mg/dL (70-220) 202mg/dL (70-220) Test 01/25/17 20:43 Bedside Glucose 114mg/dL (70-220) EMELY ARAUJO M.D. Jan 25, 2017 23:39
[2017-01-26] VITALS (12 sets, daily range): BP systolic 115–170; BP diastolic 55–82; PULSE 88–100; RESP 18–20
[2017-01-26] MEDS: ACCU-CHEK XX SCH (02:00)
[2017-01-26] MEDS: morphine 4 MG/ML VIAL IV PRN ×5 (04:13→21:12)
[2017-01-26] MEDS: metroNIDAZOLE 500 MG/NS (PMX) 100 ML IVPB SCH ×2 (06:14→12:59)
--- NOTE | 2017-01-26 07:29 | PDOCDIS ---
Discharge Instructions DIAGNOSIS Discharge Diagnosis Partial small bowel obstruction Left wrist fracture Severe pedal edema CONDITION Patient Condition: Fair HOME CARE INSTRUCTIONS: Diet Instructions: Controlled carbohydrate diet ACTIVITY: Activity Restrictions: Slowly Increase Activity FOLLOW UP/APPOINTMENTS Follow-up Plan Orthopedics and PCP in the week following discharge. EMELY ARAUJO M.D. Jan 26, 2017 07:29
[2017-01-26] MEDS ORDERED: HYDR-3498 PO (07:31)
[2017-01-26] MEDS: CHOLECALCIFEROL 1,000 UNIT TAB PO SCH (09:09)
[2017-01-26] MEDS: SALMETEROL/FLUTICASONE 250/50 INHA INH SCH ×2 (09:09→21:09)
[2017-01-26] MEDS: THIAMINE 100 MG TAB PO SCH ×2 (09:10→21:09)
[2017-01-26] MEDS: BENAZEPRIL 10 MG TAB PO SCH (09:10)
[2017-01-26] MEDS: FUROSEMIDE 40 MG TAB PO SCH ×2 (09:10→17:06)
[2017-01-26] MEDS: FAMOTIDINE 20 MG TAB PO SCH ×2 (09:11→21:09)
[2017-01-26] MEDS: APIXABAN 5 MG TABLET PO SCH ×2 (09:11→21:09)
[2017-01-26] MEDS: INSULIN ASPART [NOVOLOG] 3 ML PEN SC SCH ×3 (09:15→17:10)
[2017-01-26] MEDS: INSULIN GLARGINE [LANtus] 3 ML PEN SC SCH (09:19)
--- NOTE | 2017-01-26 13:47 | PN ---
Date/Time of Note Date/Time of Note DATE: 01/26/17 TIME: 13:37 Assessment/Plan VTE Prophylaxis VTE Prophylaxis Intervention: other (on Eliquis ) Lines/Catheters IV Catheter Type (from Nrs): Saline Lock Assessment/Plan Assessment/Plan 61 yo male with: 1. Partial SBO, repeat CAT scan abdomen with po contrast admission showing enteritis, patient has been on levofloxacin and Flagyl, he is tolerating p.o. therefore antibiotics will be switched to p.o. He is partial SBO is resolved, p.o. IV fluids as patient does have chronic lymphedema related to he is a super morbid obesity and venous insufficiency in his lower extremities. Continue Flagyl and Levaquin x 7 days 2. Diabetes mellitus, type II: A1c 10.5, continue current insulin regimen with basal insulin and sliding scale insulin while n.p.o., Lantus 50 units daily + SSI+ pre meal insulin. Resume metformin. 3. Atrial fibrillation, chronic: Continue outpatient medications. 4. Hypertension: Continue home medications, will add hydralazine as needed. 5. Hyperlipidemia: Continue home medications 6. Left Wrist fracture, status post fall in the hospital, Dr. Castrejon from orthopedic surgery following, status post splinting yesterday. 7. Super morbid obesity with hypoventilatory syndrome, likely NAM: Lifestyle modification, will need supplemental oxygen at home especially while sleeping. 8. Chronic lower extremity edema/lymphedema: Has worsened a little bit likely due to IV fluids and additional IVs being given, will increase Lasix to 40 mg p.o. twice daily. Patient is to elevate his legs, compression stockings will be reordered. 9. COPD, very likely, patient was a smoker until a year ago, continue current inhalers. Patient did report that he has been more short of breath over the past 6 months. Prophylaxis : Already on Eliquis in setting of atrial fibrillation. for GI prophylaxis Disposition: Diuresis, discharge planning/placement is an issue as the patient is essentially without a domicile, he stays in a friend's garage but currently cannot care for himself enough to go back there and at the same time is declining custodial facility. I have explained to him that he is medically stable to be discharged to custodial facility. Subjective 24 Hr Interval Summary Free Text/Dictation Patient currently on 4 L nasal cannula, he is satting in the 90s, he does have hypoventilatory syndrome due to his super morbid obesity and likely obstructive sleep apnea but also COPD as the patient has been a smoker until a year ago. He is back on his inhalers, he is being diuresed. He will need to be discharged with home O2 likely at least at night. Patient is essentially homeless as he is squatting basically in a friend's garage and cannot care for himself right now, therefore he already told me he cannot go back to that location and care for himself on his own. At the same time he is refusing custodial facility because he does not want to lose his car. Exam/Review of Systems Vital Signs Vitals Vital Signs Date Time Temp Pulse Resp B/P Pulse Ox O2 Delivery O2 Flow Rate FiO2 01/26/17 12:40 Nasal Cannula 4.0 01/26/17 11:24 98.3 88 18 170/71 93 Intake and Output 01/25/17 01/25/17 01/26/17 15:00 23:00 07:00 Intake Total 100 ml 2200 ml Balance 100 ml 2200 ml Exam Constitutional: alert, oriented, other (Super morbid obesity) Respiratory: diminished breath sounds (At bases, limited due to morbidly obese abdomen, and hypoventilatory syndrome) Cardiovascular: nl pulses, regular rate and rhythm Gastrointestinal: non-tender, soft Extremities: edema (+2-4, more prominent right lower extremity), normal pulses Neurological: MANAGER PROCESS IMPROVEMENT II-XII intact, nl mental status, nl speech, nl strength Results Result Diagram: 01/24/17 0513 01/24/17 0513 Results 24 hrs Laboratory Tests Test 01/25/17 16:11 01/25/17 20:43 01/26/17 09:06 01/26/17 12:33 Bedside Glucose 202 114 189 221 H Medications Medications Current Medications Albuterol (Ventolin Hfa) 2 puff Q6H PRN INH SHORTNESS OF BREATH; Start at 15:00 Apixaban (Eliquis) 5 mg BID PO Last administered on 01/26/17 09:11; Admin Dose 5 MG; Start 01/21/17 at 21:00 Benazepril HCl (Lotensin) 10 mg DAILY PO Last administered on 01/26/17 09:10; Admin Dose 10 MG; Start 01/22/17 at 09:00 Cholecalciferol (Vitamin D) 1,000 unit DAILY PO Last administered on 01/26/17 09:09; Admin Dose 1,000 UNIT; Start 01/22/17 at 09:00 Furosemide (Lasix) 40 mg DAILY PO Last administered on 01/26/17 09:10; Admin Dose 40 MG; Start 01/22/17 at 09:00 Gabapentin (Neurontin) 600 mg TID PRN PO PAIN; Start 01/21/17 at 14:00 Salmeterol Xinafoate/ Fluticasone (Advair 250/50 Diskus) 1 inh BID INH Last administered on 01/26/17 09:09; Admin Dose 1 INH; Start 01/21/17 at 21:00 Thiamine HCl (Vitamin B1) 100 mg BID PO Last administered on 01/26/17 09:10; Admin Dose 100 MG; Start 01/21/17 at 21:00 Acetaminophen (Tylenol Tab) 650 mg Q6H PRN PO PAIN LEVEL 1-3 OR FEVER; Start at 14:00 Acetaminophen/ Hydrocodone Bitart ([place] (5/325)) 1 tab Q6H PRN PO MODERATE PAIN LEVEL 4-6 Last administered on 01/22/17 05:26; Admin Dose 1 TAB; Start at 14:00 Docusate Sodium (Colace) 100 mg Q12H PRN PO CONSTIPATION Last administered on 20:36; Admin Dose 100 MG; Start 01/21/17 at 14:00 Magnesium Hydroxide (Milk Of Mag) 30 ml DAILY PRN PO CONSTIPATION; Start at 14:00 Bisacodyl (Dulcolax) 5 mg DAILY PRN PO CONSTIPATION; Start 01/21/17 at 14:00 Miscellaneous Information 1 ea NOTE XX ; Start 01/21/17 at 15:00 Glucose (Glutose) 15 gm Q15M PRN PO DECREASED GLUCOSE; Start 01/21/17 at 15:00 Glucose (Glutose) 22.5 gm Q15M PRN PO DECREASED GLUCOSE; Start 01/21/17 at 15: 00 Dextrose (D50w Syringe) 25 ml Q15M PRN IV DECREASED GLUCOSE; Start 01/21/17 at 15:00 Dextrose (D50w Syringe) 50 ml Q15M PRN IV DECREASED GLUCOSE; Start 01/21/17 at 15:00 Glucagon (Glucagen) 1 mg Q15M PRN IM DECREASED GLUCOSE; Start 01/21/17 at 15:00 Glucose (Glutose) 15 gm Q15M PRN BUCCAL DECREASED GLUCOSE; Start 01/21/17 at 15 :00 Insulin Glargine (Lantus) 50 unit DAILY SC Last administered on 01/26/17 09:19 ; Admin Dose 50 UNIT; Start 01/22/17 at 08:00 Diagnostic Test (Pha) (Accu-Chek) 1 ea 02 XX Last administered on 01/22/17 02: 04; Admin Dose 1 EA; Start 01/22/17 at 02:00 Metoclopramide HCl (Reglan) 10 mg Q6H PRN IV NAUSEA AND/OR VOMITING Last administered on 01/21/17 17:22; Admin Dose 10 MG; Start 01/21/17 at 17:30 Morphine Sulfate 4 mg 4 mg Q4H PRN IV SEVERE PAIN LEVEL 7-10 Last administered on 01/26/17 12:50; Admin Dose 4 MG; Start 01/22/17 at 06:00 Levofloxacin/ Dextrose 100 ml @ 100 mls/hr Q24H IVPB Last administered on 01/25 19:25; Admin Dose 100 MLS/HR; Start 01/22/17 at 19:00 Metronidazole (Flagyl 500 Mg (Pmx)) 100 ml @ 100 mls/hr Q8 IVPB Last administered on 01/26/17 12:59; Admin Dose 100 MLS/HR; Start 01/22/17 at 22:00 Famotidine (Pepcid) 20 mg BID PO Last administered on 01/26/17 09:11; Admin Dose 20 MG; Start 01/25/17 at 11:00 NAYA FOX Jan 26, 2017 13:47
[2017-01-26] MEDS ORDERED: metFORMIN 500 MG TAB ONE (16:54)
[2017-01-26] MEDS ORDERED: FUROSEMIDE 40 MG TAB ONE (16:54)
[2017-01-26] MEDS: metroNIDAZOLE 500 MG TAB PO SCH ×2 (17:03→21:09)
[2017-01-26] MEDS: metFORMIN 500 MG TAB PO SCH (17:04)
[2017-01-27] VITALS (10 sets, daily range): BP systolic 128–167; BP diastolic 67–99; PULSE 93–100; RESP 16–20
[2017-01-27] MEDS: morphine 4 MG/ML VIAL IV PRN ×5 (01:37→20:33)
[2017-01-27] MEDS: FUROSEMIDE 40 MG TAB PO SCH ×2 (06:05→17:16)
[2017-01-27] MEDS: metroNIDAZOLE 500 MG TAB PO SCH ×3 (06:05→21:08)
[2017-01-27] MEDS: LEVOFLOXACIN 500 MG TAB PO SCH (06:05)
[2017-01-27] MEDS: DOCUSATE SODIUM 100 MG CAP PO PRN (06:14)
[2017-01-27 07:46] LABS: ABNORMAL IP MESSAGE 1; BASOPHIL # 0.1 10^3/ul (0.0-0.1); BASOPHILS % 0.6 % (0.0-2.0); EOSINOPHILS # 0.2 10^3/ul (0.0-0.5); EOSINOPHILS % 1.5 % (0.0-7.0); HEMATOCRIT 47.8 % (42.0-52.0); HEMOGLOBIN 15.1 g/dl (14.0-18.0); LYMPHOCYTES # 3.3 10^3/ul (0.8-2.9); LYMPHOCYTES % 25.2 % (15.0-51.0); MEAN CORPUSCULAR HEMOGLOBIN 28.2 pg (29.0-33.0); MEAN CORPUSCULAR HGB CONC 31.6 g/dl (32.0-37.0); MEAN CORPUSCULAR VOLUME 89.3 fl (82.0-101.0); MEAN PLATELET VOLUME 11.7 fl (7.4-10.4); MONOCYTE # 1.8 10^3/ul (0.3-0.9); MONOCYTES % 13.6 % (0.0-11.0); NEUTROPHILS % 57.7 % (39.0-77.0); PLATELET COUNT 273 10^3/UL (140-415); POSITIVE DIFF @See below; RED BLOOD COUNT 5.35 10^6/ul (4.70-6.10); RED CELL DISTRIBUTION WIDTH 14.8 % (11.5-14.5); WHITE BLOOD COUNT 13.1 10^3/ul (4.8-10.8)
[2017-01-27 08:13] LABS: CALCIUM 9.8 mg/dl (8.4-10.2); CREATININE 1.01 mg/dl (0.61-1.24); POTASSIUM 4.5 mmol/L (3.5-5.1)
[2017-01-27 08:25] LABS: MAGNESIUM 1.3 mg/dl (1.7-2.5); PHOSPHORUS 4.7 mg/dl (2.5-4.9)
[2017-01-27] MEDS: APIXABAN 5 MG TABLET PO SCH ×2 (08:55→20:36)
[2017-01-27] MEDS: THIAMINE 100 MG TAB PO SCH ×2 (08:55→20:35)
[2017-01-27] MEDS: BENAZEPRIL 10 MG TAB PO SCH (08:56)
[2017-01-27] MEDS: CHOLECALCIFEROL 1,000 UNIT TAB PO SCH (08:56)
[2017-01-27] MEDS: metFORMIN 500 MG TAB PO SCH ×2 (08:57→17:15)
[2017-01-27] MEDS: FAMOTIDINE 20 MG TAB PO SCH ×2 (08:57→20:35)
[2017-01-27] MEDS: SALMETEROL/FLUTICASONE 250/50 INHA INH SCH (08:57)
[2017-01-27] MEDS: INSULIN ASPART [NOVOLOG] 3 ML PEN SC SCH ×5 (09:02→20:28)
[2017-01-27] MEDS: INSULIN GLARGINE [LANtus] 3 ML PEN SC SCH (10:03)
--- NOTE | 2017-01-27 12:20 | PN ---
Date/Time of Note Date/Time of Note DATE: 01/27/17 TIME: 11:53 Assessment/Plan VTE Prophylaxis VTE Prophylaxis Intervention: other (Eliquis) Lines/Catheters IV Catheter Type (from Nrs): Saline Lock Assessment/Plan Assessment/Plan 61 yo male with: 1. Partial SBO, repeat CAT scan abdomen with po contrast admission showing enteritis. He is partial SBO is resolved, Patient has been on levofloxacin and Flagyl p.o. Patient does have chronic lymphedema related to he is a super morbid obesity and venous insufficiency in his lower extremities. Continue Flagyl and Levaquin x 6 days 2. Diabetes mellitus, type II: A1c 10.5, continue current insulin regimen, Lantus 50 units daily + SSI+ pre meal insulin. Back on metformin. 3. Atrial fibrillation, chronic: Continue outpatient medications. 4. Hypertension: Continue home medications, will add hydralazine as needed. 5. Hyperlipidemia: Continue home medications 6. Left Wrist fracture, status post fall in the hospital, Dr. Castrejon from orthopedic surgery following, status post splinting yesterday. 7. Super morbid obesity with hypoventilatory syndrome, likely NAM: Lifestyle modification, will need supplemental oxygen at home especially while sleeping. 8. Chronic lower extremity edema/lymphedema: On Lasix to 40 mg p.o. twice daily. Patient is to elevate his legs, compression stockings will be reordered since edema has decreased with increased Lasix dosing. 9. COPD, very likely, patient was a smoker until a year ago, continue current inhalers. Patient did report that he has been more short of breath over the past 6 months. Need home oxygen if/when discharged home and ultimately. Prophylaxis : Already on Eliquis in setting of atrial fibrillation. for GI prophylaxis Disposition: Diuresis, discharge planning/placement is an issue as the patient is essentially without a domicile, he stays in a friend's garage but currently cannot care for himself enough to go back there and at the same time is declining snf facility. I have explained to him that he is medically stable to be discharged to snf facility. Subjective 24 Hr Interval Summary Free Text/Dictation Patient doing better today, he is actually on room air lying flat comfortable, is require supplemental oxygen however while sleeping due to likely obstructive sleep apnea. Lower extremity edema is much improved as long as he keeps his legs elevated, Lasix was increased to twice daily temporarily. He still very particular regarding his discharge planning, he knows he cannot go back to the ground she has been squatting but at the same time he does not want to leave his car and is requesting to go to snf facility by himself, he wants to drive his own car. Exam/Review of Systems Vital Signs Vitals Vital Signs Date Time Temp Pulse Resp B/P Pulse Ox O2 Delivery O2 Flow Rate FiO2 01/27/17 11:03 97.4 98 16 129/68 92 01/27/17 10:54 Nasal Cannula 4.0 Intake and Output 01/26/17 01/26/17 01/27/17 15:00 23:00 07:00 Intake Total 1080 ml 1960 ml Balance 1080 ml 1960 ml Exam Constitutional: alert, obese ([place]), oriented, well developed Respiratory: diminished breath sounds (Bases bilaterally mild), normal air movement Cardiovascular: nl pulses, regular rate and rhythm Gastrointestinal: non-tender, other (Obese), soft Musculoskeletal: swelling (Bilateral chronic lymphedema) Extremities: normal pulses, other (Improving edema) Neurological: MANAGER RADIATION II-XII intact, nl mental status, nl speech, nl strength ( Baseline) Results Result Diagram: 01/27/17 0632 01/27/17 0632 Results 24 hrs Laboratory Tests Test 01/26/17 12:33 01/26/17 17:03 01/27/17 06:32 01/27/17 08:53 Bedside Glucose 221 H 228 H 255 H White Blood Count 13.1 H Red Blood Count 5.35 Hemoglobin 15.1 Hematocrit 47.8 Mean Corpuscular Volume 89.3 Mean Corpuscular Hemoglobin 28.2 L Mean Corpuscular Hemoglobin Concent 31.6 L Red Cell Distribution Width 14.8 H Platelet Count 273 Mean Platelet Volume 11.7 H Neutrophils % 57.7 Lymphocytes % 25.2 Monocytes % 13.6 H Eosinophils % 1.5 Basophils % 0.6 Nucleated Red Blood Cells % 0.0 Neutrophils # (Manual) 7.6 H Lymphocytes # 3.3 H Monocytes # 1.8 H Eosinophils # 0.2 Basophils # 0.1 Nucleated Red Blood Cells # 0.0 Sodium Level 140 Potassium Level 4.5 Chloride Level 90 L Carbon Dioxide Level 35 H Anion Gap 20 H Blood Urea Nitrogen 22 H Creatinine 1.01 Glucose Level 224 H Calcium Level 9.8 Phosphorus Level 4.7 Magnesium Level 1.3 L Test 01/27/17 11:25 Bedside Glucose 259 H Medications Medications Current Medications Albuterol (Ventolin Hfa) 2 puff Q6H PRN INH SHORTNESS OF BREATH; Start at 15:00 Apixaban (Eliquis) 5 mg BID PO Last administered on 01/27/17 08:55; Admin Dose 5 MG; Start 01/21/17 at 21:00 Benazepril HCl (Lotensin) 10 mg DAILY PO Last administered on 01/27/17 08:56; Admin Dose 10 MG; Start 01/22/17 at 09:00 Cholecalciferol (Vitamin D) 1,000 unit DAILY PO Last administered on 01/27/17 08:56; Admin Dose 1,000 UNIT; Start 01/22/17 at 09:00 Gabapentin (Neurontin) 600 mg TID PRN PO PAIN; Start 01/21/17 at 14:00 Salmeterol Xinafoate/ Fluticasone (Advair 250/50 Diskus) 1 inh BID INH Last administered on 01/27/17 08:57; Admin Dose 1 INH; Start 01/21/17 at 21:00 Thiamine HCl (Vitamin B1) 100 mg BID PO Last administered on 01/27/17 08:55; Admin Dose 100 MG; Start 01/21/17 at 21:00 Acetaminophen (Tylenol Tab) 650 mg Q6H PRN PO PAIN LEVEL 1-3 OR FEVER; Start at 14:00 Acetaminophen/ Hydrocodone Bitart ([place] (5/325)) 1 tab Q6H PRN PO MODERATE PAIN LEVEL 4-6 Last administered on 01/22/17 05:26; Admin Dose 1 TAB; Start at 14:00 Docusate Sodium (Colace) 100 mg Q12H PRN PO CONSTIPATION Last administered on 06:14; Admin Dose 100 MG; Start 01/21/17 at 14:00 Magnesium Hydroxide (Milk Of Mag) 30 ml DAILY PRN PO CONSTIPATION; Start at 14:00 Bisacodyl (Dulcolax) 5 mg DAILY PRN PO CONSTIPATION; Start 01/21/17 at 14:00 Miscellaneous Information 1 ea NOTE XX ; Start 01/21/17 at 15:00 Glucose (Glutose) 15 gm Q15M PRN PO DECREASED GLUCOSE; Start 01/21/17 at 15:00 Glucose (Glutose) 22.5 gm Q15M PRN PO DECREASED GLUCOSE; Start 01/21/17 at 15: 00 Dextrose (D50w Syringe) 25 ml Q15M PRN IV DECREASED GLUCOSE; Start 01/21/17 at 15:00 Dextrose (D50w Syringe) 50 ml Q15M PRN IV DECREASED GLUCOSE; Start 01/21/17 at 15:00 Glucagon (Glucagen) 1 mg Q15M PRN IM DECREASED GLUCOSE; Start 01/21/17 at 15:00 Glucose (Glutose) 15 gm Q15M PRN BUCCAL DECREASED GLUCOSE; Start 01/21/17 at 15 :00 Insulin Glargine (Lantus) 50 unit DAILY SC Last administered on 01/27/17 10:03 ; Admin Dose 50 UNIT; Start 01/22/17 at 08:00 Metoclopramide HCl (Reglan) 10 mg Q6H PRN IV NAUSEA AND/OR VOMITING Last administered on 01/21/17 17:22; Admin Dose 10 MG; Start 01/21/17 at 17:30 Morphine Sulfate (morphine) 4 mg Q4H PRN IV SEVERE PAIN LEVEL 7-10 Last administered on 01/27/17 11:27; Admin Dose 4 MG; Start 01/22/17 at 06:00 Famotidine (Pepcid) 20 mg BID PO Last administered on 01/27/17 08:57; Admin Dose 20 MG; Start 01/25/17 at 11:00 Levofloxacin (Levaquin) 500 mg DAILY@06 PO Last administered on 01/27/17 06:05 ; Admin Dose 500 MG; Start 01/27/17 at 06:00 Metronidazole (Flagyl) 500 mg Q8 PO Last administered on 01/27/17 06:05; Admin Dose 500 MG; Start 01/26/17 at 14:00 NAYA FOX Jan 27, 2017 12:03
[2017-01-27] MEDS ORDERED: MAGNESIUM SULFATE 3 GM in SOD CHLORIDE 0.9% 100 ML IVPB ONE (14:00)
[2017-01-27] MEDS: CIPROFLOXACIN 0.3% 2.5 ML OPH BOTH EYES SCH ×2 (17:15→20:33)
[2017-01-28] VITALS (11 sets, daily range): BP systolic 94–146; BP diastolic 50–70; PULSE 90–106; RESP 16–21
[2017-01-28] MEDS: CIPROFLOXACIN 0.3% 2.5 ML OPH BOTH EYES SCH ×5 (01:00→17:18)
[2017-01-28] MEDS: SALMETEROL/FLUTICASONE 250/50 INHA INH SCH ×2 (01:44→08:25)
[2017-01-28] MEDS ORDERED: ACCU-CHEK XX SCH (02:00)
[2017-01-28] MEDS: morphine 4 MG/ML VIAL IV PRN ×4 (02:40→18:34)
[2017-01-28] MEDS: metroNIDAZOLE 500 MG TAB PO SCH ×2 (06:00→14:09)
[2017-01-28] MEDS: LEVOFLOXACIN 500 MG TAB PO SCH (06:01)
[2017-01-28] MEDS: DOCUSATE SODIUM 100 MG CAP PO PRN (06:01)
[2017-01-28] MEDS: FUROSEMIDE 40 MG TAB PO SCH (06:01)
[2017-01-28 08:12] LABS: ABNORMAL IP MESSAGE 1; BASOPHIL # 0.1 10^3/ul (0.0-0.1); BASOPHILS % 0.6 % (0.0-2.0); EOSINOPHILS # 0.2 10^3/ul (0.0-0.5); HEMATOCRIT 49.4 % (42.0-52.0); HEMOGLOBIN 15.4 g/dl (14.0-18.0); LYMPHOCYTES # 3.1 10^3/ul (0.8-2.9); LYMPHOCYTES % 21.4 % (15.0-51.0); MEAN CORPUSCULAR HEMOGLOBIN 28.2 pg (29.0-33.0); MEAN CORPUSCULAR HGB CONC 31.2 g/dl (32.0-37.0); MEAN CORPUSCULAR VOLUME 90.5 fl (82.0-101.0); MEAN PLATELET VOLUME 11.1 fl (7.4-10.4); MONOCYTE # 1.6 10^3/ul (0.3-0.9); MONOCYTES % 11.1 % (0.0-11.0); NEUTROPHILS % 64.4 % (39.0-77.0); PLATELET COUNT 313 10^3/UL (140-415); POSITIVE DIFF @See below; RED BLOOD COUNT 5.46 10^6/ul (4.70-6.10); RED CELL DISTRIBUTION WIDTH 14.9 % (11.5-14.5); WHITE BLOOD COUNT 14.5 10^3/ul (4.8-10.8)
[2017-01-28] MEDS: metFORMIN 500 MG TAB PO SCH ×2 (08:26→17:18)
[2017-01-28] MEDS: FAMOTIDINE 20 MG TAB PO SCH (08:26)
[2017-01-28] MEDS: CHOLECALCIFEROL 1,000 UNIT TAB PO SCH (08:26)
[2017-01-28] MEDS: APIXABAN 5 MG TABLET PO SCH (08:27)
[2017-01-28] MEDS: THIAMINE 100 MG TAB PO SCH (08:27)
[2017-01-28] MEDS: BENAZEPRIL 10 MG TAB PO SCH (08:28)
[2017-01-28] MEDS: INSULIN ASPART [NOVOLOG] 3 ML PEN SC SCH ×6 (08:32→17:33)
[2017-01-28 08:43] LABS: MAGNESIUM 1.6 mg/dl (1.7-2.5); PHOSPHORUS 4.7 mg/dl (2.5-4.9)
[2017-01-28 08:51] LABS: CALCIUM 9.6 mg/dl (8.4-10.2); CREATININE 1.12 mg/dl (0.61-1.24); POTASSIUM 4.5 mmol/L (3.5-5.1)
[2017-01-28] MEDS ORDERED: INSULIN GLARGINE [LANtus] 3 ML PEN SC SCH (09:00)
[2017-01-28] MEDS ORDERED: MAGNESIUM SULFATE 2 GM/50 ML 50 ML IVPB ONE (15:30)
--- NOTE | 2017-01-28 16:55 | PN ---
Date/Time of Note Date/Time of Note DATE: 01/28/17 TIME: 16:48 Assessment/Plan VTE Prophylaxis VTE Prophylaxis Intervention: LMWH Lines/Catheters IV Catheter Type (from Nrs): Saline Lock Assessment/Plan Assessment/Plan 61 yo male with: 1. Partial SBO, repeat CAT scan abdomen with po contrast admission showing enteritis. He is partial SBO is resolved, Patient has been on levofloxacin and Flagyl p.o. Patient does have chronic lymphedema related to he is a super morbid obesity and venous insufficiency in his lower extremities. Continue Flagyl and Levaquin x 5 days 2. Diabetes mellitus, type II: A1c 10.5, continue current insulin regimen, Lantus 50 units daily + SSI+ pre meal insulin. Back on metformin. 3. Atrial fibrillation, chronic: Continue outpatient medications. 4. Hypertension: Continue home medications, will add hydralazine as needed. 5. Hyperlipidemia: Continue home medications 6. Left Wrist fracture, status post fall in the hospital, Dr. Castrejon from orthopedic surgery following, status post splinting yesterday. 7. Super morbid obesity with hypoventilatory syndrome, likely NAM: Lifestyle modification, will need supplemental oxygen at home especially while sleeping. 8. Chronic lower extremity edema/lymphedema: decreased Lasix to 40 mg p.o. daily. Patient is to elevate his legs, compression stockings will be reordered since edema has decreased with increased Lasix dosing. 9. COPD, very likely, patient was a smoker until a year ago, continue current inhalers. Patient did report that he has been more short of breath over the past 6 months. Need home oxygen if/when discharged home and ultimately. Prophylaxis : Already on Eliquis in setting of atrial fibrillation. for GI prophylaxis Disposition: Diuresis, discharge planning/placement is an issue as the patient is essentially without a domicile, he stays in a friend's garage but currently cannot care for himself enough to go back there and at the same time is declining [facility] facility. I have explained to him that he is medically stable to be discharged to [facility] facility. Subjective 24 Hr Interval Summary Free Text/Dictation Patient remains stable No complaints and will be transferring to SNF Exam/Review of Systems Vital Signs Vitals Vital Signs Date Time Temp Pulse Resp B/P Pulse Ox O2 Delivery O2 Flow Rate FiO2 01/28/17 16:30 103 01/28/17 15:24 98.0 18 121/57 93 01/28/17 08:30 Nasal Cannula 4.0 Intake and Output 01/27/17 01/27/17 01/28/17 15:00 23:00 07:00 Intake Total 1000 ml 1000 ml Output Total 400 ml Balance 600 ml 1000 ml Exam Constitutional: alert, obese (morbid ), oriented, well developed Respiratory: clear to auscultation, normal air movement Cardiovascular: nl pulses, regular rate and rhythm Gastrointestinal: non-tender, soft Musculoskeletal: nl extremities to inspection, nl gait and stance Extremities: normal pulses, other (much improved edema ) Neurological: ADMINISTRATIVE SERVICES OFFICER II-XII intact, nl mental status, nl speech, nl strength Results Result Diagram: 01/28/17 0743 01/28/17 0743 Results 24 hrs Laboratory Tests Test 01/27/17 17:19 01/27/17 20:27 01/28/17 07:43 01/28/17 07:54 Bedside Glucose 210 84 184 White Blood Count 14.5 H Red Blood Count 5.46 Hemoglobin 15.4 Hematocrit 49.4 Mean Corpuscular Volume 90.5 Mean Corpuscular Hemoglobin 28.2 L Mean Corpuscular Hemoglobin Concent 31.2 L Red Cell Distribution Width 14.9 H Platelet Count 313 Mean Platelet Volume 11.1 H Neutrophils % 64.4 Lymphocytes % 21.4 Monocytes % 11.1 H Eosinophils % 1.0 Basophils % 0.6 Nucleated Red Blood Cells % 0.0 Neutrophils # (Manual) 9.3 H Lymphocytes # 3.1 H Monocytes # 1.6 H Eosinophils # 0.2 Basophils # 0.1 Nucleated Red Blood Cells # 0.0 Sodium Level 138 Potassium Level 4.5 Chloride Level 86 L Carbon Dioxide Level 38 H Anion Gap 19 H Blood Urea Nitrogen 29 H Creatinine 1.12 Glucose Level 194 Calcium Level 9.6 Phosphorus Level 4.7 Magnesium Level 1.6 L Test 01/28/17 12:20 Bedside Glucose 118 Medications Medications Current Medications Albuterol (Ventolin Hfa) 2 puff Q6H PRN INH SHORTNESS OF BREATH; Start at 15:00 Apixaban (Eliquis) 5 mg BID PO Last administered on 01/28/17t 08:27; Admin Dose 5 MG; Start 01/21/17 at 21:00 Benazepril HCl (Lotensin) 10 mg DAILY PO Last administered on 01/28/17 08:28; Admin Dose 10 MG; Start 01/22/17 at 09:00 Cholecalciferol (Vitamin D) 1,000 unit DAILY PO Last administered on 01/28/17 08:26; Admin Dose 1,000 UNIT; Start 01/22/17 at 09:00 Gabapentin (Neurontin) 600 mg TID PRN PO PAIN; Start 01/21/17 at 14:00 Salmeterol Xinafoate/ Fluticasone (Advair 250/50 Diskus) 1 inh BID INH Last administered on 01/28/17 08:25; Admin Dose 1 INH; Start 01/21/17 at 21:00 Thiamine HCl (Vitamin B1) 100 mg BID PO Last administered on 01/28/17 08:27; Admin Dose 100 MG; Start 01/21/17 at 21:00 Acetaminophen (Tylenol Tab) 650 mg Q6H PRN PO PAIN LEVEL 1-3 OR FEVER; Start at 14:00 Acetaminophen/ Hydrocodone Bitart ([place] (5/325)) 1 tab Q6H PRN PO MODERATE PAIN LEVEL 4-6 Last administered on 01/22/17 05:26; Admin Dose 1 TAB; Start at 14:00 Docusate Sodium (Colace) 100 mg Q12H PRN PO CONSTIPATION Last administered on 06:01; Admin Dose 100 MG; Start 01/21/17 at 14:00 Magnesium Hydroxide (Milk Of Mag) 30 ml DAILY PRN PO CONSTIPATION; Start at 14:00 Bisacodyl (Dulcolax) 5 mg DAILY PRN PO CONSTIPATION; Start 01/21/17 at 14:00 Miscellaneous Information 1 ea NOTE XX ; Start 01/21/17 at 15:00 Glucose (Glutose) 15 gm Q15M PRN PO DECREASED GLUCOSE; Start 01/21/17 at 15:00 Glucose (Glutose) 22.5 gm Q15M PRN PO DECREASED GLUCOSE; Start 01/21/17 at 15: 00 Dextrose (D50w Syringe) 25 ml Q15M PRN IV DECREASED GLUCOSE; Start 01/21/17 at 15:00 Dextrose (D50w Syringe) 50 ml Q15M PRN IV DECREASED GLUCOSE; Start 01/21/17 at 15:00 Glucagon (Glucagen) 1 mg Q15M PRN IM DECREASED GLUCOSE; Start 01/21/17 at 15:00 Glucose (Glutose) 15 gm Q15M PRN BUCCAL DECREASED GLUCOSE; Start 01/21/17 at 15 :00 Metoclopramide HCl (Reglan) 10 mg Q6H PRN IV NAUSEA AND/OR VOMITING Last administered on 01/21/17 17:22; Admin Dose 10 MG; Start 01/21/17 at 17:30 Morphine Sulfate (morphine) 4 mg Q4H PRN IV SEVERE PAIN LEVEL 7-10 Last administered on 01/28/17 12:55; Admin Dose 4 MG; Start 01/22/17 at 06:00 Famotidine (Pepcid) 20 mg BID PO Last administered on 01/28/17 08:26; Admin Dose 20 MG; Start 01/25/17 at 11:00 Levofloxacin (Levaquin) 500 mg DAILY@06 PO Last administered on 01/28/17 06:01 ; Admin Dose 500 MG; Start 01/27/17 at 06:00 Metronidazole (Flagyl) 500 mg Q8 PO Last administered on 01/28/17 14:09; Admin Dose 500 MG; Start 01/26/17 at 14:00 Insulin Glargine (Lantus) 55 unit DAILY SC Last administered on 01/28/17 08:31 ; Admin Dose 55 UNIT; Start 01/28/17 at 09:00 Diagnostic Test (Pha) (Accu-Chek) 1 ea 02 XX ; Start 01/28/17 at 02:00 Ciprofloxacin HCl 1 drop 1 drop Q4 BOTH EYES Last administered on 01/28/17 12: 24; Admin Dose 1 DROP; Start 01/27/17 at 17:00; Stop 02/01/17 at 13:01 Magnesium Sulfate (Magnesium Sulfate 2 Gm/50 ml) 50 ml @ 25 mls/hr ONCE ONCE IVPB Last administered on 01/28/17 16:07; Admin Dose 25 MLS/HR; Start at 15:30; Stop 01/28/17 at 17:29 NAYA FOX Jan 28, 2017 16:55
[2017-01-29] MEDS ORDERED: FUROSEMIDE 40 MG TAB PO SCH (09:00)
== END 2017-01-28 19:56 | DRG 389 ==
LOC: FTE 11:10 → MS3 13:11 → MS4 18:25 → TEL 01-22 15:35
PROVIDERS: ADMIT Internal Medicine; ATTEND Internal Medicine
PROC: 2W3DX1Z Immobilization of Left Lower Arm using Splint (ICD-10-PCS; principal; 2017-01-22)
DX: K56.60 Unspecified intestinal obstruction (principal); E66.2 Morbid (severe) obesity with alveolar hypoventilation; I10 Essential (primary) hypertension; Z68.43 Body mass index [BMI] 50.0-59.9, adult; S52.512A Displaced fracture of left radial styloid process, initial encounter for closed fracture; S52.612A Displaced fracture of left ulna styloid process, initial encounter for closed fracture; I48.2 Chronic atrial fibrillation; E11.9 Type 2 diabetes mellitus without complications; Z79.4 Long term (current) use of insulin; E78.5 Hyperlipidemia, unspecified; Z79.01 Long term (current) use of anticoagulants; I89.0 Lymphedema, not elsewhere classified; J44.9 Chronic obstructive pulmonary disease, unspecified; W06.XXXA Fall from bed, initial encounter; Y92.230 Patient room in hospital as the place of occurrence of the external cause; G47.33 Obstructive sleep apnea (adult) (pediatric)
CPT/HCPCS: 36415; 71010; 74000; 74010; 74176; 80048; 80053; 81003; 82962; 83036; 83690; 83735; 84100; 84132; 85025; 96374; 96375; 96376; J1170; J1815; J1956; J2270; J2405; J2543; J2765; J3475; J7030; J7040; Q9967

== ENCOUNTER 2017-03-09 16:04 | Emergency (ER) | payer OTHER ==
[~2017-03-09] VITALS: Ht 180.3 cm; Wt 170.0 kg
[~2017-03-09 16:04] MED LIST changes: -ACET325T40 PO; +ALBU18HF INHALATION; -ATOR20TA38 PO; -CEPH500C PO; -DOXY100T2 PO; +HYDR-3498 PO; +INSU100C SQ; -LACT1CAP57 PO; -NOVO3I SC; -OXYC-431 PO; -TAMS-14 PO
[2017-03-09 16:49] VITALS: Ht 180.3 cm; Wt 170.0 kg
[2017-03-09] MEDS ORDERED: SULF1TAB31 PO (18:15)
[2017-03-09] MEDS ORDERED: CEPH-443 PO (18:15)
[2017-03-09 18:54] VITALS: BP 155/86; PULSE 88; RESP 18; TEMP 98
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
== END 2017-03-09 19:05 | disposition home or self-care (01) ==
LOC: FTE 16:04
DX: L03.115 Cellulitis of right lower limb (principal); I10 Essential (primary) hypertension; E11.9 Type 2 diabetes mellitus without complications; Z79.4 Long term (current) use of insulin; Z79.84 Long term (current) use of oral hypoglycemic drugs; Z87.891 Personal history of nicotine dependence
CPT/HCPCS: 99284

== ENCOUNTER 2017-07-13 18:04 | Inpatient (IN) | END 2017-07-16 16:00 | disposition home or self-care (01) | DRG 309 ==

== ENCOUNTER 2017-08-13 12:02 | Inpatient (IN) | END 2017-08-20 13:55 | disposition home or self-care (01) | DRG 552 ==

== ENCOUNTER 2017-08-27 11:43 | Emergency (ER) | END 2017-08-27 13:34 | disposition home or self-care (01) ==

== ENCOUNTER 2017-11-19 11:09 | Day surgery (SDC) | END 2017-11-19 18:55 | disposition home or self-care (01) ==

== ENCOUNTER 2017-12-14 16:42 | Emergency (ER) | END 2017-12-14 19:24 | disposition home or self-care (01) ==

== ENCOUNTER 2018-01-27 16:06 | Day surgery (SDC) | END 2018-01-27 22:45 | disposition home or self-care (01) ==

== ENCOUNTER 2018-03-10 14:12 | Inpatient (IN) | END 2018-03-12 22:37 | disposition home health service (06) | DRG 638 ==

== ENCOUNTER 2018-04-11 20:12 | Emergency (ER) | END 2018-04-12 03:18 | disposition home or self-care (01) ==